=== PATIENT | male | born 1960 | race Caucasian/White ===

== ENCOUNTER 2020-04-14 12:51 | Inpatient (IN) ==
--- OUTSIDE RECORDS SUMMARY | 2020-04-14 12:55 | External Medical Summary | Continuity of Care Document ---
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) Tobacco use (305.1) (Z72.0) Infection of kidney (590.9) (N15.9) Hypertension (401.9) (I10) Diabetic peripheral neuropathy (250.60) (E11.42) Allergies and Adverse Reactions metFORMIN HCl TABS (Allergy) Reaction: D iarrhea Medications Lisinopril 10 MG Oral Tablet; Take 1 tablet daily Vance Sandy Start: 22-Aug-2011 Quantity: 30 Refills: 5 metFORMIN HCl ER 500 MG Oral Tablet Exte nded Release 24 Hour; Take 1 tablet twice daily AYLEEN Sandy Start: 22-Aug-2011 Quantity: 60 Refills: 5 glyBURIDE 5 MG Oral Tablet; TAKE 2 TABLET Twice daily AYLEEN Hawkins Quantity: 120 Refills: 5 Pravastatin Sodium 40 MG Oral Tablet; TAKE 1 TABLET DA LUDIVINA. AYLEEN Sandy Start: 04-Apr-2011 Quantity: 30 Refills: 5 Procedures History of Knee Arthroscopy (Therapeutic) Status: Completed Immunizations Immunizations not documented Family History Mother Family history of Diabetes Mellitus (V18.0) Status: Active Grandmother Family history of Diabetes Mellitus (V18.0) Status: Active Social History - Smoking Status Smokes tobacco daily Plan of Treatment Planned Observations Planned Goals not documented Results No Known Results Results not documented
[2020-04-14] MEDS ORDERED: SODIUM CHLORIDE 0.9% 1000ML 2,000 ML IV ONE (13:49)
[2020-04-14] MEDS ORDERED: ONDANSETRON INJ 2 MG/ML 2 ML VIAL IV STA (13:49)
--- NOTE | 2020-04-14 13:57 | Emergency Department Note ---
Impression & Plan DKA (diabetic ketoacidoses), Elevated troponin, ARIANA (acute kidney injury), Osteomyelitis, Non-ST elevation ME (NSTEMI) ED Provider Note NAME: JOELLE MAYFIELD AGE: 60 SEX: M : 1960 ARRIVES VIA: Ambulance INFORMANT: Patient ED PROVIDER(S): Rodrick Cope DO CHIEF COMPLAINT: Cough elevated blood sugars HPI: Patient is a 60-year-old male who presents to the ER for elevated blood sugars. He notes he is a diabetic with a previous bypass and bilateral below- knee amputations who has had elevated blood sugars all day today. This has been critically high. Patient also admits to a cough that recently started. Recently moved here from [place] has his daughter lives up here. Denies any chest pain or shortness of breath. No nausea, vomiting or diarrhea. No dysuria, urgency or frequency. No other exacerbating or remitting factors. Notes the wound on his right lower extremity is actually improving. ROS: See above HPI for pertinent positives & negatives. A total of 10 systems reviewed and were otherwise negative. PAST MEDICAL HISTORY:See Below PAST SURGICAL HISTORY:See Below FAMILY HISTORY:See Below SOCIAL HISTORY:See Below HOME MEDICATIONS:See Below ALLERGIES:See Below VITALS:See Below PHYSICAL EXAMINATION: GENERAL: Sitting up in bed, alert, well appearing, well nourished, no distress, non-toxic EYE EXAM: normal conjunctiva. OROPHARYNX: no exudate, no erythema, lips, buccal mucosa, and tongue normal and mucous membranes are moist NECK: supple, no nuchal rigidity, no adenopathy, non-tender LUNGS: Clear to auscultation. Normal chest wall mechanics HEART: Tachy, S1 normal and S2 normal ABDOMEN: abdomen soft, non-tender, normo-active bowel sounds, no masses, no rebound or guarding. UPPER EXTREMITIES: upper extremities are grossly normal. LOWER EXTREMITIES: Bilateral BKA's with 4 cm x 2 cm wound on the right anterior aspect of the BKA no surrounding erythema evaluation. NEURO EXAM: Normal sensorium, cranial nerves II-XII grossly intact, normal speech, no gross weakness of arms. MEDICAL DECISION MAKING: Patient is a 60-year-old male who presents the ER for an elevated blood sugar. She has no other complaints at this time. He adamantly denies any chest pain or shortness of breath. He notes the wound on his right lower extremity has been getting better. IV was established blood work was obtained. Labs show no significant leukocytosis. No anemia. Mild thrombocytopenia at 88. VBG with a pH 7.34 and a bicarb of 19. BMP with mild hyponatremia. CO2 and BUN at BMP was 19. Creatinine was 4.8. Patient denies any history of ARIANA. No previous records. Patient was given IV fluids. Ordered Barakat. Glucose was initially 500 and trended down to 3 8:30 units IV and IV fluids. Insulin drip was ordered. Lactate was normal at 1.7. Mag and Phos unremarkable. LFTs were normal. Troponin was elevated at 0.119. Uncertain the true etiology of this. Question if ischemia versus demand. He denies any chest pain or shortness of breath. His EKG does show some mild ST segment elevations in the inferior leads with ST depressions. No old to compare to. Discussed with Dr. Britt who agrees with holding heparin at this time as he is asymptomatic and already has inferior Q waves. Agrees with treatment of DKA. Patient was given additional liter of IV fluids. He was also ordered daptomycin for the x-ray of his right BKA which shows a likely chronic osteo-. Discussed with the hospitalist for further evaluation. Will need to be monitored closely for any additional changes. Triage Nursing notes reviewed. Prior medical records reviewed Vital Signs: reviewed and remarkable for tachy Differential diagnosis: Differential diagnosis includes etiologies such as sepsis, UTI, pneumonia, metabolic, electrolyte abnormalities, cardiac sources, intracerebral event, toxicologic, neurological, as well as others were entertained. ER treatment provided: See below Diagnostics interpreted by me: ECG: Sinus tachycardia rate of 121 Inferior Q waves Mild ST elevations in the inferior leads with ST depressions in the high lateral leads and lateral leads QTC 437 Cardiac Monitoring: An order was placed for continuous cardiac monitoring. The monitor shows a rate of 121 with sinus rhythm. Laboratory studies: As stated above and show below. Imaging studies: X-ray shows questionable osteo- X-ray shows no focal infiltrate of the chest Consultation(s): Discussed with hospitalist for further evaluation Dr. Emily Valadez ED COURSE: Procedures: none Critical Care: I have personally spent 40 minutes of critical care time in the direct management of this patient. This includes bedside care, interpretation of diagnostic studies, and testing, discussion with consultants, patient, and family members, and other required patient management activities. This 40 minutes is in excess of all separately billable procedures. Past Med/Surg History Social History Smoking Status: Current every day smoker Feels Safe at Home: Yes Allergies Allergies Allergy/AdvReac Type Severity Reaction Status Date / Time No Known Allergies Allergy Unverified 04/14/20 15:35 Home Meds Home Medications Medication Instructions Recorded Confirmed Bp Med 1 tab PO UD 04/14/20 04/14/20 Cholesterol Med 1 tab PO DAILY 04/14/20 04/14/20 Diabetic Med 0 mg PO UD 04/14/20 04/14/20 Results & Data (ED) Vital Signs Vital Signs - 24 hr 04/14/20 13:00 04/14/20 13:26 04/14/20 13:30 Temperature 37 C Temperature Source Oral Pulse Rate 120 H 122 H 118 H Pulse Rate from SpO2 Sensor 120 H 118 H Pulse Rhythm Regular Pulse Strength Normal Respiratory Rate 22 20 24 Respiratory Effort / Characteristics Non-Labored Spontaneous Respiratory Depth Normal Respiratory Pattern Regular Blood Pressure 123/69 157/129 H 144/73 H Blood Pressure Mean 75 138 81 Pulse Oximetry 90 98 94 Oxygen Delivery Method Room Air Room Air Room Air Sepsis Recent Fever Within 48 Hours No Sepsis New/Unexplained Change in Mental Status N/A Sepsis Action Taken by Nursing No Action Required 04/14/20 13:59 04/14/20 14:30 04/14/20 15:00 Temperature Temperature Source Pulse Rate 117 H 115 H Pulse Rate from SpO2 Sensor 117 H 115 H Pulse Rhythm Pulse Strength Respiratory Rate 22 24 Respiratory Effort / Characteristics Respiratory Depth Respiratory Pattern Blood Pressure 108/67 129/73 Blood Pressure Mean 78 94 Pulse Oximetry 95 95 94 Oxygen Delivery Method Room Air Sepsis Recent Fever Within 48 Hours Sepsis New/Unexplained Change in Mental Status Sepsis Action Taken by Nursing 04/14/20 15:30 04/14/20 16:00 04/14/20 16:06 Temperature Temperature Source Pulse Rate 114 H 117 H 119 H Pulse Rate from SpO2 Sensor Pulse Rhythm Pulse Strength Respiratory Rate 27 H 31 H 30 H Respiratory Effort / Characteristics Respiratory Depth Respiratory Pattern Blood Pressure 131/75 119/67 Blood Pressure Mean 81 78 Pulse Oximetry Oxygen Delivery Method Sepsis Recent Fever Within 48 Hours Sepsis New/Unexplained Change in Mental Status Sepsis Action Taken by Nursing 04/14/20 16:30 04/14/20 17:00 04/14/20 17:30 Temperature Temperature Source Pulse Rate 115 H 111 H 115 H Pulse Rate from SpO2 Sensor 116 H Pulse Rhythm Pulse Strength Respiratory Rate 27 H 24 24 Respiratory Effort / Characteristics Respiratory Depth Respiratory Pattern Blood Pressure 121/67 119/68 Blood Pressure Mean 82 74 Pulse Oximetry 94 Oxygen Delivery Method Sepsis Recent Fever Within 48 Hours Sepsis New/Unexplained Change in Mental Status Sepsis Action Taken by Nursing Laboratory Data Result diagrams: 04/14/20 14:13 04/14/20 14:13 Lab Results 04/14/20 04/14/20 04/14/20 Range/Units 13:02 14:09 14:09 WBC (4.8-10.8) K/uL RBC (4.7-6.1) M/uL Hgb (14.0-18.0) g/dL POC Hgb (14.0-18.0) g/dl Hct (42-52) % POC Hct (42-52) % MCV (80-100) fL MCH (25-34) pg MCHC (32-36) g/dL RDW Std Deviation (36.4-46.3) fL RDW Coeff of Farooq (11.5-14.5) % Plt Count (130-400) K/uL MPV (7.4-10.4) fL Immature Gran % (Auto) % Neut % (Auto) % Lymph % (Auto) % [place] % (Auto) % Eos % (Auto) % Baso % (Auto) % Neut # (Auto) (1.4-6.5) K/uL Lymph # (Auto) (1.2-3.4) K/uL [place] # (Auto) (0.11-0.59) K/uL Eos # (Auto) (0-0.5) K/uL Baso # (Auto) (0-0.2) K/uL Immature Gran # (Auto) (0.00-0.02) K/uL Platelet Estimate (Normal) ABG pH (7.35-7.45) ABG pCO2 (35-46) mmHg ABG pO2 (80-95) mmHg ABG HCO3 (19-24) mmol/L ABG O2 Saturation (90-95) % ABG Base Excess (-9-1.8) mEq/L Flaco Test (Pos) VBG pH (7.36-7.41) VBG pCO2 (38-50) mmHg VBG pO2 mmHg VBG HCO3 mmol/L VBG O2 Saturation % VBG Base Excess mEq/L Barometric Pressure mm/Hg Oxygen Given POC Sodium (135-144) mmol/L Sodium (136-145) mmol/L POC Potassium (3.3-5.0) mmol/L Potassium (3.5-5.1) mmol/L POC Chloride (101-112) mmol/L Chloride (98-107) mmol/L Carbon Dioxide (21-32) mmol/L POC Total CO2 (24-31) mmol/L Anion Gap (3-11) POC Anion Gap (16-25) mmol/L POC BUN (7-18) mg/dl BUN (7-18) mg/dl Creatinine (0.6-1.4) mg/dl POC Creatinine (0.6-1.3) mg/dl Est Cr Clr Drug Dosing ml/min Est GFR ( Amer) Est GFR (Non-Af Amer) BUN/Creatinine Ratio (10-20) Glucose (70-99) mg/dl POC Glucose 504 H* (70-99) mg/dl POC Glucose (other) (70-99) mg/dl Lactate (0.4-2.0) mmol/L Calcium (8.5-10.1) mg/dl POC Ioniz Calcium Matias (1.12-1.32) mmol/l Total Bilirubin (0.2-1) mg/dl AST (15-37) U/L ALT (12-78) U/L Alkaline Phosphatase (45-117) U/L Troponin I (0-0.045) ng/ml Total Protein (6.4-8.2) gm/dl Albumin (3.4-5.0) gm/dl Globulin (2.5-4.0) gm/dl Albumin/Globulin Ratio (0.9-2) Lipase (73-393) U/L Beta-Hydroxybutyric Acd (0.2-2.81) mg/dl COVID-19 Eval [email or web address] SARS-[facility]-2, RNA, NAAT NEGATIVE (NEGATIVE) 04/14/20 04/14/20 04/14/20 Range/Units 14:13 14:13 14:13 WBC 9.05 (4.8-10.8) K/uL RBC 4.37 L (4.7-6.1) M/uL Hgb 13.1 L (14.0-18.0) g/dL POC Hgb (14.0-18.0) g/dl Hct 38.8 L (42-52) % POC Hct (42-52) % MCV 88.8 (80-100) fL MCH 30.0 (25-34) pg MCHC 33.8 (32-36) g/dL RDW Std Deviation 44.3 (36.4-46.3) fL RDW Coeff of Farooq 13.6 (11.5-14.5) % Plt Count 88 L (130-400) K/uL MPV 13.7 H (7.4-10.4) fL Immature Gran % (Auto) 0.4 % Neut % (Auto) 84.0 % Lymph % (Auto) 7.3 % [place] % (Auto) 8.2 % Eos % (Auto) 0.0 % Baso % (Auto) 0.1 % Neut # (Auto) 7.60 H (1.4-6.5) K/uL Lymph # (Auto) 0.66 L (1.2-3.4) K/uL [place] # (Auto) 0.74 H (0.11-0.59) K/uL Eos # (Auto) 0.00 (0-0.5) K/uL Baso # (Auto) 0.01 (0-0.2) K/uL Immature Gran # (Auto) 0.04 H (0.00-0.02) K/uL Platelet Estimate Decreased L (Normal) ABG pH (7.35-7.45) ABG pCO2 (35-46) mmHg ABG pO2 (80-95) mmHg ABG HCO3 (19-24) mmol/L ABG O2 Saturation (90-95) % ABG Base Excess (-9-1.8) mEq/L Flaco Test (Pos) VBG pH 7.34 L (7.36-7.41) VBG pCO2 36 L (38-50) mmHg VBG pO2 24 mmHg VBG HCO3 19 mmol/L VBG O2 Saturation < 60.0 % VBG Base Excess -6.0 mEq/L Barometric Pressure 733.0 mm/Hg Oxygen Given POC Sodium (135-144) mmol/L Sodium 133 L (136-145) mmol/L POC Potassium (3.3-5.0) mmol/L Potassium 5.0 (3.5-5.1) mmol/L POC Chloride (101-112) mmol/L Chloride 104 (98-107) mmol/L Carbon Dioxide 19 L (21-32) mmol/L POC Total CO2 (24-31) mmol/L Anion Gap 10.0 (3-11) POC Anion Gap (16-25) mmol/L POC BUN (7-18) mg/dl BUN 84 H (7-18) mg/dl Creatinine 4.93 H* (0.6-1.4) mg/dl POC Creatinine (0.6-1.3) mg/dl Est Cr Clr Drug Dosing 18.9 ml/min Est GFR ( Amer) 13.6 Est GFR (Non-Af Amer) 11.8 BUN/Creatinine Ratio 17.0 (10-20) Glucose 461 H* (70-99) mg/dl POC Glucose (70-99) mg/dl POC Glucose (other) (70-99) mg/dl Lactate (0.4-2.0) mmol/L Calcium 8.4 L (8.5-10.1) mg/dl POC Ioniz Calcium Matias (1.12-1.32) mmol/l Total Bilirubin 0.6 (0.2-1) mg/dl AST 59 H (15-37) U/L ALT 38 (12-78) U/L Alkaline Phosphatase 77 (45-117) U/L Troponin I 0.119 H* (0-0.045) ng/ml Total Protein 6.5 (6.4-8.2) gm/dl Albumin 2.5 L (3.4-5.0) gm/dl Globulin 4.0 (2.5-4.0) gm/dl Albumin/Globulin Ratio 0.6 L (0.9-2) Lipase 96 (73-393) U/L Beta-Hydroxybutyric Acd 24.93 H (0.2-2.81) mg/dl COVID-19 Eval Order SARS-CoV-2, RNA, NAAT (NEGATIVE) 04/14/20 04/14/20 04/14/20 Range/Units 14:13 14:13 14:34 WBC (4.8-10.8) K/uL RBC (4.7-6.1) M/uL Hgb (14.0-18.0) g/dL POC Hgb 13.3 L (14.0-18.0) g/dl Hct (42-52) % POC Hct 39 L (42-52) % MCV (80-100) fL MCH (25-34) pg MCHC (32-36) g/dL RDW Std Deviation (36.4-46.3) fL RDW Coeff of Farooq (11.5-14.5) % Plt Count (130-400) K/uL MPV (7.4-10.4) fL Immature Gran % (Auto) % Neut % (Auto) % Lymph % (Auto) % [place] % (Auto) % Eos % (Auto) % Baso % (Auto) % Neut # (Auto) (1.4-6.5) K/uL Lymph # (Auto) (1.2-3.4) K/uL [place] # (Auto) (0.11-0.59) K/uL Eos # (Auto) (0-0.5) K/uL Baso # (Auto) (0-0.2) K/uL Immature Gran # (Auto) (0.00-0.02) K/uL Platelet Estimate (Normal) ABG pH (7.35-7.45) ABG pCO2 (35-46) mmHg ABG pO2 (80-95) mmHg ABG HCO3 (19-24) mmol/L ABG O2 Saturation (90-95) % ABG Base Excess (-9-1.8) mEq/L Flaco Test (Pos) VBG pH (7.36-7.41) VBG pCO2 (38-50) mmHg VBG pO2 mmHg VBG HCO3 mmol/L VBG O2 Saturation % VBG Base Excess mEq/L Barometric Pressure mm/Hg Oxygen Given POC Sodium 132 L (135-144) mmol/L Sodium (136-145) mmol/L POC Potassium 5.0 (3.3-5.0) mmol/L Potassium (3.5-5.1) mmol/L POC Chloride 102 (101-112) mmol/L Chloride (98-107) mmol/L Carbon Dioxide (21-32) mmol/L POC Total CO2 16 L (24-31) mmol/L Anion Gap (3-11) POC Anion Gap 20.0 (16-25) mmol/L POC BUN 86 H (7-18) mg/dl BUN (7-18) mg/dl Creatinine (0.6-1.4) mg/dl POC Creatinine 4.8 H* (0.6-1.3) mg/dl Est Cr Clr Drug Dosing ml/min Est GFR ( Amer) Est GFR (Non-Af Amer) BUN/Creatinine Ratio (10-20) Glucose (70-99) mg/dl POC Glucose (70-99) mg/dl POC Glucose (other) 435 H* (70-99) mg/dl Lactate 1.7 (0.4-2.0) mmol/L Calcium (8.5-10.1) mg/dl POC Ioniz Calcium Matias 1.08 L (1.12-1.32) mmol/l Total Bilirubin (0.2-1) mg/dl AST (15-37) U/L ALT (12-78) U/L Alkaline Phosphatase (45-117) U/L Troponin I (0-0.045) ng/ml Total Protein (6.4-8.2) gm/dl Albumin (3.4-5.0) gm/dl Globulin (2.5-4.0) gm/dl Albumin/Globulin Ratio (0.9-2) Lipase (73-393) U/L Beta-Hydroxybutyric Acd Cancelled (0.2-2.81) mg/dl COVID-19 Eval Order SARS-CoV-2, RNA, NAAT (NEGATIVE) 04/14/20 04/14/20 04/14/20 Range/Units 15:40 16:39 16:40 WBC (4.8-10.8) K/uL RBC (4.7-6.1) M/uL Hgb (14.0-18.0) g/dL POC Hgb (14.0-18.0) g/dl Hct (42-52) % POC Hct (42-52) % MCV (80-100) fL MCH (25-34) pg MCHC (32-36) g/dL RDW Std Deviation (36.4-46.3) fL RDW Coeff of Farooq (11.5-14.5) % Plt Count (130-400) K/uL MPV (7.4-10.4) fL Immature Gran % (Auto) % Neut % (Auto) % Lymph % (Auto) % [place] % (Auto) % Eos % (Auto) % Baso % (Auto) % Neut # (Auto) (1.4-6.5) K/uL Lymph # (Auto) (1.2-3.4) K/uL [place] # (Auto) (0.11-0.59) K/uL Eos # (Auto) (0-0.5) K/uL Baso # (Auto) (0-0.2) K/uL Immature Gran # (Auto) (0.00-0.02) K/uL Platelet Estimate (Normal) ABG pH 7.43 (7.35-7.45) ABG pCO2 28 L (35-46) mmHg ABG pO2 67 L (80-95) mmHg ABG HCO3 18 L (19-24) mmol/L ABG O2 Saturation 93.6 (90-95) % ABG Base Excess -5.4 (-9-1.8) mEq/L Flaco Test Pos (Pos) VBG pH (7.36-7.41) VBG pCO2 (38-50) mmHg VBG pO2 mmHg VBG HCO3 mmol/L VBG O2 Saturation % VBG Base Excess mEq/L Barometric Pressure 739.0 mm/Hg Oxygen Given Room Air POC Sodium (135-144) mmol/L Sodium (136-145) mmol/L POC Potassium (3.3-5.0) mmol/L Potassium (3.5-5.1) mmol/L POC Chloride (101-112) mmol/L Chloride (98-107) mmol/L Carbon Dioxide (21-32) mmol/L POC Total CO2 (24-31) mmol/L Anion Gap (3-11) POC Anion Gap (16-25) mmol/L POC BUN (7-18) mg/dl BUN (7-18) mg/dl Creatinine (0.6-1.4) mg/dl POC Creatinine (0.6-1.3) mg/dl Est Cr Clr Drug Dosing ml/min Est GFR ( Amer) Est GFR (Non-Af Amer) BUN/Creatinine Ratio (10-20) Glucose (70-99) mg/dl POC Glucose 513 H* 336 H* (70-99) mg/dl POC Glucose (other) (70-99) mg/dl Lactate (0.4-2.0) mmol/L Calcium (8.5-10.1) mg/dl POC Ioniz Calcium Matias (1.12-1.32) mmol/l Total Bilirubin (0.2-1) mg/dl AST (15-37) U/L ALT (12-78) U/L Alkaline Phosphatase (45-117) U/L Troponin I (0-0.045) ng/ml Total Protein (6.4-8.2) gm/dl Albumin (3.4-5.0) gm/dl Globulin (2.5-4.0) gm/dl Albumin/Globulin Ratio (0.9-2) Lipase (73-393) U/L Beta-Hydroxybutyric Acd (0.2-2.81) mg/dl COVID-19 Eval Order SARS-CoV-2, RNA, NAAT (NEGATIVE) 04/14/20 Range/Units 17:20 WBC (4.8-10.8) K/uL RBC (4.7-6.1) M/uL Hgb (14.0-18.0) g/dL POC Hgb (14.0-18.0) g/dl Hct (42-52) % POC Hct (42-52) % MCV (80-100) fL MCH (25-34) pg MCHC (32-36) g/dL RDW Std Deviation (36.4-46.3) fL RDW Coeff of Farooq (11.5-14.5) % Plt Count (130-400) K/uL MPV (7.4-10.4) fL Immature Gran % (Auto) % Neut % (Auto) % Lymph % (Auto) % [place] % (Auto) % Eos % (Auto) % Baso % (Auto) % Neut # (Auto) (1.4-6.5) K/uL Lymph # (Auto) (1.2-3.4) K/uL [place] # (Auto) (0.11-0.59) K/uL Eos # (Auto) (0-0.5) K/uL Baso # (Auto) (0-0.2) K/uL Immature Gran # (Auto) (0.00-0.02) K/uL Platelet Estimate (Normal) ABG pH (7.35-7.45) ABG pCO2 (35-46) mmHg ABG pO2 (80-95) mmHg ABG HCO3 (19-24) mmol/L ABG O2 Saturation (90-95) % ABG Base Excess (-9-1.8) mEq/L Flaoc Test (Pos) VBG pH (7.36-7.41) VBG pCO2 (38-50) mmHg VBG pO2 mmHg VBG HCO3 mmol/L VBG O2 Saturation % VBG Base Excess mEq/L Barometric Pressure mm/Hg Oxygen Given POC Sodium (135-144) mmol/L Sodium (136-145) mmol/L POC Potassium (3.3-5.0) mmol/L Potassium (3.5-5.1) mmol/L POC Chloride (101-112) mmol/L Chloride (98-107) mmol/L Carbon Dioxide (21-32) mmol/L POC Total CO2 (24-31) mmol/L Anion Gap (3-11) POC Anion Gap (16-25) mmol/L POC BUN (7-18) mg/dl BUN (7-18) mg/dl Creatinine (0.6-1.4) mg/dl POC Creatinine (0.6-1.3) mg/dl Est Cr Clr Drug Dosing ml/min Est GFR ( Amer) Est GFR (Non-Af Amer) BUN/Creatinine Ratio (10-20) Glucose (70-99) mg/dl POC Glucose 372 H* (70-99) mg/dl POC Glucose (other) (70-99) mg/dl Lactate (0.4-2.0) mmol/L Calcium (8.5-10.1) mg/dl POC Ioniz Calcium Matias (1.12-1.32) mmol/l Total Bilirubin (0.2-1) mg/dl AST (15-37) U/L ALT (12-78) U/L Alkaline Phosphatase (45-117) U/L Troponin I (0-0.045) ng/ml Total Protein (6.4-8.2) gm/dl Albumin (3.4-5.0) gm/dl Globulin (2.5-4.0) gm/dl Albumin/Globulin Ratio (0.9-2) Lipase (73-393) U/L Beta-Hydroxybutyric Acd (0.2-2.81) mg/dl COVID-19 Eval Order SARS-CoV-2, RNA, NAAT (NEGATIVE) Administered Medications Discontinued Medications Aspirin (Aspirin Chew 324 Mg) 324 mg PO NOW STA Stop: 04/14/20 16:05 Last Admin: 04/14/20 17:25 Dose: 324 mg Documented by: [id number] Sodium Chloride (Nss 1000ml) 2,000 mls @ 999 mls/hr IV .Q2H1M ONE Stop: 04/14/20 15:49 Last Infusion: 04/14/20 16:54 Dose: 0 mls/hr Documented by: [id number] Admin: 04/14/20 14:34 Dose: 999 mls/hr Documented by: [id number] Daptomycin 500 mg/ Syringe 10 mls @ 5 mls/min IV NOW ONE; Protocol Stop: 04/14/20 16:40 Last Admin: 04/14/20 17:25 Dose: 5 mls/min Documented by: [id number] Insulin Human Regular (Novolin-R Insulin Per Unit Charge) 8 units IV NOW STA Stop: 04/14/20 14:39 Last Admin: 04/14/20 15:37 Dose: 8 units Documented by: [id number] Cosigned by: [id number] Ondansetron HCl (Ondansetron Inj 2 Mg/Ml 2 Ml Vial) 4 mg IV NOW STA Stop: 04/14/20 13:50 Last Admin: 04/14/20 14:34 Dose: 4 mg Documented by: [id number] Discharge Plan Visit Data Chief Complaint: Hyperglycemia Stated Complaint: Hyperglycemia ED Provider: Rodrick Cope Discharge Problem: DKA (diabetic ketoacidoses), Elevated troponin, ARIANA (acute kidney injury), Osteomyelitis, Non-ST elevation ME (NSTEMI) Forms Stand Alone Forms: [employer] Prescriptions Prescriptions: No Action Bp Med 1 tab PO UD RF: 0 Cholesterol Med 1 tab PO DAILY RF: 0 Diabetic Med 0 mg PO UD RF: 0 Discharge Problem: DKA (diabetic ketoacidoses) Qualifiers: Diabetes mellitus type: other specified (including BABATUNDE) Diabetes mellitus complication detail: without coma Qualified Code(s): E13.10 - Other specified diabetes mellitus with ketoacidosis without coma Osteomyelitis Qualifiers: Osteomyelitis type: unspecified type Laterality: unspecified laterality
--- NOTE | 2020-04-14 14:17 | XRay Report ---
XR chest 1V portable HISTORY: cough COMPARISON: Chest 09/12/2011. FINDINGS: No pneumothorax. No pleural effusions. The heart is normal in size. There are low lung volu mes. Poststernotomy changes. A few bibasilar linear densities favor subsegmental atelectasis or scarr ing. Otherwise, no new focal lung consolidations to suggest pneumonia. Mild diffuse interstitial thic kening, unchanged. This is likely chronic. IMPRESSION: A few bibasilar linear densities favor subsegmental atelectasis or scarring. Otherwise, no new focal lung consolidations to suggest pneumonia. ACT 112: Negative or not required by law. Electronically signed by: Javier Wang M.D. 04/14/2020 2:16 PM
--- NOTE | 2020-04-14 14:20 | XRay Report ---
XR tibia fibula RT 2V HISTORY: 60 years-old Male wound ?oseto chronic wound of the right lower leg with clinical concern f or osteomyelitis COMPARISON: None TECHNIQUE: 2 views of the right tibia and fibula FINDINGS: Postoperative changes of [id number] amputation. Demineralized appearance of the bones. Mild to mo derate patellofemoral with mild medial and lateral compartment osteoarthritis. There is a questioned osteochondral defect with unstable fragment measuring 7 mm involving the lateral aspect of the medial femoral condyle. Arterial calcifications. Soft tissue ulceration at the amputation stump is noted wi th moderate diffuse soft tissue swelling. Cortical and periosteal thickening with mild cortical irreg ularity is noted at the tibial stump. No definite acute osseous erosions identified. Indeterminate ro und lucency involves the anterior cortex of the distal tibia. IMPRESSION: 1. 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 2. Cortical and periosteal thickening with cortical irregularity involves the distal tibia which may reflect sequela of chronic osteomyelitis. No definite osseous erosions to suggest acute osteomyelitis . ACT 112: Negative or not required by law. The above report was generated using voice recognition software. It may contain grammatical, syntax o r spelling errors. Electronically signed by: Javi Bay M.D. 04/14/2020 2:18 PM
[2020-04-14] MEDS ORDERED: NovoLIN-R INSULIN PER UNIT CHARGE IV STA (14:38)
[2020-04-14 14:39] LABS: HCO3 VBG 19 mmol/L; PCO2 VBG 36 mmHg (38-50); PO2 VBG 24 mmHg; pH VBG 7.34 (7.36-7.41)
[2020-04-14 14:40] LABS: Oxygen Saturation VBG < 60.0 %
[2020-04-14 14:47] LABS: iSTAT Creatinine 4.8 mg/dl (0.6-1.3); iSTAT Hemoglobin 13.3 g/dl (14.0-18.0); iSTAT Ionized Calcium 1.08 mmol/l (1.12-1.32)
[2020-04-14 15:09] LABS: Hematocrit (blood only) 38.8 % (42-52); Hemoglobin 13.1 g/dL (14.0-18.0); Mean Corpuscular Hgb Conc 33.8 g/dL (32-36); Mean Corpuscular Volume 88.8 fL (80-100); Mean Platelet Volume 13.7 fL (7.4-10.4); Platelet Count 88 K/uL (130-400); RDW Coefficient of Variation 13.6 % (11.5-14.5); RDW Standard Deviation 44.3 fL (36.4-46.3); Red Blood Count 4.37 M/uL (4.7-6.1); White Blood Count 9.05 K/uL (4.8-10.8)
[2020-04-14 15:10] LABS: Basophils # (auto) 0.01 K/uL (0-0.2); Basophils % (auto) 0.1 %; Immature Granulocytes # (auto) 0.04 K/uL (0.00-0.02); Immature Granulocytes % (auto) 0.4 %; Lymphocytes # (auto) 0.66 K/uL (1.2-3.4); Lymphocytes % (auto) 7.3 %; Monocytes # (auto) 0.74 K/uL (0.11-0.59); Monocytes % (auto) 8.2 %; Platelet Estimate Decreased (Normal)
[2020-04-14 16:00] LABS: Albumin Globulin Ratio 0.6 (0.9-2); Albumin Level 2.5 gm/dl (3.4-5.0); Bilirubin,Total 0.6 mg/dl (0.2-1); Calcium 8.4 mg/dl (8.5-10.1); Creatinine Clr Calc Pharmacy 18.9 ml/min; Est GFR (African American) 13.6; Est GFR (Non-African American) 11.8; Total Protein 6.5 gm/dl (6.4-8.2); Troponin I 0.119 ng/ml (0-0.045)
[2020-04-14] MEDS ORDERED: DEXTROSE 50% 50 ML SYRINGE IV PRN ×2 (16:01→19:31)
[2020-04-14] MEDS ORDERED: GLUCOSE 10 TABS/TUBE PO PRN ×2 (16:01→19:31)
[2020-04-14] MEDS ORDERED: DKA GOAL RANGE 150-250 mg/dl ONE (16:01)
[2020-04-14] MEDS ORDERED: GLUCAGON FOR INJ 1 MG VIAL SQ PRN ×2 (16:01→19:31)
[2020-04-14] MEDS ORDERED: ED DKA INSULIN DRIP ONE (16:01)
[2020-04-14] MEDS ORDERED: CARBOHYDRATES FOR HYPOGLYCEMIA PO PRN ×2 (16:01→19:31)
[2020-04-14] MEDS ORDERED: GLUCOSE 40% GEL 15 GM TUBE PO PRN ×2 (16:01→19:31)
[2020-04-14] MEDS ORDERED: ASPIRIN CHEW 324 MG PO STA (16:04)
[2020-04-14 16:11] LABS: Beta-Hydroxybutyrate 24.93 mg/dl (0.2-2.81)
[2020-04-14] MEDS ORDERED: INSULIN REGULAR 250 UNITS in SODIUM CHLORIDE 0.9% 247.5 ML IV SCH (16:15)
[2020-04-14] MEDS ORDERED: DAPTOmycin 500 MG in SYRINGE 0 ML IV ONE (16:39)
[2020-04-14 16:56] LABS: Base Excess ABG -5.4 mEq/L (-9-1.8); HCO3 ABG 18 mmol/L (19-24); Oxygen Saturation ABG 93.6 % (90-95); PCO2 ABG 28 mmHg (35-46); PO2 ABG 67 mmHg (80-95); pH ABG 7.43 (7.35-7.45)
[2020-04-14 16:57] LABS: Allen Test Pos (Pos)
[2020-04-14] MEDS ORDERED: PHARMACY GLYCEMIC MGMT CONSULT STA (17:02)
--- NOTE | 2020-04-14 17:03 | Electrocardiogram Report ---
Test Reason : Blood Pressure : / mmHG Vent. Rate : 121 BPM Atrial Rate : 121 BPM P-R Int : 178 ms QRS Dur : 098 ms QT Int : 308 ms P-R-T Axes : 053 -13 054 degrees QTc Int : 437 ms Sinus tachycardia Left atrial enlargement Left ventricular hypertrophy Inferior infarct , age undetermined Inferior ST abnormality Abnormal ECG No previous ECGs available Confirmed by Joe Britt ([id number]) on 04/14/2020 5:02:32 PM Referred By: REFERRED SELF Confirmed By:Joe Britt
[2020-04-14] MEDS ORDERED: PIPERACILL/TAZOBAC CONSULT ACTIVE PRN (17:15)
[2020-04-14 17:40] LABS: Magnesium 2.1 mg/dl (1.8-2.4); Phosphorus 2.8 mg/dl (2.5-4.9)
[2020-04-14] MEDS ORDERED: SODIUM CHLORIDE 0.9% 1000ML 1,000 ML IV ONE (17:51)
[2020-04-14 18:03] LABS: Appearance Urine Turbid (Clear); Bacteria Urine Automated Negative (Negative); Bilirubin Urine Negative (Negative); Blood Urine 3+ (Negative); Color Urine Dark Yellow; Epithelial Cell Urine Auto >30 /lpf (0-5); Glucose Urine UA 2+ (Negative); Ketones Urine Trace (Negative); Leukocyte Esterase Urine 3+ (Negative); Nitrite Urine Negative (Negative); Protein Urine 3+ (Negative); Urobilinogen Urine Negative (Negative); WBC Urine Automated >30 /hpf (0-5); pH Urine 5.5 (4.5-7.5)
[2020-04-14 18:19] LABS: Cast Urine Automated 0 /lpf (0-5); RBC Urine Automated 0-4 /hpf (0-4)
--- NOTE | 2020-04-14 18:21 | History & Physical Report ---
Date of Service April 14, 2020 Assessment & Plan (1) Hyperglycemia: Mr. 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 He notes elevated blood sugars today greater than 500 that started today. DKA/HHS clinical picture with appearance of poorly controlled diabetes. -WBC of 9, platelets 88, , Glucose 461, bG values >500, trop 0.119, Beta-OH 24.9, CO2 19, Venous blood gas 7.34, ABG pH 7.43, pCO2 28, pO2 67, ABG HCO3 18. - notes that he takes Lantus 30 units daily with no missed doses or changes in diet or medications to account of increase sugars. - Infection and non-compliance possibly contributing to elevated bsg. Possible source of infection - urinary - cloudy urine in pal bag/soft tissue infection from wound of RLE - Appears to have a compensated mixed gap and non-anion gap metabolic acidosis; Venous blood gas was acidotic and appears to have had the ABG s/p insulin and IVF in ED. - Regular Insulin 8 units given in ED along witih 2L of NSS. - Plan for Pharmacy consult to help with controlling of blood sugars. Will continue with aggressive IVF hydration at 250mL/hr of Normosol. - check labs q4H to monitor progress with treatment and prevent hypokalemia. - UA was not processed for ketones during timing of this note. ARIANA - creatinine 4.93 in ED - Denies hx of dialysis, denies decrease in urine production or not producing urine - Suspect underlying renal chronic disease, but no prior creatinine values available. - A value of 4.93 is concerning and will get Nephrology consult for help with management. - Suspect obvious component of fluid loss through diuresis from elevated sugars leading to volume loss. Osteomyelitis/RLE Wound Patient was unaware of large wound to RLE. Obvious neuropathy in lower extremities. He denies any current treatment of osteomyelitis. - Wound consult appreciated. Wound appears chronic not grossly cellulitic as no significant increase of warmth. Unable to appreciate tenderness as neuropathic. - Cultures of wound - Will continue with Daptomycin since Vancomycin is not safe option with kidney injury. Will add on Zosyn for pseudomonal coverage. - Blood cultures ordered. Xray of RLE showed: 1. Postoperative changes of below the knee amputation with diffuse soft tissue swelling and soft tissue ulceration at the distal amputation stump. 2. Cortical and periosteal thickening with cortical irregularity involves the distal tibia which may reflect sequela of chronic osteomyelitis. No definite osseous erosions to suggest acute osteomyelitis. - Will clinical re-evaluate antibiotics selection as more clinical data is received. Elevated troponin Tachycardic in ED, no signs of acute IL on ECG. 0.119 in ED, will trend Suspect supply demand mismatch ASA 324mg given in ED Cloudy urine appearence of gross infection urine culture empiric antibiotic coverage as above Hx of CABG happened about 2 months ago he reports will get echo as concern over cardiac dysfunction Tobacco user smoking cessation, nicotine patch upon request. Thrombocytopenia Will follow value with considerations that he is on Heparin for DVT ppx. DVT ppx: Heparin Code: DNR/DNI Dispo: PCU tele FENGI: Full Liquids advance as tolerated (2) Normal anion gap metabolic acidosis: (3) ARIANA (acute kidney injury): (4) Osteomyelitis: (5) Elevated troponin: (6) Urine purulent: (7) Hx of CABG: (8) Current smoker: tobacco cessation (9) Thrombocytopenia: History of Present Illness Chief Complaint: Hyperglycemia Primary Care Provider: Vipin La MD History Limited by - Patient is a vague historian. Mr. 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 He notes elevated blood sugars today greater than 500 that started today. He notes he doesn't check his blood sugars on a daily basis and only checked because he generally started not to feel well over the past 2 days. He notes polyuria, polydipsia. He notes he has no hx of dialysis or kidney failure. He denies dysuria or anuric. He denies chest pain, shortness of breath, nausea, vomiting, fever, chills. He notes that he recently relocated to the area from [place] to live with daughter. Unfortunately, he refused contact information. He notes he takes Lantus 30 units qAM and notes he took it this morning. He denies any recent missed doses. He said he had an appt to see provider in area to establish care but has not seen anyone yet. He denies being on oral diabetic medication. He denies any recent illness for cause, denies recent prednisone use, denies changes in diet. He was not aware of a wound to his right lower distal extremity. He also denies being on any current antibiotics or having He notes BKA bilaterally years ago. He notes he had a CABG performed in [place] about 2 months ago. He denies this was an intervention for acute IL. He noted a recent fall upon discussion of abrasions on distal lower extremities but denies any significant injury. In the ED, he had WBC of 9, platelets 88, creatinine 4.93, Glucose 461, bG values >500, trop 0.119, Beta-OH 24.9, CO2 19, Venous blood gas 7.34, ABG pH 7.43, pCO2 28, pO2 67, ABG HCO3 18. Xray of RLE showed: 1. Postoperative changes of below the knee amputation with diffuse soft tissue swelling and soft tissue ulceration at the distal amputation stump. 2. Cortical and periosteal thickening with cortical irregularity involves the distal tibia which may reflect sequela of chronic osteomyelitis. No definite osseous erosions to suggest acute osteomyelitis. In the ED, he was treated with Daptomycin 500mg IV, ASA 324mg PO, Regular Insulin 8 units, zofran 4mg IV, 2L NSS. Allergies Allergy/AdvReac Type Severity Reaction Status Date / Time No Known Allergies Allergy Unverified 04/14/20 15:35 Home Medications Medication Instructions Recorded Confirmed Type Bp Med 1 tab PO UD 04/14/20 04/14/20 History Cholesterol Med 1 tab PO DAILY 04/14/20 04/14/20 History Diabetic Med 0 mg PO UD 04/14/20 04/14/20 History Past Med/Surg History Social History Smoking Status: Current every day smoker Hx Alcohol Use: No Hx Substance Use: No Beliefs That Will Affect Care: None Current Living Situation: Alone Other Information That Helps Us Care for You: No Feels Safe at Home: Yes Safety Concerns: Feels Safe At This Time Review of Systems Review of Systems: All systems reviewed & are unremarkable except as noted in HPI & below Constitutional: + malaise and + increased appetite; no fever and no chills Eyes: no blind spots and no diplopia Ear, Nose, Mouth, Throat: + dry mouth; no nasal obstruction Respiratory: no cough and no dyspnea Cardiovascular: no chest pain and no palpitations Gastrointestinal: no abdominal pain, no nausea, no vomiting and no diarrhea/loose stools Genitourinary: no dysuria and no difficulty urinating Musculoskeletal: no back pain and no neck pain Integumentary: + skin ulcer Neurologic: as per Subjective / HPI Endocrine: + polydipsia and + polyphagia Physical Exam Constitutional: + ill appearing, + obese, cooperative and comfortable; no acute distress Eyes: PERRL, conjunctivae normal, anicteric sclerae ENMT: dry mucous membranes Neck: trachea midline; neck nontender Respiratory: normal respiratory effort, lungs clear to auscultation Cardiovascular: Rate/Rhythm: regular rhythm and + tachycardic Gastrointestinal (Abdomen): Percussion/Palpation: abdomen nontender, no guarding, abdomen not rigid and + abdomen not soft Musculoskeletal: Bilateral BKA with prior amputation of distal digits of right hand. 10cm wound to distal RLE without appreciated increase in warmth with with erythema. Multiple abrasions to LLE that appear more acute. Skin: no rashes, warm and dry Neurologic: moves all extremities and awake Psychiatric: Orientation: alert and oriented x 3 Eye Contact: + fair eye contact Genitourinary: urine pal in place with appearance of cloudy urine Results & Data Results & Data ([facility]) Vital Signs (Past 12 Hours) Vital Signs Temp Pulse Resp BP Pulse Ox 04/14/20 17:30 115 H 24 04/14/20 17:00 111 H 24 119/68 04/14/20 16:30 115 H 27 H 121/67 94 04/14/20 16:06 119 H 30 H 119/67 04/14/20 16:00 117 H 31 H 04/14/20 15:30 114 H 27 H 131/75 04/14/20 15:00 115 H 24 129/73 94 04/14/20 14:30 117 H 22 108/67 95 04/14/20 13:59 95 04/14/20 13:30 118 H 24 144/73 H 94 04/14/20 13:26 37 C 122 H 20 157/129 H 98 04/14/20 13:00 120 H 22 123/69 90 Laboratory Results Laboratory Results - last 24 hr 04/14/20 04/14/20 04/14/20 13:02 14:09 14:09 WBC RBC Hgb POC Hgb Hct POC Hct MCV MCH MCHC RDW Std Deviation RDW Coeff of [place] Plt Count MPV Immature Gran % (Auto) Neut % (Auto) Lymph % (Auto) [place] % (Auto) Eos % (Auto) Baso % (Auto) Neut # (Auto) Lymph # (Auto) [place] # (Auto) Eos # (Auto) Baso # (Auto) Immature Gran # (Auto) Platelet Estimate ABG pH ABG pCO2 ABG pO2 ABG HCO3 ABG O2 Saturation ABG Base Excess Flaco Test VBG pH VBG pCO2 VBG pO2 VBG HCO3 VBG O2 Saturation VBG Base Excess Barometric Pressure Oxygen Given POC Sodium Sodium POC Potassium Potassium POC Chloride Chloride Carbon Dioxide POC Total CO2 Anion Gap POC Anion Gap POC BUN BUN Creatinine POC Creatinine Est Cr Clr Drug Dosing Est GFR ( Amer) Est GFR (Non-Af Amer) BUN/Creatinine Ratio Glucose POC Glucose 504 H* POC Glucose (other) Estimat Average Glucose Hemoglobin A1c Lactate Calcium POC Ioniz Calcium Matias Phosphorus Magnesium Total Bilirubin AST ALT Alkaline Phosphatase Troponin I Total Protein Albumin Globulin Albumin/Globulin Ratio Lipase Beta-Hydroxybutyric Acd Urine Color Urine Appearance Urine pH Ur Specific [place] Urine Protein Urine Glucose (UA) Urine Ketones Urine Blood Urine Nitrite Urine Bilirubin Urine Urobilinogen Ur Leukocyte Esterase Urine WBC (Auto) Urine RBC (Auto) U Hyaline Cast (Auto) U Epithel Cells (Auto) Urine Bacteria (Auto) Urine Yeast Nasal Screen MRSA (PCR) COVID-19 Eval Order Covid19 [facility] SARS-CoV-2, RNA, NAAT NEGATIVE 04/14/20 04/14/20 04/14/20 14:13 14:13 14:13 WBC 9.05 RBC 4.37 L Hgb 13.1 L POC Hgb Hct 38.8 L POC Hct MCV 88.8 MCH 30.0 MCHC 33.8 RDW Std Deviation 44.3 RDW Coeff of [place] 13.6 Plt Count 88 L MPV 13.7 H Immature Gran % (Auto) 0.4 Neut % (Auto) 84.0 Lymph % (Auto) 7.3 [place] % (Auto) 8.2 Eos % (Auto) 0.0 Baso % (Auto) 0.1 Neut # (Auto) 7.60 H Lymph # (Auto) 0.66 L [place] # (Auto) 0.74 H Eos # (Auto) 0.00 Baso # (Auto) 0.01 Immature Gran # (Auto) 0.04 H Platelet Estimate Decreased L ABG pH ABG pCO2 ABG pO2 ABG HCO3 ABG O2 Saturation ABG Base Excess Flaco Test VBG pH 7.34 L VBG pCO2 36 L VBG pO2 24 VBG HCO3 19 VBG O2 Saturation < 60.0 VBG Base Excess -6.0 Barometric Pressure 733.0 Oxygen Given POC Sodium Sodium 133 L POC Potassium Potassium 5.0 POC Chloride Chloride 104 Carbon Dioxide 19 L POC Total CO2 Anion Gap 10.0 POC Anion Gap POC BUN BUN 84 H Creatinine 4.93 H* POC Creatinine Est Cr Clr Drug Dosing 18.9 Est GFR ( Amer) 13.6 Est GFR (Non-Af Amer) 11.8 BUN/Creatinine Ratio 17.0 Glucose 461 H* POC Glucose POC Glucose (other) Estimat Average Glucose Hemoglobin A1c Lactate Calcium 8.4 L POC Ioniz Calcium Matias Phosphorus Magnesium Total Bilirubin 0.6 AST 59 H ALT 38 Alkaline Phosphatase 77 Troponin I 0.119 H* Total Protein 6.5 Albumin 2.5 L Globulin 4.0 Albumin/Globulin Ratio 0.6 L Lipase 96 Beta-Hydroxybutyric Acd 24.93 H Urine Color Urine Appearance Urine pH Ur Specific [place] Urine Protein Urine Glucose (UA) Urine Ketones Urine Blood Urine Nitrite Urine Bilirubin Urine Urobilinogen Ur Leukocyte Esterase Urine WBC (Auto) Urine RBC (Auto) U Hyaline Cast (Auto) U Epithel Cells (Auto) Urine Bacteria (Auto) Urine Yeast Nasal Screen MRSA (PCR) COVID-19 Eval Order SARS-CoV-2, RNA, NAAT 04/14/20 04/14/20 04/14/20 14:13 14:13 14:13 WBC RBC Hgb POC Hgb Hct POC Hct MCV MCH MCHC RDW Std Deviation RDW Coeff of [place] Plt Count MPV Immature Gran % (Auto) Neut % (Auto) Lymph % (Auto) [place] % (Auto) Eos % (Auto) Baso % (Auto) Neut # (Auto) Lymph # (Auto) [place] # (Auto) Eos # (Auto) Baso # (Auto) Immature Gran # (Auto) Platelet Estimate ABG pH ABG pCO2 ABG pO2 ABG HCO3 ABG O2 Saturation ABG Base Excess Flaco Test VBG pH VBG pCO2 VBG pO2 VBG HCO3 VBG O2 Saturation VBG Base Excess Barometric Pressure Oxygen Given POC Sodium Sodium POC Potassium Potassium POC Chloride Chloride Carbon Dioxide POC Total CO2 Anion Gap POC Anion Gap POC BUN BUN Creatinine POC Creatinine Est Cr Clr Drug Dosing Est GFR ( Amer) Est GFR (Non-Af Amer) BUN/Creatinine Ratio Glucose POC Glucose POC Glucose (other) Estimat Average Glucose Pending Hemoglobin A1c Pending Lactate 1.7 Calcium POC Ioniz Calcium Matias Phosphorus 2.8 Magnesium 2.1 Total Bilirubin AST ALT Alkaline Phosphatase Troponin I Total Protein Albumin Globulin Albumin/Globulin Ratio Lipase Beta-Hydroxybutyric Acd Cancelled Urine Color Urine Appearance Urine pH Ur Specific [place] Urine Protein Urine Glucose (UA) Urine Ketones Urine Blood Urine Nitrite Urine Bilirubin Urine Urobilinogen Ur Leukocyte Esterase Urine WBC (Auto) Urine RBC (Auto) U Hyaline Cast (Auto) U Epithel Cells (Auto) Urine Bacteria (Auto) Urine Yeast Nasal Screen MRSA (PCR) COVID-19 Eval Order SARS-CoV-2, RNA, NAAT 04/14/20 04/14/20 04/14/20 14:34 15:40 16:39 WBC RBC Hgb POC Hgb 13.3 L Hct POC Hct 39 L MCV MCH MCHC RDW Std Deviation RDW Coeff of [place] Plt Count MPV Immature Gran % (Auto) Neut % (Auto) Lymph % (Auto) [place] % (Auto) Eos % (Auto) Baso % (Auto) Neut # (Auto) Lymph # (Auto) [place] # (Auto) Eos # (Auto) Baso # (Auto) Immature Gran # (Auto) Platelet Estimate ABG pH 7.43 ABG pCO2 28 L ABG pO2 67 L ABG HCO3 18 L ABG O2 Saturation 93.6 ABG Base Excess -5.4 Flaco Test Pos VBG pH VBG pCO2 VBG pO2 VBG HCO3 VBG O2 Saturation VBG Base Excess Barometric Pressure 739.0 Oxygen Given Room Air POC Sodium 132 L Sodium POC Potassium 5.0 Potassium POC Chloride 102 Chloride Carbon Dioxide POC Total CO2 16 L Anion Gap POC Anion Gap 20.0 POC BUN 86 H BUN Creatinine POC Creatinine 4.8 H* Est Cr Clr Drug Dosing Est GFR ( Amer) Est GFR (Non-Af Amer) BUN/Creatinine Ratio Glucose POC Glucose 513 H* POC Glucose (other) 435 H* Estimat Average Glucose Hemoglobin A1c Lactate Calcium POC Ioniz Calcium Matias 1.08 L Phosphorus Magnesium Total Bilirubin AST ALT Alkaline Phosphatase Troponin I Total Protein Albumin Globulin Albumin/Globulin Ratio Lipase Beta-Hydroxybutyric Acd Urine Color Urine Appearance Urine pH Ur Specific [place] Urine Protein Urine Glucose (UA) Urine Ketones Urine Blood Urine Nitrite Urine Bilirubin Urine Urobilinogen Ur Leukocyte Esterase Urine WBC (Auto) Urine RBC (Auto) U Hyaline Cast (Auto) U Epithel Cells (Auto) Urine Bacteria (Auto) Urine Yeast Nasal Screen MRSA (PCR) COVID-19 Eval Order SARS-CoV-2, RNA, NAAT 04/14/20 04/14/20 04/14/20 16:40 17:20 17:30 WBC RBC Hgb POC Hgb Hct POC Hct MCV MCH MCHC RDW Std Deviation RDW Coeff of [place] Plt Count MPV Immature Gran % (Auto) Neut % (Auto) Lymph % (Auto) [place] % (Auto) Eos % (Auto) Baso % (Auto) Neut # (Auto) Lymph # (Auto) [place] # (Auto) Eos # (Auto) Baso # (Auto) Immature Gran # (Auto) Platelet Estimate ABG pH ABG pCO2 ABG pO2 ABG HCO3 ABG O2 Saturation ABG Base Excess Flaco Test VBG pH VBG pCO2 VBG pO2 VBG HCO3 VBG O2 Saturation VBG Base Excess Barometric Pressure Oxygen Given POC Sodium Sodium POC Potassium Potassium POC Chloride Chloride Carbon Dioxide POC Total CO2 Anion Gap POC Anion Gap POC BUN BUN Creatinine POC Creatinine Est Cr Clr Drug Dosing Est GFR ( Amer) Est GFR (Non-Af Amer) BUN/Creatinine Ratio Glucose POC Glucose 336 H* 372 H* POC Glucose (other) Estimat Average Glucose Hemoglobin A1c Lactate Calcium POC Ioniz Calcium Matias Phosphorus Magnesium Total Bilirubin AST ALT Alkaline Phosphatase Troponin I Total Protein Albumin Globulin Albumin/Globulin Ratio Lipase Beta-Hydroxybutyric Acd Urine Color Dark Yellow Urine Appearance Turbid A Urine pH 5.5 Ur Specific [place] 1.020 Urine Protein 3+ H Urine Glucose (UA) 2+ H Urine Ketones Trace H Urine Blood 3+ H Urine Nitrite Negative Urine Bilirubin Negative Urine Urobilinogen Negative Ur Leukocyte Esterase 3+ H Urine WBC (Auto) >30 H Urine RBC (Auto) 0-4 U Hyaline Cast (Auto) 0 U Epithel Cells (Auto) >30 H Urine Bacteria (Auto) Negative Urine Yeast Budding A Nasal Screen MRSA (PCR) COVID-19 Eval Order SARS-CoV-2, RNA, NAAT 04/14/20 18:00 WBC RBC Hgb POC Hgb Hct POC Hct MCV MCH MCHC RDW Std Deviation RDW Coeff of [place] Plt Count MPV Immature Gran % (Auto) Neut % (Auto) Lymph % (Auto) [place] % (Auto) Eos % (Auto) Baso % (Auto) Neut # (Auto) Lymph # (Auto) [place] # (Auto) Eos # (Auto) Baso # (Auto) Immature Gran # (Auto) Platelet Estimate ABG pH ABG pCO2 ABG pO2 ABG HCO3 ABG O2 Saturation ABG Base Excess Flaco Test VBG pH VBG pCO2 VBG pO2 VBG HCO3 VBG O2 Saturation VBG Base Excess Barometric Pressure Oxygen Given POC Sodium Sodium POC Potassium Potassium POC Chloride Chloride Carbon Dioxide POC Total CO2 Anion Gap POC Anion Gap POC BUN BUN Creatinine POC Creatinine Est Cr Clr Drug Dosing Est GFR ( Amer) Est GFR (Non-Af Amer) BUN/Creatinine Ratio Glucose POC Glucose POC Glucose (other) Estimat Average Glucose Hemoglobin A1c Lactate Calcium POC Ioniz Calcium Matias Phosphorus Magnesium Total Bilirubin AST ALT Alkaline Phosphatase Troponin I Total Protein Albumin Globulin Albumin/Globulin Ratio Lipase Beta-Hydroxybutyric Acd Urine Color Urine Appearance Urine pH Ur Specific [place] Urine Protein Urine Glucose (UA) Urine Ketones Urine Blood Urine Nitrite Urine Bilirubin Urine Urobilinogen Ur Leukocyte Esterase Urine WBC (Auto) Urine RBC (Auto) U Hyaline Cast (Auto) U Epithel Cells (Auto) Urine Bacteria (Auto) Urine Yeast Nasal Screen MRSA (PCR) Pending COVID-19 Eval Order SARS-CoV-2, RNA, NAAT Code Status & VTE Plan VTE Prophylaxis Plan VTE Prophylaxis will be ordered: Yes Supervising Physician Co-Signing Physician Notes Resident Physician Supervision Note: I independently interviewed and examined the patient and verified the mark history and physical, reviewed labs and image studies, discussed the case with the resident Dr. Landeros and agree with the findings and care plan. (1) Osteomyelitis Laterality: unspecified laterality Osteomyelitis type: unspecified type
[2020-04-14] MEDS ORDERED: ONDANSETRON INJ 2 MG/ML 2 ML VIAL IV PRN (19:31)
[2020-04-14] MEDS ORDERED: NITROGLYCERIN SL 0.4 MG/TAB TAB SL PRN (19:31)
[2020-04-14] MEDS ORDERED: PENDING D5 1/2NS+20mEq KCL IVF SCH (19:31)
[2020-04-14] MEDS ORDERED: MELATONIN 3 MG TAB PO PRN (19:31)
[2020-04-14] MEDS ORDERED: PENDING 1/2NSS+20mEq KCL IVF SCH (19:31)
[2020-04-14] MEDS ORDERED: NORMOSOL-R 1,000 ML IV SCH (19:45)
[2020-04-14] MEDS: INSULIN ASPART 100 UNITS/ML 3 ML PEN SC SCH ×2 (19:46→21:03)
[2020-04-14] MEDS ORDERED: PHARMACY GLYCEMIC MGMT CONSULT PRN (19:52)
[2020-04-14] MEDS ORDERED: PIPERACILLIN/TAZOBACTAM 3.375 GM in DEXTROSE 5% 100 ML IV ONE (20:00)
[2020-04-14 21:02] LABS: BUN Creatinine Ratio 16.2 (10-20); Calcium 8.2 mg/dl (8.5-10.1); Est GFR (Non-African American) 10.4; Magnesium 2.1 mg/dl (1.8-2.4); Phosphorus 2.5 mg/dl (2.5-4.9)
[2020-04-14] MEDS: HEPARIN SOD 5,000 UNIT/0.5 ML VIAL SQ SCH (21:04)
[2020-04-14] MEDS: D5W AND 1/2NSS + 20MEQ KCL 20 MEQ/1,000 ML BAG IV SCH (21:30)
[2020-04-14 21:36] LABS: Potassium 3.8 mmol/L (3.5-5.1)
[2020-04-14] MEDS ORDERED: INSULIN GLARGINE SOLOSTAR 100 UNITS/ML 3 ML PEN SC ONE (21:45)
[2020-04-14 23:45] LABS: BUN Creatinine Ratio 16.1 (10-20); Calcium 8.1 mg/dl (8.5-10.1); Creatinine Clr Calc Pharmacy 17.1 ml/min; Est GFR (African American) 12.1; Est GFR (Non-African American) 10.4; Potassium 4.1 mmol/L (3.5-5.1)
[2020-04-15] MEDS ORDERED: INSULIN ASPART 100 UNITS/ML 3 ML PEN SC SCH
[2020-04-15] MEDS ORDERED: INSULIN HUMAN REGULAR PER UNIT 4 UNITS in SYRINGE 3.96 ML IV ONE (03:00)
[2020-04-15] MEDS: D5W AND 1/2NSS + 20MEQ KCL 20 MEQ/1,000 ML BAG IV SCH ×2 (03:14→06:00)
[2020-04-15] MEDS: INSULIN ASPART 100 UNITS/ML 3 ML PEN SC SCH ×6 (03:25→21:23)
[2020-04-15] MEDS: PIPERACILLIN/TAZOBACTAM 3.375 GM in DEXTROSE 5% 100 ML IV SCH ×2 (03:45→16:22)
[2020-04-15 04:24] LABS: INR 1.1 (0.9-1.1); Prothrombin Time 11.9 Seconds (9.0-12.0)
[2020-04-15 04:31] LABS: Potassium 4.2 mmol/L (3.5-5.1)
[2020-04-15 04:43] LABS: BUN Creatinine Ratio 15.5 (10-20); Calcium 7.5 mg/dl (8.5-10.1); Creatinine Clr Calc Pharmacy 16.3 ml/min; Est GFR (African American) 11.5; Est GFR (Non-African American) 9.9; Phosphorus 2.5 mg/dl (2.5-4.9); Troponin I 0.278 ng/ml (0-0.045)
[2020-04-15 05:54] LABS: Estimated Average Glucose 272 mg/dl; Hemoglobin A1C 11.1 % (4.5-5.6)
[2020-04-15] MEDS: HEPARIN SOD 5,000 UNIT/0.5 ML VIAL SQ SCH ×3 (06:01→21:23)
--- NOTE | 2020-04-15 07:19 | Ultrasound Report ---
RENAL ULTRASOUND CLINICAL HISTORY: Acute kidney injury. COMPARISON STUDY: CT of the abdomen and pelvis September 13, 2011. TECHNIQUE: Sonography of the kidneys and the urinary bladder was performed. FINDINGS: The right kidney measures 12.8 x 5.8 x 7 cm and the left measures 12.4 x 7.6 x 4.5 cm. Ther e is moderate renal cortical thinning of both kidneys. There is no hydronephrosis. No urinary calculi are identified. Bladder is suboptimally assessed. The bladder is collapsed containing a Barakat cathet er. IMPRESSION: 1. No hydronephrosis. 2. Moderate bilateral renal cortical thinning. ACT 112: Negative or not required by law. Electronically signed by: Severiano Villanueva M.D. 04/15/2020 7:18 AM
[2020-04-15] MEDS: NORMOSOL-R 1,000 ML IV SCH ×2 (07:52→14:29)
[2020-04-15] MEDS: ASPIRIN 81 MG ECTAB PO SCH (07:53)
[2020-04-15] MEDS: INSULIN GLARGINE SOLOSTAR 100 UNITS/ML 3 ML PEN SC SCH ×2 (08:03→21:22)
[2020-04-15 08:54] LABS: BUN Creatinine Ratio 14.3 (10-20); Calcium 7.9 mg/dl (8.5-10.1); Creatinine Clr Calc Pharmacy 15.4 ml/min; Est GFR (African American) 10.7; Est GFR (Non-African American) 9.3; Potassium 4.4 mmol/L (3.5-5.1)
--- NOTE | 2020-04-15 10:29 | Pharmacy Report ---
Glycemic Control Consultation - Date of Service April 15, 2020 - Scope Scope: Glycemic Pharmacist consulted for glycemic control and to write orders per [facility] inpatient glycemic control protocol. - Objective Weight: 97.3 kg Accuchecks BSG (last 24hrs): 04/14/20 04/14/20 04/14/20 13:02 14:13 14:34 Glucose 461 H* POC Glucose 504 H* POC Glucose (other) 435 H* 04/14/20 04/14/20 04/14/20 15:40 16:40 17:20 Glucose POC Glucose 513 H* 336 H* 372 H* POC Glucose (other) 04/14/20 04/14/20 04/14/20 19:26 20:23 20:35 Glucose 197 H POC Glucose 292 H 244 H POC Glucose (other) 04/14/20 04/14/20 04/15/20 21:25 22:56 02:42 Glucose 181 H POC Glucose 190 H 281 H POC Glucose (other) 04/15/20 04/15/20 04/15/20 03:53 04:14 06:33 Glucose 210 H POC Glucose 233 H 240 H POC Glucose (other) 04/15/20 04/15/20 07:41 07:49 Glucose 211 H POC Glucose 264 H POC Glucose (other) Laboratory Data (last 24hrs): 04/14/20 04/14/20 04/14/20 14:13 14:13 20:23 Potassium 5.0 3.8 D Carbon Dioxide 19 L 20 L Anion Gap 10.0 10.0 Creatinine 4.93 H* 5.46 H* D Est Cr Clr Drug Dosing 18.9 17.0 Beta-Hydroxybutyric Acd 24.93 H Cancelled 04/14/20 04/15/20 04/15/20 22:56 03:53 07:49 Potassium 4.1 4.2 4.4 Carbon Dioxide 21 20 L 20 L Anion Gap 9.0 7.0 8.0 Creatinine 5.45 H* 5.69 H* 6.01 H* D Est Cr Clr Drug Dosing 17.1 16.3 15.4 Beta-Hydroxybutyric Acd HbA1c: Hemoglobin A1c 11.1 % (4.5-5.6) H 04/14/20 14:13 - Recent Pertinent Medications Outpatient Anti-diabetic Regimen: * Lantus 30 units SC qAM * A1c = 11.1% (04/14/2020) Risk Factors for Insulin Resistance: * Infection: * Daptomycin & Zosyn for Osteomyelitis * IVF: * Normosol-R @ 150 cc/hr * Diet: * Clear Liquid - Assessment & Plan Assessment & Plan: ASSESSMENT: * 60 yo M admitted last evening secondary to hyperglycemia. Pharmacy was consulted for inpatient glycemic management. Past medical history is limited but includes insulin-dependent diabetes mellitus, h/o b/l BKA, current everyday smoker, and h/o recent CABG (01/2020). Patient recently moved to the area from [place] to live with is daughter. He admitted to not checking BSGs at home but did because he wasn't feeling well. BSG was > 500 mg/dL which prompted him to come to the ED. * Upon admission, patient was found to have non-anion gap metabolic acidosis: VBG was 7.34, ABG was 7.43/28//18, K was 5.0, SCr was 5.46 w/ eCrCl of 17, AG was 10, serum CO2 was 20, beta-hydroxybutyric acid was 24.93. He was given 2 L NS. BSG upon admission was 504 mg/dL. Patient did report taking his 30 units of Lantus on that morning. He was given an 8 units IV insulin bolus and started on an insulin drip at 10 units/hr as well as D5 1/2NS + 20 KCl at 150 mL/hr. * The insulin drip ran at 10 units/hr from 1826 until 2124 when the patient's BSG was 190 mg/dL. At this time, the insulin drip was placed on hold by the overnight resident and the RN accidently removed the bag and threw it away. The overnight resident then asked the overnight pharmacist to attempt to manage this via basal/bolus insulin. Patient did received 20 units of Lantus last evening and was started on Novolog every 4 hours based on a weight/stress of 2-3. * Patient's AG was 7 this morning and most recent VBG was 7.38. His SCr continues to worsen. His fluids have been changed to Normosol-R at 150 mL/hr but he was still receiving Dextrose fluids without being on the insulin drip. * Fasting BSG was 264 mg/dL today which is uncontrolled. I will start with 30 units of Lantus this AM which matches his home dose and is tighter than wgt/stress of 3. Believe fasting may be artificially elevated secondary to Dextrose fluids running while the drip was off so do not want to be too aggressive. If patient's BSG does not trend downwards at lunchtime, then I will give an additional Lantus dose at that time. * Will tighten correctional/prandial insulin this AM to reflect a wgt/stress of 3 to account for unopposed dextrose running. His goal range was tightened as well. Depending on BSG trends today, this may need adjusted with lunch or dinner. Novolog has been changed to ACHS as patient is on a clear liquid diet. PLAN FOR INPATIENT GLYCEMIC CONTROL: * Basal insulin * Lantus 30 units SQ BID * Bolus insulin * NovoLog per scale ACHS or Q6hrs while NPO * Goal Range: Low 120 mg/dL - High 160 mg/dL * Correction Factor: 15 mg/dL/unit * Nutritional / Prandial insulin per carb ratio of 1 unit per 5 grams CHO consumed * Please note that the plan above was derived based on current level of insulin resistance and hospital stress. These recommendations are appropriate for inpatient admission only. Plan of care upon discharge will need to be reassessed to avoid potential outpatient hypo/hyperglycemia. Thank you.
--- NOTE | 2020-04-15 10:33 | Hospitalist Progress Note ---
Date of Service April 15, 2020 Assessment & Plan (1) Hyperglycemia: Mr. Abdulkadir Romero is a 60 y/o male with past medical hx of CABG (01/2020), Insulin dependent diabetes, PVD, bilateral BKA, current smoker who presents to [facility] for CC of Hyperglycemia. He notes elevated blood sugars today greater than 500 that started on day of admission. Diabetic Ketoacidosis/HHS - DKA/HHS clinical picture with appearance of poorly controlled diabetes. - notes that he takes Levemir 30 units daily with no missed doses or changes in diet or medications to account of increase sugars. - Possible source of infection leading to elevated sugars include UTI or soft tissue infection/osteomyelitis from RLE - Regular Insulin 8 units given in ED along with 2L of NSS. - Patient with mixed ?anion-gap and non-anion gap metabolic acidosis considering the respiratory compensation - Pharmacy consulted for assistance in regards to blood sugar control - BMP monitored q4h - Patient started on aggressive IVF Hydration with 250ml/hr Normosol, transitioned to D5W 1/2NSS +20KCl 150ml/hr to Normosol 150ml/hr. - As sugars are better controlled at this point on subcutaneous Lantus and Novolog SSI and patient eating and drinking, IVF discontinued. - Hold patients home Levemir while inpatient ARIANA with possible underlying ckd - creatinine 4.93 in ED - Denies hx of dialysis, denies decrease in urine production or not producing urine - Suspect underlying renal chronic disease, but no prior creatinine values available. - Suspect obvious component of fluid loss through diuresis from elevated sugars leading to volume loss. - Creatinine higher today. - Nephro consulted - continue aggressive hydration. If UO continues to be low - give dose of diuretic. - Barakat for UO monitoring Osteomyelitis/RLE Wound Patient was unaware of large wound to RLE. Obvious neuropathy in lower extremities. He denies any current treatment of osteomyelitis. - Wound consult appreciated. Wound appears chronic not grossly cellulitic as no significant increase of warmth. Unable to appreciate tenderness as neuropathic. - Cultures of wound - Will continue with Daptomycin since Vancomycin is not safe option with kidney injury. Will add on Zosyn for pseudomonal coverage. - Blood cultures ordered. - XR RLE and LLE concerning for chronic osteomyelitis - Discussed with Ortho Lai Jones in regards to consult vs recommendations, recommended B/L MRI's at this time as patient may be a candidate for usp IV antibiotic therapy vs acute need for debridement. - MRI LE b/l pending Cloudy urine -?UTI as initial source of patients elevated sugars -Urine culture pending -UA dirty with 3+ Blood, 3+ LE, Budding yeast, though with significant epithelial cells -Empiric coverage with Daptomycin and Zosyn as above Hypertension -Continue home Amlodipine 10mg qAM -Continue home Metoprolol Succinate 25mg qAM -Will hold Entresto 49-51mg BID at this time for current ARIANA Elevated troponin -Tachycardic in ED, no signs of acute KS on ECG. -ASA 324mg given in ED -Troponin 0.119 in ED -->0.206 --> 0.278, suspect at zenith and will stop trending as no chest pain -Suspect supply demand mismatch Hx of CABG -CABG occurring in January 2017 -Echo showing EF 45-50% with LVSF borderline reduced and borderline global hypokinesis of the L ventricle -Continue ASA -Continue home Atorvastatin -Continue Metoprolol Succinate Tobacco user -smoking cessation, nicotine patch upon request. Thrombocytopenia -Continue to follow value with considerations that he is on Heparin for DVT ppx. Social Management -Patient recently moved [place] from a SNF ([facility] [phone]) around 04/01/20 -Currently Lives at [facility] -From reports, patient was having significant difficulties living at [facility] as it is more of an independent living situation and patient requires greater care -Patients Daughter Tegan Aretaga ([phone]) is contact in the area -Case management assisting in gathering patients information from prior SNF -Discovered that patient follows with Dr. Ohara as PCP outpatient, discussed with [facility] team and will transfer care over to their service. DVT ppx: Heparin Code: DNR/DNI Dispo: PCU tele FENGI: DM2 Diet, HH (2) Normal anion gap metabolic acidosis: (3) ARIANA (acute kidney injury): (4) Osteomyelitis: (5) Elevated troponin: (6) Urine purulent: (7) Hx of CABG: (8) Current smoker: (9) Thrombocytopenia: Admission and Anticipated Discharge Date Admission Date: April 14, 2020 Supervising Physician Co-Signing Physician Notes Resident Physician Supervision Note: I independently interviewed and examined the patient and verified the mark history and physical, reviewed labs and image studies, discussed the case with the resident Dr. Aviles and agree with the findings and care plan. Transfer patient to [facility] Hospitalist service as PCP with [facility] [place] [place] Subjective Patient evaluated at the bedside this morning. He notes that he is feeling much better today and was quite talkative. States that he is not having any chest pain, chest pressure, shortness of breath, fevers, chills, abdominal pain. Denies any LE pain, but states he does still have some sensation to touch. Review of Systems Constitutional: + weakness; no fever and no chills Eyes: no worsening vision Ear, Nose, Mouth, Throat: no dizziness Respiratory: no cough, no dyspnea and no pain on inspiration Cardiovascular: no chest pain, no dyspnea, no dyspnea on exertion, no palpitations and no edema Gastrointestinal: no abdominal pain, no nausea, no vomiting and no constipation Genitourinary: no dysuria and no difficulty urinating Musculoskeletal: no back pain Integumentary: + non-healing lesions, + sores and + wounds Neurologic: no headache(s) Physical Exam Constitutional: + well hydrated, + obese, + physical limitations, cooperative and comfortable; no acute distress and not ill appearing Eyes: PERRL, conjunctivae normal, anicteric sclerae normal visual milner by confrontation ENMT: external ear and nose normal, oropharynx normal Neck: trachea midline, no thyromegaly Respiratory: normal respiratory effort; no respiratory distress, no labored breathing and no cough Auscultation: lungs clear to auscultation bilaterally and + diminished lung sounds (at bases ) Cardiovascular: Rate/Rhythm: regular rate and regular rhythm Heart Sounds: normal S1 and normal S2 Vessels: no JVD Gastrointestinal (Abdomen): normal bowel sounds, soft, nontender, no hepatosplenomegaly Musculoskeletal: B/L BTK amputations with ulcerations bilaterally RLE stump with roughly 10cm wound and ulceration, mild erythema surrounding LLE multiple abrasions Amputation of distal digits of the R hand Neurologic: PERRL, EOMI, accommodation nl, no face palsy, no dysarthria Psychiatric: A+Ox3, euthymic affect Results & Data Results & Data ([facility]) Vital Signs (Past 12 Hours) Vital Signs Temp Pulse Pulse Resp BP Pulse Ox 04/15/20 08:38 93 H 04/15/20 08:36 36.5 C 99 H 18 110/69 96 04/15/20 03:47 37.1 C 101 H 18 127/70 93 04/14/20 23:59 111 H 04/14/20 23:32 38 C H 112 H 18 116/66 91 Resident Activity Tracking Resident Involvement: Resident Care Provided Care Provided: Adult Hospital Medicine (1) Osteomyelitis Laterality: unspecified laterality Osteomyelitis type: unspecified type
[2020-04-15 11:56] LABS: Calcium 7.6 mg/dl (8.5-10.1); Creatinine Clr Calc Pharmacy 15.6 ml/min; Est GFR (African American) 10.9; Est GFR (Non-African American) 9.4; Potassium 3.8 mmol/L (3.5-5.1)
--- NOTE | 2020-04-15 12:28 | Nephrology Consultation ---
Date of Consultation April 15, 2020 Assessment & Plan (1) ARIANA (acute kidney injury): 60-year-old male with history of poorly controlled diabetes with multiple complication, hypertension, coronary artery disease admitted with DKA and found to have ARIANA with non gap metabolic acidosis. Although no prior record available it is quite possible that patient has underlying advanced CKD in the setting of multiple risk factors. Acute kidney injury could be related to volume depletion in the setting of DKA however unclear how far off the current creatinine from his baseline. --okay to continue on IV fluid for now however as urine output has been low, need to monitor volume status and respiratory status closely. If urine output remains low, may need to discontinue IV fluid. use IV Bumex 4 mg x1 dose if urine output remains low and any sign of volume overload. --it would be helpful to get some old records from [place] if possible --as kidney function persistently worsening and urine output remained low, high risk for progressive worsening of renal function. Had detailed discussion with patient regarding possibility for dialysis. Patient reports that he had a roommate previously at a retirement was a dialysis patient and he may decision not to ever consider dialysis. If urine output remains low, renal function progressively worsened, developed electrolyte abnormality or respiratory distress, patient decided not to consider dialysis. We will continue with conservative management only. Will follow. Thank you for allowing me to participate in your patient's care. It was a pleasure to see Abdulkadir. (2) DKA (diabetic ketoacidoses): (3) Normal anion gap metabolic acidosis: (4) Current smoker: History of Present Illness Reason for Consultation: acute kidney injury and electrolyte abnormality. Attending Physician: Marline Yousif MD History of Present Illness Abdulkadir Romero is a 60-year-old gentlemen with past medical history significant for hypertension, diabetes, coronary artery disease and CKD admitted to the hospital with persistent hyperglycemia and DKA. nephrology consult was requested to manage AK I with electrolyte abnormality. Electronic medical records are reviewed in detail during patient's visit. Abdulkadir presented to the hospital yesterday with persistently elevated blood sugar at home and admitted with DKA. He reports taking his insulin as prescribed however admits some dietary noncompliance. He has been getting IV normal saline since admission. on admission he was found to have ARIANA with creatinine 4.6 which progressively worsened to 5.7 this morning. Has non gap metabolic acidosis. Urinalysis showed 3+ proteinuria and 3.5+ hematuria with no RBCs on H PF. CPK was around 3500. renal ultrasound showed bilateral echogenic kidneys but no hydronephrosis. He reports normal voiding at home however since admission his urine output has been low. He was also found to have elevated troponin. He recently moved to [place] from [place] to be close to his daughter. No prior records available in our system. Patient reports following with a disability benefits specialist for quite some time but does not know much about his kidney function. has diabetes for more than 30 years, seems to be poorly controlled with many different complication including micro and macrovascular disease. 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 Had CABG in January 2020. active smoker, more than 50 year history of smoking 2 packs per day. Could not provide much information about his medication however reports being on diuretics. family history significant for hypertension diabetes but unknown any chronic kidney disease or end-stage renal disease. Appetite has been decent. denies shortness of breath, chest pain, fever or chills. Allergies Allergy/AdvReac Type Severity Reaction Status Date / Time No Known Allergies Allergy Unverified 04/14/20 15:35 Home Medications Medication Instructions Recorded Confirmed Type Bp Med 1 tab PO UD 04/14/20 04/14/20 History Cholesterol Med 1 tab PO DAILY 04/14/20 04/14/20 History Diabetic Med 0 mg PO UD 04/14/20 04/14/20 History Patient History Social History Smoking Status: Current every day smoker Hx Alcohol Use: No Hx Substance Use: No Beliefs That Will Affect Care: None Current Living Situation: Alone Other Information That Helps Us Care for You: No Feels Safe at Home: Yes Safety Concerns: Feels Safe At This Time Review of Systems Review of Systems: All systems reviewed & are unremarkable except as noted in HPI & below Physical Exam Constitutional: WD/WN, vitals as above well developed and well nourished; no acute distress Eyes: PERRL, conjunctivae normal, anicteric sclerae ENMT: external ear and nose normal, oropharynx normal Ears: no hearing impairment Neck: trachea midline Respiratory: normal respiratory effort, lungs clear to auscultation no cough Auscultation: no crackles, no rales and no wheezes Cardiovascular: RRR, no murmur, no edema Gastrointestinal (Abdomen): normal bowel sounds, soft, nontender, no hepatosplenomegaly Percussion/Palpation: abdomen nontender, no guarding and abdomen not rigid Musculoskeletal: Gait: normal gait bilateral BKA, amputation of fingers in right hand Skin: no rashes, warm and dry + scar (healed sternotomy scar) Neurologic: moves all extremities and awake Psychiatric: A+Ox3, euthymic affect Results & Data ([facility]) Vital Signs (Past 12 Hours) Vital Signs Temp Pulse Pulse Resp BP Pulse Ox 04/15/20 10:59 36.9 C 95 H 18 126/70 97 04/15/20 08:38 93 H 04/15/20 08:36 36.5 C 99 H 18 110/69 96 04/15/20 03:47 37.1 C 101 H 18 127/70 93 PG Care Time/CCT Total # of Minutes Spent Total Time Spent with Patient: Total time spent is greater than 50% in coordination of care (as documented) at patient's floor/unit and/or counseling patient: Coding Level of Care Code 03845 Inpt Consult Level 5 Diagnoses ARIANA (acute kidney injury) N17.9 DKA (diabetic ketoacidoses) E13.10 Diabetes mellitus complication detail: without coma Diabetes mellitus type: other specified (including BABATUNDE) Normal anion gap metabolic acidosis E87.2 Current smoker F17.200 (1) DKA (diabetic ketoacidoses) Diabetes mellitus complication detail: without coma Diabetes mellitus type: other specified (including BABATUNDE) Qualified Code(s): E13.10 - Other specified diabetes mellitus with ketoacidosis without coma
--- NOTE | 2020-04-15 14:27 | XCELERA ---
[id number]
--- NOTE | 2020-04-15 15:44 | XRay Report ---
XR knee LT 1 or 2V routine CLINICAL HISTORY: Ulceration, ?osteo COMPARISON: Left femur radiographs June 05, 2014. FINDINGS: Irregular and postoperative findings within the left medial femoral condyle are unchanged s sunitha exam of June 05, 2014. There is no evidence for a left knee joint effusion. Extensive vascular calcification is noted. Note is made of a left below knee amputation. There is periosteal reaction a long the distal remaining portions of the left tibia and fibula. No acute fracture is identified. IMPRESSION: Status post left below knee amputation. No definitive bony destruction however periosteal reaction of the distal remaining portions of the left tibia and fibula is a nonspecific finding whic h can be seen in the setting of osteomyelitis. ACT 112: Negative or not required by law. Electronically signed by: Severiano Villanueva M.D. 04/15/2020 3:43 PM
[2020-04-15 15:46] LABS: BUN Creatinine Ratio 14.7 (10-20); Calcium 7.9 mg/dl (8.5-10.1); Creatinine Clr Calc Pharmacy 15.4 ml/min; Est GFR (African American) 10.7; Est GFR (Non-African American) 9.3
--- NOTE | 2020-04-15 16:58 | XRay Report ---
XR orbits for MRI HISTORY: 60 years-old Male Screening for foreign body for MRI screening study for foreign body COMPARISON: None TECHNIQUE: 3 views of the orbits FINDINGS: No opaque foreign body of the orbits. Partial opacification of the maxillary and ethmoid sinuses. The frontal sinuses mastoid air cells are generally clear. No acute facial bone fracture. The patient ap pears to be edentulous. IMPRESSION: No opaque foreign body of the orbits. ACT 112: Negative or not required by law. The above report was generated using voice recognition software. It may contain grammatical, syntax o r spelling errors. Electronically signed by: Javi Bay M.D. 04/15/2020 4:57 PM
--- NOTE | 2020-04-15 18:26 | Magnetic Resonance Report ---
MRI OF THE RIGHT TIBIA AND FIBULA WITHOUT IV CONTRAST CLINICAL HISTORY: Chronic osteomyelitis. Wound. COMPARISON STUDY: Radiographs of the right tibia and fibula dated 04/14/2020. TECHNIQUE: MRI of the right tibia and fibula is performed utilizing various T1 and T2-weighted sequen efren in the axial, sagittal, and coronal planes. IV contrast was not administered for this examination . The examination is compromised by motion artifact. FINDINGS: There has been amputation of the right lower extremity through the proximal tibial and fibu lar shafts. A cutaneous wound is suggested overlying the resection site. There is marrow edema identi fied within the tibial shaft at the resection site with corresponding drop in signal on the T1-weight ed sequences and overlying cortical destruction. This is highly suggestive of osteomyelitis. There is overlying soft tissue edema and trace subcutaneous fluid. No organized fluid collection is seen to s uggest abscess. No marrow signal abnormality is identified in the fibula. The visualized distal femur appears intact. There is generalized myositis of the visualized calf musculature with surrounding so ft tissue edema. The knee joint is intact as visualized. There is a small joint effusion. The cruciat e ligaments and menisci are intact as imaged. IMPRESSION: 1. There is postoperative change from right lower extremity amputation through the proximal tibial an d fibular shaft. 2. Findings are highly suggestive of osteomyelitis of the tibial shaft at the resection site with althea dence of overlying wound. 3. There is evidence of cellulitis and generalized myositis within the right lower extremity soft tis sues. 4. No organized fluid collection is seen to suggest abscess. Dictated: 04/15/2020 5:51 PM Transcribed: 04/15/2020 6:18 PM Beti [id number] [id number] Electronically signed by: Derick Lanier M.D. 04/15/2020 6:25 PM
--- NOTE | 2020-04-15 20:32 | Magnetic Resonance Report ---
MRI OF THE LEFT TIBIA AND FIBULA WITHOUT IV CONTRAST CLINICAL HISTORY: Chronic osteomyelitis. Diabetic neuropathy. COMPARISON STUDY: Radiographs of the left knee dated 04/15/2020. TECHNIQUE: MRI of the left tibia and fibula is performed utilizing various T1- and T2-weighted sequen efren in the axial, sagittal, and coronal planes. IV contrast was not administered for this examination . FINDINGS: There has been left lower extremity amputation through the proximal shaft of the tibia and fibula. Normal marrow signal intensity is maintained throughout the remaining tibia and fibula. There is no MRI evidence of osteomyelitis. Soft tissue thickening is seen at the resection site. Question an ulceration at this site. No organized fluid collection is seen to indicate abscess. There is mild myositis and atrophy of the regional musculature. There is a small to moderate joint effusion of the left knee. Postoperative change is seen along the medial femoral condyle. The cruciate ligaments appe ar intact. Medial meniscal tear is noted. IMPRESSION: 1. There has been amputation of the left lower extremity through the proximal tibial and fibular shaf ts. 2. There is no MRI evidence of osteomyelitis of the remaining left tibia or fibula. 3. Question ulceration with surrounding soft tissue edema in the soft tissues near the resection site . Correlate clinically for evidence of cellulitis. 4. There is no organized fluid collection to suggest abscess. 5. There is atrophy and myositis of the regional musculature. Dictated: 04/15/2020 7:35 PM Transcribed: 04/15/2020 8:20 PM Tracey [id number] [facility] Electronically signed by: Derick Lanier M.D. 04/15/2020 8:31 PM
[2020-04-16] MEDS ORDERED: INSULIN ASPART 100 UNITS/ML 3 ML PEN SC SCH
[2020-04-16] MEDS: PIPERACILLIN/TAZOBACTAM 3.375 GM in DEXTROSE 5% 100 ML IV SCH ×2 (04:29→17:48)
[2020-04-16] MEDS: HEPARIN SOD 5,000 UNIT/0.5 ML VIAL SQ SCH ×3 (06:28→21:16)
[2020-04-16 08:35] LABS: Albumin Level 1.8 gm/dl (3.4-5.0); BUN Creatinine Ratio 13.7 (10-20); Calcium 7.9 mg/dl (8.5-10.1); Creatinine Clr Calc Pharmacy 13.9 ml/min; Est GFR (African American) 9.3; Est GFR (Non-African American) 8.1; Phosphorus 3.3 mg/dl (2.5-4.9)
[2020-04-16] MEDS: INSULIN ASPART 100 UNITS/ML 3 ML PEN SC SCH ×4 (08:47→21:53)
[2020-04-16] MEDS: ASPIRIN 81 MG ECTAB PO SCH (08:48)
[2020-04-16] MEDS: METOPROLOL SUCC 25MG EXT REL TAB PO SCH (08:48)
[2020-04-16] MEDS: amLODIPine BESYLATE 5 MG TAB PO SCH (08:49)
[2020-04-16] MEDS: FENOFIBRATE NANOCRYSTALLIZED 145 MG TABLET PO SCH (08:49)
[2020-04-16] MEDS: INSULIN GLARGINE SOLOSTAR 100 UNITS/ML 3 ML PEN SC SCH (08:50)
[2020-04-16] MEDS ORDERED: ATORVASTATIN 40 MG TAB PO SCH (09:00)
--- NOTE | 2020-04-16 10:52 | Nephrology Progress Note ---
Date of Service April 16, 2020 Assessment & Plan (1) ARIANA (acute kidney injury): 60-year-old male with history of poorly controlled diabetes with multiple complication, hypertension, coronary artery disease admitted with DKA and found to have ARIANA with non gap metabolic acidosis. Although no prior record available it is quite possible that patient has underlying advanced CKD in the setting of multiple risk factors. Acute kidney injury could be related to volume depletion in the setting of DKA however unclear how far off the current creatinine from his baseline. Continued worsening of renal function, UO improved but still low. Respiratory status acceptable.. --start NaBicarb 650 mg BID --low K diet --Bumex 2 mg IV as needed for Respiratory distress --check PTH --although yesterday pt mentioned that he will not consider DIETICIAN but seems to have changed his mind and not absolutely sure about the decision. Will continue to monitor closely for now. Will follow. (2) DKA (diabetic ketoacidoses): (3) Normal anion gap metabolic acidosis: (4) Current smoker: Admission and Anticipated Discharge Date Admission Date: April 14, 2020 Subjective Vivek was seen and examined this morning. Overall feeling better, appetite has been good. UO slightly improved. BP well controlled. Renal function continues to worsen with metabolic acidosis. Review of Systems Review of Systems: All systems reviewed & are unremarkable except as noted in Subjective Physical Exam Constitutional: WD/WN, vitals as above no acute distress Respiratory: Auscultation: + crackles Cardiovascular: RRR, no murmur, no edema Skin: no rashes, warm and dry + scar (healed sternotomy scar) Neurologic: moves all extremities and awake Psychiatric: A+Ox3, euthymic affect Results & Data ([facility]) Vital Signs (Past 12 Hours) Vital Signs Temp Pulse Pulse Resp BP Pulse Ox 04/16/20 08:00 91 H 04/16/20 07:18 36.7 C 86 19 105/63 93 04/16/20 03:53 36.7 C 85 20 120/73 98 04/15/20 23:34 36.8 C 92 H 18 121/78 96 PG Care Time/CCT Total # of Minutes Spent Total Time Spent with Patient: Total time spent is greater than 50% in coordination of care (as documented) at patient's floor/unit and/or counseling patient: Coding Level of Care Code 31403 Subseq Hosp Care Lvl 3 Diagnoses ARIANA (acute kidney injury) N17.9 DKA (diabetic ketoacidoses) E13.10 Diabetes mellitus complication detail: without coma Diabetes mellitus type: other specified (including BABATUNDE) Normal anion gap metabolic acidosis E87.2 Current smoker F17.200 (1) DKA (diabetic ketoacidoses) Diabetes mellitus complication detail: without coma Diabetes mellitus type: other specified (including BABATUNDE) Qualified Code(s): E13.10 - Other specified diabetes mellitus with ketoacidosis without coma
[2020-04-16] MEDS: SODIUM BICARBONATE 650 MG TAB PO SCH ×2 (12:07→21:15)
--- NOTE | 2020-04-16 13:02 | Hospitalist Progress Note ---
Date of Service April 16, 2020 Assessment & Plan (1) Acute renal failure (ARF): Unknown baseline kidney function which is likely progressed and very poor. Proteinuria present. Nephrology performing workup, treating acidosis with bicarbonate. Discussion around hemodialysis is ongoing with patient reporting he doesn't want this to me today. He states he is resigned to at any time and verbalized an understanding that without dialysis, he can build up toxic metabolites in his body which could be fatal. (2) Osteomyelitis: Empirically covered with Dapto and Zosyn. Consulting ID and Ortho to address RLE wound. Holding statin and fenodibrate. Blood cultures are pending. (3) DKA (diabetic ketoacidoses): Initially presented in DKA with presumed infection as cause of hyperglycemia. Mediation noncompliance is also very probable. Patient has uncontrolled A1C at baseline. RLE osteo. Indwelling pal catheter with yeast in UA but no bacteruria, therefore, no urine culture performed. He remains euglycemic with the help of glycemic pharmacy management and sugars are controlled. Ortho and ID will be consulted for help with RLE infection for further source control. Patient is not septic at this time. (4) Ischemic cardiomyopathy: EF 45%, appears compensated at this time. Not very active as a bilateral amputee without prosthetics and with a RLE wound. (5) Hx of CABG: CAD with h/o CABG, 2017 performed at a hospital in [facility]. Cardiac arrest reported leading to digital ischemia and amputation of distal fingers of right hand. Smoker. No evidence of ACS with elevated trop thought 2/2 demand ischemia on admission in setting of DKA. Cont medical management of CAD with statin and fenofibrate on hold in setting of Daptomycin use. (6) S/P bilateral BKA (below knee amputation): Pt reports having had multiple revision surgeries over the years and is a long standing uncontrolled diabetic smoker. (7) Thrombocytopenia: Improving. Some ecchymosis present on glutes around rectal wound per pictures, but has no other overt bleeding. Cont to monitor. (8) Current smoker: Encouraged to quit. He declines nicotine patch and states he can quit without help if he decides to. (9) DVT prophylaxis: Heparin DNR/DNI Dispo-cont PCU monitoring. Uncertain at this time. He has a wound on his rectum that precludes him sitting in his power chair, and cannot get around without this. Need to also address his kidney function this admission, considering dialysis. Finally we are addressing his RLE wound which is clearly infected and may have been the cause of his DKA in addition to noncompliance. Diabetic nurse educator informs me that he doesn't have insurance to pay for insulin, so she is looking into low budget alternatives for this and supplies. Pt recently moved to the area from [place] and lives alone independently. He has established care with Dr. Ohara of [facility]. Will need close follow-up after discharge from this hospitalization. Pallavi Sparks DO [facility] Hospitalist Admission and Anticipated Discharge Date Admission Date: April 14, 2020 Subjective CC: hyperglycemia 60 yo smoker with uncontrolled DM, extensive atherosclerotic disease, s/p bilateral BKA who presented with hyperglycemia -patient reports he was incorrectly administering insulin to himself for the past 2 weeks resulting in high sugars -recently moved from [place] from [facility] situation into independent living. -ambulates in a power chair and reports a wound on his rectum which is painful, improved since wound care this admission. -states he can't go home until he can get around in this chair -reports to me that he won't consider HD as an option and verbalizes understanding the risk of associated with this -reports his power chair rubs against R stump area-discussed ?osteo in R stump area, some pain and irritation here. Open wound present on exam. -denies CP, SOB, nausea, or other symptoms today except some explosive BMs recently -tolerating PO, afebrile -oxygenating well on room air. Review of Systems Review of Systems: All systems reviewed & are unremarkable except as noted in Subjective Physical Exam Physical Exam: CONSTITUTIONAL: WNWD, vitals as above, generally well- appearing EYES: normal conjunctivae, no scleral icterus ENT: external ear and nose normal, MMM RESPIRATORY: clear to auscultation bilaterally, no crackles, rales or wheezes, normal respiratory effort CARDIOVASCULAR: regular rate and rhythm, S1 and 2 heard without murmurs, gallops or rubs, no JVD, bilateral BKA, R hand s/p distal multidigit amputation. GASTROINTESTINAL: normal bowel sounds, soft, nontender, nondistended MUSCULOSKELETAL: strength 5/5 throughout, head is normocephalic and atraumatic SKIN: warm and dry, open draining wound of serous material on end of R leg. Aquacel in place. Wound on rectum-patient declined exam of this area. NEUROLOGIC:No facial palsy, no dysarthria. N 2-12 grossly intact, normal cognition, normal speech, no tremor. No gross focal deficits. PSYCHIATRIC: alert cooperative and oriented to person, place and time. Results & Data Results [facility]) Vital Signs (Past 12 Hours) Vital Signs Temp Pulse Pulse Resp BP Pulse Ox 04/16/20 10:49 36.7 C 97 H 20 115/72 97 04/16/20 08:00 91 H 04/16/20 07:18 36.7 C 86 19 105/63 93 04/16/20 03:53 36.7 C 85 20 120/73 98 Laboratory Results [facility] 04/15/20 04/16/20 14:54 07:32 Sodium 137 138 Potassium 4.0 4.0 Chloride 109 H 110 H Carbon Dioxide 20 L 19 L BUN 88 H 92 H Creatinine 6.01 H* 6.73 H* D Glucose 110 H 81 Calcium 7.9 L 7.9 L Liver Function 04/16/20 Range/Units 07:32 Albumin 1.8 L (3.4-5.0) gm/dl Medications Administered Current Inpatient Medications Acetaminophen (Acetaminophen 325 Mg Tab) 650 mg PO Q4H PRN PRN Reason: Pain or Fever Stop: 05/14/20 19:30 Amlodipine Besylate (Amlodipine Besylate 5 Mg Tab) 10 mg PO [facility] Stop: 05/16/20 08:59 Last Admin: 04/16/20 08:49 Dose: 10 mg Documented by: Aspirin (Aspirin 81 Mg Ectab) 81 mg PO [facility] Stop: 05/15/20 08:59 Last Admin: 04/16/20 08:48 Dose: 81 mg Documented by: Atorvastatin Calcium (Atorvastatin 40 Mg Tab) [facility] [place] Stop: 05/16/20 08:59 Last Admin: 04/16/20 08:48 Dose: 40 mg Documented by: Dextrose (Dextrose 50% 50 Ml Syringe) 25 - 50 ml IV UD PRN; Protocol PRN Reason: Hypoglycemia Protocol Stop: 05/14/20 19:30 Fenofibrate (Fenofibrate Nanocrystallized 145 Mg Tablet) 145 mg PO [facility] Stop: 05/16/20 08:59 Last Admin: 04/16/20 08:49 Dose: 145 mg Documented by: Glucagon (Glucagon For Inj 1 Mg Vial) 1 mg SQ UD PRN; Protocol PRN Reason: Hypoglycemia Protocol Stop: 05/14/20 19:30 Glucose (Glucose 10 Tabs/Tube) 4 - 8 tabs PO UD PRN; Protocol PRN Reason: Hypoglycemia Protocol Stop: 05/14/20 19:30 Glucose (Glucose 40% Gel 15 Gm Tube) 15 - 30 gm PO UD PRN; Protocol PRN Reason: Hypoglycemia Protocol Stop: 05/14/20 19:30 Heparin Sodium (Porcine) (Heparin Sod 5,000 Unit/0.5 Ml Vial) 7,500 units SQ Q8 [facility] Stop: 05/14/20 21:59 Last Admin: 04/16/20 06:28 Dose: 7,500 units Documented by: Piperacillin Sod/Tazobactam (Sod 3.375 gm/ Dextrose) 115 mls @ 28.75 mls/hr IV Q12H [facility]; Protocol Stop: 05/27/20 03:59 Last Infusion: 04/16/20 08:50 Dose: Infused Documented by: Daptomycin 450 mg/ Syringe 9 mls @ 4.5 mls/min IV Q48H [facility]; Protocol Stop: 05/28/20 16:59 Insulin Aspart (Insulin Aspart 100 Units/Ml 3 Ml Pen) 0 units SC ACHS [facility]; Protocol Stop: 05/15/20 02:29 Last Admin: 04/16/20 12:08 Dose: 5 units Documented by: Insulin Glargine (Insulin Glargine Solostar 100 Units/Ml 3 Ml Pen) 25 units SC DAILY [facility] Stop: 05/16/20 08:59 Last Admin: 04/16/20 08:50 Dose: 25 units Documented by: Melatonin (Melatonin 3 Mg Tab) 3 mg PO HS PRN PRN Reason: Sleep Stop: 05/14/20 19:30 Metoprolol Succinate (Metoprolol Succ 25mg Ext Rel Tab) 25 mg PO QAM [facility] Stop: 05/16/20 08:59 Last Admin: 04/16/20 08:48 Dose: 25 mg Documented by: Miscellaneous (Carbohydrates For Hypoglycemia ) 15 - 30 gm PO UD PRN PRN Reason: Hypoglycemia Protocol Stop: 05/14/20 19:30 Miscellaneous Information (Daptomycin Consult Active) 1 ea N/A UD PRN PRN Reason: Consult Stop: 05/14/20 16:38 Miscellaneous Information (Piperacill/Tazobac Consult Active) 1 ea N/A UD PRN PRN Reason: Consult Stop: 05/14/20 17:14 Miscellaneous Information (Pharmacy Glycemic Mgmt Consult) 1 ea N/A UD PRN PRN Reason: Consult Stop: 05/14/20 19:51 Nitroglycerin (Nitroglycerin Sl 0.4 Mg/Tab Tab) 0.4 mg SL UD PRN PRN Reason: Chest Pain Stop: 05/14/20 19:30 Ondansetron HCl (Ondansetron Inj 2 Mg/Ml 2 Ml Vial) 4 mg IV Q6H PRN PRN Reason: Nausea Stop: 05/14/20 19:30 Sodium Bicarbonate (Sodium Bicarbonate 650 Mg Tab) 650 mg PO BID [facility] Stop: 05/16/20 10:59 Last Admin: 04/16/20 12:07 Dose: 650 mg Documented by: (1) DKA (diabetic ketoacidoses) Diabetes mellitus complication detail: without coma Diabetes mellitus type: other specified (including BABATUNDE) Qualified Code(s): E13.10 - Other specified diabetes mellitus with ketoacidosis without coma (2) Osteomyelitis Laterality: unspecified laterality Osteomyelitis type: unspecified type
--- NOTE | 2020-04-16 13:52 | Pharmacy Report ---
Pharmacy Glycemic Short Note 2 - Date of Service April 16, 2020 - Glycemic Short BSG Results (Last 24 hours): 04/15/20 04/15/20 04/15/20 14:54 16:26 20:37 Glucose 110 H POC Glucose 83 83 04/15/20 04/16/20 04/16/20 23:34 04:04 07:25 Glucose POC Glucose 80 87 93 04/16/20 04/16/20 07:32 11:31 Glucose 81 POC Glucose 111 H OUTPATIENT ANTIDIABETIC REGIMEN: * Lantus 30 units daily - noncompliance at home ASSESSMENT: 04/16: * Patient received total of 68 units of insulin yesterday, of which 30 were basal insulin * Fasting BSG 93 mg/dL, much improved from day prior - will decrease to 25 units of basal this AM (~16% decrease) * Loosened CF/CR yesterday as BSGs dropping rapidly / loosen CR more this AM * Scr trending up, nephrology consulted / unclear if dialysis soon PLAN FOR INPATIENT GLYCEMIC CONTROL: * Hold outpatient oral diabetes medications * Basal insulin * Lantus 25 units daily * Bolus insulin * NovoLog per scale ACHS or Q6hrs while NPO * Goal Range: Low 120 mg/dL - High 160 mg/dL * Correction Factor: 20 mg/dL/unit * Nutritional / Prandial insulin per carb ratio of 1 unit per 7 grams CHO consumed PLAN FOR DISCHARGE: * A1c ~11% on admission, goal <7% * DM educator met with patient and patient had not been taking insulin prior to admission for several months. See DM educator notes for more details. * Would recommend basal insulin on discharge and possibly novolog. DM educator discussed with patient and he is agreeable to once daily novolog with dinner if needed * Unclear plan and if dialysis needed, will continue to follow to determine plan with insulin.
[2020-04-16] MEDS ORDERED: DAPTOmycin 450 MG in SYRINGE 0 ML IV SCH (17:00)
--- NOTE | 2020-04-16 19:35 | Cardiology Consultation ---
Date of Consultation April 16, 2020 Assessment & Plan (1) Ischemic cardiomyopathy: Patient has a well-healed midline sternotomy incision, and states that he had multivessel coronary artery bypass surgery in [place], January,. Minimal, flat troponin elevation noted this hospital stay of 0.119, 0.206, and 0.278 in the setting of significant renal insufficiency. Patient notes no symptoms suggestive angina. His volume status is well compensated at present. His most pressing issues are renal insufficiency, and infection at his previous below the knee amputation sites bilaterally with concern for osteomyelitis. Wound cultures obtained 04/14/2020 include group B beta strep. Blood cultures negative thus far. Continue aspirin and metoprolol. AMARIS inhibitor is contraindicated given his acute renal insufficiency. Repeat EKG tomorrow since his heart rate has improved. For further continuity of care, will need to obtain records the patient verbally consents to this. Continue antibiotics. History of Present Illness Attending Physician: Pallavi Sparks, DO History of Present Illness Abdulkadir Romero is a 80-year-old man seen in cardiology consultation per the request of Dr. Sparks for cardiac management with concerns of possible upcoming surgical intervention for lower extremity osteomyelitis. The patient informs me that he moved to [place] to be closer to [facility] earlier this month. He states his previous care was in [facility]. He has a history of coronary heart disease and underwent coronary artery bypass grafting per his recollection in January, at [facility], in [place], [place], [facility] hospital number per website: [phone]. Patient describes to me that he had a cardiac arrest type event during his CABG with low blood pressure, and he states that is the reason why he has had lower extremity amputation. He is unaware of what his ejection fraction is. Per his recollection he does not have a past history of kidney disease. He states he previously smoked 1 pack of cigarettes per day for years and quit 6 months ago. 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 Initially presented to the emergency room with concerns of hyperglycemia. Concern also developed with regards to infection at the site of his previous left below the knee amputation. MRI of the left lower extremity revealed soft tissue edema, but no osteomyelitis in the remaining left tibia or fibula. MRI of the site of the right lower extremity below the knee amputation was suggestive of osteomyelitis of the tibial shaft. The patient has been found to have renal insufficiency, presumed acute kidney injury, although we do not have any previous baseline on him, with presenting creatinine of 4.93, increased to 6.73 today. Potassium had been mildly elevated at 5 on presentation, but has improved to 4 mmol/L today. He has been followed by nephrology as an inpatient. Allergies Allergy/AdvReac Type Severity Reaction Status Date / Time No Known Allergies Allergy Unverified 04/14/20 15:35 Home Medications Medication Instructions Recorded Confirmed Type Bp Med 1 tab PO UD 04/14/20 04/14/20 History Cholesterol Med 1 tab PO DAILY 04/14/20 04/14/20 History Diabetic Med 0 mg PO UD 04/14/20 04/14/20 History Patient History Social History Smoking Status: Current every day smoker Hx Alcohol Use: No Hx Substance Use: No Beliefs That Will Affect Care: None Current Living Situation: Alone Other Information That Helps Us Care for You: No Feels Safe at Home: Yes Safety Concerns: Feels Safe At This Time Physical Exam Physical Exam: Temp Pulse Resp BP Pulse Ox 36.8 C 88 21 130/72 95 04/16/20 15:28 04/16/20 15:28 04/16/20 15:28 04/16/20 15:28 04/16/20 15:28 Constitutional: WD/WN, vitals as above Respiratory: normal respiratory effort, lungs clear to auscultation Cardiovascular: RRR, no murmur, no edema Musculoskeletal: Patient had just started to eat his evening meal upon my arrival, and therefore his lower extremities could not be examined, these will be reassessed tomorrow Neurologic: Conversant, no focal deficits Results & Data ([facility]) Vital Signs (Past 12 Hours) Vital Signs Temp Pulse Pulse Resp BP Pulse Ox 04/16/20 15:28 36.8 C 88 21 130/72 95 04/16/20 15:15 95 H 04/16/20 10:49 36.7 C 97 H 20 115/72 97 04/16/20 08:00 91 H Laboratory Results Comprehensive Metabolic Panel 04/16/20 Range/Units 07:32 Sodium 138 (136-145) mmol/L Potassium 4.0 (3.5-5.1) mmol/L Chloride 110 H (98-107) mmol/L Carbon Dioxide 19 L (21-32) mmol/L BUN 92 H (7-18) mg/dl Creatinine 6.73 H* D (0.6-1.4) mg/dl Glucose 81 (70-99) mg/dl Calcium 7.9 L (8.5-10.1) mg/dl Albumin 1.8 L (3.4-5.0) gm/dl Intake and Output 04/16/20 04/16/20 04/16/20 06:59 14:59 22:59 Intake Total 229.72 / 2665.00 565 / 565 Output Total 200 / 601 329 / 329 Balance 29.72 / 2064.00 236 / 236 Intake: IV 109.72 / 1825.00 115 / 115 Zosyn 3.375 gm In D5 100 ml @ 109.72 / 230.00 115 / 115 28.75 mls/hr IV Q12H [facility] Rx#: [id number] Oral 120 / 840 450 / 450 Output: Urine Amount (Catheter) 200 / 350 325 / 325 Barakat/Indwelling 200 / 350 325 / 325 # Bowel Movements 4 / 4 Other: Weight 100.7 kg 100.7 kg Patient Weight 04/17/20 06:59 Weight 100.7 kg Diagnostic Findings EKG performed 04/14/2020 at 12:58 PM revealed sinus tachycardia 121 bpm, age- indeterminate inferior infarction pattern noted with Q waves in leads II, III, and aVF. Transthoracic echocardiogram performed earlier this hospital stay revealed borderline diffuse left ventricular hypokinesis, LVEF 45 to 50%. Mild mitral regurgitation, moderate aortic valve sclerosis without stenosis.
[2020-04-17] MEDS: PIPERACILLIN/TAZOBACTAM 3.375 GM in DEXTROSE 5% 100 ML IV SCH ×2 (04:05→17:16)
[2020-04-17] MEDS: HEPARIN SOD 5,000 UNIT/0.5 ML VIAL SQ SCH ×4 (05:20→21:40)
--- NOTE | 2020-04-17 07:38 | Nephrology Progress Note ---
Date of Service April 17, 2020 Assessment & Plan (1) ARIANA (acute kidney injury): 60-year-old male with history of poorly controlled diabetes with multiple complication, hypertension, coronary artery disease admitted with DKA and found to have ARIANA with non gap metabolic acidosis. UA with 3 + P, USG with echogenic kidney. Although no prior record available it is quite possible that patient has underlying advanced CKD in the setting of multiple risk factors. Acute kidney injury with unknown baseline with rapid worsening of renal function, UO improved >1 L last 24 h without needing diuretics. BP well controlled. ? RPGN, has high grade proteinuria abut no RBC in HPF. --will order serology, would not start on empiric high dose steroid with recent DKA, osteomyelitis. --discussed again with pt rapid worsening of renal function and need for ACADEMIC AFFAIRS COORDINATOR. Pt reluctantly agreed to have TDC and HD. Consulted Dr. Harris for TDC and plan for 1st HD tomorrow. --continue NaBicarb 650 mg BID --low K diet --Bumex 2 mg IV as needed for Respiratory distress --ADRIÁN for Hb <10 Will follow. (2) DKA (diabetic ketoacidoses): (3) Normal anion gap metabolic acidosis: (4) Current smoker: Admission and Anticipated Discharge Date Admission Date: April 14, 2020 Subjective Vivek was seen and evaluated this morning. Overall feeling poorly as he could not sleep last night, appetite has been good but po intake poor as he did not like the food. UO slightly improved. BP well controlled. Renal function continues to worsen with metabolic acidosis. Review of Systems Review of Systems: All systems reviewed & are unremarkable except as noted in Subjective Physical Exam Constitutional: WD/WN, vitals as above no acute distress Neurologic: awake; not confused Speech / Cognition: normal speech Psychiatric: A+Ox3, euthymic affect Results & Data ([facility]) Vital Signs (Past 12 Hours) Vital Signs Temp Pulse Resp BP Pulse Ox 04/17/20 03:45 36.8 C 85 16 109/69 94 04/16/20 23:11 37 C 89 18 115/73 94 04/16/20 20:02 37.0 C 96 H 19 106/69 97 PG Care Time/CCT Total # of Minutes Spent Total Time Spent with Patient: Total time spent is greater than 50% in coordination of care (as documented) at patient's floor/unit and/or counseling patient: Coding Level of Care Code 17226 Subseq Hosp Care Lvl 3 Diagnoses ARIANA (acute kidney injury) N17.9 DKA (diabetic ketoacidoses) E13.10 Diabetes mellitus complication detail: without coma Diabetes mellitus type: other specified (including BABATUNDE) Normal anion gap metabolic acidosis E87.2 Current smoker F17.200 (1) DKA (diabetic ketoacidoses) Diabetes mellitus complication detail: without coma Diabetes mellitus type: other specified (including BABATUNDE) Qualified Code(s): E13.10 - Other specified diabetes mellitus with ketoacidosis without coma
[2020-04-17 07:45] LABS: Hematocrit (blood only) 33.7 % (42-52); Hemoglobin 11.6 g/dL (14.0-18.0); Mean Corpuscular Hemoglobin 30.1 pg (25-34); Mean Corpuscular Hgb Conc 34.4 g/dL (32-36); Mean Corpuscular Volume 87.5 fL (80-100); Mean Platelet Volume 12.5 fL (7.4-10.4); Platelet Count 102 K/uL (130-400); RDW Coefficient of Variation 14.2 % (11.5-14.5); RDW Standard Deviation 45.3 fL (36.4-46.3); Red Blood Count 3.85 M/uL (4.7-6.1); White Blood Count 6.05 K/uL (4.8-10.8)
[2020-04-17 07:56] LABS: Albumin Level 1.9 gm/dl (3.4-5.0); BUN Creatinine Ratio 12.2 (10-20); Creatinine Clr Calc Pharmacy 12.7 ml/min; Est GFR (African American) 8.4; Est GFR (Non-African American) 7.2; Phosphorus 3.6 mg/dl (2.5-4.9); Potassium 4.1 mmol/L (3.5-5.1)
[2020-04-17] MEDS: ASPIRIN 81 MG ECTAB PO SCH (08:31)
[2020-04-17] MEDS: METOPROLOL SUCC 25MG EXT REL TAB PO SCH (08:32)
[2020-04-17] MEDS: amLODIPine BESYLATE 5 MG TAB PO SCH (08:32)
[2020-04-17] MEDS: SODIUM BICARBONATE 650 MG TAB PO SCH ×2 (08:32→21:37)
[2020-04-17] MEDS: INSULIN GLARGINE SOLOSTAR 100 UNITS/ML 3 ML PEN SC SCH (08:37)
[2020-04-17] MEDS: INSULIN ASPART 100 UNITS/ML 3 ML PEN SC SCH ×5 (08:40→21:41)
[2020-04-17] MEDS ORDERED: ceFAZolin 2000MG 2,000 MG/15 ML SYR IV SCH (09:59)
--- NOTE | 2020-04-17 10:39 | Electrocardiogram Report ---
Test Reason : Blood Pressure : / mmHG Vent. Rate : 087 BPM Atrial Rate : 087 BPM P-R Int : 170 ms QRS Dur : 098 ms QT Int : 392 ms P-R-T Axes : 061 -11 097 degrees QTc Int : 471 ms Normal sinus rhythm Inferior infarct (cited on or before 14-APR-2020) Abnormal ECG When compared with ECG of 14-APR-2020 12:58, No significant change Confirmed by Joe Britt ([id number]) on 04/17/2020 10:39:17 AM Referred By: REFERRED SELF Confirmed By:Joe Britt
--- NOTE | 2020-04-17 10:55 | Pharmacy Report ---
Pharmacy Glycemic Short Note 2 - Date of Service April 17, 2020 - Glycemic Short BSG Results (Last 24 hours): 04/16/20 04/16/20 04/16/20 11:31 17:53 20:38 Glucose POC Glucose 111 H 152 H 134 H 04/17/20 04/17/20 06:52 07:32 Glucose 134 H POC Glucose 139 H OUTPATIENT ANTIDIABETIC REGIMEN: * Lantus 30 units daily - noncompliance at home ASSESSMENT: 04/17: * Patient received total of 33 units of insulin yesterday, of which 25 were basal insulin * Fasting BSG w/in range at 134 mg/dl - continue same basal insulin * Patient ate breakfast, now changed to NPO status for perm cath placement and hopefully will start receiving dialysis tomorrow * May need to reevaluate insulin needs once dialysis begins 04/16: * Patient received total of 68 units of insulin yesterday, of which 30 were basal insulin * Fasting BSG 93 mg/dL, much improved from day prior - will decrease to 25 units of basal this AM (~16% decrease) * Loosened CF/CR yesterday as BSGs dropping rapidly / loosen CR more this AM * Scr trending up, nephrology consulted / unclear if dialysis soon PLAN FOR INPATIENT GLYCEMIC CONTROL: * Hold outpatient oral diabetes medications * Basal insulin * Lantus 25 units daily * Bolus insulin * NovoLog per scale ACHS or Q6hrs while NPO * Goal Range: Low 120 mg/dL - High 160 mg/dL * Correction Factor: 20 mg/dL/unit * Nutritional / Prandial insulin per carb ratio of 1 unit per 7 grams CHO consumed PLAN FOR DISCHARGE: * A1c ~11% on admission, goal <7% * Would recommend basal insulin on discharge and possibly novolog. DM educator discussed with patient and he is agreeable to basal insulin alone or in combination with once daily novolog with dinner if needed * Patient to start dialysis tomorrow 04/18 - will continue to follow to determine insulin needs at discharge
--- NOTE | 2020-04-17 11:00 | Consultation ---
Date of Consultation April 17, 2020 Assessment & Plan (1) ARIANA (acute kidney injury): Pt scheduled for permcath insertion later today by Dr Harris. Procedure discussed with pt, he is agreeable. Patient was seen, examined, and chart reviewed. Agree with exam and treatment plan of the Vascular PA. I have discussed the risks options and benefits of the procedure with the patient. The patient understands the risks options and benefits and agrees to the procedure. Thank you very much for letting us participate in the care of this patient. History of Present Illness Reason for Consultation: ESRD, need permcath Attending Physician: Pallavi Sparks, History of Present Illness 60 yo m with multiple medical problems, including CAD s/p CABG, [place], ischemic cardiomyopathy, DMII, hx BLE BKA and R finger amputations, hx cardiac arrest and tracheostomy, admitted with hyperglycemia and ARIANA, seen in consultation today at nephrology request for permcath insertion for HD initiation. Pt denies previous hx of definite kidney problems or previous dialysis. Admits fatigue/malaise presently. Was also noted to have R BKA wound with possible infection, but pt denies prior knowledge of this. Denies BRUNO, fever, chest pain, SOB, abd pain, N/V, other complaints. Allergies Allergy/AdvReac Type Severity Reaction Status Date / Time No Known Allergies Allergy Unverified 04/14/20 15:35 Home Medications Medication Instructions Recorded Confirmed Type Bp Med 1 tab PO UD 04/14/20 04/14/20 History Cholesterol Med 1 tab PO DAILY 04/14/20 04/14/20 History Diabetic Med 0 mg PO UD 04/14/20 04/14/20 History Patient History Social History Smoking Status: Current every day smoker Hx Alcohol Use: No Hx Substance Use: No Beliefs That Will Affect Care: None Current Living Situation: Alone Other Information That Helps Us Care for You: No Feels Safe at Home: Yes Safety Concerns: Feels Safe At This Time Assistive Devices: None Review of Systems Review of Systems: All systems reviewed & are unremarkable except as noted in HPI & below Physical Exam Constitutional: WD/WN, vitals as above + obese, cooperative and comfortable; not in distress Eyes: PERRL, conjunctivae normal, anicteric sclerae ENMT: Ears: no hearing impairment Neck: trachea midline (trach scar noted) Respiratory: normal respiratory effort, lungs clear to auscultation Auscultation: + diminished lung sounds Cardiovascular: Rate/Rhythm: regular rate and regular rhythm Vessels: femoral pulses present, brachial pulses present and radial pulses present; + abnormal peripheral pulses Extremities: + edema (mild); no AV fistula Gastrointestinal (Abdomen): normal bowel sounds, soft, nontender, no hepatosplenomegaly Musculoskeletal: Extremities: + amputation noted (BLE BKA, RLE dressing not removed, R finger amputation) Skin: no rashes, warm and dry Neurologic: moves all extremities and awake; no focal motor deficits and not confused Psychiatric: A+Ox3, euthymic affect Results & Data ([facility]) Vital Signs (Past 12 Hours) Vital Signs Temp Pulse Pulse Resp BP Pulse Ox 04/17/20 08:33 86 122/74 96 04/17/20 08:30 36.9 C 85 18 110/61 96 04/17/20 03:45 36.8 C 85 16 109/69 94 04/16/20 23:11 37 C 89 18 115/73 94
[2020-04-17] MEDS ORDERED: LIDOCAINE HCL 1% 20 ML VIAL ONE (11:33)
[2020-04-17] MEDS ORDERED: HEPARIN SOD (PORCINE) 5,000 UNITS/ML VIAL ONE (11:34)
--- NOTE | 2020-04-17 11:35 | Orthopedic Consultation ---
Date of Consultation April 17, 2020 Assessment & Plan (1) Osteomyelitis: Osteomyelitis right distal tibia BKA stump. Dr. Cantu will discuss treatment options with the patient later today. Likely patient will need to undergo revision of his right BKA stump with resection of the distal tibia portion. Patient is in agreement to undergo revision of his amputation. We will have to discuss this with medicine service about medical clearance etc. Plan for possible revision of his right BKA stump this weekend. History of Present Illness Reason for Consultation: Osteomyelitis right distal tibia status post BKA in the past Attending Physician: Pallavi Sparks, History of Present Illness 60 yo m with multiple medical problems, including CAD s/p CABG, [place], ischemic cardiomyopathy, DMII with insulin, PVD, hx BLE BKA and R finger amputations, hx cardiac arrest and tracheostomy, admitted with hyperglycemia DKA and ARIANA. Patient was noted to have an open ulcer wound on his right BKA stump. X-rays were taken and appeared to have a chronic osteomyelitis of the distal tibia portion of the stump. I spoke to the admitting hospitalist team and discussed the case with Dr. Cantu. Plans were for an MRI of the right lower extremity. This, even though without contrast was showing highly suggestive of osteomy elitis. It was felt that the patient would benefit from a possible revision amputation of the right BKA stump. Today the patient is sitting up in bed awake and alert. He has no complaints. And feels well. He is currently getting set up to have a PermCath put in today by Dr. Harris for dialysis. He states that he had the BKA done a long time ago in [place] which had to be redone a second time also in [place]. He states that the right BKA has not done as well as the left. I discussed the findings with him and discussed the fact that it would possibly lead to revision of his amputation. Currently the patient is in agreement to have a revision. Allergies Allergy/AdvReac Type Severity Reaction Status Date / Time No Known Allergies Allergy Unverified 04/14/20 15:35 Home Medications Medication Instructions Recorded Confirmed Type amlodipine 10 mg PO DAILY 04/17/20 04/17/20 History artificial tear([id number]) 1 drp OPB QID PRN 04/17/20 04/17/20 History aspirin 81 mg PO DAILY 04/17/20 04/17/20 History atorvastatin [Lipitor] 40 mg PO DAILY 04/17/20 04/17/20 History fenofibrate nanocrystallized 145 mg PO DAILY 04/17/20 04/17/20 History insulin detemir U-100 30 unit SUBCUT DAILY 04/17/20 04/17/20 History sacubitril-valsartan [Entresto] 1 tab PO BID 04/17/20 04/17/20 History Patient History Medical History (Updated 04/19/20 @ 10:39 by Pallavi Sparks DO) Heme positive stool Social History Smoking Status: Current every day smoker Hx Alcohol Use: No Hx Substance Use: No Beliefs That Will Affect Care: None Current Living Situation: Alone Other Information That Helps Us Care for You: No Feels Safe at Home: Yes Safety Concerns: Feels Safe At This Time Assistive Devices: None Physical Exam Physical Exam: On examination of his right BKA stump, there is an Optifoam dressing noted over the anterior portion of the stump. This is removed revealing an open wound that has Aquacel Ag dressing placed inside of the wound. Some mild purulence is noted around the edges of the wound itself. There is no foul odor. There is not a lot of erythema surrounding the wound. The foam dressing replaced. Results & Data ([facility]) Vital Signs (Past 12 Hours) Vital Signs Temp Pulse Pulse Resp BP Pulse Ox 04/17/20 08:33 86 122/74 96 04/17/20 08:30 36.9 C 85 18 110/61 96 04/17/20 03:45 36.8 C 85 16 109/69 94 Diagnostic Findings atient: JOELLE MAYFIELDAdmit Date: 04/14/20MR#: [id number]: [address] [place] [address]Acct ID:[id number]: [facility]: 1960[facility] Zip: [place], [place] [address]Efa: 60Location: 2SSex: MRoom/Bed: [address] Phy: David Bernabe, MDDiagnosis: HyperglycemiaPri Phy: Vipin La III, MDService Date: 04/15/20Fam Phy:Interpreting Phy: Derick Lanier MDAdmit Phy: Jurgen Landeros DO Ordering Phy: Vivek Aviles DO cc: ~ MRI OF THE RIGHT TIBIA AND FIBULA WITHOUT IV CONTRAST CLINICAL HISTORY: Chronic osteomyelitis. Wound. COMPARISON STUDY: Radiographs of the right tibia and fibula dated 04/14/2020. TECHNIQUE: MRI of the right tibia and fibula is performed utilizing various T1 and T2-weighted sequences in the axial, sagittal, and coronal planes. IV contrast was not administered for this examination. The examination is compromised by motion artifact. FINDINGS: There has been amputation of the right lower extremity through the proximal tibial and fibular shafts. A cutaneous wound is suggested overlying the resection site. There is marrow edema identified within the tibial shaft at the resection site with corresponding drop in signal on the T1-weighted sequences and overlying cortical destruction. This is highly suggestive of osteomyelitis. There is overlying soft tissue edema and trace subcutaneous fluid. No organized fluid collection is seen to suggest abscess. No marrow signal abnormality is identified in the fibula. The visualized distal femur appears intact. There is generalized myositis of the visualized calf musculature with surrounding soft tissue edema. The knee joint is intact as visualized. There is a small joint effusion. The cruciate ligaments and menisci are intact as imaged. IMPRESSION: 1. There is postoperative change from right lower extremity amputation through the proximal tibial and fibular shaft. 2. Findings are highly suggestive of osteomyelitis of the tibial shaft at the resection site with evidence of overlying wound. 3. There is evidence of cellulitis and generalized myositis within the right lower extremity soft tissues. 4. No organized fluid collection is seen to suggest abscess. (1) Osteomyelitis Laterality: unspecified laterality Osteomyelitis type: unspecified type
--- NOTE | 2020-04-17 12:22 | Pre Anesthesia Assessment ---
Date of Service April 17, 2020 Pre Sedation Assessment Vital Signs Temp Pulse Pulse Pulse Resp BP Pulse Ox 04/17/20 11:49 36.9 C 78 18 120/73 95 04/17/20 08:33 86 122/74 96 04/17/20 08:30 36.9 C 85 18 110/61 96 04/17/20 03:45 36.8 C 85 16 109/69 94 04/16/20 23:11 37 C 89 18 115/73 94 04/16/20 20:02 37.0 C 96 H 19 106/69 97 04/16/20 15:28 36.8 C 88 21 130/72 95 04/16/20 15:15 95 H Cardiovascular RRR, no murmur, no edema Respiratory normal respiratory effort, lungs clear to auscultation Pre-Sedation Airway Assessment Smoking Status: Current every day smoker Hx Sleep Apnea: No Short, Thick Neck: No Thyromental Distance: > or= 3.5 Finger Breadths Oral Cavity: + WNL Mallampati Class: II ASA: ASA4 NPO Status Date of Last Intake of Fluids: 04/17/20 Time of Last Intake of Fluids: 08:00 Last Oral Intake of Fluids Comment: milk Date of Last Intake of Solid Food: 04/17/20 Time of Last Intake of Solid Foods: 08:00 Last Intake of Solids Comment: two bites of scrambled eggs- urgent case per md- see md note Procedure Planning Contraindications for Sedation: none (patient did have milk and bite of egg 4 1/2 hrs ago. Patient in need of urgent dialysis) Current Medications Reviewed: Yes Notes The planned sedation has been discussed with the patient. Informed Consent was obtained. I have identified the patient, determined the appropriateness of sedation and have assessed the patient immediately prior to the procedure. All medicine(s) and interventions are by my order.
[2020-04-17] MEDS ORDERED: fentaNYL citrate 100 MCG/2 ML VIAL ONE (12:35)
[2020-04-17] MEDS ORDERED: MIDAZOLAM HCL 1 MG/ML 2ML VIAL ONE (12:36)
[2020-04-17 12:38] LABS: Hepatitis B Surface Ab Quant < 3.10 mIU/mL (>or=10mIU/mL Immune); Hepatitis B Surface Antibody Non-Immune
[2020-04-17 12:49] LABS: Hepatitis B Surface Antigen Neg (Neg)
--- NOTE | 2020-04-17 13:00 | Operative Report ---
Post Operative Report Pre & Post Diagnosis Operation Date: 04/17/20 09:30 Pre-Op Diagnosis: acute kidney injury Post-Op Diagnosis: acute kidney injury I identified the patient and participated in the time-out.: Yes Procedure Operation Date: 04/17/20 09:30 Actual Procedures p Insertion Of Perm Cather, Right Internal Jugular Approach, Ultrasound Localiz ation Of Right Internal Jugular Vein, Fluoroscopy For Positioning, Moderate Concious Sedation 1242 to 1301(Right) - Bobby Harris MD Surgeon Bobby Harris MD Refractory Bricklayer None Estimated Blood Loss 3 Findings Consistent with Post-Op Diagnosis Specimens None Anesthesia Type RN Sedation Complications none Disposition Accompanied Patient To Recovery: No Disposition: Recovery Room Indications This is a 60-year-old male with end-stage renal disease in need of dialysis. PermCath was recommended for access. I have discussed the risks options and benefits of the procedure with the patient. The patient understands the risks options and benefits and agrees to the procedure. Description of Procedure Patient was taken to the angio suite and placed in the supine position. The right side of the neck and chest wall were prepped and draped in a sterile manner. The patient was identified and a timeout performed. Local anesthesia was then administered to the appropriate areas of the neck and chest wall. Ultrasound was then used to locate the right internal jugular vein. The vein compressed easily, had no filing defects, and was patent. The vein was then punctured under direct ultrasound imaging. A guidewire was then passed centrally under fluoroscopic imaging. A stab wound was then made in the anterior chest wall and a 19 cm permcath was passed from the stab wound on the chest wall to the puncture site on the neck. The puncture site was then dilated till the 14Fr peel away sheath was inserted. The permcath was then inserted through the sheath to a central position in the distal superior vena cava. The peel away sheath was then removed. The catheter was then sutured in place using nylon sutures. The puncture was then closed using a 4-0 Vicryl subcuticular suture. Dermabond was used for a dressing on the puncture site. Both ports aspirated and flushed easily and were then packed with heparin. A sterile dressing was applied to the catheter. The patient left the operation room in satisfactory condition and tolerated the procedure well. All needle and sponge counts were correct at the end of the procedure. I attest to the content of the Intraoperative Record and any orders documented therein. Any exceptions are noted below.
--- NOTE | 2020-04-17 13:03 | Post Anesthesia Assessment ---
Date of Service April 17, 2020 Post Sedation Assessment Vital Signs Temp Pulse Pulse Pulse Resp BP Pulse Ox 04/17/20 13:01 78 16 111/74 98 04/17/20 12:56 80 17 116/73 97 04/17/20 12:52 81 17 114/78 98 04/17/20 12:47 81 17 108/74 98 04/17/20 12:42 80 17 127/74 99 04/17/20 12:38 81 17 129/78 99 04/17/20 11:49 36.9 C 78 18 120/73 95 04/17/20 08:33 86 122/74 96 04/17/20 08:30 36.9 C 85 18 110/61 96 04/17/20 03:45 36.8 C 85 16 109/69 94 04/16/20 23:11 37 C 89 18 115/73 94 04/16/20 20:02 37.0 C 96 H 19 106/69 97 04/16/20 15:28 36.8 C 88 21 130/72 95 04/16/20 15:15 95 H Recovery Score Activity: Moves 4 extremities Respiration: Deep Breath/Cough Circulation: +/-20% PreAnes Value Consciousness: Fully Awake Oxygen Saturation: > 92% On Room Air Post Anesthesia Score: 10 Discharge Sedation Level of Care: Fast Track Phase II Post Sedation Plan On clinical assessment, the patient appears to have tolerated the sedation without complications. Patient is recovering as anticipated. Patient will continue to be monitored by nursing and may be discharged when sedation discharge criteria are met per below protocol. Upon Completions of procedure up to 15 minutes continue every 5 minute vital signs and the P.A.R. score; then discharge to a Phase I or Fast Track to Phase II per the following guidelines: * Discharge Patient to appropriate Phase II area if PAR is 8 or greater or return to pre- procedure baseline. The post - procedure orders will be as dir ected. * If PAR score is less than 8 or not return to pre-procedure baseline then patient will follow Phase I monitoring till PAR is reached for Phase II. The Phase I may be done in procedure room or may call to secure a Phase I area. * If naloxone or flumazenil are used for reversal, hold in Phase I for continued monitoring from when last reversal dose was given for a minimum of 60 minutes or longer pending the nurse and/or physician discretion of patient condition before discharge to Phase II. Please call the Sedation Physician to re-evaluate and complete post-note for discharge to Phase II area. Do NOT discharge from procedure sedation or Phase 1 until post- sedation evaluation note is complete by procedure /sedation MD Sedation Discharge Instructions to be given to the patient at discharge to home.
--- NOTE | 2020-04-17 15:37 | Cardiology Progress Note ---
Date of Service April 17, 2020 Assessment & Plan (1) Ischemic cardiomyopathy: (2) ARIANA (acute kidney injury): (3) Osteomyelitis: EKG reveals sinus rhythm at 87 bpm, age-indeterminate inferior infarct with Q waves. Stable chronic coronary heart disease. Mild left ventricular systolic dysfunction noted. Tunneled hemodialysis catheter placed today, is to start hemodialysis this admission. As previously noted, statin, fenofibrate, on hold given treatment with daptomycin. In terms of preoperative assessment prior to amputation revision, the patient denies any unstable cardiac symptoms. No significant arrhythmia has been noted thus far telemetry. He notes no angina, but of course he is not very physically active with his amputation status. He describes past cardiac arrest event at the time of his CABG in 2017, but states that he has had multiple surgical procedures since then and that both of his amputations had taken place since that intraoperative event. Efforts in process to obtain records from surgery where he had his bypass in [place]. I think we need to ensure stability from a kidney function, hemodialysis standpoint, for proceeding with orthopedic operative intervention. Blood pressure may be tenuous post hemodialysis. Admission and Anticipated Discharge Date Admission Date: April 14, 2020 Subjective Patient seen in cardiology follow-up. He denies chest discomfort, shortness of breath, or palpitations. Telemetry reveals stable sinus rhythm. Patient underwent tunneled dialysis catheter earlier today and has tolerated it well. Physical Exam Physical Exam: Temp Pulse Resp BP Pulse Ox 36.8 C 87 20 135/83 95 04/17/20 13:55 04/17/20 13:55 04/17/20 13:55 04/17/20 13:55 04/17/20 13:55 Respiratory: normal respiratory effort, lungs clear to auscultation Cardiovascular: RRR, no murmur, no edema Gastrointestinal (Abdomen): normal bowel sounds, soft, nontender, no hepatosplenomegaly Musculoskeletal: Patient status post bilateral below the knee amputations. Wound right leg is currently dressed. Neurologic: No focal deficits Results & Data ([facility]) Vital Signs (Past 12 Hours) Vital Signs Temp Pulse Pulse Pulse Resp BP Pulse Ox 04/17/20 13:55 36.8 C 87 20 135/83 95 04/17/20 13:15 36.6 C 82 16 111/70 95 04/17/20 13:01 78 16 111/74 98 04/17/20 12:56 80 17 116/73 97 04/17/20 12:52 81 17 114/78 98 04/17/20 12:47 81 17 108/74 98 04/17/20 12:42 80 17 127/74 99 04/17/20 12:38 81 17 129/78 99 04/17/20 11:49 36.9 C 78 18 120/73 95 04/17/20 08:33 86 122/74 96 04/17/20 08:30 36.9 C 85 18 110/61 96 04/17/20 03:45 36.8 C 85 16 109/69 94 Laboratory Results CBC 04/17/20 Range/Units 06:52 WBC 6.05 (4.8-10.8) K/uL RBC 3.85 L (4.7-6.1) M/uL Hgb 11.6 L (14.0-18.0) g/dL Hct 33.7 L (42-52) % Plt Count 102 L (130-400) K/uL Comprehensive Metabolic Panel 04/17/20 Range/Units 06:52 Sodium 139 (136-145) mmol/L Potassium 4.1 (3.5-5.1) mmol/L Chloride 111 H (98-107) mmol/L Carbon Dioxide 18 L (21-32) mmol/L BUN 90 H (7-18) mg/dl Creatinine 7.38 H* D (0.6-1.4) mg/dl Glucose 134 H (70-99) mg/dl Calcium 8.0 L (8.5-10.1) mg/dl Albumin 1.9 L (3.4-5.0) gm/dl Intake and Output 04/17/20 04/17/20 04/17/20 06:59 14:59 22:59 Intake Total 115 / 115 Output Total 400 / 1104 500 / 500 Balance -400 / 276 -385 / -385 Intake: IV 115 / 115 Zosyn 3.375 gm In D5 100 ml @ 115 / 115 28.75 mls/hr IV Q12H [facility] Rx#: [id number] Output: Urine Amount (Catheter) 400 / 1100 500 / 500 Barakat/Indwelling 400 / 1100 500 / 500 Other: Other Intake Source sips Weight 100.1 kg Weight Measurement Method Built in [facility] (1) Osteomyelitis Laterality: unspecified laterality Osteomyelitis type: unspecified type
--- NOTE | 2020-04-17 17:07 | Hospitalist Progress Note ---
Date of Service April 17, 2020 Assessment & Plan (1) Acute renal failure (ARF): Unknown baseline kidney function which is likely progressed and very poor. Proteinuria present. Nephrology performing workup, treating acidosis with bicarbonate. TDC placed today in preparation for HD to start over the weekend. Trenf labs. (2) Osteomyelitis: Empirically covered with Dapto and Zosyn. Consulting ID and Ortho to address RLE wound. Holding statin and fenodibrate. Blood cultures are pending. (3) DKA (diabetic ketoacidoses): Initially presented in DKA with presumed infection as cause of hyperglycemia. Mediation noncompliance is also very probable. Patient has uncontrolled A1C at baseline. RLE osteo. Indwelling pal catheter with yeast in UA but no bacteruria, therefore, no urine culture performed. He remains euglycemic with the help of glycemic pharmacy management and sugars are controlled. Ortho and ID will be consulted for help with RLE infection for further source control. (4) Ischemic cardiomyopathy: EF 45%, appears compensated at this time. Not very active as a bilateral amputee without prosthetics and with a RLE wound. (5) Hx of CABG: CAD with h/o CABG, 2017 performed at a hospital in [facility]. Records received today and placed in chart. Cardiac arrest reported leading to digital ischemia and amputation of distal fingers of right hand. Smoker. No evidence of ACS this admission with elevated trop on admission thought 2/2 demand ischemia on admission in setting of DKA. Cont medical management of CAD with statin and fenofibrate on hold in setting of Daptomycin use. Entresto components also on hold in setting of acute renal failure. (6) Current smoker: Encouraged to quit. He declines nicotine patch and states he can quit without help if he decides to. (7) Thrombocytopenia: Improving. Some ecchymosis present on glutes around rectal wound per pictures, but has no other overt bleeding. Cont to monitor. (8) S/P bilateral BKA (below knee amputation): Pt reports having had multiple revision surgeries over the years and is a long standing uncontrolled diabetic smoker. (9) DVT prophylaxis: Heparin DNR/DNI Dispo-Pt declines further telemetry monitoring and was moved to the floor. Dispo remains uncertain but continued hospitalization recommended. He has a wound on his rectum that precludes him sitting in his power chair, and cannot get around without this vehicle. Need to also address his kidney function this admission, considering dialysis. Finally we are addressing his RLE wound which is clearly infected and may have been the cause of his DKA in addition to noncompliance. Diabetic nurse educator informs me that he doesn't have insurance to pay for insulin, so she is looking into low budget alternatives for this and supplies. Pt recently moved to the area from [place] and lives alone independently. He has established care with Dr. Ohara of [facility]. Will need close follow-up after discharge from this hospitalization. Pallavi Sparks DO [facility] Hospitalist Admission and Anticipated Discharge Date Admission Date: April 14, 2020 Subjective cc: rectal wound, hyperglycemia -pt underwent temporary HD catheter placement today getting set up to start HD over the weekend -he reports some aggravation with getting an injection of insulin for only 2 units. We went over the nurses protocol and his rights as a patient -he verbalized understanding that he can have sugar we just need to cover the carbohydrates consumed at some reasonable point -he is requesting to be on his home dose of Lantus and I changed this and discussed it with the glycemic pharmacist -my team requested records and these were sent from [place] from 2017 hospitalization and reviewed. -pt denies chest pain, SOB, or other pain. He denies fevers, chills, increased wound drainage or pain in rectal wound -he denies trauma to his bottom prior to arrival. -he is tearful about starting HD because of the poor QOL he has seen associated with his friends undergoing it. -he refuses telemetry monitoring and was transferred to the floor Review of Systems Review of Systems: All systems reviewed & are unremarkable except as noted in Subjective Physical Exam Physical Exam: CONSTITUTIONAL: WNWD, vitals as above, generally well- appearing EYES: normal conjunctivae, no scleral icterus ENT: external ear and nose normal, MMM RESPIRATORY: clear to auscultation bilaterally, no crackles, rales or wheezes, normal respiratory effort CARDIOVASCULAR: regular rate and rhythm, S1 and 2 heard without murmurs, gallops or rubs, no JVD, bilateral BKA, R hand s/p distal multidigit amputation. GASTROINTESTINAL: normal bowel sounds, soft, nontender, nondistended MUSCULOSKELETAL: strength 5/5 throughout, head is normocephalic and atraumatic SKIN: warm and dry, open draining wound of serous material on end of R leg. Aquacel in place. Wound on rectum-patient declined exam of this area. NEUROLOGIC:No facial palsy, no dysarthria. N 2-12 grossly intact, normal cognition, normal speech, no tremor. No gross focal deficits. PSYCHIATRIC: alert cooperative and oriented to person, place and time. Results & Data Results & Data ([facility]) Vital Signs (Past 12 Hours) Vital Signs Temp Pulse Pulse Pulse Resp BP Pulse Ox 04/17/20 15:48 36.6 C 84 16 121/68 96 04/17/20 13:55 36.8 C 87 20 135/83 95 04/17/20 13:15 36.6 C 82 16 111/70 95 04/17/20 13:01 78 16 111/74 98 04/17/20 12:56 80 17 116/73 97 04/17/20 12:52 81 17 114/78 98 04/17/20 12:47 81 17 108/74 98 04/17/20 12:42 80 17 127/74 99 04/17/20 12:38 81 17 129/78 99 04/17/20 11:49 36.9 C 78 18 120/73 95 04/17/20 08:33 86 122/74 96 04/17/20 08:30 36.9 C 85 18 110/61 96 Laboratory Results Short CBC 04/17/20 Range/Units 06:52 WBC 6.05 (4.8-10.8) K/uL Hgb 11.6 L (14.0-18.0) g/dL Hct 33.7 L (42-52) % Plt Count 102 L (130-400) K/uL BMP 04/17/20 06:52 Sodium 139 Potassium 4.1 Chloride 111 H Carbon Dioxide 18 L BUN 90 H Creatinine 7.38 H* D Glucose 134 H Calcium 8.0 L Liver Function 04/17/20 Range/Units 06:52 Albumin 1.9 L (3.4-5.0) gm/dl Medications Administered Current Inpatient Medications Acetaminophen (Acetaminophen 325 Mg Tab) 650 mg PO Q4H PRN PRN Reason: Pain or Fever Stop: 05/14/20 19:30 Amlodipine Besylate (Amlodipine Besylate 5 Mg Tab) 10 mg PO QAWW [facility] Stop: 05/16/20 08:59 Last Admin: 11/20/20 08:32 Dose: 10 mg Documented by: Aspirin (Aspirin 81 Mg Ectab) 81 mg PO QAM [facility] Stop: 05/15/20 08:59 Last Admin: 04/17/20 08:31 Dose: 81 mg Documented by: Atorvastatin Calcium (Atorvastatin 40 Mg Tab) 40 mg PO QAM [facility] Stop: 05/16/20 08:59 Last Admin: 04/16/20 08:48 Dose: 40 mg Documented by: Dextrose (Dextrose 50% 50 Ml Syringe) 25 - 50 ml IV UD PRN; Protocol PRN Reason: Hypoglycemia Protocol Stop: 05/14/20 19:30 Fenofibrate (Fenofibrate Nanocrystallized 145 Mg Tablet) 145 mg PO QAM [facility] Stop: 05/16/20 08:59 Last Admin: 04/16/20 08:49 Dose: 145 mg Documented by: Glucagon (Glucagon For Inj 1 Mg Vial) 1 mg SQ UD PRN; Protocol PRN Reason: Hypoglycemia Protocol Stop: 05/14/20 19:30 Glucose (Glucose 10 Tabs/Tube) 4 - 8 tabs PO UD PRN; Protocol PRN Reason: Hypoglycemia Protocol Stop: 05/14/20 19:30 Glucose (Glucose 40% Gel 15 Gm Tube) 15 - 30 gm PO UD PRN; Protocol PRN Reason: Hypoglycemia Protocol Stop: 05/14/20 19:30 Heparin Sodium (Porcine) (Heparin Sod 5,000 Unit/0.5 Ml Vial) 5,000 units SQ Q12 [facility] Stop: 05/17/20 20:59 Piperacillin Sod/Tazobactam (Sod 3.375 gm/ Dextrose) 115 mls @ 28.75 mls/hr IV Q12H [facility]; Protocol Stop: 05/27/20 03:59 Last Infusion: 04/17/20 08:05 Dose: Infused Documented by: Daptomycin 450 mg/ Syringe 9 mls @ 4.5 mls/min IV Q48H [facility]; Protocol Stop: 05/28/20 16:59 Last Admin: 04/16/20 17:48 Dose: 4.5 mls/min Documented by: Cefazolin Sodium (Ancef 2000mg) 2,000 mg in 15 mls @ 3.75 mls/min IV PREOP [facility] Stop: 04/17/20 18:00 Last Admin: 04/17/20 12:20 Dose: 3.75 mls/min Documented by: Insulin Aspart (Insulin Aspart 100 Units/Ml 3 Ml Pen) 0 units SC ACHS [facility]; Protocol Stop: 05/15/20 02:29 Last Admin: 04/17/20 14:00 Dose: Not Given Documented by: Insulin Glargine (Insulin Glargine Solostar 100 Units/Ml 3 Ml Pen) 30 units SC DAILY [facility] Stop: 05/18/20 08:59 Melatonin (Melatonin 3 Mg Tab) 3 mg PO HS PRN PRN Reason: Sleep Stop: 05/14/20 19:30 Metoprolol Succinate (Metoprolol Succ 25mg Ext Rel Tab) 25 mg PO QAM [facility] Stop: 05/16/20 08:59 Last Admin: 04/17/20 08:32 Dose: 25 mg Documented by: Miscellaneous (Carbohydrates For Hypoglycemia ) 15 - 30 gm PO UD PRN PRN Reason: Hypoglycemia Protocol Stop: 05/14/20 19:30 Miscellaneous Information (Daptomycin Consult Active) 1 ea N/A UD PRN PRN Reason: Consult Stop: 05/14/20 16:38 Miscellaneous Information (Piperacill/Tazobac Consult Active) 1 ea N/A UD PRN PRN Reason: Consult Stop: 05/14/20 17:14 Miscellaneous Information (Pharmacy Glycemic Mgmt Consult) 1 ea N/A UD PRN PRN Reason: Consult Stop: 05/14/20 19:51 Nitroglycerin (Nitroglycerin Sl 0.4 Mg/Tab Tab) 0.4 mg SL UD PRN PRN Reason: Chest Pain Stop: 05/14/20 19:30 Ondansetron HCl (Ondansetron Inj 2 Mg/Ml 2 Ml Vial) 4 mg IV Q6H PRN PRN Reason: Nausea Stop: 05/14/20 19:30 Sodium Bicarbonate (Sodium Bicarbonate 650 Mg Tab) 650 mg PO BID [facility] Stop: 05/16/20 10:59 Last Admin: 04/17/20 08:32 Dose: 650 mg Documented by: (1) DKA (diabetic ketoacidoses) Diabetes mellitus complication detail: without coma Diabetes mellitus type: other specified (including BABATUNDE) Qualified Code(s): E13.10 - Other specified diabetes mellitus with ketoacidosis without coma (2) Osteomyelitis Laterality: unspecified laterality Osteomyelitis type: unspecified type
--- NOTE | 2020-04-17 22:33 | Communication Note ---
Date of Service: April 17, 2020 Made aware by RN of loose dark stools with minimal abdominal bloating symptoms. CT abd pelvis initial read : No acute findings. No evidence of small bowel obstruction, bowel wall thickening or ascites. Appendix is nondilated. FOBT positive Hemoglobin stable at 11 AP UGIB Currently hemodynamically stable Trend H&H, transfuse PRBC if hemoglobin less than 8 and or for symptomatic anemia N.p.o. for now. Hold aspirin, heparin subcu for now IV PPI GI consult Re: UGIB Will relay to AM provider.
[2020-04-17] MEDS ORDERED: [UNRECOGNIZED DRUG - OTHER] PRN (22:42)
[2020-04-17] MEDS ORDERED: CASPOFUNGIN 70 MG in SODIUM CHLORIDE 0.9% 250 ML IV ONE (23:00)
[2020-04-18] MEDS ORDERED: INSULIN ASPART 100 UNITS/ML 3 ML PEN SC ONE (01:00)
[2020-04-18] MEDS ORDERED: LOPERAMIDE HCL 2 MG CAP PO STA (01:49)
[2020-04-18 02:24] LABS: Hematocrit (blood only) 34.4 % (42-52); Hemoglobin 11.7 g/dL (14.0-18.0)
[2020-04-18] MEDS: PANTOprazole 40 MG in SYRINGE 0 ML IV SCH ×2 (04:09→20:52)
[2020-04-18] MEDS: PIPERACILLIN/TAZOBACTAM 3.375 GM in DEXTROSE 5% 100 ML IV SCH (04:19)
[2020-04-18] MEDS: INSULIN ASPART 100 UNITS/ML 3 ML PEN SC SCH ×4 (06:00→21:03)
--- NOTE | 2020-04-18 08:15 | Gastrointestinal Consultation ---
Date of Consultation April 18, 2020 Assessment & Plan (1) Acute renal failure (ARF): (2) S/P bilateral BKA (below knee amputation): (3) Ischemic cardiomyopathy: (4) Thrombocytopenia: (5) Hx of CABG: (6) DKA (diabetic ketoacidoses): (7) Hyperglycemia: (8) Osteomyelitis: (9) Heme positive stool: Patient with many serious comorbidities nmost serious of which include renal failure now requiring HD and osteomyelitis of LE BKA site. the dark stool noted and hgb is stable. Conservative mgt of this in this very ill patient is appropriate. No role for EGD at this time. BID PPI IV and monitor H/H and I/O's. Communicated to primary hospitalist. Please call with questions. History of Present Illness Reason for Consultation: dark stool; FOBT+ Requesting Physician: Fara Attending Physician: Pallavi Sparks DO History of Present Illness 60 yo male with multiple comorbidities including CAD s/p CABG, h/o cardiac arrest and trach, DM, CKD, h/o bilateral BKA admitted with hyperglyemia and acute kidney injury as well as osteomyelitis of his right BKA site. On multiple abx. Renal function continues to decline and tunnel HD catheter placed in the OR yesterday. be apparently reported dark stool last evening and tested is for FOB and was positive. C diff was negative on 04/16. no abd pain, nausea or vomiting. No prior h/o GI bleed. Hgb is stable. Allergies Allergy/AdvReac Type Severity Reaction Status Date / Time No Known Allergies Allergy Unverified 04/14/20 15:35 Home Medications Medication Instructions Recorded Confirmed Type amlodipine 10 mg PO DAILY 04/17/20 04/17/20 History artificial tear([id number]) 1 drp OPB QID PRN 04/17/20 04/17/20 History aspirin 81 mg PO DAILY 04/17/20 04/17/20 History atorvastatin [Lipitor] 40 mg PO DAILY 04/17/20 04/17/20 History fenofibrate nanocrystallized 145 mg PO DAILY 04/17/20 04/17/20 History insulin detemir U-100 30 unit SUBCUT DAILY 04/17/20 04/17/20 History sacubitril-valsartan [Entresto] 1 tab PO BID 04/17/20 04/17/20 History Patient History Medical History (Updated 04/18/20 @ 08:13 by Nydia Rice, ) Heme positive stool Social History Smoking Status: Current every day smoker Hx Alcohol Use: No Hx Substance Use: No Beliefs That Will Affect Care: None Current Living Situation: Alone Other Information That Helps Us Care for You: No Feels Safe at Home: Yes Safety Concerns: Feels Safe At This Time Assistive Devices: None Review of Systems Review of Systems: All systems reviewed & are unremarkable except as noted in HPI & below Physical Exam Constitutional: WD/WN, vitals as above Respiratory: normal respiratory effort, lungs clear to auscultation Cardiovascular: RRR, no murmur, no edema Gastrointestinal (Abdomen): normal bowel sounds, soft, nontender, no hepatosplenomegaly Results & Data ([facility]) Vital Signs (Past 12 Hours) Vital Signs Temp Pulse Resp BP BP Pulse Ox 04/18/20 07:58 36.9 C 77 20 147/74 H 94 04/17/20 23:05 37.2 C 82 18 130/68 99 (1) DKA (diabetic ketoacidoses) Diabetes mellitus complication detail: without coma Diabetes mellitus type: other specified (including BABATUNDE) Qualified Code(s): E13.10 - Other specified diabetes mellitus with ketoacidosis without coma (2) Osteomyelitis Laterality: unspecified laterality Osteomyelitis type: unspecified type
--- NOTE | 2020-04-18 08:59 | CT Scan Report ---
CT SCAN OF THE ABDOMEN AND PELVIS WITHOUT CONTRAST CLINICAL HISTORY: Diffuse abdominal pain COMPARISON STUDY: Renal ultrasound dated 04/15/2020, CT scan dated 09/13/2011 TECHNIQUE: CT scan of the abdomen and pelvis was performed from the lung bases to the proximal femurs . Images are reviewed in the axial, sagittal, and coronal planes. IV contrast was not administered fo r this examination. A dose lowering technique was utilized adhering to the principles of ALARA. CT DOSE: 1232.33 mGy.cm FINDINGS: Lower chest: There are basilar atelectatic changes. There are no large pleural effusions Liver: The unenhanced liver is normal in size, contour, and attenuation. There is no intrahepatic larry iary ductal dilatation. Gallbladder: Contracted Spleen: Mildly enlarged measuring 14.6 cm Pancreas: Unremarkable. Adrenal glands: Unremarkable. Kidneys: There is mild bilateral perinephric stranding. No renal, ureteral, or bladder calculi are vi sualized. Bowel: There are no transition zones indicate bowel obstruction. There is no evidence of acute append icitis. There is no evidence of acute diverticulitis. Peritoneum: There is no intraperitoneal free air or abdominal ascites. Vasculature: The abdominal aorta is normal in course and caliber. Adenopathy: There are borderline enlarged para-aortic and iliac chain lymph nodes. Pelvic viscera: There is an indwelling Barakat catheter. There is bladder wall thickening. Skeletal structures: No destructive osseous lesions are seen. There is a nonspecific 2 cm right anter olateral abdominal wall nodule. IMPRESSION: 1. No evidence of bowel obstruction. No evidence of free air 2. Normal appendix. No evidence of acute diverticulitis 3. Bilateral perinephric stranding left greater than right. No renal, ureteral, or bladder calculi id entified. 4. Mild splenomegaly 5. Bladder wall thickening 6. Borderline enlarged retroperitoneal lymph nodes 7. Nonspecific 2 cm right anterolateral abdominal wall nodule. ACT 112: Negative or not required by law. Electronically signed by: Jonas Treadwell M.D. 04/18/2020 8:57 AM
[2020-04-18] MEDS ORDERED: INSULIN GLARGINE SOLOSTAR 100 UNITS/ML 3 ML PEN SC SCH ×2 (09:00)
[2020-04-18 09:02] LABS: Hematocrit (blood only) 35.5 % (42-52); Hemoglobin 11.9 g/dL (14.0-18.0); Mean Corpuscular Hemoglobin 29.5 pg (25-34); Mean Corpuscular Hgb Conc 33.5 g/dL (32-36); Mean Corpuscular Volume 87.9 fL (80-100); Mean Platelet Volume 12.1 fL (7.4-10.4); Platelet Count 143 K/uL (130-400); RDW Standard Deviation 45.5 fL (36.4-46.3); Red Blood Count 4.04 M/uL (4.7-6.1); White Blood Count 5.97 K/uL (4.8-10.8)
[2020-04-18 10:54] LABS: Albumin Level 1.9 gm/dl (3.4-5.0); BUN Creatinine Ratio 11.4 (10-20); Calcium 8.3 mg/dl (8.5-10.1); Creatinine Clr Calc Pharmacy 12.1 ml/min; Est GFR (African American) 7.9; Est GFR (Non-African American) 6.8; Magnesium 2.1 mg/dl (1.8-2.4); Phosphorus 4.2 mg/dl (2.5-4.9); Potassium 4.2 mmol/L (3.5-5.1)
--- NOTE | 2020-04-18 10:56 | Nephrology Progress Note ---
Date of Service April 18, 2020 Assessment & Plan (1) ARIANA (acute kidney injury): * Baseline Cr unknown. Will request H&P, Nephrology notes and all labs over last 24 months from [facility] * Urine microscopy negative for blood. Urinalysis + protein likely related to underlying diabetic nephropathy * Serologic testing has been ordered. Results are pending * Renal US negative for obstruction. Patient is nonoliguric * 1st run HD today. * Monitor PRP, UO * Will need L arm vascular access (2) DKA (diabetic ketoacidoses): * Resolved (3) Osteomyelitis: * On Zosyn + Daptomycin Admission and Anticipated Discharge Date Admission Date: April 14, 2020 Subjective Mr. Romero was seen & examined in his hospital room this morning. He was being prepared for HD. Mr. 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 He has a longstanding h/o tobacco use and PVD. In 2017 he required CABG and had a prolonged hospitalization requiring tracheostomy for mechanical ventilation, amputation of all the distal phalanges of his R hand and bilateral BKA. He reports that his last hospitalization was at [facility] in [place], [place] . Mr. Romero is uncertain what his baseline Cr has been. He denies a h/o hematuria, foamy urine or difficulty voiding. He moved to [place], [place] earlier this month and lives alone. His daughter resides in [place], [place]. Mr. Romero was admitted w/ DKA, osteomyelitis of his R BKA stump and ARIANA requiring initiation of HD. He underwent RIJ THC yesterday and is scheduled for 1st run HD later this morning. Review of Systems Constitutional: no fever Eyes: no problem reported Ear, Nose, Mouth, Throat: no problem reported Respiratory: no dyspnea Cardiovascular: no chest pain, no palpitations and no edema Gastrointestinal: no abdominal pain, no nausea and no diarrhea/loose stools Genitourinary: no dysuria, no urinary hesitancy and no hematuria Musculoskeletal: no back pain Integumentary: no rash Neurologic: no dizziness and no confusion Physical Exam Constitutional: + ill appearing; not in distress Eyes: PERRL, conjunctivae normal, anicteric sclerae ENMT: external ear and nose normal, oropharynx normal Neck: trachea midline, no thyromegaly scar noted from previous tracheostomy Respiratory: normal respiratory effort, lungs clear to auscultation Cardiovascular: Rate/Rhythm: regular rate and regular rhythm Heart Sounds: no murmur Gastrointestinal (Abdomen): normal bowel sounds, soft, nontender, no hepatosplenomegaly Musculoskeletal: Bilateral BKA. R BKA site w/ clean, dry dressing Skin: no rashes, warm and dry Neurologic: awake; not confused Results & Data ([facility]) Vital Signs (Past 12 Hours) Vital Signs Temp Pulse Pulse Pulse Resp BP BP 04/18/20 10:00 93 H 88/59 L 04/18/20 09:40 89 109/60 04/18/20 09:20 81 103/57 L 04/18/20 09:00 36.6 C 78 04/18/20 07:58 36.9 C 77 20 147/74 H 04/17/20 23:05 37.2 C 82 18 BP Pulse Ox 04/18/20 10:00 04/18/20 09:40 04/18/20 09:20 04/18/20 09:00 04/18/20 07:58 94 04/17/20 23:05 130/68 99 Laboratory Tests 04/18/20 08:32 WBC 5.97 Hgb 11.9 L Hct 35.5 L Plt Count 143 Laboratory Tests 04/18/20 08:32 Sodium 141 Potassium 4.2 Chloride 113 H Carbon Dioxide 18 L BUN 89 H Creatinine 7.75 H* D Calcium 8.3 L Phosphorus 4.2 Magnesium 2.1 PG Care Time/CCT Total # of Minutes Spent Total Time Spent with Patient: Total time spent is greater than 50% in coordi nation of care (as documented) at patient's floor/unit and/or counseling patient: Coding Level of Care Code 80043 Subseq Hosp Care Lvl 3 Diagnoses ARIANA (acute kidney injury) N17.9 DKA (diabetic ketoacidoses) E13.10 Diabetes mellitus complication detail: without coma Diabetes mellitus type: other specified (including BABATUNDE) Osteomyelitis M86.9 Laterality: unspecified laterality Osteomyelitis type: unspecified type (1) DKA (diabetic ketoacidoses) Diabetes mellitus complication detail: without coma Diabetes mellitus type: other specified (including BABATUNDE) Qualified Code(s): E13.10 - Other specified diabetes mellitus with ketoacidosis without coma (2) Osteomyelitis Laterality: unspecified laterality Osteomyelitis type: unspecified type
[2020-04-18] MEDS: METOPROLOL SUCC 25MG EXT REL TAB PO SCH (11:54)
[2020-04-18] MEDS: amLODIPine BESYLATE 5 MG TAB PO SCH (11:54)
[2020-04-18 12:01] LABS: Hemoglobin 11.5 g/dL (14.0-18.0)
[2020-04-18] MEDS ORDERED: INSULIN GLARGINE SOLOSTAR 100 UNITS/ML 3 ML PEN SC ONE (12:55)
--- NOTE | 2020-04-18 14:53 | Pharmacy Report ---
Pharmacy Glycemic Sign Off Nt - Date of Service April 18, 2020 - Assessment & Plan ASSESSMENT: * Pharmacy was consulted by Dr Landeros on 04/15/2020 for glycemic control and to write orders per [facility] inpatient glycemic control protocol. * Major changes made by pharmacy to antidiabetic regimen include: * Initiation of Lantus 25 units daily * Initiation of Novolog CF 20 and CR 7 * Patient has been receiving/requiring 37 units of insulin per day for adequate glycemic control * BSGs ranging 139- 186 mg/dl * Patient is interested in utilizing home regimen while inhouse. Per discussion with provider, pharmacy will sign off. * Please see recommendations for outpatient antidiabetic regimen below. PLAN FOR INPATIENT GLYCEMIC CONTROL: No changes needed to current regimen. * Continue basal insulin with Lantus 30 units SQ daily * Continue NovoLog per scale ACHS/Q6hrs while NPO * Goal range = 110- 140 mg/dl * CF = 20 mg/dl/unit * CR = 1 unit for ever 7 g CHO consumed * Pharmacy is signing off of glycemic consult and will no longer be making adjustments to inpatient regimen. Please feel free to re-consult if needed. Thank you. DISCHARGE RECOMMENDATIONS: * A1c 11.1 % on 04/14/20 * Patient newly started on hemodialysis so outpatient regimen will need to be changed based upon BSG trends inhouse.
--- NOTE | 2020-04-18 15:50 | Cardiology Progress Note ---
Date of Service April 18, 2020 Assessment & Plan (1) Ischemic cardiomyopathy: Records received from [facility]. Discharge summary describes hospitalization from 01/29/2017 until 02/27/2017. That time at the age of 56 the patient presented with an acute inferior wall my ocardial infarction. Emergent cardiac catheterization was performed revealing multivessel coronary heart disease and total occlusion of the right coronary artery. Percutaneous coronary intervention of the right coronary artery was unsuccessful. Patient had recurrent symptoms and return to the cardiac catheterization lab later that day and underwent temporary transvenous pacemaker and intra-aortic balloon pump placement and subsequently emergent coronary artery bypass grafting. Patient received CABG x5 with WHITLOCK to LAD, SVG to diagonal, PDA, and a separate sequential graft to the second and third obtuse marginal branches of the circumflex coronary artery. A left atrial appendage clip was placed. Acute renal insufficiency noted, however the discharge summary states that he did not require renal replacement therapy, and creatinine at the time of discharge in February 2017 was 0.94. Due to prolonged respiratory failure he underwent tracheostomy and PEG tube placement. Ischemic changes noted to the digits of the right hand and left foot during that hospital stay. This is consistent with the patient's recollection that he later required surgical intervention for these changes. Patient with heme positive stools earlier today. GI input noted and appreciated. Aspirin is on hold. Atorvastatin and fibrate had been on hold due to administration of daptomycin. Daptomycin has since been stopped, therefore will resume atorvastatin and fenofibrate. New metoprolol. (2) Acute renal failure (ARF): Nephrology input noted and appreciated. Dialysis initiated via R IJ catheter. Eventually will need fistula placement. (3) Heme positive stool: GI input noted, observe. Aspirin on hold. (4) Osteomyelitis: Patient has been found to have yeast in 2 blood cultures. Caspofungin therefore started. Operative intervention lower extremity BKA site be necessary, infectious disease and surgical appreciated. From a preoperative standpoint, records from 2017 include EKG with similar Q waves in the inferior leads at to that noted this stay. I reviewed the echocardiographic images obtained this admission personally. Inferior wall akinesis noted, LVEF 40-45% similar to that noted in 2017. Would ensure tolerance / hemodynamic stability with new dialysis prior to surgery. DVT prophylaxis: SQ heparin 5000 units BID. Admission and Anticipated Discharge Date Admission Date: April 14, 2020 Subjective Patient seen in cardiology follow-up of his history of ischemic cardiomyopathy, CABG. He had his first session of hemodialysis this morning. He tolerated it well overall. The lowest blood pressure I see recorded in [facility] was 88/51 at 10:40 AM. Currently he is resting comfortably, lying supine, watching television. Denies chest discomfort or shortness of breath. He notes generalized fatigue which is understandable. Review of Systems Review of Systems: All systems reviewed & are unremarkable except as noted in HPI & below Physical Exam Physical Exam: Temp Pulse Resp BP Pulse Ox 36.6 C 75 20 111/60 94 04/18/20 11:10 04/18/20 11:10 04/18/20 07:58 04/18/20 11:10 04/18/20 07:58 Bilateral below the knee amputations, right lower leg dressed, dressing not removed. History of finger amputations right upper extremity. Results & Data ([facility]) Vital Signs (Past 12 Hours) Vital Signs Temp Pulse Pulse Pulse Resp BP BP 04/18/20 11:10 36.6 C 75 04/18/20 11:00 101 H 90/59 L 04/18/20 10:40 98 H 88/51 L 04/18/20 10:20 95 H 93/54 L 04/18/20 10:00 93 H 88/59 L 04/18/20 09:40 89 109/60 04/18/20 09:20 81 103/57 L 04/18/20 09:00 36.6 C 78 04/18/20 07:58 36.9 C 77 20 147/74 H BP Pulse Ox 04/18/20 11:10 111/60 04/18/20 11:00 04/18/20 10:40 04/18/20 10:20 04/18/20 10:00 04/18/20 09:40 04/18/20 09:20 04/18/20 09:00 04/18/20 07:58 94 (1) Osteomyelitis Laterality: unspecified laterality Osteomyelitis type: unspecified type
[2020-04-18] MEDS: ceFAZolin 1000MG 1,000 MG/7.5 ML SYR IV SCH (16:02)
[2020-04-18] MEDS ORDERED: Nursing to Pharmacy Communication SCH (16:15)
[2020-04-18] MEDS: SODIUM BICARBONATE 650 MG TAB PO SCH (16:25)
--- NOTE | 2020-04-18 16:40 | Hospitalist Progress Note ---
Date of Service April 18, 2020 Assessment & Plan (1) Acute renal failure (ARF): Unknown baseline kidney function which is likely progressed and very poor. Some records from CABG in 2017 reflect normal baseline. Limited records available as [place], having recently moved to [place]. Proteinuria present. Nephrology performing workup, treating acidosis with bicarbonate. TDC placed 04/17 and first HD session started today and went well. (2) Fungemia: (3) Osteomyelitis: Empirically covered with Dapto and Zosyn. Per ID, will continue with cefazolin TIW after HD until amputation/revisions are complete. Fungemia also now present. Pt on caspofungin. ID physician was updated with the blood culture results. (4) DKA (diabetic ketoacidoses): Initially presented in DKA with presumed infection as cause of hyperglycemia. Mediation noncompliance is also very probable. Patient has uncontrolled A1C at baseline. RLE osteo. Indwelling pal catheter with yeast in UA but no bacteruria, therefore, no urine culture performed. He remains euglycemic with the help of glycemic pharmacy management and sugars are controlled. The patient is noncompliant and refuses insulin many times. (5) Ischemic cardiomyopathy: EF 45%, appears compensated at this time. Not very active as a bilateral amputee without prosthetics and with a RLE wound. (6) Hx of CABG: CAD with h/o CABG, 2017 performed at a hospital in [facility]. Records received and placed in chart. Cardiac arrest reported leading to digital ischemia and amputation of distal fingers of right hand. Current active Smoker. No evidence of ACS this admission with elevated trop on admission thought 2/2 demand ischemia on admission in setting of DKA and low EF. Cont medical management of CAD. Entresto components on hold in setting of acute renal failure. (7) Current smoker: Encouraged to quit. He declines nicotine patch and states he can quit without help if he decides to. (8) Thrombocytopenia: Improving. Some ecchymosis present on glutes around rectal wound per pictures, but has no other overt bleeding. Cont to monitor. (9) S/P bilateral BKA (below knee amputation): Pt reports having had multiple revision surgeries over the years and is a long standing uncontrolled diabetic smoker. (10) DVT prophylaxis: Heparin DNR/DNI Dispo-Doing well, has established care with Dr. Richland. Needs close follow-up with him after discharge. DO Luis [facility]to [facility] Hospitalist Admission and Anticipated Discharge Date Admission Date: April 14, 2020 Subjective cc: DKA, osteomyelitis of RLE s/p bilat amputee -denies pain -underwent 1st HD session without issue -declined glargine this morning but willing to take this now. -denies chest pain, SOB or other issues -asking for solid foods -after scare of blackish stools, had an additional greenish stool this morning. -per GI conservative measures at this time, no GI bleed suspected. Review of Systems Review of Systems: All systems reviewed & are unremarkable except as noted in Subjective Physical Exam Physical Exam: CONSTITUTIONAL: WNWD, vitals as above, generally well- appearing EYES: normal conjunctivae, no scleral icterus ENT: external ear and nose normal, MMM RESPIRATORY: clear to auscultation bilaterally, no crackles, rales or wheezes, normal respiratory effort CARDIOVASCULAR: regular rate and rhythm, S1 and 2 heard without murmurs, gallops or rubs, no JVD, bilateral BKA, R hand s/p distal multidigit amputation. Tunneled HD catheter to right anterior chest wall. GASTROINTESTINAL: normal bowel sounds, soft, nontender, nondistended MUSCULOSKELETAL: strength 5/5 throughout, head is normocephalic and atraumatic SKIN: warm and dry, open draining wound of serous material on end of R leg. Aquacel in place. Wound on rectum. Wounds were not directly visualized on todays exam. NEUROLOGIC: No facial palsy, no dysarthria. N 2-12 grossly intact, normal cognition, normal speech, no tremor. No gross focal deficits. PSYCHIATRIC: alert cooperative and oriented to person, place and time. Results & Data [facility] Vital Signs (Past 12 Hours) Vital Signs Temp Pulse Pulse Pulse Resp BP BP 04/18/20 11:10 36.6 C 75 04/18/20 11:00 101 H 90/59 L 04/18/20 10:40 98 H 88/51 L 04/18/20 10:20 95 H 93/54 L 04/18/20 10:00 93 H 88/59 L 04/18/20 09:40 89 109/60 04/18/20 09:20 81 103/57 L 04/18/20 09:00 36.6 C 78 04/18/20 07:58 36.9 C 77 20 147/74 H BP Pulse Ox 04/18/20 11:10 111/60 04/18/20 11:00 04/18/20 10:40 04/18/20 10:20 04/18/20 10:00 04/18/20 09:40 04/18/20 09:20 04/18/20 09:00 04/18/20 07:58 94 Laboratory Results Short CBC 04/18/20 04/18/20 04/18/20 Range/Units 02:12 08:32 11:44 WBC 5.97 (4.8-10.8) K/uL Hgb 11.7 L 11.9 L 11.5 L (14.0-18.0) g/dL Hct 34.4 L 35.5 L 34.0 L (42-52) % Plt Count 143 (130-400) K/uL BMP 04/18/20 08:32 Sodium 141 Potassium 4.2 Chloride 113 H Carbon Dioxide 18 L BUN 89 H Creatinine 7.75 H* D Glucose 163 H Calcium 8.3 L Cardiac Enzymes 04/18/20 Range/Units 08:32 Total Creatine Kinase 281 (39-308) U/L Liver Function 04/18/20 Range/Units 08:32 Albumin 1.9 L (3.4-5.0) gm/dl Medications Administered Current Inpatient Medications Acetaminophen (Acetaminophen 325 Mg Tab) 650 mg PO Q4H PRN PRN Reason: Pain or Fever Stop: 05/14/20 19:30 Amlodipine Besylate (Amlodipine Besylate 5 Mg Tab) 10 mg PO [facility] Stop: 05/16/20 08:59 Last Admin: 04/18/20 11:54 Dose: 10 mg Documented by: Aspirin (Aspirin 81 Mg Ectab) 81 mg PO [facility] Stop: 05/15/20 08:59 Last Admin: 04/17/20 08:31 Dose: 81 mg Documented by: Atorvastatin Calcium (Atorvastatin 40 Mg Tab) 40 mg PO [facility] Stop: 05/16/20 08:59 Last Admin: 04/16/20 08:48 Dose: 40 mg Documented by: Dextrose (Dextrose 50% 50 Ml Syringe) 25 - 50 ml IV UD PRN; Protocol PRN Reason: Hypoglycemia Protocol Stop: 05/14/20 19:30 Fenofibrate (Fenofibrate Nanocrystallized 145 Mg Tablet) 145 mg PO QAM [facility] Stop: 05/16/20 08:59 Last Admin: 04/16/20 08:49 Dose: 145 mg Documented by: Glucagon (Glucagon For Inj 1 Mg Vial) 1 mg SQ UD PRN; Protocol PRN Reason: Hypoglycemia Protocol Stop: 05/14/20 19:30 Glucose (Glucose 10 Tabs/Tube) 4 - 8 tabs PO UD PRN; Protocol PRN Reason: Hypoglycemia Protocol Stop: 05/14/20 19:30 Glucose (Glucose 40% Gel 15 Gm Tube) 15 - 30 gm PO UD PRN; Protocol PRN Reason: Hypoglycemia Protocol Stop: 05/14/20 19:30 Heparin Sodium (Porcine) (Heparin Sod 5,000 Unit/0.5 Ml Vial) 5,000 units SQ Q12 [facility] Stop: 05/17/20 20:59 Last Admin: 04/17/20 21:40 Dose: Not Given Documented by: Caspofungin 50 mg/ Sodium (Chloride) 260 mls @ 260 mls/hr IV Q24H [facility]; Protocol Stop: 05/18/20 22:59 Pantoprazole Sodium 40 mg/ (Syringe) 10 mls @ 5 mls/min IV BID [facility] Stop: 05/18/20 03:59 Last Admin: 04/18/20 04:09 Dose: 5 mls/min Documented by: Cefazolin Sodium (Ancef 1000mg) 1,000 mg in 7.5 mls @ 2.5 mls/min IV TuThSa@1600 [facility] Stop: 05/30/20 15:59 Last Admin: 04/18/20 16:02 Dose: 2.5 mls/min Documented by: Insulin Aspart (Insulin Aspart 100 Units/Ml 3 Ml Pen) 0 units SC ACHS [facility]; Protocol Stop: 05/18/20 16:29 Insulin Glargine (Insulin Glargine Solostar 100 Units/Ml 3 Ml Pen) 30 units SQ DAILY [facility] Stop: 05/19/20 08:59 Melatonin (Melatonin 3 Mg Tab) 3 mg PO HS PRN PRN Reason: Sleep Stop: 05/14/20 19:30 Metoprolol Succinate (Metoprolol Succ 25mg Ext Rel Tab) 25 mg PO QAM [facility] Stop: 05/16/20 08:59 Last Admin: 04/18/20 11:54 Dose: 25 mg Documented by: Miscellaneous (Carbohydrates For Hypoglycemia ) 15 - 30 gm PO UD PRN PRN Reason: Hypoglycemia Protocol Stop: 05/14/20 19:30 Miscellaneous Information (Caspofungin~Consult Pharmacy) 1 ea N/A UD PRN PRN Reason: Consult Stop: 05/17/20 22:41 Nitroglycerin (Nitroglycerin Sl 0.4 Mg/Tab Tab) 0.4 mg SL UD PRN PRN Reason: Chest Pain Stop: 05/14/20 19:30 Ondansetron HCl (Ondansetron Inj 2 Mg/Ml 2 Ml Vial) 4 mg IV Q6H PRN PRN Reason: Nausea Stop: 05/14/20 19:30 (1) DKA (diabetic ketoacidoses) Diabetes mellitus complication detail: without coma Diabetes mellitus type: other specified (including BABATUNDE) Qualified Code(s): E13.10 - Other specified diabetes mellitus with ketoacidosis without coma (2) Osteomyelitis Laterality: unspecified laterality Osteomyelitis type: unspecified type
[2020-04-18] MEDS ORDERED: INSULIN GLARGINE SOLOSTAR 100 UNITS/ML 3 ML PEN SC STA (22:07)
[2020-04-18] MEDS: CASPOFUNGIN 50 MG in SODIUM CHLORIDE 0.9% 250 ML IV SCH (22:21)
[2020-04-19] MEDS ORDERED: INSULIN ASPART 100 UNITS/ML 3 ML PEN SC ONE (01:00)
[2020-04-19 06:35] LABS: Hematocrit (blood only) 34.8 % (42-52); Hemoglobin 11.8 g/dL (14.0-18.0); Mean Corpuscular Hemoglobin 29.9 pg (25-34); Mean Corpuscular Hgb Conc 33.9 g/dL (32-36); Mean Corpuscular Volume 88.3 fL (80-100); Platelet Count 194 K/uL (130-400); RDW Standard Deviation 45.6 fL (36.4-46.3); Red Blood Count 3.94 M/uL (4.7-6.1); White Blood Count 8.87 K/uL (4.8-10.8)
[2020-04-19 07:29] LABS: BUN Creatinine Ratio 9.9 (10-20); Calcium 7.7 mg/dl (8.5-10.1); Creatinine Clr Calc Pharmacy 13.9 ml/min; Est GFR (African American) 9.5; Est GFR (Non-African American) 8.2; Potassium 3.7 mmol/L (3.5-5.1)
[2020-04-19] MEDS: INSULIN ASPART 100 UNITS/ML 3 ML PEN SC SCH ×4 (08:37→20:43)
[2020-04-19] MEDS: INSULIN GLARGINE SOLOSTAR 100 UNITS/ML 3 ML PEN SQ SCH ×2 (08:38→20:42)
[2020-04-19] MEDS: amLODIPine BESYLATE 5 MG TAB PO SCH (08:39)
[2020-04-19] MEDS: METOPROLOL SUCC 25MG EXT REL TAB PO SCH (08:40)
[2020-04-19] MEDS: ATORVASTATIN 40 MG TAB PO SCH (08:40)
[2020-04-19] MEDS: PANTOprazole 40 MG in SYRINGE 0 ML IV SCH ×2 (08:42→20:45)
[2020-04-19] MEDS ORDERED: INSULIN GLARGINE SOLOSTAR 100 UNITS/ML 3 ML PEN SQ SCH (09:00)
[2020-04-19] MEDS ORDERED: LOPERAMIDE HCL 2 MG CAP PO STA (09:56)
--- NOTE | 2020-04-19 10:12 | Nephrology Progress Note ---
Date of Service April 19, 2020 Assessment & Plan (1) ARIANA (acute kidney injury): * Baseline Cr unknown. H&P, Nephrology notes and all labs over last 24 months from [facility] were requested yesterday * Urine microscopy negative for blood. Urinalysis + protein likely related to underlying diabetic nephropathy * Serologic testing has been ordered. Results are pending * Renal US negative for obstruction. Patient is nonoliguric * Will schedule 2nd HD treatment for Monday morning - orders placed in EMR and message left for dialysis staff * Monitor PRP, UO * Will need L arm vascular access if renal function fails to recover (2) DKA (diabetic ketoacidoses): * Resolved (3) Osteomyelitis: * On Zosyn + Daptomycin * Blood cx 04/14 + for yeast - on Caspofungin. ID is assisting in care. No dose adjustment needed for ESRD/HD Admission and Anticipated Discharge Date Admission Date: April 14, 2020 Subjective Mr. Romero was seen & examined in his hospital room this morning. He is more alert this morning and oriented x3. Mr. Romero had 1st run HD yesterday for 2 hours without complication. 1L UF was obtained. THC ran A-->A. Mr. Romero remains nonoliguric. He c/o discomfort due to sacral skin breakdown Review of Systems Constitutional: no fever Eyes: no problem reported Ear, Nose, Mouth, Throat: no problem reported Respiratory: no dyspnea Cardiovascular: no chest pain, no palpitations and no edema Gastrointestinal: no abdominal pain, no nausea and no diarrhea/loose stools Genitourinary: no dysuria, no urinary hesitancy and no hematuria Musculoskeletal: no back pain Integumentary: no rash Neurologic: no dizziness and no confusion Physical Exam Constitutional: + ill appearing; not in distress Eyes: PERRL, conjunctivae normal, anicteric sclerae ENMT: external ear and nose normal, oropharynx normal Neck: trachea midline, no thyromegaly R IJ THC w/ clean, dry dressing in place Respiratory: normal respiratory effort, lungs clear to auscultation Cardiovascular: Rate/Rhythm: regular rate and regular rhythm Heart Sounds: no murmur Gastrointestinal (Abdomen): normal bowel sounds, soft, nontender, no hepatosplenomegaly Skin: no rashes, warm and dry Neurologic: awake; not confused Results & Data ([facility]) Vital Signs (Past 12 Hours) Vital Signs Temp Pulse Pulse Resp BP BP Pulse Ox 04/19/20 08:10 37.2 C 85 18 113/57 L 97 04/19/20 04:00 36.9 C 87 20 109/54 L 97 04/18/20 23:36 37 C 78 20 120/60 93 Laboratory Tests 04/19/20 04/19/20 06:17 06:17 WBC 8.87 Hgb 11.8 L Hct 34.8 L Plt Count 194 Sodium 140 Potassium 3.7 Chloride 110 H Carbon Dioxide 26 BUN 66 H Creatinine 6.66 H* D Glucose 98 PG Care Time/CCT Total # of Minutes Spent Total Time Spent with Patient: Total time spent is greater than 50% in coordination of care (as documented) at patient's floor/unit and/or counseling patient: Coding Level of Care Code 12075 Subseq Hosp Care Lvl 3 Diagnoses ARIANA (acute kidney injury) N17.9 DKA (diabetic ketoacidoses) E13.10 Diabetes mellitus complication detail: without coma Diabetes mellitus type: other specified (including BABATUNDE) Osteomyelitis M86.9 Laterality: unspecified laterality Osteomyelitis type: unspecified type (1) DKA (diabetic ketoacidoses) Diabetes mellitus complication detail: without coma Diabetes mellitus type: other specified (including BABATUNDE) Qualified Code(s): E13.10 - Other specified diabetes mellitus with ketoacidosis without coma (2) Osteomyelitis Laterality: unspecified laterality Osteomyelitis type: unspecified type
--- NOTE | 2020-04-19 10:35 | Hospitalist Progress Note ---
Date of Service April 19, 2020 Assessment & Plan (1) Acute renal failure: Unknown baseline kidney function which is likely progressed and very poor. Some records from CABG in 2017 reflect normal baseline. Limited records available as [place], having recently moved to [place]. Proteinuria present. Nephrology performing workup, treating acidosis with bicarbonate. TDC placed 04/17 and first HD session started today and went well. (2) Fungemia: Cont caspofungin until revision surgery. Perform weekly monitoring labwork as needed. (3) Osteomyelitis: Cefazolin after HD treatments based on deep wound cultures showing GBS. Per ID, will continue with cefazolin TIW after HD until amputation/revisions are complete. Fungemia also now present with plan above. [facility] ID physician was updated with the blood culture results. (4) DKA (diabetic ketoacidoses): Initially presented in DKA with presumed infection as cause of hyperglycemia in addition to noncompliance. This has resolved. Currently controlled on basal and bolus insulin. (5) Ischemic cardiomyopathy: EF 45%, appears compensated at this time. Not very active as a bilateral amputee without prosthetics and with a RLE wound. (6) Hx of CABG: CAD with h/o CABG, 2017 performed at a hospital in [facility]. Records received and placed in chart. Cardiac arrest reported leading to digital ischemia and amputation of distal fingers of right hand. Current active Smoker. Cont current medication management. (7) Current smoker: Encouraged to quit. He declines nicotine patch and states he can quit without help if he decides to. (8) Thrombocytopenia: resolved to normal. (9) S/P bilateral BKA (below knee amputation): Pt reports having had multiple revision surgeries over the years and is a long standing uncontrolled diabetic smoker. (10) Pressure-induced deep tissue damage of unspecified buttock: local wound care and stay off this area. (11) Demand ischemia: Type II ID due to demand ischemia and DKA No evidence of ACS this admission with elevated trop on admission thought 2/2 demand ischemia on admission in setting of DKA and low EF. Cont medical management of CAD. Entresto held in renal failure. (12) DVT prophylaxis: Heparin DNR/DNI Dispo-Doing well, has established care with Dr. Ohara. Needs close follow-up with him after discharge. Pallavi Sparks DO [facility] Hospitalist Admission and Anticipated Discharge Date Admission Date: April 14, 2020 Subjective cc: acute renal failure, buttock wound, fungemia, osteo of RLE -patient is doing well today -he appears fatigued -denies pain -tolerating PO -wounds are improving -had some diarrhea that he was given imodium with improvement. Review of Systems Review of Systems: All systems reviewed & are unremarkable except as noted in Subjective Physical Exam Physical Exam: CONSTITUTIONAL: WNWD, vitals as above, generally well- appearing EYES: normal conjunctivae, no scleral icterus ENT: external ear and nose normal, MMM RESPIRATORY: clear to auscultation bilaterally, no crackles, rales or wheezes, normal respiratory effort CARDIOVASCULAR: regular rate and rhythm, S1 and 2 heard without murmurs, gallops or rubs, no JVD, bilateral BKA, R hand s/p distal multidigit amputation. Tunneled HD catheter to right anterior chest wall. GASTROINTESTINAL: normal bowel sounds, soft, nontender, nondistended MUSCULOSKELETAL: strength 5/5 throughout, head is normocephalic and atraumatic SKIN: warm and dry, RLE wound-covered. Buttock wound-improving ecchymosis. Bilateral leg amputee NEUROLOGIC: No facial palsy, no dysarthria. CN 2-12 grossly intact, normal cognition, normal speech, no tremor. No gross focal deficits. PSYCHIATRIC: alert cooperative and oriented to person, place and time. Results & Data Results & Data ([facility]) Vital Signs (Past 12 Hours) Vital Signs Temp Pulse Pulse Resp BP BP Pulse Ox 04/19/20 08:10 37.2 C 85 18 113/57 L 97 04/19/20 04:00 36.9 C 87 20 109/54 L 97 04/18/20 23:36 37 C 78 20 120/60 93 Laboratory Results Short CBC 04/19/20 Range/Units 06:17 WBC 8.87 (4.8-10.8) K/uL Hgb 11.8 L (14.0-18.0) g/dL Hct 34.8 L (42-52) % Plt Count 194 (130-400) K/uL BMP 04/19/20 06:17 Sodium 140 Potassium 3.7 Chloride 110 H Carbon Dioxide 26 BUN 66 H Creatinine 6.66 H* D Glucose 98 Calcium 7.7 L Medications Administered Current Inpatient Medications Acetaminophen (Acetaminophen 325 Mg Tab) 650 mg PO Q4H PRN PRN Reason: Pain or Fever Stop: 05/14/20 19:30 Amlodipine Besylate (Amlodipine Besylate 5 Mg Tab) 10 mg PO QAM HAYLEY Stop: 05/16/20 08:59 Last Admin: 04/19/20 08:39 Dose: 10 mg Documented by: Aspirin (Aspirin 81 Mg Ectab) 81 mg PO QAM HAYLEY Stop: 05/15/20 08:59 Last Admin: 04/17/20 08:31 Dose: 81 mg Documented by: Atorvastatin Calcium (Atorvastatin 40 Mg Tab) 40 mg PO DAILY HAYLEY Stop: 05/19/20 08:59 Last Admin: 04/19/20 08:40 Dose: 40 mg Documented by: Dextrose (Dextrose 50% 50 Ml Syringe) 25 - 50 ml IV UD PRN; Protocol PRN Reason: Hypoglycemia Protocol Stop: 05/14/20 19:30 Fenofibrate (Fenofibrate Nanocrystallized 145 Mg Tablet) 145 mg PO QAM [facility] Stop: 05/16/20 08:59 Last Admin: 04/16/20 08:49 Dose: 145 mg Documented by: Glucagon (Glucagon For Inj 1 Mg Vial) 1 mg SQ UD PRN; Protocol PRN Reason: Hypoglycemia Protocol Stop: 05/14/20 19:30 Glucose (Glucose 10 Tabs/Tube) 4 - 8 tabs PO UD PRN; Protocol PRN Reason: Hypoglycemia Protocol Stop: 05/14/20 19:30 Glucose (Glucose 40% Gel 15 Gm Tube) 15 - 30 gm PO UD PRN; Protocol PRN Reason: Hypoglycemia Protocol Stop: 05/14/20 19:30 Heparin Sodium (Porcine) (Heparin Sod 5,000 Unit/0.5 Ml Vial) 5,000 units SQ Q12 HAYLEY Stop: 05/17/20 20:59 Last Admin: 04/17/20 21:40 Dose: Not Given Documented by: Heparin Sodium (Porcine) (Heparin Sod (Porcine) 1000 Unit/Ml 10 Ml Vial) 2,000 units IV TODAY@0700 [facility] Stop: 04/20/20 14:00 Heparin Sodium (Porcine) (Heparin Sod (Porcine) 1000 Unit/Ml 10 Ml Vial) 500 units IV TODAY@0700,0800 [facility] Stop: 04/20/20 14:00 Caspofungin 50 mg/ Sodium (Chloride) 260 mls @ 260 mls/hr IV Q24H [facility]; Protocol Stop: 05/18/20 22:59 Last Infusion: 04/18/20 23:21 Dose: Infused Documented by: Pantoprazole Sodium 40 mg/ (Syringe) 10 mls @ 5 mls/min IV BID [facility] Stop: 05/18/20 03:59 Last Admin: 04/19/20 08:42 Dose: 5 mls/min Documented by: Cefazolin Sodium (Ancef 1000mg) 1,000 mg in 7.5 mls @ 2.5 mls/min IV TuThSa@1600 [facility] Stop: 05/30/20 15:59 Last Admin: 04/18/20 16:02 Dose: 2.5 mls/min Documented by: Sodium Chloride (Nss 1000ml) 1,000 mls @ 0 mls/hr IV .Q0M PRN PRN Reason: For Hemodialysis Use ONLY Stop: 04/20/20 12:59 Insulin Aspart (Insulin Aspart 100 Units/Ml 3 Ml Pen) 0 units SC ACHS [facility]; Protocol Stop: 05/18/20 16:29 Last Admin: 04/19/20 17:12 Dose: 7 units Documented by: Insulin Glargine (Insulin Glargine Solostar 100 Units/Ml 3 Ml Pen) 20 units SQ BID [facility] Stop: 05/19/20 08:59 Last Admin: 04/19/20 08:38 Dose: 20 units Documented by: Melatonin (Melatonin 3 Mg Tab) 3 mg PO HS PRN PRN Reason: Sleep Stop: 05/14/20 19:30 Metoprolol Succinate (Metoprolol Succ 25mg Ext Rel Tab) 25 mg PO QAM [facility] Stop: 05/16/20 08:59 Last Admin: 04/19/20 08:40 Dose: 25 mg Documented by: Miscellaneous (Carbohydrates For Hypoglycemia ) 15 - 30 gm PO UD PRN PRN Reason: Hypoglycemia Protocol Stop: 05/14/20 19:30 Miscellaneous Information (Caspofungin~Consult Pharmacy) 1 ea N/A UD PRN PRN Reason: Consult Stop: 05/17/20 22:41 Nitroglycerin (Nitroglycerin Sl 0.4 Mg/Tab Tab) 0.4 mg SL UD PRN PRN Reason: Chest Pain Stop: 05/14/20 19:30 Ondansetron HCl (Ondansetron Inj 2 Mg/Ml 2 Ml Vial) 4 mg IV Q6H PRN PRN Reason: Nausea Stop: 05/14/20 19:30 (1) DKA (diabetic ketoacidoses) Diabetes mellitus complication detail: without coma Diabetes mellitus type: other specified (including BABATUNDE) Qualified Code(s): E13.10 - Other specified diabetes mellitus with ketoacidosis without coma (2) Osteomyelitis Laterality: unspecified laterality Osteomyelitis type: unspecified type
--- NOTE | 2020-04-19 15:31 | Cardiology Progress Note ---
Date of Service April 19, 2020 Assessment & Plan (1) Ischemic cardiomyopathy: (2) S/P bilateral BKA (below knee amputation): (3) Acute renal failure: (4) Fungemia: (5) Osteomyelitis: Records received from [facility]. Discharge summary describes hospitalization from 01/29/2017 until 02/27/2017. That time at the age of 56 the patient presented with an acute inferior wall myocardial infarction. Emergent cardiac catheterization was performed revealing multivessel coronary heart disease and total occlusion of the right coronary artery. Percutaneous coronary intervention of the right coronary artery was unsuccessful. Patient had recurrent symptoms and return to the cardiac catheterization lab later that day and underwent temporary transvenous pacemaker and intra-aortic balloon pump placement and subsequently emergent coronary artery bypass grafting. Patient received CABG x5 with WHITLOCK to LAD, SVG to diagonal, PDA, and a separate sequential graft to the second and third obtuse marginal branches of the circumflex coronary artery. A left atrial appendage clip was placed. Patient presents with sepsis, osteomyelitis of distal BKA, fungemia. Q waves noted on EKG, consistent with patient's history of RCA territory STEMI in 2017, with similar Q waves noted on transfer records. Ischemic cardiomyopathy, LVEF chronically in the range of 40 to 45%, inferior akinesis, borderline to mild global hypokinesis otherwise. Patient presents with acute kidney injury, tunneled hemodialysis catheter placed, and is received first session of hemodialysis. Case discussed with Dr. Cantu of orthopedic surgery. He noted plans for patient to be reassessed by vascular surgery with regards to approach to BKA sites. Continue medications including caspofungin. Continue aspirin, amlodipine, atorvastatin, fenofibrate, heparin for DVT prophylaxis. Once we ensure hemodynamic stability after initiation of dialysis routine, surgical intervention can be considered. No unstable cardiac symptoms at present. Admission and Anticipated Discharge Date Admission Date: April 14, 2020 Subjective Patient seen in follow-up. Denies cardiac complaint. Had dialysis yesterday, neck session planned for tomorrow. Blood pressure stable. Physical Exam Physical Exam: Temp Pulse Resp BP Pulse Ox 37.2 C 85 18 116/61 97 04/19/20 14:54 04/19/20 14:54 04/19/20 14:54 04/19/20 14:54 04/19/20 14:54 Constitutional: No acute distress, denies subjective fever Respiratory: normal respiratory effort, lungs clear to auscultation Cardiovascular: RRR, no murmur, no edema Musculoskeletal: History of bilateral below the knee amputations, dressing not removed Neurologic: PERRL, EOMI, accommodation nl, no face palsy, no dysarthria Results & Data ([facility]) Vital Signs (Past 12 Hours) Vital Signs Temp Pulse Pulse Resp BP BP Pulse Ox 04/19/20 14:54 37.2 C 85 18 116/61 97 04/19/20 08:10 37.2 C 85 18 113/57 L 97 04/19/20 04:00 36.9 C 87 20 109/54 L 97 (1) Osteomyelitis Laterality: unspecified laterality Osteomyelitis type: unspecified type
[2020-04-20] MEDS: CASPOFUNGIN 50 MG in SODIUM CHLORIDE 0.9% 250 ML IV SCH ×2 (00:20→22:11)
[2020-04-20 06:55] LABS: Hemoglobin 11.2 g/dL (14.0-18.0); Mean Corpuscular Hgb Conc 33.9 g/dL (32-36); Mean Corpuscular Volume 88.5 fL (80-100); Mean Platelet Volume 10.6 fL (7.4-10.4); Platelet Count 216 K/uL (130-400); RDW Standard Deviation 45.6 fL (36.4-46.3); Red Blood Count 3.73 M/uL (4.7-6.1); White Blood Count 9.97 K/uL (4.8-10.8)
[2020-04-20] MEDS ORDERED: HEPARIN SOD (PORCINE) 1000 UNIT/ML 10 ML VIAL IV SCH (07:00)
[2020-04-20] MEDS ORDERED: SODIUM CHLORIDE 0.9% 1000ML 1,000 ML IV PRN (07:00)
[2020-04-20 07:39] LABS: Calcium 7.8 mg/dl (8.5-10.1); Creatinine Clr Calc Pharmacy 13.4 ml/min; Est GFR (Non-African American) 7.7; Magnesium 1.9 mg/dl (1.8-2.4); Potassium 3.9 mmol/L (3.5-5.1)
[2020-04-20] MEDS: INSULIN ASPART 100 UNITS/ML 3 ML PEN SC SCH ×4 (09:20→21:02)
[2020-04-20] MEDS: INSULIN GLARGINE SOLOSTAR 100 UNITS/ML 3 ML PEN SQ SCH ×2 (09:22→22:12)
[2020-04-20] MEDS: METOPROLOL SUCC 25MG EXT REL TAB PO SCH (09:23)
[2020-04-20] MEDS: ATORVASTATIN 40 MG TAB PO SCH (09:25)
[2020-04-20] MEDS: amLODIPine BESYLATE 5 MG TAB PO SCH (09:25)
[2020-04-20] MEDS: PANTOprazole 40 MG in SYRINGE 0 ML IV SCH ×2 (09:25→22:10)
[2020-04-20] MEDS: FENOFIBRATE NANOCRYSTALLIZED 145 MG TABLET PO SCH (09:26)
--- NOTE | 2020-04-20 12:16 | Nephrology Progress Note ---
Date of Service April 20, 2020 Assessment & Plan (1) ARIANA (acute kidney injury): * Baseline Cr unknown. H&P, Nephrology notes and all labs over last 24 months from [facility] were requested * Urine microscopy negative for blood. Urinalysis + protein likely related to underlying diabetic nephropathy * Serologic testing has been ordered. Results are pending * Renal US negative for obstruction. Patient is nonoliguric * 2nd HD treatment scheduled for this afternoon - orders placed in EMR and reviewed with the dialysis nurse this morning * Monitor PRP, UO * Will need L arm vascular access if renal function fails to recover (2) DKA (diabetic ketoacidoses): * Resolved (3) Osteomyelitis: * On Zosyn + Daptomycin * Blood cx 04/14 + for yeast - on Caspofungin. ID is assisting in care. No dose adjustment needed for ESRD/HD Admission and Anticipated Discharge Date Admission Date: April 14, 2020 Subjective No acute events overnight. Abdulkadir feels well this morning. He admits to weakness and is interested in resources such as SNF post discharge. Barakat remains intact. Normal urine output. Unfortunately creatinine continues to rise. Abdulkadir denies any fluid retention or edema. He has not had fevers or chills. He denies pain. Review of Systems Review of Systems: All systems reviewed & are unremarkable except as noted in HPI & below Physical Exam Constitutional: + ill appearing; not in distress Eyes: PERRL, conjunctivae normal, anicteric sclerae ENMT: external ear and nose normal, oropharynx normal Neck: trachea midline, no thyromegaly R IJ THC w/ clean, dry dressing in place Respiratory: normal respiratory effort, lungs clear to auscultation Cardiovascular: Rate/Rhythm: regular rate and regular rhythm Heart Sounds: no murmur Gastrointestinal (Abdomen): normal bowel sounds, soft, nontender, no hepatosplenomegaly Skin: no rashes, warm and dry Neurologic: awake; not confused Results & Data ([place]) Vital Signs (Past 12 Hours) Vital Signs Temp Pulse Resp BP Pulse Ox 04/20/20 07:32 36.9 C 81 17 114/61 93 Laboratory Results Laboratory Results - last 24 hr 04/19/20 04/19/20 04/20/20 16:45 20:13 06:38 WBC RBC Hgb Hct MCV MCH MCHC RDW Std Deviation RDW Coeff of [place] Plt Count MPV Sodium 139 Potassium 3.9 Chloride 110 H Carbon Dioxide 22 Anion Gap 7.0 BUN 63 H Creatinine 6.97 H* D Est Cr Clr Drug Dosing 13.4 Est GFR ( Amer) 9.0 Est GFR (Non-Af Amer) 7.7 BUN/Creatinine Ratio 9.0 L Glucose 71 POC Glucose 213 H 211 H Calcium 7.8 L Magnesium 1.9 04/20/20 04/20/20 06:38 08:19 WBC 9.97 RBC 3.73 L Hgb 11.2 L Hct 33.0 L MCV 88.5 MCH 30.0 MCHC 33.9 RDW Std Deviation 45.6 RDW Coeff of [place] 14.0 Plt Count 216 MPV 10.6 H Sodium Potassium Chloride Carbon Dioxide Anion Gap BUN Creatinine Est Cr Clr Drug Dosing Est GFR ( Amer) Est GFR (Non-Af Amer) BUN/Creatinine Ratio Glucose POC Glucose 78 Calcium Magnesium PG Care Time/CCT Total # of Minutes Spent Total Time Spent with Patient: Total time spent is greater than 50% in coordination of care (as documented) at patient's floor/unit and/or counseling patient: Coding Level of Care Code 37473 Subseq Hosp Care Lvl 3 Diagnoses ARIANA (acute kidney injury) N17.9 DKA (diabetic ketoacidoses) E13.10 Diabetes mellitus complication detail: without coma Diabetes mellitus type: other specified (including BABATUNDE) Osteomyelitis M86.9 Laterality: unspecified laterality Osteomyelitis type: unspecified type (1) DKA (diabetic ketoacidoses) Diabetes mellitus complication detail: without coma Diabetes mellitus type: other specified (including BABATUNDE) Qualified Code(s): E13.10 - Other specified diabetes mellitus with ketoacidosis without coma (2) Osteomyelitis Laterality: unspecified laterality Osteomyelitis type: unspecified type
--- NOTE | 2020-04-20 13:28 | Cardiology Progress Note ---
Date of Service April 20, 2020 Assessment & Plan (1) Ischemic cardiomyopathy: (2) S/P bilateral BKA (below knee amputation): (3) Acute renal failure: (4) Fungemia: (5) Elevated troponin: (6) Preop cardiovascular exam: Echocardiogram demonstrates mild left ventricular systolic dysfunction without significant valvular pathology. He appears compensated from a heart failure perspective. Mildly elevated troponin on admission secondary to acute renal failure and mild volume overload. He is considered moderate perioperative cardiovascular risk for right lower extremity [id number] amputation. No further cardiac testing or intervention would lower his risk at this time. Restart low-dose aspirin. Continue antibiotics and caspofungin as per internal medicine. Admission and Anticipated Discharge Date Admission Date: April 14, 2020 Subjective Patient seen and examined the bedside. Denies chest pain or shortness of breath. No palpitations, lightheadedness, dizziness or near syncope. Discomfort related to right lower extremity stump infection controlled. No fevers overnight. Offers no concerns/complaints. Review of Systems Review of Systems: All systems reviewed & are unremarkable except as noted in HPI & below Physical Exam Constitutional: well nourished and + ill appearing; no acute distress Respiratory: normal respiratory effort; no respiratory distress and no labored breathing Auscultation: lungs clear to auscultation bilaterally; no crackles, no rales, no rhonchi and no wheezes Cardiovascular: Rate/Rhythm: regular rate and regular rhythm Heart Sounds: normal S1 and normal S2; no murmur Vessels: no JVD Extremities: no edema Gastrointestinal (Abdomen): Inspection/Auscultation: abdomen normal to inspection and normal bowel sounds; abdomen not distended Percussion/Palpation: abdomen soft; abdomen nontender, no guarding and abdomen not rigid Musculoskeletal: Bilateral below the knee amputations, open wound involving the right lower extremity stump, positive ulceration with erythema. Neurologic: moves all extremities; no focal motor deficits Psychiatric: A+Ox3, euthymic affect Results & Data ([facility]) Vital Signs (Past 12 Hours) Vital Signs Temp Pulse Resp BP Pulse Ox 04/20/20 07:32 36.9 C 81 17 114/61 93
--- NOTE | 2020-04-20 17:57 | Hospitalist Progress Note ---
Date of Service April 20, 2020 Assessment & Plan (1) Acute renal failure: Unknown baseline kidney function which is likely progressed and very poor. Some records from CABG in 2017 reflect normal baseline. Limited records available as [place], having recently moved to [place]. Proteinuria present. Nephrology performing workup, treating acidosis with bicarbonate. TDC placed 04/17 and first HD session started today and went well. (2) Fungemia: Cont caspofungin until revision surgery. Perform weekly monitoring labwork as needed. (3) Osteomyelitis: Cefazolin after HD treatments based on deep wound cultures showing GBS. Per ID, will continue with cefazolin TIW after HD until amputation/revisions are complete. Fungemia also now present with plan above. [facility] ID physician was updated with the blood culture results. (4) DKA (diabetic ketoacidoses): Initially presented in DKA with presumed infection as cause of hyperglycemia in addition to noncompliance. This has resolved. Currently controlled on basal and bolus insulin. (5) Ischemic cardiomyopathy: EF 45%, appears compensated at this time. Not very active as a bilateral amputee without prosthetics and with a RLE wound. (6) Hx of CABG: CAD with h/o CABG, 2017 performed at a hospital in [facility]. Records received and placed in chart. Cardiac arrest reported leading to digital ischemia and amputation of distal fingers of right hand. Current active Smoker. Cont current medication management. (7) Current smoker: Encouraged to quit. He declines nicotine patch and states he can quit without help if he decides to. (8) Thrombocytopenia: resolved to normal. (9) S/P bilateral BKA (below knee amputation): Pt reports having had multiple revision surgeries over the years and is a long standing uncontrolled diabetic smoker. (10) Pressure-induced deep tissue damage of unspecified buttock: local wound care and stay off this area. (11) Demand ischemia: Type II DC due to demand ischemia and DKA No evidence of ACS this admission with elevated trop on admission thought 2/2 demand ischemia on admission in setting of DKA and low EF. Cont medical management of CAD. Entresto held in renal failure. (12) DVT prophylaxis: Heparin DNR/DNI Dispo-Doing well, has established care with Dr. Ohara. Needs close follow-up with him after discharge. Pallavi Sparks DO [facility] Hospitalist Admission and Anticipated Discharge Date Admission Date: April 14, 2020 Subjective cc: acute renal failure, buttock wound, fungemia, osteo of RLE -patient continues on HD, reporting he will be going again today -buttock wound is healing and improved -he is eating -he denies pain Review of Systems Review of Systems: All systems reviewed & are unremarkable except as noted in Subjective Physical Exam Physical Exam: CONSTITUTIONAL: WNWD, vitals as above, generally well- appearing EYES: normal conjunctivae, no scleral icterus ENT: external ear and nose normal, MMM RESPIRATORY: clear to auscultation bilaterally, no crackles, rales or wheezes, normal respiratory effort CARDIOVASCULAR: regular rate and rhythm, S1 and 2 heard without murmurs, gallops or rubs, no JVD, bilateral BKA, R hand s/p distal multidigit amputation. Tunneled HD catheter to right anterior chest wall. GASTROINTESTINAL: normal bowel sounds, soft, nontender, nondistended MUSCULOSKELETAL: strength 5/5 throughout, head is normocephalic and atraumatic SKIN: warm and dry, open draining wound of serous material on end of R leg. Aquacel in place. Buttock wound is present and healing with improved ecchymosis. Bilateral amputee (BTK). NEUROLOGIC: No facial palsy, no dysarthria. CN 2-12 grossly intact, normal cognition, normal speech, no tremor. No gross focal deficits. PSYCHIATRIC: alert cooperative and oriented to person, place and time. Results & Data Results & Data ([facility]) Vital Signs (Past 12 Hours) Vital Signs Temp Pulse Resp BP Pulse Ox 04/20/20 15:07 36.8 C 78 17 118/60 97 04/20/20 07:32 36.9 C 81 17 114/61 93 Laboratory Results Short CBC 04/20/20 Range/Units 06:38 WBC 9.97 (4.8-10.8) K/uL Hgb 11.2 L (14.0-18.0) g/dL Hct 33.0 L (42-52) % Plt Count 216 (130-400) K/uL BMP 04/20/20 06:38 Sodium 139 Potassium 3.9 Chloride 110 H Carbon Dioxide 22 BUN 63 H Creatinine 6.97 H* D Glucose 71 Calcium 7.8 L Medications Administered Current Inpatient Medications Acetaminophen (Acetaminophen 325 Mg Tab) 650 mg PO Q4H PRN PRN Reason: Pain or Fever Stop: 05/14/20 19:30 Amlodipine Besylate (Amlodipine Besylate 5 Mg Tab) 10 mg PO QAM [facility] Stop: 05/16/20 08:59 Last Admin: 04/20/20 09:25 Dose: 10 mg Documented by: Aspirin (Aspirin 81 Mg Ectab) 81 mg PO QAM [facility] Stop: 05/15/20 08:59 Last Admin: 04/17/20 08:31 Dose: 81 mg Documented by: Atorvastatin Calcium (Atorvastatin 40 Mg Tab) 40 mg PO DAILY [facility] Stop: 05/19/20 08:59 Last Admin: 04/20/20 09:25 Dose: 40 mg Documented by: Dextrose (Dextrose 50% 50 Ml Syringe) 25 - 50 ml IV UD PRN; Protocol PRN Reason: Hypoglycemia Protocol Stop: 05/14/20 19:30 Fenofibrate (Fenofibrate Nanocrystallized 145 Mg Tablet) 145 mg PO QAM [facility] Stop: 05/16/20 08:59 Last Admin: 04/20/20 09:26 Dose: 145 mg Documented by: Glucagon (Glucagon For Inj 1 Mg Vial) 1 mg SQ UD PRN; Protocol PRN Reason: Hypoglycemia Protocol Stop: 05/14/20 19:30 Glucose (Glucose 10 Tabs/Tube) 4 - 8 tabs PO UD PRN; Protocol PRN Reason: Hypoglycemia Protocol Stop: 05/14/20 19:30 Glucose (Glucose 40% Gel 15 Gm Tube) 15 - 30 gm PO UD PRN; Protocol PRN Reason: Hypoglycemia Protocol Stop: 05/14/20 19:30 Heparin Sodium (Porcine) (Heparin Sod 5,000 Unit/0.5 Ml Vial) 5,000 units SQ Q12 [facility] Stop: 05/17/20 20:59 Last Admin: 04/17/20 21:40 Dose: Not Given Documented by: Caspofungin 50 mg/ Sodium (Chloride) 260 mls @ 260 mls/hr IV Q24H [facility]; Protocol Stop: 05/18/20 22:59 Last Infusion: 04/20/20 01:25 Dose: Infused Documented by: Pantoprazole Sodium 40 mg/ (Syringe) 10 mls @ 5 mls/min IV BID [facility] Stop: 05/18/20 03:59 Last Admin: 04/20/20 09:25 Dose: 5 mls/min Documented by: Cefazolin Sodium (Ancef 1000mg) 1,000 mg in 7.5 mls @ 2.5 mls/min IV TuThSa@1600 [facility] Stop: 05/30/20 15:59 Last Admin: 04/18/20 16:02 Dose: 2.5 mls/min Documented by: Insulin Aspart (Insulin Aspart 100 Units/Ml 3 Ml Pen) 0 units SC ACHS [facility]; Protocol Stop: 05/18/20 16:29 Last Admin: 04/20/20 17:55 Dose: Not Given Documented by: Insulin Glargine (Insulin Glargine Solostar 100 Units/Ml 3 Ml Pen) 20 units SQ BID [facility] Stop: 05/19/20 08:59 Last Admin: 04/20/20 09:22 Dose: 20 units Documented by: Melatonin (Melatonin 3 Mg Tab) 3 mg PO HS PRN PRN Reason: Sleep Stop: 05/14/20 19:30 Metoprolol Succinate (Metoprolol Succ 25mg Ext Rel Tab) 25 mg PO QAM [facility] Stop: 05/16/20 08:59 Last Admin: 04/20/20 09:23 Dose: 25 mg Documented by: Miscellaneous (Carbohydrates For Hypoglycemia ) 15 - 30 gm PO UD PRN PRN Reason: Hypoglycemia Protocol Stop: 05/14/20 19:30 Miscellaneous Information (Caspofungin~Consult Pharmacy) 1 ea N/A UD PRN PRN Reason: Consult Stop: 05/17/20 22:41 Nitroglycerin (Nitroglycerin Sl 0.4 Mg/Tab Tab) 0.4 mg SL UD PRN PRN Reason: Chest Pain Stop: 05/14/20 19:30 Ondansetron HCl (Ondansetron Inj 2 Mg/Ml 2 Ml Vial) 4 mg IV Q6H PRN PRN Reason: Nausea Stop: 05/14/20 19:30 (1) Osteomyelitis Laterality: unspecified laterality Osteomyelitis type: unspecified type (2) DKA (diabetic ketoacidoses) Diabetes mellitus complication detail: without coma Diabetes mellitus type: other specified (including BABATUNDE) Qualified Code(s): E13.10 - Other specified diabetes mellitus with ketoacidosis without coma
[2020-04-20 22:47] LABS: ANCA Screen Negative (Negative); Anti Nuclear Antibody Screen NEGATIVE (NEGATIVE); Anti-Glom Basement Antibody <1.0 AI (<1.0); Complement C3 93 mg/dL (82-185); Free Kappa 115.6 mg/L (3.3-19.4); Free Kappa/Lambda Ratio 1.69 (0.26-1.65); Free Lambda 68.6 mg/L (5.7-26.3); Myeloperoxidase Ab <1.0 AI (<1.0); Proteinase-3 AB <1.0 AI (<1.0)
[2020-04-21] MEDS: HEPARIN SOD (PORCINE) 1000 UNIT/ML 10 ML VIAL IV SCH ×2 (08:05→08:06)
[2020-04-21] MEDS: ATORVASTATIN 40 MG TAB PO SCH (08:22)
[2020-04-21] MEDS: amLODIPine BESYLATE 5 MG TAB PO SCH (08:22)
[2020-04-21] MEDS: PANTOprazole 40 MG in SYRINGE 0 ML IV SCH ×2 (08:22→20:44)
[2020-04-21] MEDS: METOPROLOL SUCC 25MG EXT REL TAB PO SCH (08:22)
[2020-04-21] MEDS: FENOFIBRATE NANOCRYSTALLIZED 145 MG TABLET PO SCH (08:22)
[2020-04-21] MEDS: INSULIN GLARGINE SOLOSTAR 100 UNITS/ML 3 ML PEN SQ SCH ×2 (08:23→20:43)
[2020-04-21] MEDS: INSULIN ASPART 100 UNITS/ML 3 ML PEN SC SCH ×5 (08:23→20:19)
[2020-04-21 09:07] LABS: Est GFR (African American) 14.3; Est GFR (Non-African American) 12.4; Potassium 4.3 mmol/L (3.5-5.1)
[2020-04-21 09:08] LABS: BUN Creatinine Ratio 6.9 (10-20); Calcium 8.6 mg/dl (8.5-10.1); Creatinine Clr Calc Pharmacy 19.7 ml/min
--- NOTE | 2020-04-21 12:15 | Nephrology Progress Note ---
Date of Service April 21, 2020 Assessment & Plan (1) ARIANA (acute kidney injury): * Non-oliguric * Urine microscopy negative for blood. Urinalysis + protein likely related to underlying diabetic nephropathy * Serologic testing has been negative * Renal US negative for obstruction. Patient is nonoliguric * 2nd HD treatment completed yesterday * Monitor PRP, UO * Will evaluate tomorrow AM for next HD treatment as needed (2) DKA (diabetic ketoacidoses): * Resolved (3) Osteomyelitis: * On Zosyn + Daptomycin * Blood cx 04/14 + for yeast - on Caspofungin. ID is assisting in care. No dose adjustment needed for ESRD/HD Admission and Anticipated Discharge Date Admission Date: April 14, 2020 Subjective No acute events overnight. Abdulkadir feels well this AM. HD completed yesterday without complications. Adequate clearance. UF 1 L. Good UOP. Barakat intact. Abdulkadir's only concern this AM was his restricted diet. Review of Systems Constitutional: no weight loss, no weight gain and no problem reported Eyes: no problem reported Ear, Nose, Mouth, Throat: no problem reported Respiratory: no problem reported Cardiovascular: no problem reported Gastrointestinal: no problem reported Musculoskeletal: no problem reported Integumentary: no problem reported Neurologic: no problem reported Psychiatric: no problem reported Endocrine: no problem reported Hematologic / Lymphatic: no problem reported Physical Exam Constitutional: well developed; no acute distress Eyes: no scleral abnormality and no corneal abnormality ENMT: Mouth: no oral mucosal abnormality and oral mucous membranes not dry Neck: normal visual inspection and trachea midline Respiratory: normal respiratory effort Auscultation: lungs clear to auscultation bilaterally Cardiovascular: Rate/Rhythm: regular rate Heart Sounds: normal S1 and normal S2 Extremities: no edema Musculoskeletal: Extremities: no cyanosis and no clubbing Skin: normal turgor; no lesions Neurologic: Motor/Sensory: no tremor and no asterixis Psychiatric: Orientation: alert and oriented x 3 Results & Data ([facility]) Vital Signs (Past 12 Hours) Vital Signs Temp Pulse Resp BP Pulse Ox 04/21/20 07:34 36.8 C 82 18 111/73 98 Laboratory Results Laboratory Results - last 24 hr 04/17/20 04/18/20 04/20/20 10:24 08:32 17:16 Sodium Potassium Chloride Carbon Dioxide Anion Gap BUN Creatinine Est Cr Clr Drug Dosing Est GFR ( Amer) Est GFR (Non-Af Amer) BUN/Creatinine Ratio Glucose POC Glucose 118 H Calcium Total Protein (PEP) 5.1 L Albumin (PEP) 2.4 L Mtjfj-9-Cmzwwnsyq 0.5 H Qacns-6-Ucfdgchll 0.7 Plbz-3-Ydxbxbll 0.3 L Avjy-0-Yvufbtbs 0.3 Gamma Globulins 0.9 Monoclonal Peak 3 DNR Ser Monoclonl Protein DNR Ser Monoclonal Prot 2 DNR PEP Interpretation SEE NOTE JENA Screen NEGATIVE Anti-Proteinase 3 <1.0 Anti-Myeloperoxidase <1.0 ANCA Negative Glomerular Base Memb Ab <1.0 Complement C3 93 Complement C4 33 Free [place] LC, Quant 115.6 H Free Lambda LC, Quant 68.6 H Free [place]/Lambda Ratio 1.69 H 04/20/20 04/21/20 04/21/20 21:47 07:52 08:02 Sodium 141 Potassium 4.3 Chloride 109 H Carbon Dioxide 29 Anion Gap 3.0 BUN 32 H Creatinine 4.73 H* D Est Cr Clr Drug Dosing 19.7 Est GFR ( Amer) 14.3 Est GFR (Non-Af Amer) 12.4 BUN/Creatinine Ratio 6.9 L Glucose 103 H POC Glucose 114 H 129 H Calcium 8.6 Total Protein (PEP) Albumin (PEP) Pnism-3-Rvhfcgjan Dlzzx-4-Cpkchwwgr Xzcw-4-Dckiocbs Boky-7-Woyvcljx Gamma Globulins Monoclonal Peak 3 Ser Monoclonl Protein Ser Monoclonal Prot 2 PEP Interpretation JENA Screen Anti-Proteinase 3 Anti-Myeloperoxidase ANCA Glomerular Base Memb Ab Complement C3 Complement C4 Free [place] LC, Quant Free Lambda LC, Quant Free [place]/Lambda Ratio 04/21/20 04/21/20 12:07 12:09 Sodium Potassium Chloride Carbon Dioxide Anion Gap BUN Creatinine Est Cr Clr Drug Dosing Est GFR ( Amer) Est GFR (Non-Af Amer) BUN/Creatinine Ratio Glucose POC Glucose 328 H* 232 H Calcium Total Protein (PEP) Albumin (PEP) Qlcuf-2-Oavnxltqe Fqhfx-0-Bzilgzyjx Tapi-1-Akivjuqn Akrk-6-Wgpuysfp Gamma Globulins Monoclonal Peak 3 Ser Monoclonl Protein Ser Monoclonal Prot 2 PEP Interpretation JENA Screen Anti-Proteinase 3 Anti-Myeloperoxidase ANCA Glomerular Base Memb Ab Complement C3 Complement C4 Free [place] LC, Quant Free Lambda LC, Quant Free [place]/Lambda Ratio PG Care Time/CCT Total # of Minutes Spent Total Time Spent with Patient: Total time spent is greater than 50% in coordination of care (as documented) at patient's floor/unit and/or counseling patient: Coding Level of Care Code 01691 Subseq Hosp Care Lvl 3 Diagnoses ARIANA (acute kidney injury) N17.9 DKA (diabetic ketoacidoses) E13.10 Diabetes mellitus complication detail: without coma Diabetes mellitus type: other specified (including BABATUNDE) Osteomyelitis M86.9 Laterality: unspecified laterality Osteomyelitis type: unspecified type (1) DKA (diabetic ketoacidoses) Diabetes mellitus complication detail: without coma Diabetes mellitus type: other specified (including BABATUNDE) Qualified Code(s): E13.10 - Other specified diabetes mellitus with ketoacidosis without coma (2) Osteomyelitis Laterality: unspecified laterality Osteomyelitis type: unspecified type
[2020-04-21 12:16] LABS: Albumin 2.4 g/dL (3.8-4.8); Alpha 1 Globulin 0.5 g/dL (0.2-0.3); Alpha 2 Globulin 0.7 g/dL (0.5-0.9); Beta-1-Globulin 0.3 g/dL (0.4-0.6); Beta-2-Globulin 0.3 g/dL (0.2-0.5); Gamma Globulin 0.9 g/dL (0.8-1.7); Monoclonal Protein Band 1 DNR g/dL (NONE DETECTED); Monoclonal Protein Band 2 DNR g/dL (NONE DETECTED); Monoclonal Protein Band 3 DNR g/dL (NONE DETECTED); Total Protein 5.1 g/dL (6.1-8.1)
--- NOTE | 2020-04-21 14:27 | Cardiology Progress Note ---
Date of Service April 21, 2020 Assessment & Plan (1) Ischemic cardiomyopathy: (2) S/P bilateral BKA (below knee amputation): (3) Acute renal failure: (4) Fungemia: (5) Elevated troponin: (6) Preop cardiovascular exam: Echocardiogram demonstrates mild left ventricular systolic dysfunction without significant valvular pathology. He appears compensated from a heart failure perspective. Mildly elevated troponin on admission secondary to acute renal failure and mild volume overload. Entresto discontinued on admission due to acute renal insufficiency. Plan transition to long-acting nitrates and hydralazine if blood pressure tolerates. Continue to monitor blood pressure overnight and add low-dose isosorbide monohydrate in a.m. pending review. Patient's perioperative cardiovascular risk is considered moderate. No further cardiac testing or intervention would lower his risk at this time. Restart low-dose aspirin. Repeat blood cultures negative from 04/18/2020 continue antibiotics and caspofungin as per internal medicine. Admission and Anticipated Discharge Date Admission Date: April 14, 2020 Subjective Patient seen and examined at the bedside. Resting comfortably. Pain controlled. Denies chest discomfort or heaviness. No orthopnea, PND, focal weakness, or visual changes. Entresto discontinued on admission due to acute renal failure. Blood pressure controlled with intermittent borderline hypotension. Review of Systems Review of Systems: All systems reviewed & are unremarkable except as noted in HPI & below Physical Exam Constitutional: well nourished and + ill appearing; no acute distress Respiratory: normal respiratory effort; no respiratory distress and no labored breathing Auscultation: lungs clear to auscultation bilaterally; no crackles, no rales, no rhonchi and no wheezes Cardiovascular: Rate/Rhythm: regular rate and regular rhythm Heart Sounds: normal S1 and normal S2; no murmur Vessels: no JVD Extremities: no edema Gastrointestinal (Abdomen): Inspection/Auscultation: abdomen normal to inspection and normal bowel sounds; abdomen not distended Perc ussion/Palpation: abdomen soft; abdomen nontender, no guarding and abdomen not rigid Neurologic: moves all extremities; no focal motor deficits Psychiatric: A+Ox3, euthymic affect Results & Data ([facility]) Vital Signs (Past 12 Hours) Vital Signs Temp Pulse Resp BP Pulse Ox 04/21/20 07:34 36.8 C 82 18 111/73 98
[2020-04-21] MEDS: ceFAZolin 1000MG 1,000 MG/7.5 ML SYR IV SCH (18:09)
--- NOTE | 2020-04-21 19:12 | Hospitalist Progress Note ---
Date of Service April 21, 2020 Assessment & Plan (1) Acute renal failure: Unknown baseline kidney function which is likely progressed and very poor. Some records from CABG in 2017 reflect normal baseline. Limited records available as [place] state, having recently moved to [place]. Proteinuria present. Nephrology performing workup, treating acidosis with bicarbonate. TDC placed 04/17 started HD. Doing well, cont per Nephro. Daily labs. (2) Fungemia: Yeast on wound culture in revised RLE limb. Cont caspofungin until revision surgery. Perform weekly monitoring labwork as needed. (3) Osteomyelitis: Cefazolin after HD treatments based on deep wound cultures showing GBS. Per ID, will continue with cefazolin TIW after HD until amputation/revisions are complete. Fungemia also now present with plan above. [facility] updated with the blood culture results. Regarding RLE wound and surgical debridement, orthopedics ([facility]) was consulted last week and surgery was not an option until his kidney function was more stabilized, which has now happened. However, now, Dr. Cantu is out of town and there is no one else who can perform this level of surgery until he returns in a few days. Discussed this with [facility] PA Lai Vargas who is in discussion about the next available opportunity to perform surgery on him, and the most appropriate timing of this. Of note, I did reach out to Vascular and spoke with Dr. Harris who states that his first available opportunity to do something. (4) DKA (diabetic ketoacidoses): Initially presented in DKA with presumed infection as cause of hyperglycemia in addition to noncompliance. This has resolved. Currently controlled on basal and bolus insulin. (5) Ischemic cardiomyopathy: EF 45%, appears compensated at this time. Not very active as a bilateral amputee without prosthetics and with a RLE wound. Cont current medical m anagement. (6) Hx of CABG: CAD with h/o CABG, 2017 performed at a hospital in [facility]. Records received and placed in chart. Cardiac arrest reported leading to digital ischemia and amputation of distal fingers of right hand. Current active Smoker. Cont current medication management. (7) Current smoker: Encouraged to quit. He declines nicotine patch and states he can quit without help if he decides to. (8) Thrombocytopenia: resolved to normal. (9) S/P bilateral BKA (below knee amputation): Pt reports having had multiple revision surgeries over the years and is a long standing uncontrolled diabetic smoker. (10) Pressure-induced deep tissue damage of unspecified buttock: local wound care and stay off this area. (11) Demand ischemia: Type II OH due to demand ischemia and DKA No evidence of ACS this admission with elevated trop on admission thought 2/2 demand ischemia on admission in setting of DKA and low EF. Cont medical ma nagement of CAD. Ashlisto held in renal failure. (12) DVT prophylaxis: Heparin DNR/DNI Dispo-Doing well, has established care with Dr. Ohara. Needs close follow-up with him after discharge. Pallavi Sparsk DO [place] Hospitalist Admission and Anticipated Discharge Date Admission Date: April 14, 2020 Subjective cc: acute renal failure, DKA, RLE osteo, fungemia -patient is feeling well -doing well on the current medications -denies pain or increased wound drainage -tolerating PO Review of Systems Review of Systems: All systems reviewed & are unremarkable except as noted in Subjective Physical Exam Physical Exam: CONSTITUTIONAL: WNWD, vitals as above, generally well- appearing EYES: normal conjunctivae, no scleral icterus ENT: external ear and nose normal, MMM RESPIRATORY: clear to auscultation bilaterally, no crackles, rales or wheezes, normal respiratory effort CARDIOVASCULAR: regular rate and rhythm, S1 and 2 heard without murmurs, gallops or rubs, no JVD, bilateral BKA, R hand s/p distal multidigit amputation. Tunneled HD catheter to right anterior chest wall. GASTROINTESTINAL: normal bowel sounds, soft, nontender, nondistended MUSCULOSKELETAL: strength 5/5 throughout, head is normocephalic and atraumatic SKIN: warm and dry, RLE wound-covered. Buttock wound-improving ecchymosis. Did not examine completely as patient was in a sitting position. Bilateral leg amputee NEUROLOGIC: No facial palsy, no dysarthria. CN 2-12 grossly intact, normal cognition, normal speech, no tremor. No gross focal deficits. PSYCHIATRIC: alert cooperative and oriented to person, place and time. Results & Data Results & Data ([facility]) Vital Signs (Past 12 Hours) Vital Signs Temp Pulse Pulse Resp BP Pulse Ox 04/21/20 15:18 36.8 C 75 17 114/55 L 92 04/21/20 07:34 36.8 C 82 18 111/73 98 Laboratory Results BMP 04/21/20 08:02 Sodium 141 Potassium 4.3 Chloride 109 H Carbon Dioxide 29 BUN 32 H Creatinine 4.73 H* D Glucose 103 H Calcium 8.6 Medications Administered Current Inpatient Medications Acetaminophen (Acetaminophen 325 Mg Tab) 650 mg PO Q4H PRN PRN Reason: Pain or Fever Stop: 05/14/20 19:30 Amlodipine Besylate (Amlodipine Besylate 5 Mg Tab) 10 mg PO QAM REPLACED BY [facility] Stop: 05/16/20 08:59 Last Admin: 04/21/20 08:22 Dose: 10 mg Documented by: Aspirin (Aspirin 81 Mg Ectab) 81 mg PO QAM REPLACED BY [facility] Stop: 05/15/20 08:59 Last Admin: 04/17/20 08:31 Dose: 81 mg Documented by: Atorvastatin Calcium (Atorvastatin 40 Mg Tab) 40 mg PO DAILY HAYLEY Stop: 05/19/20 08:59 Last Admin: 04/21/20 08:22 Dose: 40 mg Documented by: Dextrose (Dextrose 50% 50 Ml Syringe) 25 - 50 ml IV UD PRN; Protocol PRN Reason: Hypoglycemia Protocol Stop: 05/14/20 19:30 Fenofibrate (Fenofibrate Nanocrystallized 145 Mg Tablet) 145 mg PO QAM REPLACED BY [facility] Stop: 05/16/20 08:59 Last Admin: 04/21/20 08:22 Dose: 145 mg Documented by: Glucagon (Glucagon For Inj 1 Mg Vial) 1 mg SQ UD PRN; Protocol PRN Reason: Hypoglycemia Protocol Stop: 05/14/20 19:30 Glucose (Glucose 10 Tabs/Tube) 4 - 8 tabs PO UD PRN; Protocol PRN Reason: Hypoglycemia Protocol Stop: 05/14/20 19:30 Glucose (Glucose 40% Gel 15 Gm Tube) 15 - 30 gm PO UD PRN; Protocol PRN Reason: Hypoglycemia Protocol Stop: 05/14/20 19:30 Heparin Sodium (Porcine) (Heparin Sod 5,000 Unit/0.5 Ml Vial) 5,000 units SQ Q12 REPLACED BY [facility] Stop: 05/17/20 20:59 Last Admin: 04/17/20 21:40 Dose: Not Given Documented by: Caspofungin 50 mg/ Sodium (Chloride) 260 mls @ 260 mls/hr IV Q24H HAYLEY; Protocol Stop: 05/18/20 22:59 Last Infusion: 04/20/20 23:15 Dose: Infused Documented by: Pantoprazole Sodium 40 mg/ (Syringe) 10 mls @ 5 mls/min IV BID REPLACED BY [facility] Stop: 05/18/20 03:59 Last Admin: 04/21/20 08:22 Dose: 5 mls/min Documented by: Cefazolin Sodium (Ancef 1000mg) 1,000 mg in 7.5 mls @ 2.5 mls/min IV MoWeFr@1600 REPLACED BY [facility] Stop: 06/03/20 15:59 Insulin Aspart (Insulin Aspart 100 Units/Ml 3 Ml Pen) 0 units SC ACHS REPLACED BY [facility] Stop: 05/18/20 16:29 Last Admin: 04/21/20 18:10 Dose: Not Given Documented by: Insulin Glargine (Insulin Glargine Solostar 100 Units/Ml 3 Ml Pen) 20 units SQ BID REPLACED BY [facility] Stop: 05/19/20 08:59 Last Admin: 04/21/20 08:23 Dose: 20 units Documented by: Melatonin (Melatonin 3 Mg Tab) 3 mg PO HS PRN PRN Reason: Sleep Stop: 05/14/20 19:30 Last Admin: 04/20/20 22:53 Dose: 3 mg Documented by: Metoprolol Succinate (Metoprolol Succ 25mg Ext Rel Tab) 25 mg PO QAM REPLACED BY [facility] Stop: 05/16/20 08:59 Last Admin: 04/21/20 08:22 Dose: 25 mg Documented by: Miscellaneous (Carbohydrates For Hypoglycemia ) 15 - 30 gm PO UD PRN PRN Reason: Hypoglycemia Protocol Stop: 05/14/20 19:30 Miscellaneous Information (Caspofungin~Consult Pharmacy) 1 ea N/A UD PRN PRN Reason: Consult Stop: 05/17/20 22:41 Nitroglycerin (Nitroglycerin Sl 0.4 Mg/Tab Tab) 0.4 mg SL UD PRN PRN Reason: Chest Pain Stop: 05/14/20 19:30 Ondansetron HCl (Ondansetron Inj 2 Mg/Ml 2 Ml Vial) 4 mg IV Q6H PRN PRN Reason: Nausea Stop: 05/14/20 19:30 (1) DKA (diabetic ketoacidoses) Diabetes mellitus complication detail: without coma Diabetes mellitus type: other specified (including BABATUNDE) Qualified Code(s): E13.10 - Other specified diabetes mellitus with ketoacidosis without coma (2) Osteomyelitis Laterality: unspecified laterality Osteomyelitis type: unspecified type
[2020-04-21] MEDS ORDERED: POLYETHYLENE (MIRALAX) 17 GM PACK PO STA (20:05)
[2020-04-21] MEDS: DOCUSATE SODIUM/SENNA 50/8.6MG TAB PO SCH (20:42)
[2020-04-21] MEDS: CASPOFUNGIN 50 MG in SODIUM CHLORIDE 0.9% 250 ML IV SCH (22:33)
[2020-04-22] MEDS: ATORVASTATIN 40 MG TAB PO SCH (08:43)
[2020-04-22] MEDS: METOPROLOL SUCC 25MG EXT REL TAB PO SCH (08:43)
[2020-04-22] MEDS: amLODIPine BESYLATE 5 MG TAB PO SCH (08:43)
[2020-04-22] MEDS: ASPIRIN 81 MG ECTAB PO SCH (08:44)
[2020-04-22] MEDS: FENOFIBRATE NANOCRYSTALLIZED 145 MG TABLET PO SCH (08:44)
[2020-04-22] MEDS: INSULIN GLARGINE SOLOSTAR 100 UNITS/ML 3 ML PEN SQ SCH ×2 (08:44→20:43)
[2020-04-22] MEDS: INSULIN ASPART 100 UNITS/ML 3 ML PEN SC SCH ×4 (08:44→20:44)
[2020-04-22] MEDS: PANTOprazole 40 MG in SYRINGE 0 ML IV SCH ×2 (08:44→20:44)
[2020-04-22] MEDS: DOCUSATE SODIUM/SENNA 50/8.6MG TAB PO SCH (09:28)
[2020-04-22 09:35] LABS: Hematocrit (blood only) 33.1 % (42-52); Hemoglobin 11.2 g/dL (14.0-18.0); Mean Corpuscular Hemoglobin 30.4 pg (25-34); Mean Corpuscular Hgb Conc 33.8 g/dL (32-36); Mean Corpuscular Volume 89.9 fL (80-100); Mean Platelet Volume 10.2 fL (7.4-10.4); Platelet Count 272 K/uL (130-400); RDW Coefficient of Variation 13.8 % (11.5-14.5); RDW Standard Deviation 45.7 fL (36.4-46.3); Red Blood Count 3.68 M/uL (4.7-6.1); White Blood Count 8.16 K/uL (4.8-10.8)
[2020-04-22 10:19] LABS: Est GFR (African American) 12.7; Potassium 4.2 mmol/L (3.5-5.1)
[2020-04-22 10:20] LABS: Albumin Level 2.1 gm/dl (3.4-5.0); BUN Creatinine Ratio 7.1 (10-20); Calcium 8.5 mg/dl (8.5-10.1); Creatinine Clr Calc Pharmacy 17.8 ml/min
--- NOTE | 2020-04-22 11:09 | Cardiology Progress Note ---
Date of Service April 22, 2020 Assessment & Plan (1) Ischemic cardiomyopathy: (2) S/P bilateral BKA (below knee amputation): (3) Acute renal failure: (4) Fungemia: (5) Elevated troponin: (6) Preop cardiovascular exam: Entresto discontinued on admission due to acute renal insufficiency. Transition to long-acting nitrates and hydralazine if blood pressure tolerates. Add isosorbide monohydrate 30 mg daily today. Patient's perioperative cardiovascular risk is considered moderate. No further cardiac testing or intervention would lower his risk at this time. Continue other cardiovascular medications including aspirin, atorvastatin, metoprolol, and fenofibrate. Repeat blood cultures negative from 04/18/2020 continue antibiotics and caspofungin as per internal medicine. Admission and Anticipated Discharge Date Admission Date: April 14, 2020 Subjective Patient seen and examined at the bedside. Resting comfortably. Offers no complaints. Denies chest pain or shortness of breath. No palpitations, lightheadedness, or dizziness. No fever or chills overnight. Review of Systems Review of Systems: All systems reviewed & are unremarkable except as noted in HPI & below Physical Exam Constitutional: well nourished and + ill appearing; no acute distress Respiratory: normal respiratory effort; no respiratory distress and no labored breathing Auscultation: lungs clear to auscultation bilaterally; no crackles, no rales, no rhonchi and no wheezes Cardiovascular: Rate/Rhythm: regular rate and regular rhythm Heart Sounds: normal S1 and normal S2; no murmur Vessels: no JVD Extremities: no edema Gastrointestinal (Abdomen): Inspection/Auscultation: abdomen normal to inspection and normal bowel sounds; abdomen not distended Percussion/Palpation: abdomen soft; abdomen nontender, no guarding and abdomen not rigid Neurologic: moves all extremities; no focal motor deficits Psychiatric: A+Ox3, euthymic affect Results & Data ([facility]) Vital Signs (Past 12 Hours) Vital Signs Temp Pulse Pulse Resp BP Pulse Ox 04/22/20 07:00 36.8 C 81 16 131/66 96 04/21/20 23:40 36.8 C 83 18 127/62 92
--- NOTE | 2020-04-22 12:03 | Nephrology Progress Note ---
Date of Service April 22, 2020 Assessment & Plan (1) ARIANA (acute kidney injury): * Non-oliguric * Urine microscopy negative for blood. Urinalysis + protein likely related to underlying diabetic nephropathy * Serologic testing has been negative * Renal US negative for obstruction * 2nd HD treatment completed 04/20/2020 * Unfortunately, creatinine continues to rise off HD * Will perform HD today for additional clearance with minimal UF * Orders for dialysis entered into EMR and discussed with HD nurse and patient * Monitor PRP, UO (2) DKA (diabetic ketoacidoses): * Resolved (3) Osteomyelitis: * On Ancef and Caspofungin per ID recs. * Medications appropriately dosed for kidney function. * Plan for surgery tentative at this time. Admission and Anticipated Discharge Date Admission Date: April 14, 2020 Subjective No acute events overnight. Abdulkadir feels well. Good urine output. He is reticent to remove Barakat due to ambulatory issues. Breathing comfortably. No fevers or chills. Appetite is good. Denies pain. Review of Systems Review of Systems: All systems reviewed & are unremarkable except as noted in HPI & below Physical Exam Constitutional: well developed; no acute distress Eyes: no scleral abnormality and no corneal abnormality ENMT: Mouth: no oral mucosal abnormality and oral mucous membranes not dry Neck: normal visual inspection and trachea midline Respiratory: normal respiratory effort Auscultation: lungs clear to auscultation bilaterally Cardiovascular: Rate/Rhythm: regular rate Heart Sounds: normal S1 and normal S2 Extremities: no edema Musculoskeletal: Extremities: no cyanosis and no clubbing Skin: normal turgor; no lesions Neurologic: Motor/Sensory: no tremor and no asterixis Psychiatric: Orientation: alert and oriented x 3 Results & Data ([facility]) Vital Signs (Past 12 Hours) Vital Signs Temp Pulse Resp BP Pulse Ox 04/22/20 07:00 36.8 C 81 16 131/66 96 Laboratory Results Laboratory Results - last 24 hr 04/18/20 04/21/20 04/21/20 08:32 12:07 12:09 WBC RBC Hgb Hct MCV MCH MCHC RDW Std Deviation RDW Coeff of [place] Plt Count MPV Sodium Potassium Chloride Carbon Dioxide Anion Gap BUN Creatinine Est Cr Clr Drug Dosing Est GFR ( Amer) Est GFR (Non-Af Amer) BUN/Creatinine Ratio Glucose POC Glucose 328 H* 232 H Calcium Phosphorus Total Protein (PEP) 5.1 L Albumin Albumin (PEP) 2.4 L Khrfj-3-Nirgrmxvd 0.5 H Tnbto-6-Pcfonqwbl 0.7 Efoa-2-Cedicklx 0.3 L Etpu-6-Vyxovinu 0.3 Gamma Globulins 0.9 Monoclonal Peak 3 DNR Ser Monoclonl Protein DNR Ser Monoclonal Prot 2 DNR PEP Interpretation SEE NOTE 04/21/20 04/22/20 04/22/20 17:11 08:08 08:51 WBC 8.16 RBC 3.68 L Hgb 11.2 L Hct 33.1 L MCV 89.9 MCH 30.4 MCHC 33.8 RDW Std Deviation 45.7 RDW Coeff of Far[place]q 13.8 Plt Count 272 MPV 10.2 Sodium Potassium Chloride Carbon Dioxide Anion Gap BUN Creatinine Est Cr Clr Drug Dosing Est GFR ( Amer) Est GFR (Non-Af Amer) BUN/Creatinine Ratio Glucose POC Glucose 205 H 157 H Calcium Phosphorus Total Protein (PEP) Albumin Albumin (PEP) Ixirf-9-Qrckzzjup Issmf-2-Smofgkhen Jzml-8-Kcpqufwe Ifbm-7-Aqccayma Gamma Globulins Monoclonal Peak 3 Ser Monoclonl Protein Ser Monoclonal Prot 2 PEP Interpretation 04/22/20 08:51 WBC RBC Hgb Hct MCV MCH MCHC RDW Std Deviation RDW Coeff of [place] Plt Count MPV Sodium 142 Potassium 4.2 Chloride 108 H Carbon Dioxide 27 Anion Gap 6.0 BUN 37 H Creatinine 5.22 H* D Est Cr Clr Drug Dosing 17.8 Est GFR ( Amer) 12.7 Est GFR (Non-Af Amer) 11.0 BUN/Creatinine Ratio 7.1 L Glucose 155 H POC Glucose Calcium 8.5 Phosphorus 4.0 Total Protein (PEP) Albumin 2.1 L Albumin (PEP) Hzkkv-5-Mtvzkxmxp Shbnr-6-Lrjeajcld Xqvl-5-Krpkhemf Udcv-4-Npdhfwfk Gamma Globulins Monoclonal Peak 3 Ser Monoclonl Protein Ser Monoclonal Prot 2 PEP Interpretation PG Care Time/CCT Total # of Minutes Spent Total Time Spent with Patient: Total time spent is greater than 50% in coordination of care (as documented) at patient's floor/unit and/or counseling patient: Coding Level of Care Code 64027 Subseq Hosp Care Lvl 3 Diagnoses ARIANA (acute kidney injury) N17.9 DKA (diabetic ketoacidoses) E13.10 Diabetes mellitus complication detail: without coma Diabetes mellitus type: other specified (including BABATUNDE) Osteomyelitis M86.9 Laterality: unspecified laterality Osteomyelitis type: unspecified type (1) DKA (diabetic ketoacidoses) Diabetes mellitus complication detail: without coma Diabetes mellitus type: other specified (including BABATUNDE) Qualified Code(s): E13.10 - Other specified diabetes mellitus with ketoacidosis without coma (2) Osteomyelitis Laterality: unspecified laterality Osteomyelitis type: unspecified type
--- NOTE | 2020-04-22 18:04 | Hospitalist Progress Note ---
Date of Service April 22, 2020 Assessment & Plan (1) Acute renal failure: Unknown baseline kidney function which is likely progressed and very poor. Some records from CABG in 2017 reflect normal baseline. Limited records available as [place] is from out of state, having recently moved to [place]. Proteinuria present. Nephrology performing workup, treating acidosis with bicarbonate. Appreciate nephrology input and recommendation Has been getting hemodialysis (2) Fungemia: Yeast on wound culture in revised RLE limb. Cont caspofungin until revision surgery. Perform weekly monitoring labwork as needed. (3) Osteomyelitis: Right lower leg wound Cefazolin after HD treatments based on deep wound cultures showing GBS. Per ID, will continue with cefazolin TIW after HD until amputation/revisions are complete. Fungemia also now present with plan above. [facility] [place] physician was updated with the blood culture results. We will continue current antibiotic Awaiting surgical debridement Note from the prior hospitalist: Regarding RLE wound and surgical debridement, orthopedics ([facility]) was consulted last week and surgery was not an option until his kidney function was more stabilized, which has now happened. However, now, Dr. Cantu is out of town and there is no one else who can perform this level of surgery until he returns in a few days. Discussed this with [facility] PA Lai Vargas who is in discussion about the next available opportunity to perform surgery on him, and the most appropriate timing of this. Of note, I did reach out to Vascular and spoke with Dr. Harris who states that his first available opportunity to do something. (4) DKA (diabetic ketoacidoses): Initially presented in DKA with presumed infection as cause of hyperglycemia in addition to noncompliance. This has resolved. Currently controlled on basal and bolus insulin. (5) Ischemic cardiomyopathy: EF 45%, appears compensated at this time. Not very active as a bilateral amputee without prosthetics and with a RLE wound. Cont current medical management. Appreciate cardiology input and recommendation (6) Hx of CABG: CAD with h/o CABG, 2017 performed at a hospital in [facility]. Records received and placed in chart. Cardiac arrest reported leading to digital ischemia and amputation of distal fingers of right hand. Current active Smoker. Cont current medication management. (7) Current smoker: Encouraged to quit. He declines nicotine patch and states he can quit without help if he decides to. (8) Thrombocytopenia: resolved to normal. (9) S/P bilateral BKA (below knee amputation): Pt reports having had multiple revision surgeries over the years and is a long standing uncontrolled diabetic smoker. (10) Pressure-induced deep tissue damage of unspecified buttock: local wound care and stay off this area. (11) Demand ischemia: Type II [place] due to demand ischemia and DKA No evidence of ACS this admission with elevated trop on admission thought 2/2 demand ischemia on admission in setting of DKA and low EF. Cont medical management of CAD. Entresto held in renal failure. (12) DVT prophylaxis: Heparin DNR/DNI Dispo-Doing well, has established care with Dr. Ohara. Needs close follow-up with him after discharge. Admission and Anticipated Discharge Date Admission Date: April 14, 2020 Subjective 04/22/2020 The patient was seen and examined in medical floor He has been feeling a lot better and denies any symptoms No fever and/or chills and his pain is controlled Review of Systems Review of Systems: All systems reviewed and are unremarkable except as noted below Physical Exam Physical Exam: Sitting at the edge of the bed without any acute distress Constitutional: well developed, well nourished and + obese Eyes: PERRL, conjunctivae normal, anicteric sclerae ENMT: external ear and nose normal, oropharynx normal Neck: trachea midline, no thyromegaly Respiratory: no respiratory distress Auscultation: lungs clear to auscultation bilaterally Cardiovascular: Rate/Rhythm: regular rate and regular rhythm Heart Sounds: no murmur Extremities: no edema Gastrointestinal (Abdomen): Inspection/Auscultation: normal bowel sounds; abdomen not distended Percussion/Palpation: abdomen soft; abdomen nontender Musculoskeletal: Has bilateral BKA Skin: Wound in the buttock is healing nicely Neurologic: Alert, awake and oriented x3 Results & Data Results & Data ([facility]) Vital Signs (Past 12 Hours) Vital Signs Temp Pulse Pulse Pulse Resp BP BP 04/22/20 17:55 36.9 C 77 17 135/65 04/22/20 17:25 37.2 C 75 75 125/56 L 125/56 L 04/22/20 17:20 80 116/57 L 04/22/20 17:00 77 125/57 L 04/22/20 16:40 78 129/60 04/22/20 16:20 76 101/53 L 04/22/20 16:00 82 113/61 04/22/20 15:40 77 113/61 04/22/20 15:20 77 112/54 L 04/22/20 15:00 74 105/61 04/22/20 14:40 78 117/56 L 04/22/20 14:24 37.0 C 77 77 117/54 L 04/22/20 07:00 36.8 C 81 16 131/66 Pulse Ox 04/22/20 17:55 94 04/22/20 17:25 04/22/20 17:20 04/22/20 17:00 04/22/20 16:40 04/22/20 16:20 04/22/20 16:00 04/22/20 15:40 04/22/20 15:20 04/22/20 15:00 04/22/20 14:40 04/22/20 14:24 04/22/20 07:00 96 Laboratory Results Short CBC 04/22/20 Range/Units 08:51 WBC 8.16 (4.8-10.8) K/uL Hgb 11.2 L (14.0-18.0) g/dL Hct 33.1 L (42-52) % Plt Count 272 (130-400) K/uL BMP 04/22/20 08:51 Sodium 142 Potassium 4.2 Chloride 108 H Carbon Dioxide 27 BUN 37 H Creatinine 5.22 H* D Glucose 155 H Calcium 8.5 Liver Function 04/22/20 Range/Units 08:51 Albumin 2.1 L (3.4-5.0) gm/dl Medications Administered Current Inpatient Medications Acetaminophen (Acetaminophen 325 Mg Tab) 650 mg PO Q4H PRN PRN Reason: Pain or Fever Stop: 05/14/20 19:30 Amlodipine Besylate (Amlodipine Besylate 5 Mg Tab) [facility] Stop: 05/16/20 08:59 Last Admin: 04/22/20 08:43 Dose: 10 mg Documented by: Aspirin (Aspirin 81 Mg Ectab) 81 mg PO QAM [facility] Stop: 05/15/20 08:59 Last Admin: 04/22/20 08:44 Dose: 81 mg Documented by: Atorvastatin Calcium (Atorvastatin 40 Mg Tab) 40 mg PO DAILY [facility] Stop: 05/19/20 08:59 Last Admin: 04/22/20 08:43 Dose: 40 mg Documented by: Dextrose (Dextrose 50% 50 Ml Syringe) 25 - 50 ml IV UD PRN; Protocol PRN Reason: Hypoglycemia Protocol Stop: 05/14/20 19:30 Fenofibrate (Fenofibrate Nanocrystallized 145 Mg Tablet) 145 mg PO QAM [facility] Stop: 05/16/20 08:59 Last Admin: 04/22/20 08:44 Dose: 145 mg Documented by: Glucagon (Glucagon For Inj 1 Mg Vial) 1 mg SQ UD PRN; Protocol PRN Reason: Hypoglycemia Protocol Stop: 05/14/20 19:30 Glucose (Glucose 10 Tabs/Tube) 4 - 8 tabs PO UD PRN; Protocol PRN Reason: Hypoglycemia Protocol Stop: 05/14/20 19:30 Glucose (Glucose 40% Gel 15 Gm Tube) 15 - 30 gm PO UD PRN; Protocol PRN Reason: Hypoglycemia Protocol Stop: 05/14/20 19:30 Heparin Sodium (Porcine) (Heparin Sod 5,000 Unit/0.5 Ml Vial) 5,000 units SQ Q12 [facility] Stop: 05/17/20 20:59 Last Admin: 04/17/20 21:40 Dose: Not Given Documented by: Caspofungin 50 mg/ Sodium (Chloride) 260 mls @ 260 mls/hr IV Q24H [facility]; Protocol Stop: 05/18/20 22:59 Last Infusion: 04/21/20 23:55 Dose: Infused Documented by: Pantoprazole Sodium 40 mg/ (Syringe) 10 mls @ 5 mls/min IV BID [facility] Stop: 05/18/20 03:59 Last Admin: 04/22/20 08:44 Dose: 5 mls/min Documented by: Cefazolin Sodium (Ancef 1000mg) 1,000 mg in 7.5 mls @ 2.5 mls/min IV [id number]@1600 [facility] Stop: 06/03/20 15:59 Insulin Aspart (Insulin Aspart 100 Units/Ml 3 Ml Pen) 0 units SC ACHS [facility] Stop: 05/18/20 16:29 Last Admin: 04/22/20 13:29 Dose: Not Given Documented by: Insulin Glargine (Insulin Glargine Solostar 100 Units/Ml 3 Ml Pen) 20 units SQ BID [facility] Stop: 05/19/20 08:59 Last Admin: 04/22/20 08:44 Dose: 20 units Documented by: Isosorbide Mononitrate (Isosorbide [place] Extended Rel 30 Mg Tabcr) 30 mg PO [facility] Stop: 05/22/20 11:14 Melatonin (Melatonin 3 Mg Tab) 3 mg PO HS PRN PRN Reason: Sleep Stop: 05/14/20 19:30 Last Admin: 04/20/20 22:53 Dose: 3 mg Documented by: Metoprolol Succinate (Metoprolol Succ 25mg Ext Rel Tab) 25 mg PO [facility] Stop: 05/16/20 08:59 Last Admin: 04/22/20 08:43 Dose: 25 mg Documented by: Miscellaneous (Carbohydrates For Hypoglycemia ) 15 - 30 gm PO UD PRN PRN Reason: Hypoglycemia Protocol Stop: 05/14/20 19:30 Miscellaneous Information (Caspofungin~Consult Pharmacy) 1 ea N/A UD PRN PRN Reason: Consult Stop: 05/17/20 22:41 Nitroglycerin (Nitroglycerin Sl 0.4 Mg/Tab Tab) 0.4 mg SL UD PRN PRN Reason: Chest Pain Stop: 05/14/20 19:30 Ondansetron HCl (Ondansetron Inj 2 Mg/Ml 2 Ml Vial) 4 mg IV Q6H PRN PRN Reason: Nausea Stop: 05/14/20 19:30 Senna/Docusate Sodium (Docusate Sodium/Senna 50/8.6mg Tab) 1 tab PO [facility] Stop: 05/21/20 20:04 Last Admin: 04/22/20 09:28 Dose: 1 tab Documented by: (1) Osteomyelitis Laterality: unspecified laterality Osteomyelitis type: unspecified type (2) DKA (diabetic ketoacidoses) Diabetes mellitus complication detail: without coma Diabetes mellitus type: other specified (including BABATUNDE) Qualified Code(s): E13.10 - Other specified diabetes mellitus with ketoacidosis without coma
[2020-04-22] MEDS: ceFAZolin 1000MG 1,000 MG/7.5 ML SYR IV SCH (18:28)
[2020-04-22] MEDS: ISOSORBIDE MONO EXTENDED REL 30 MG TABCR PO SCH (19:18)
[2020-04-22] MEDS: CASPOFUNGIN 50 MG in SODIUM CHLORIDE 0.9% 250 ML IV SCH (22:10)
[2020-04-23] MEDS: INSULIN ASPART 100 UNITS/ML 3 ML PEN SC SCH ×4 (08:48→20:51)
[2020-04-23] MEDS: INSULIN GLARGINE SOLOSTAR 100 UNITS/ML 3 ML PEN SQ SCH ×2 (08:49→20:50)
[2020-04-23] MEDS: ISOSORBIDE MONO EXTENDED REL 30 MG TABCR PO SCH (08:51)
[2020-04-23] MEDS: ASPIRIN 81 MG ECTAB PO SCH (08:51)
[2020-04-23] MEDS: DOCUSATE SODIUM/SENNA 50/8.6MG TAB PO SCH (08:51)
[2020-04-23] MEDS: amLODIPine BESYLATE 5 MG TAB PO SCH (08:52)
[2020-04-23] MEDS: ATORVASTATIN 40 MG TAB PO SCH (08:52)
[2020-04-23] MEDS: METOPROLOL SUCC 25MG EXT REL TAB PO SCH (08:52)
[2020-04-23] MEDS: FENOFIBRATE NANOCRYSTALLIZED 145 MG TABLET PO SCH (08:52)
[2020-04-23] MEDS: PANTOprazole 40 MG in SYRINGE 0 ML IV SCH ×2 (08:53→20:55)
[2020-04-23 10:08] LABS: Hematocrit (blood only) 32.7 % (42-52); Hemoglobin 10.8 g/dL (14.0-18.0); Mean Corpuscular Hemoglobin 29.5 pg (25-34); Mean Corpuscular Volume 89.3 fL (80-100); Mean Platelet Volume 9.8 fL (7.4-10.4); Platelet Count 242 K/uL (130-400); RDW Coefficient of Variation 13.9 % (11.5-14.5); RDW Standard Deviation 45.6 fL (36.4-46.3); Red Blood Count 3.66 M/uL (4.7-6.1); White Blood Count 7.91 K/uL (4.8-10.8)
[2020-04-23 10:33] LABS: Albumin Level 2.1 gm/dl (3.4-5.0); Calcium 7.9 mg/dl (8.5-10.1); Creatinine Clr Calc Pharmacy 25.4 ml/min; Est GFR (African American) 19.5; Est GFR (Non-African American) 16.8; Phosphorus 3.7 mg/dl (2.5-4.9); Potassium 4.1 mmol/L (3.5-5.1)
--- NOTE | 2020-04-23 11:56 | Nephrology Progress Note ---
Date of Service April 23, 2020 Assessment & Plan (1) ARIANA (acute kidney injury): * Non-oliguric * Started HD 04/18 * Tolerated treatment yesterday for clearance * Will evaluate tomorrow AM for next HD while monitoring for renal recovery * No need for dialysis today: electrolytes acceptable, volume status euvolemic * Monitor PRP, UO (2) Osteomyelitis: * On Ancef and Caspofungin per ID recs. * Medications appropriately dosed for kidney function. * Plan for surgery tentative at this time. Admission and Anticipated Discharge Date Admission Date: April 14, 2020 Subjective No acute events overnight. Overall feels well. Tolerated HD yesterday without complications. No fevers or chills. Reports some tenderness on his sacrum but otherwise no pain. Review of Systems Review of Systems: All systems reviewed & are unremarkable except as noted in HPI & below Physical Exam Constitutional: well developed; no acute distress Eyes: no scleral abnormality and no corneal abnormality ENMT: Mouth: no oral mucosal abnormality and oral mucous membranes not dry Neck: normal visual inspection and trachea midline Respiratory: normal respiratory effort Auscultation: lungs clear to auscultation bilaterally Cardiovascular: Rate/Rhythm: regular rate Heart Sounds: normal S1 and normal S2 Extremities: no edema Musculoskeletal: Extremities: no cyanosis and no clubbing Skin: normal turgor; no lesions Neurologic: Motor/Sensory: no tremor and no asterixis Psychiatric: Orientation: alert and oriented x 3 [facility] Vital Signs (Past 12 Hours) Vital Signs Temp Pulse Resp BP Pulse Ox 04/23/20 07:08 36.8 C 79 16 145/64 H 96 Laboratory Results Laboratory Results - last 24 hr 04/22/20 04/22/20 04/22/20 12:10 17:48 20:40 WBC RBC Hgb Hct MCV MCH MCHC RDW Std Deviation RDW Coeff of [place] Plt Count MPV Sodium Potassium Chloride Carbon Dioxide Anion Gap BUN Creatinine Est Cr Clr Drug Dosing Est GFR ( Amer) Est GFR (Non-Af Amer) BUN/Creatinine Ratio Glucose POC Glucose 245 H 190 H 227 H Calcium Phosphorus Albumin 04/23/20 04/23/20 04/23/20 07:56 09:39 09:39 WBC 7.91 RBC 3.66 L Hgb 10.8 L Hct 32.7 L MCV 89.3 MCH 29.5 MCHC 33.0 RDW Std Deviation 45.6 RDW Coeff of [place] 13.9 Plt Count 242 MPV 9.8 Sodium 139 Potassium 4.1 Chloride 108 H Carbon Dioxide 28 Anion Gap 3.0 BUN 22 H Creatinine 3.66 H D Est Cr Clr Drug Dosing 25.4 Est GFR ( Amer) 19.5 Est GFR (Non-Af Amer) 16.8 BUN/Creatinine Ratio 6.0 L Glucose 162 H POC Glucose 132 H Calcium 7.9 L Phosphorus 3.7 Albumin 2.1 L PG Care Time/CCT Total # of Minutes Spent Total Time Spent with Patient: Total time spent is greater than 50% in coordination of care (as documented) at patient's floor/unit and/or counseling patient: Coding Level of Care Code 13383 Subseq Hosp Care Lvl 3 Diagnoses ARIANA (acute kidney injury) N17.9 Osteomyelitis M86.9 Laterality: unspecified laterality Osteomyelitis type: unspecified type (1) Osteomyelitis Laterality: unspecified laterality Osteomyelitis type: unspecified type
--- NOTE | 2020-04-23 14:16 | Hospitalist Progress Note ---
Date of Service April 23, 2020 Assessment & Plan (1) Acute renal failure: Unknown baseline kidney function which is likely progressed and very poor. Some records from CABG in 2017 reflect normal baseline. Limited records available as [place] is from [place], having recently moved to [place]. Proteinuria present. Nephrology performing workup, treating acidosis with bicarbonate. Appreciate nephrology input and recommendation Has been getting hemodialysis and tolerating well (2) Fungemia: Yeast on wound culture in revised RLE limb. Cont caspofungin until revision surgery. Perform weekly monitoring labwork as needed. (3) Osteomyelitis: Right lower leg wound-and the below knee amputation stump Cefazolin after HD treatments based on deep wound cultures showing GBS. Per ID, will continue with cefazolin TIW after HD until amputation/revisions are complete. Fungemia also now present with plan above. [facility] [place] physician was updated with the blood culture results. We will continue current antibiotic Awaiting surgical debridement Note from the prior hospitalist: Regarding RLE wound and surgical debridement, orthopedics ([facility]) was consulted last week and surgery was not an option until his kidney function was more stabilized, which has now happened. However, now, Dr. Cantu is out of town and there is no one else who can perform this level of surgery until he returns in a few days. Discussed this with [facility] PA Lai Vargas who is in discussion about the next available opportunity to perform surgery on him, and the most appropriate timing of this. Of note, I did reach out to [facility]ascular and spoke with Dr. Harris who states that his first available opportunity to do something. (4) DKA (diabetic ketoacidoses): Initially presented in DKA with presumed infection as cause of hyperglycemia in addition to noncompliance. This has resolved. Currently controlled on basal and bolus insulin. (5) Ischemic cardiomyopathy: EF 45%, appears compensated at this time. Not very active as a bilateral amputee without prosthetics and with a RLE wound. Cont current medical management. Appreciate cardiology input and recommendation (6) Hx of CABG: CAD with h/o CABG, 2017 performed at a hospital in [facility]. Records received and placed in chart. Cardiac arrest reported leading to digital ischemia and amputation of distal fingers of right hand. Current active Smoker. Cont current medication management. (7) Current smoker: Encouraged to quit. He declines nicotine patch and states he can quit without help if he decides to. (8) Thrombocytopenia: resolved to normal. (9) S/P bilateral BKA (below knee amputation): Pt reports having had multiple revision surgeries over the years and is a long standing uncontrolled diabetic smoker. (10) Pressure-induced deep tissue damage of unspecified buttock: local wound care and stay off this area. (11) Demand ischemia: Type II [place] due to demand ischemia and DKA No evidence of ACS this admission with elevated trop on admission thought 2/2 demand ischemia on admission in setting of DKA and low EF. Cont medical management of CAD. Entresto held in renal failure. (12) DVT prophylaxis: Heparin DNR/DNI Dispo-Doing well, has established care with Dr. Ohara. Needs close follow-up with him after discharge. Admission and Anticipated Discharge Date Admission Date: April 14, 2020 Subjective 04/22/2020 The patient was seen and examined in medical floor He has been feeling a lot better and denies any symptoms No fever and/or chills and his pain is controlled 04/23/2020 The patient was seen and examined in medical floor He does not have any complaints Denies any pain in the leg, nausea vomiting, any fever and/or chills Review of Systems Review of Systems: All systems reviewed and are unremarkable except as noted below Physical Exam Physical Exam: Lying in bed without any apparent distress Constitutional: well developed, well nourished and + obese Eyes: PERRL, conjunctivae normal, anicteric sclerae ENMT: external ear and nose normal, oropharynx normal Neck: trachea midline, no thyromegaly Respiratory: no respiratory distress Auscultation: lungs clear to auscultation bilaterally Cardiovascular: Rate/Rhythm: regular rate and regular rhythm Heart Sounds: no murmur Extremities: no edema (On below-knee amputation stump) Gastrointestinal (Abdomen): Inspection/Auscultation: normal bowel sounds; abdomen not distended Percussion/Palpation: abdomen soft; abdomen nontender Musculoskeletal: No acute arthritis in any joint. Has bilateral below knee amputation Neurologic: Alert, awake and oriented x3 Results & Data Results & Data ([facility]) Vital Signs (Past 12 Hours) Vital Signs Temp Pulse Resp BP Pulse Ox 04/23/20 07:08 36.8 C 79 16 145/64 H 96 Laboratory Results Short CBC 04/23/20 Range/Units 09:39 WBC 7.91 (4.8-10.8) K/uL Hgb 10.8 L (14.0-18.0) g/dL Hct 32.7 L (42-52) % Plt Count 242 (130-400) K/uL BMP 04/23/20 09:39 Sodium 139 Potassium 4.1 Chloride 108 H Carbon Dioxide 28 BUN 22 H Creatinine 3.66 H D Glucose 162 H Calcium 7.9 L Liver Function 04/23/20 Range/Units 09:39 Albumin 2.1 L (3.4-5.0) gm/dl Medications Administered Current Inpatient Medications Acetaminophen (Acetaminophen 325 Mg Tab) 650 mg PO Q4H PRN PRN Reason: Pain or Fever Stop: 05/14/20 19:30 Amlodipine Besylate (Amlodipine Besylate 5 Mg Tab) 10 mg PO QAM [facility] Stop: 05/16/20 08:59 Last Admin: 04/23/20 08:52 Dose: 10 mg Documented by: Aspirin (Aspirin 81 Mg Ectab) 81 mg PO QAM [facility] Stop: 05/15/20 08:59 Last Admin: 04/23/20 08:51 Dose: 81 mg Documented by: Atorvastatin Calcium (Atorvastatin 40 Mg Tab) 40 mg PO DAILY [facility] Stop: 05/19/20 08:59 Last Admin: 04/23/20 08:52 Dose: 40 mg Documented by: Dextrose (Dextrose 50% 50 Ml Syringe) 25 - 50 ml IV UD PRN; Protocol PRN Reason: Hypoglycemia Protocol Stop: 05/14/20 19:30 Fenofibrate (Fenofibrate Nanocrystallized 145 Mg Tablet) 145 mg PO QAM [facility] Stop: 05/16/20 08:59 Last Admin: 04/23/20 08:52 Dose: 145 mg Documented by: Glucagon (Glucagon For Inj 1 Mg Vial) 1 mg SQ UD PRN; Protocol PRN Reason: Hypoglycemia Protocol Stop: 05/14/20 19:30 Glucose (Glucose 10 Tabs/Tube) 4 - 8 tabs PO UD PRN; Protocol PRN Reason: Hypoglycemia Protocol Stop: 05/14/20 19:30 Glucose (Glucose 40% Gel 15 Gm Tube) 15 - 30 gm PO UD PRN; Protocol PRN Reason: Hypoglycemia Protocol Stop: 05/14/20 19:30 Heparin Sodium (Porcine) (Heparin Sod 5,000 Unit/0.5 Ml Vial) 5,000 units SQ Q12 [facility] Stop: 05/17/20 20:59 Last Admin: 04/17/20 21:40 Dose: Not Given Documented by: Caspofungin 50 mg/ Sodium (Chloride) 260 mls @ 260 mls/hr IV Q24H [facility]; Protocol Stop: 05/18/20 22:59 Last Infusion: 04/22/20 23:28 Dose: Infused Documented by: Pantoprazole Sodium 40 mg/ (Syringe) 10 mls @ 5 mls/min IV BID [facility] Stop: 05/18/20 03:59 Last Admin: 04/23/20 08:53 Dose: 5 mls/min Documented by: Cefazolin Sodium (Ancef 1000mg) 1,000 mg in 7.5 mls @ 2.5 mls/min IV [id number]@1600 [facility] Stop: 06/03/20 15:59 Last Admin: 04/22/20 18:28 Dose: 2.5 mls/min Documented by: Insulin Aspart (Insulin Aspart 100 Units/Ml 3 Ml Pen) 0 units SC ACHS [facility] Stop: 05/18/20 16:29 Last Admin: 04/23/20 12:44 Dose: Not Given Documented by: Insulin Glargine (Insulin Glargine Solostar 100 Units/Ml 3 Ml Pen) 20 units SQ BID [facility] Stop: 05/19/20 08:59 Last Admin: 04/23/20 08:49 Dose: 20 units Documented by: Isosorbide Mononitrate (Isosorbide [place] Extended Rel 30 Mg Tabcr) 30 mg PO QAM [facility] Stop: 05/22/20 11:14 Last Admin: 04/23/20 08:51 Dose: 30 mg Documented by: Melatonin (Melatonin 3 Mg Tab) 3 mg PO HS PRN PRN Reason: Sleep Stop: 05/14/20 19:30 Last Admin: 04/20/20 22:53 Dose: 3 mg Documented by: Metoprolol Succinate (Metoprolol Succ 25mg Ext Rel Tab) 25 mg PO QAM [facility] Stop: 05/16/20 08:59 Last Admin: 04/23/20 08:52 Dose: 25 mg Documented by: Miscellaneous (Carbohydrates For Hypoglycemia ) 15 - 30 gm PO UD PRN PRN Reason: Hypoglycemia Protocol Stop: 05/14/20 19:30 Miscellaneous Information (Caspofungin~Consult Pharmacy) 1 ea N/A UD PRN PRN Reason: Consult Stop: 05/17/20 22:41 Nitroglycerin (Nitroglycerin Sl 0.4 Mg/Tab Tab) 0.4 mg SL UD PRN PRN Reason: Chest Pain Stop: 05/14/20 19:30 Ondansetron HCl (Ondansetron Inj 2 Mg/Ml 2 Ml Vial) 4 mg IV Q6H PRN PRN Reason: Nausea Stop: 05/14/20 19:30 Senna/Docusate Sodium (Docusate Sodium/Senna 50/8.6mg Tab) 1 tab PO QAM [facility] Stop: 05/21/20 20:04 Last Admin: 04/23/20 08:51 Dose: 1 tab Documented by: (1) Osteomyelitis Laterality: unspecified laterality Osteomyelitis type: unspecified type (2) DKA (diabetic ketoacidoses) Diabetes mellitus complication detail: without coma Diabetes mellitus type: other specified (including BABATUNDE) Qualified Code(s): E13.10 - Other specified diabetes mellitus with ketoacidosis without coma
[2020-04-23] MEDS: CASPOFUNGIN 50 MG in SODIUM CHLORIDE 0.9% 250 ML IV SCH (23:00)
[2020-04-24] MEDS: INSULIN ASPART 100 UNITS/ML 3 ML PEN SC SCH ×4 (08:35→20:55)
[2020-04-24] MEDS: INSULIN GLARGINE SOLOSTAR 100 UNITS/ML 3 ML PEN SQ SCH ×2 (08:36→20:55)
[2020-04-24] MEDS: ASPIRIN 81 MG ECTAB PO SCH (08:37)
[2020-04-24] MEDS: ISOSORBIDE MONO EXTENDED REL 30 MG TABCR PO SCH (08:41)
[2020-04-24] MEDS: DOCUSATE SODIUM/SENNA 50/8.6MG TAB PO SCH (08:41)
[2020-04-24] MEDS: amLODIPine BESYLATE 5 MG TAB PO SCH (08:42)
[2020-04-24] MEDS: FENOFIBRATE NANOCRYSTALLIZED 145 MG TABLET PO SCH (08:42)
[2020-04-24] MEDS: METOPROLOL SUCC 25MG EXT REL TAB PO SCH (08:42)
[2020-04-24] MEDS: ATORVASTATIN 40 MG TAB PO SCH (08:42)
[2020-04-24] MEDS: PANTOprazole 40 MG in SYRINGE 0 ML IV SCH ×2 (08:46→22:23)
[2020-04-24 09:54] LABS: Albumin Level 2.2 gm/dl (3.4-5.0); BUN Creatinine Ratio 6.6 (10-20); Creatinine Clr Calc Pharmacy 22.5 ml/min; Est GFR (African American) 16.9; Est GFR (Non-African American) 14.6; Potassium 4.1 mmol/L (3.5-5.1)
[2020-04-24 09:56] LABS: Phosphorus 4.1 mg/dl (2.5-4.9)
--- NOTE | 2020-04-24 11:30 | Nephrology Progress Note ---
Date of Service April 24, 2020 Assessment & Plan (1) ARIANA (acute kidney injury): * Non-oliguric * Started HD 04/18 * Creatinine continues to rise between HD treatments * Orders for HD today reviewed with dialysis nurse * Abudlkadir is tolerating treatment well: 3 hours @ 300 Qb, UF goal 0.5 L * Monitor PRP, UO * Remains off AMARIS/ARB due to ARIANA, continue to defer for now (2) Osteomyelitis: * On Ancef and Caspofungin per ID recs * Medications appropriately dosed for kidney function * Ortho recs pending for possible OR (3) Ischemic cardiomyopathy: * Tolerating isosorbide monohydrate, BP remains acceptable * Continue to defer AMARIS/ARB due to ARIANA * Volume status acceptable Admission and Anticipated Discharge Date Admission Date: April 14, 2020 Subjective No acute events overnight. No complaints this AM. Abdulkadir was seen and evaluated prior to as well as during hemodialysis. He is breathing comfortably. Denies pain. No fevers or chills. Review of Systems Review of Systems: All systems reviewed & are unremarkable except as noted in HPI & below Physical Exam Constitutional: well developed; no acute distress Eyes: no scleral abnormality and no corneal abnormality ENMT: Mouth: no oral mucosal abnormality and oral mucous membranes not dry Neck: normal visual inspection and trachea midline Respiratory: normal respiratory effort Auscultation: lungs clear to auscultation bilaterally Cardiovascular: Rate/Rhythm: regular rate Heart Sounds: normal S1 and normal S2 Extremities: no edema Musculoskeletal: Extremities: no cyanosis and no clubbing Skin: normal turgor; no lesions Neurologic: Motor/Sensory: no tremor and no asterixis Psychiatric: Orientation: alert and oriented x 3 Results & Data ([facility]) Vital Signs (Past 12 Hours) Vital Signs Temp Pulse Pulse Resp BP BP Pulse Ox 04/24/20 11:00 85 136/67 04/24/20 10:40 84 134/65 04/24/20 10:20 84 129/61 04/24/20 10:00 86 110/57 L 04/24/20 09:40 85 112/50 L 04/24/20 09:20 79 103/51 L 04/24/20 08:58 36.8 C 80 04/24/20 07:13 36.8 C 80 18 145/72 H 96 Laboratory Results Laboratory Results - last 24 hr 04/23/20 04/23/20 04/23/20 12:15 17:21 20:36 Sodium Potassium Chloride Carbon Dioxide Anion Gap BUN Creatinine Est Cr Clr Drug Dosing Est GFR ( Amer) Est GFR (Non-Af Amer) BUN/Creatinine Ratio Glucose POC Glucose 161 H 206 H 271 H Calcium Phosphorus Albumin 04/24/20 04/24/20 08:03 09:23 Sodium 140 Potassium 4.1 Chloride 109 H Carbon Dioxide 26 Anion Gap 5.0 BUN 27 H Creatinine 4.13 H D Est Cr Clr Drug Dosing 22.5 Est GFR ( Amer) 16.9 Est GFR (Non-Af Amer) 14.6 BUN/Creatinine Ratio 6.6 L Glucose 115 H POC Glucose 81 Calcium 8.0 L Phosphorus 4.1 Albumin 2.2 L PG Care Time/CCT Total # of Minutes Spent Total Time Spent with Patient: Total time spent is greater than 50% in coordination of care (as documented) at patient's floor/unit and/or counseling patient: Coding Level of Care Code 86664 Subseq Hosp Care Lvl 3 Diagnoses ARIANA (acute kidney injury) N17.9 Osteomyelitis M86.9 Laterality: unspecified laterality Osteomyelitis type: unspecified type Ischemic cardiomyopathy I25.5 (1) Osteomyelitis Laterality: unspecified laterality Osteomyelitis type: unspecified type
[2020-04-24] MEDS: ceFAZolin 1000MG 1,000 MG/7.5 ML SYR IV SCH (15:32)
--- NOTE | 2020-04-24 16:09 | Hospitalist Progress Note ---
Date of Service April 24, 2020 Assessment & Plan (1) Acute renal failure: Unknown baseline kidney function which is likely progressed and very poor. Some records from CABG in 2017 reflect normal baseline. Limited records available as [place], having recently moved to [place]. Proteinuria present. Nephrology performing workup, treating acidosis with bicarbonate. Appreciate nephrology input and recommendation Has been getting hemodialysis and tolerating well No acute issue (2) Fungemia: Yeast on wound culture in revised RLE limb. Cont caspofungin until revision surgery. Perform weekly monitoring labwork as needed. (3) Osteomyelitis: Right lower leg wound-and the below knee amputation stump Cefazolin after HD treatments based on deep wound cultures showing GBS. Per ID, will continue with cefazolin TIW after HD until amputation/revisions are complete. Fungemia also now present with plan above. [facility] ID physician was updated with the blood culture results. We will continue current antibiotic Awaiting surgical debridement Note from the prior hospitalist: Regarding RLE wound and surgical debridement, orthopedics ([facility]) was consulted last week and surgery was not an option until his kidney function was more stabilized, which has now happened. However, now, Dr. Cantu is out of town and there is no one else who can perform this level of surgery until he returns in a few days. Discussed this with [facility] PA Lai Vargas who is in discussion about the next available opportunity to perform surgery on him, and the most appropriate timing of this. Of note, I did reach out to [facility] and spoke with Dr. Harris who states that his first available opportunity to do something. (4) DKA (diabetic ketoacidoses): Initially presented in DKA with presumed infection as cause of hyperglycemia in addition to noncompliance. This has resolved. Currently controlled on basal and bolus insulin. (5) Ischemic cardiomyopathy: EF 45%, appears compensated at this time. Not very active as a bilateral amputee without prosthetics and with a RLE wound. Cont current medical management. Appreciate cardiology input and recommendation Denies any cardiac symptoms (6) Hx of CABG: CAD with h/o CABG, 2017 performed at a hospital in [facility]. Records received and placed in chart. Cardiac arrest reported leading to digital ischemia and amputation of distal fingers of right hand. Current active Smoker. Cont current medication management. (7) Current smoker: Encouraged to quit. He declines nicotine patch and states he can quit without help if he decides to. (8) Thrombocytopenia: resolved to normal. (9) S/P bilateral BKA (below knee amputation): Pt reports having had multiple revision surgeries over the years and is a long standing uncontrolled diabetic smoker. Right BKA stump has osteomyelitis (10) Pressure-induced deep tissue damage of unspecified buttock: local wound care and stay off this area. (11) Demand ischemia: Type II ID due to demand ischemia and DKA No evidence of ACS this admission with elevated trop on admission thought 2/2 demand ischemia on admission in setting of DKA and low EF. Cont medical management of CAD. Entresto held in renal failure. (12) DVT prophylaxis: Heparin DNR/DNI Dispo-Doing well, has established care with Dr. Ohara. Needs close follow-up with him after discharge. Admission and Anticipated Discharge Date Admission Date: April 14, 2020 Subjective 04/22/2020 The patient was seen and examined in medical floor He has been feeling a lot better and denies any symptoms No fever and/or chills and his pain is controlled 04/23/2020 The patient was seen and examined in medical floor He does not have any complaints Denies any pain in the leg, nausea vomiting, any fever and/or chills 04/24/2020 The patient was seen and examined in medical floor He remains stable and has been getting dialysis Denies any pain, fever and/or chills Review of Systems Review of Systems: All systems reviewed and are unremarkable except as noted below Physical Exam Physical Exam: Lying in bed without any apparent distress Constitutional: well developed, well nourished and + obese Eyes: PERRL, conjunctivae normal, anicteric sclerae ENMT: external ear and nose normal, oropharynx normal Neck: trachea midline, no thyromegaly Respiratory: no respiratory distress Auscultation: lungs clear to auscultation bilaterally Cardiovascular: Rate/Rhythm: regular rate and regular rhythm Heart Sounds: no murmur Extremities: no edema (On below-knee amputation stump) Gastrointestinal (Abdomen): Inspection/Auscultation: normal bowel sounds; abdomen not distended Percussion/Palpation: abdomen soft; abdomen nontender Musculoskeletal: Pain and tenderness involving the right BKA stump Neurologic: Alert, awake and oriented x3 Psychiatric: A+Ox3, euthymic affect Lymphatic: no cervical or axillary lymphadenopathy Results & Data Results & Data ([facility]) Vital Signs (Past 12 Hours) Vital Signs Temp Pulse Pulse Pulse Resp BP BP 04/24/20 15:28 37.1 C 84 17 155/66 H 04/24/20 12:12 37.0 C 80 16 134/61 04/24/20 12:07 36.8 C 79 151/70 H 04/24/20 12:00 84 131/65 04/24/20 11:40 81 132/68 04/24/20 11:20 83 128/62 04/24/20 11:00 85 136/67 04/24/20 10:40 84 134/65 04/24/20 10:20 84 129/61 04/24/20 10:00 86 110/57 L 04/24/20 09:40 85 112/50 L 04/24/20 09:20 79 103/51 L 04/24/20 08:58 36.8 C 80 04/24/20 07:13 36.8 C 80 18 145/72 H Pulse Ox 04/24/20 15:28 97 04/24/20 12:12 94 04/24/20 12:07 04/24/20 12:00 04/24/20 11:40 04/24/20 11:20 04/24/20 11:00 04/24/20 10:40 04/24/20 10:20 04/24/20 10:00 04/24/20 09:40 04/24/20 09:20 04/24/20 08:58 04/24/20 07:13 96 Laboratory Results BMP 04/24/20 09:23 Sodium 140 Potassium 4.1 Chloride 109 H Carbon Dioxide 26 BUN 27 H Creatinine 4.13 H D Glucose 115 H Calcium 8.0 L Liver Function 04/24/20 Range/Units 09:23 Albumin 2.2 L (3.4-5.0) gm/dl Medications Administered Current Inpatient Medications Acetaminophen (Acetaminophen 325 Mg Tab) 650 mg PO Q4H PRN PRN Reason: Pain or Fever Stop: 05/14/20 19:30 Amlodipine Besylate (Amlodipine Besylate 5 Mg Tab) 10 mg PO [facility] Stop: 05/16/20 08:59 Last Admin: 04/24/20 08:42 Dose: Not Given Documented by: Aspirin (Aspirin 81 Mg Ectab) 81 mg PO [facility] Stop: 05/15/20 08:59 Last Admin: 04/24/20 08:37 Dose: 81 mg Documented by: Atorvastatin Calcium (Atorvastatin 40 Mg Tab) 40 mg PO DAILY [facility] Stop: 05/19/20 08:59 Last Admin: 04/24/20 08:42 Dose: 40 mg Documented by: Dextrose (Dextrose 50% 50 Ml Syringe) 25 - 50 ml IV UD PRN; Protocol PRN Reason: Hypoglycemia Protocol Stop: 05/14/20 19:30 Fenofibrate (Fenofibrate Nanocrystallized 145 Mg Tablet) 145 mg PO QAM [facility] Stop: 05/16/20 08:59 Last Admin: 04/24/20 08:42 Dose: 145 mg Documented by: Glucagon (Glucagon For Inj 1 Mg Vial) 1 mg SQ UD PRN; Protocol PRN Reason: Hypoglycemia Protocol Stop: 05/14/20 19:30 Glucose (Glucose 10 Tabs/Tube) 4 - 8 tabs PO UD PRN; Protocol PRN Reason: Hypoglycemia Protocol Stop: 05/14/20 19:30 Glucose (Glucose 40% Gel 15 Gm Tube) 15 - 30 gm PO UD PRN; Protocol PRN Reason: Hypoglycemia Protocol Stop: 05/14/20 19:30 Heparin Sodium (Porcine) (Heparin Sod 5,000 Unit/0.5 Ml Vial) 5,000 units SQ Q12 [facility] Stop: 05/17/20 20:59 Last Admin: 04/17/20 21:40 Dose: Not Given Documented by: Caspofungin 50 mg/ Sodium (Chloride) 260 mls @ 260 mls/hr IV Q24H [facility]; Protocol Stop: 05/18/20 22:59 Last Infusion: 04/24/20 00:00 Dose: Infused Documented by: Pantoprazole Sodium 40 mg/ (Syringe) 10 mls @ 5 mls/min IV BID [facility] Stop: 05/18/20 03:59 Last Admin: 04/24/20 08:46 Dose: 5 mls/min Documented by: Cefazolin Sodium (Ancef 1000mg) 1,000 mg in 7.5 mls @ 2.5 mls/min IV [id number]@1600 [facility] Stop: 06/03/20 15:59 Last Admin: 04/24/20 15:32 Dose: 2.5 mls/min Documented by: Insulin Aspart (Insulin Aspart 100 Units/Ml 3 Ml Pen) 0 units SC ACHS [facility] Stop: 05/18/20 16:29 Last Admin: 04/24/20 14:22 Dose: Not Given Documented by: Insulin Glargine (Insulin Glargine Solostar 100 Units/Ml 3 Ml Pen) 20 units SQ BID [facility] Stop: 05/19/20 08:59 Last Admin: 04/24/20 08:36 Dose: 20 units Documented by: Isosorbide Mononitrate (Isosorbide [place] Extended Rel 30 Mg Tabcr) [facility] Stop: 05/22/20 11:14 Last Admin: 04/24/20 08:41 Dose: Not Given Documented by: Melatonin (Melatonin 3 Mg Tab) 3 mg PO HS PRN PRN Reason: Sleep Stop: 05/14/20 19:30 Last Admin: 04/20/20 22:53 Dose: 3 mg Documented by: Metoprolol Succinate (Metoprolol Succ 25mg Ext Rel Tab) 25 mg PO [facility] Stop: 05/16/20 08:59 Last Admin: 04/24/20 08:42 Dose: Not Given Documented by: Miscellaneous (Carbohydrates For Hypoglycemia ) 15 - 30 gm PO UD PRN PRN Reason: Hypoglycemia Protocol Stop: 05/14/20 19:30 Miscellaneous Information (Caspofungin~Consult Pharmacy) 1 ea N/A UD PRN PRN Reason: Consult Stop: 05/17/20 22:41 Nitroglycerin (Nitroglycerin Sl 0.4 Mg/Tab Tab) 0.4 mg SL UD PRN PRN Reason: Chest Pain Stop: 05/14/20 19:30 Ondansetron HCl (Ondansetron Inj 2 Mg/Ml 2 Ml Vial) 4 mg IV Q6H PRN PRN Reason: Nausea Stop: 05/14/20 19:30 Senna/Docusate Sodium (Docusate Sodium/Senna 50/8.6mg Tab) 1 tab PO [facility] Stop: 05/21/20 20:04 Last Admin: 04/24/20 08:41 Dose: 1 tab Documented by: (1) Osteomyelitis Laterality: unspecified laterality Osteomyelitis type: unspecified type (2) DKA (diabetic ketoacidoses) Diabetes mellitus complication detail: without coma Diabetes mellitus type: other specified (including BABATUNDE) Qualified Code(s): E13.10 - Other specified diabetes mellitus with ketoacidosis without coma
[2020-04-24] MEDS: CASPOFUNGIN 50 MG in SODIUM CHLORIDE 0.9% 250 ML IV SCH (22:23)
[2020-04-25 08:02] LABS: Albumin Level 2.5 gm/dl (3.4-5.0); BUN Creatinine Ratio 6.4 (10-20); Calcium 8.8 mg/dl (8.5-10.1); Creatinine Clr Calc Pharmacy 27.9 ml/min; Est GFR (African American) 21.8; Est GFR (Non-African American) 18.8; Potassium 4.2 mmol/L (3.5-5.1)
[2020-04-25 08:03] LABS: Phosphorus 3.6 mg/dl (2.5-4.9)
[2020-04-25] MEDS: PANTOprazole 40 MG in SYRINGE 0 ML IV SCH ×2 (08:50→20:56)
[2020-04-25] MEDS: DOCUSATE SODIUM/SENNA 50/8.6MG TAB PO SCH (08:51)
[2020-04-25] MEDS: ASPIRIN 81 MG ECTAB PO SCH (08:51)
[2020-04-25] MEDS: ISOSORBIDE MONO EXTENDED REL 30 MG TABCR PO SCH (08:51)
[2020-04-25] MEDS: amLODIPine BESYLATE 5 MG TAB PO SCH (08:51)
[2020-04-25] MEDS: FENOFIBRATE NANOCRYSTALLIZED 145 MG TABLET PO SCH (08:51)
[2020-04-25] MEDS: ATORVASTATIN 40 MG TAB PO SCH (08:51)
[2020-04-25] MEDS: METOPROLOL SUCC 25MG EXT REL TAB PO SCH (08:51)
[2020-04-25] MEDS: INSULIN GLARGINE SOLOSTAR 100 UNITS/ML 3 ML PEN SQ SCH ×2 (08:52→20:52)
[2020-04-25] MEDS: INSULIN ASPART 100 UNITS/ML 3 ML PEN SC SCH ×4 (08:52→20:56)
--- NOTE | 2020-04-25 11:21 | Nephrology Progress Note ---
Date of Service April 25, 2020 Assessment & Plan (1) ARIANA (acute kidney injury): * Non-oliguric * Started HD 04/18 * Tolerated HD yesterday without complications, Qb appropriate via TDC * Clearance acceptable * Electrolytes controlled * Volume status euvolemic * No role for HD today * Monitor PRP, UO * Remains off AMARIS/ARB due to ARIANA * May remove Barakat (2) Osteomyelitis: * On Ancef and Caspofungin per ID recs * Medications appropriately dosed for kidney function * Ortho recs pending for possible OR (3) Ischemic cardiomyopathy: * Tolerating isosorbide monohydrate, BP remains acceptable * Continue to defer AMARIS/ARB due to ARIANA * Volume status acceptable Admission and Anticipated Discharge Date Admission Date: April 14, 2020 Subjective No acute events overnight. Abdulkadir feels well this morning. Sitting up in bed with less difficulty. Denies pain. No fevers or chills. Tolerated HD yesterday without complications. Agreeable to Barakat removal and voiding trial. Review of Systems Review of Systems: All systems reviewed & are unremarkable except as noted in HPI & below Physical Exam Constitutional: well developed; no acute distress Eyes: no scleral abnormality and no corneal abnormality ENMT: Mouth: no oral mucosal abnormality and oral mucous membranes not dry Neck: normal visual inspection and trachea midline Respiratory: normal respiratory effort Auscultation: lungs clear to auscultation bilaterally Cardiovascular: Rate/Rhythm: regular rate Heart Sounds: normal S1 and normal S2 Extremities: no edema Musculoskeletal: Extremities: no cyanosis and no clubbing Skin: normal turgor; no lesions Neurologic: Motor/Sensory: no tremor and no asterixis Psychiatric: Orientation: alert and oriented x 3 Results & Data ([facility]) Laboratory Results Laboratory Results - last 24 hr 04/24/20 04/24/20 04/24/20 12:15 17:10 20:45 Sodium Potassium Chloride Carbon Dioxide Anion Gap BUN Creatinine Est Cr Clr Drug Dosing Est GFR ( Amer) Est GFR (Non-Af Amer) BUN/Creatinine Ratio Glucose POC Glucose 117 H 219 H 336 H* Calcium Phosphorus Albumin 04/24/20 04/24/20 04/25/20 20:47 20:53 07:23 Sodium 141 Potassium 4.2 Chloride 108 H Carbon Dioxide 29 Anion Gap 5.0 BUN 21 H Creatinine 3.34 H D Est Cr Clr Drug Dosing 27.9 Est GFR ( Amer) 21.8 Est GFR (Non-Af Amer) 18.8 BUN/Creatinine Ratio 6.4 L Glucose 106 H POC Glucose 258 H 248 H Calcium 8.8 Phosphorus 3.6 Albumin 2.5 L 04/25/20 08:11 Sodium Potassium Chloride Carbon Dioxide Anion Gap BUN Creatinine Est Cr Clr Drug Dosing Est GFR ( Amer) Est GFR (Non-Af Amer) BUN/Creatinine Ratio Glucose POC Glucose 121 H Calcium Phosphorus Albumin PG Care Time/CCT Total # of Minutes Spent Total Time Spent with Patient: Total time spent is greater than 50% in c oordination of care (as documented) at patient's floor/unit and/or counseling patient: Coding Level of Care Code 96163 Subseq Hosp Care Lvl 3 Diagnoses ARIANA (acute kidney injury) N17.9 Osteomyelitis M86.9 Laterality: unspecified laterality Osteomyelitis type: unspecified type Ischemic cardiomyopathy I25.5 (1) Osteomyelitis Laterality: unspecified laterality Osteomyelitis type: unspecified type
--- NOTE | 2020-04-25 16:19 | Orthopedic Progress Note ---
Date of Service April 25, 2020 Assessment & Plan (1) Osteomyelitis: Right BKA stump osteomyelitis Cultures with Group B strep and Yeast, not danielle. On Ancef and Caspofungin. Plan for I&D/ Revision BKA stump tomorrow AM per Dr. Cantu, will make NPO after MN. Dr. Barclay verbally okay to proceed from medical standpoint. Admission and Anticipated Discharge Date Admission Date: April 14, 2020 Subjective Patient sitting up in bed, appears comfortable. Denies SOB, CP, N/V, dizziness. Pain controlled well. Advised that Dr. Cantu planning to do revision Right BKA stump tomorrow secondary to osteomyelitis. Physical Exam Physical Exam: Right BKA stump distally with bandage in place. Bandage removed, some stagnant purulent yellow/ white drainage, not actively draining. + mild erythema. Bandage replaced. Patient A&Ox3. Results & Data ([facility]) Vital Signs (Past 12 Hours) Vital Signs Temp Pulse Resp BP Pulse Ox 04/25/20 15:45 36.7 C 80 18 123/71 98 (1) Osteomyelitis Laterality: unspecified laterality Osteomyelitis type: unspecified type
--- NOTE | 2020-04-25 18:01 | Hospitalist Progress Note ---
Date of Service April 25, 2020 Assessment & Plan (1) Acute renal failure: Unknown baseline kidney function which is likely progressed and very poor. Some records from CABG in 2017 reflect normal baseline. Limited records available as patient is from out of state, having recently moved to [place]. Proteinuria present. Nephrology performing workup, treating acidosis with bicarbonate. Appreciate nephrology input and recommendation Has been getting hemodialysis and tolerating well No acute issue-continue hemodialysis (2) Fungemia: Yeast on wound culture in revised RLE limb. Cont caspofungin until revision surgery. Perform weekly monitoring labwork as needed. (3) Osteomyelitis: Right lower leg wound-and the below knee amputation stump Cefazolin after HD treatments based on deep wound cultures showing GBS. Per ID, will continue with cefazolin TIW after HD until amputation/revisions are complete. Fungemia also now present with plan above. [facility] [place] was updated with the blood culture results. We will continue current antibiotic Awaiting surgical debridement-plan for right below-knee amputation stump revision tomorrow-04/26/2020 Note from the prior hospitalist: Regarding RLE wound and surgical debridement, orthopedics ([facility]) was consulted last week and surgery was not an option until his kidney function was more stabilized, which has now happened. However, now, Dr. Cantu is out of town and there is no one else who can perform this level of surgery until he returns in a few days. Discussed this with [facility] PA Lai aVrgas who is in discussion about the next available opportunity to perform surgery on him, and the most appropriate timing of this. Of note, I did reach out to Vascular and spoke with Dr. Harris who states that his first available opportunity to do something. (4) DKA (diabetic ketoacidoses): Initially presented in DKA with presumed infection as cause of hyperglycemia in addition to noncompliance. This has resolved. Currently controlled on basal and bolus insulin. Has been refusing NovoLog injection (5) Ischemic cardiomyopathy: EF 45%, appears compensated at this time. Not very active as a bilateral amputee without prosthetics and with a RLE wound. Cont current medical management. Appreciate cardiology input and recommendation Denies any cardiac symptoms (6) Hx of CABG: CAD with h/o CABG, 2017 performed at a hospital in [facility]. Records received and placed in chart. Cardiac arrest reported leading to digital ischemia and amputation of distal fingers of right hand. Current active Smoker. Cont current medication management. (7) Current smoker: Encouraged to quit. He declines nicotine patch and states he can quit without help if he decides to. (8) Thrombocytopenia: resolved to normal. (9) S/P bilateral BKA (below knee amputation): Pt reports having had multiple revision surgeries over the years and is a long standing uncontrolled diabetic smoker. Right BKA stump has osteomyelitis (10) Pressure-induced deep tissue damage of unspecified buttock: local wound care and stay off this area. (11) Demand ischemia: Type II AL due to demand ischemia and DKA No evidence of ACS this admission with elevated trop on admission thought 2/2 demand ischemia on admission in setting of DKA and low EF. Cont medical management of CAD. Entresto held in renal failure. (12) DVT prophylaxis: Heparin DNR/DNI Dispo-Doing well, has established care with Dr. Ohara. Needs close follow-up with him after discharge. Admission and Anticipated Discharge Date Admission Date: April 14, 2020 Subjective 04/22/2020 The patient was seen and examined in medical floor He has been feeling a lot better and denies any symptoms No fever and/or chills and his pain is controlled 04/23/2020 The patient was seen and examined in medical floor He does not have any complaints Denies any pain in the leg, nausea vomiting, any fever and/or chills 04/24/2020 The patient was seen and examined in medical floor He remains stable and has been getting dialysis Denies any pain, fever and/or chills 04/25/2020 The patient was seen and examined in medical floor He remains stable has been waiting for right leg stump surgery Will have surgery tomorrow Review of Systems Review of Systems: All systems reviewed and are unremarkable except as noted below Musculoskeletal: Denies any pain or redness involving the right below-knee stump Physical Exam Physical Exam: Lying in bed without any apparent distress Constitutional: well developed, well nourished and + obese Eyes: PERRL, conjunctivae normal, anicteric sclerae ENMT: external ear and nose normal, oropharynx normal Neck: trachea midline, no thyromegaly Respiratory: no respiratory distress Auscultation: lungs clear to auscultation bilaterally Cardiovascular: Rate/Rhythm: regular rate and regular rhythm Heart Sounds: no murmur Extremities: no edema (On below-knee amputation stump) Gastrointestinal (Abdomen): Inspection/Auscultation: normal bowel sounds; abdomen not distended Percussion/Palpation: abdomen soft; abdomen nontender Musculoskeletal: No acute arthritis in any joint Psychiatric: A+Ox3, euthymic affect Lymphatic: no cervical or axillary lymphadenopathy Results & Data Results & Data ([facility]) Vital Signs (Past 12 Hours) Vital Signs Temp Pulse Resp BP Pulse Ox 04/25/20 15:45 36.7 C 80 18 123/71 98 Laboratory Results [facility] 04/25/20 07:23 Sodium 141 Potassium 4.2 Chloride 108 H Carbon Dioxide 29 BUN 21 H Creatinine 3.34 H D Glucose 106 H Calcium 8.8 Liver Function 04/25/20 Range/Units 07:23 Albumin 2.5 L (3.4-5.0) gm/dl Medications Administered Current Inpatient Medications Acetaminophen (Acetaminophen 325 Mg Tab) 650 mg PO Q4H PRN PRN Reason: Pain or Fever Stop: 05/14/20 19:30 Amlodipine Besylate (Amlodipine Besylate 5 Mg Tab) 10 mg PO QAM [facility] Stop: 05/16/20 08:59 Last Admin: 04/25/20 08:51 Dose: 10 mg Documented by: Aspirin (Aspirin 81 Mg Ectab) 81 mg PO QAM [facility] Stop: 05/15/20 08:59 Last Admin: 04/25/20 08:51 Dose: 81 mg Documented by: Atorvastatin Calcium (Atorvastatin 40 Mg Tab) 40 mg PO DAILY [facility] Stop: 05/19/20 08:59 Last Admin: 04/25/20 08:51 Dose: 40 mg Documented by: Dextrose (Dextrose 50% 50 Ml Syringe) 25 - 50 ml IV UD PRN; Protocol PRN Reason: Hypoglycemia Protocol Stop: 05/14/20 19:30 Fenofibrate (Fenofibrate Nanocrystallized 145 Mg Tablet) 145 mg PO QAM [facility] Stop: 05/16/20 08:59 Last Admin: 04/25/20 08:51 Dose: 145 mg Documented by: Glucagon (Glucagon For Inj 1 Mg Vial) 1 mg SQ UD PRN; Protocol PRN Reason: Hypoglycemia Protocol Stop: 05/14/20 19:30 Glucose (Glucose 10 Tabs/Tube) 4 - 8 tabs PO UD PRN; Protocol PRN Reason: Hypoglycemia Protocol Stop: 05/14/20 19:30 Glucose (Glucose 40% Gel 15 Gm Tube) 15 - 30 gm PO UD PRN; Protocol PRN Reason: Hypoglycemia Protocol Stop: 05/14/20 19:30 Heparin Sodium (Porcine) (Heparin Sod 5,000 Unit/0.5 Ml Vial) 5,000 units SQ Q12 [facility] Stop: 05/17/20 20:59 Last Admin: 04/17/20 21:40 Dose: Not Given Documented by: Caspofungin 50 mg/ Sodium (Chloride) 260 mls @ 260 mls/hr IV Q24H [facility]; Protocol Stop: 05/18/20 22:59 Last Infusion: 04/24/20 23:45 Dose: Infused Documented by: Pantoprazole Sodium 40 mg/ (Syringe) 10 mls @ 5 mls/min IV BID [facility] Stop: 05/18/20 03:59 Last Admin: 04/25/20 08:50 Dose: 5 mls/min Documented by: Cefazolin Sodium (Ancef 1000mg) 1,000 mg in 7.5 mls @ 2.5 mls/min IV [id number]@1600 [facility] Stop: 06/03/20 15:59 Last Admin: 04/24/20 15:32 Dose: 2.5 mls/min Documented by: Insulin Aspart (Insulin Aspart 100 Units/Ml 3 Ml Pen) 0 units SC ACHS [facility] Stop: 05/18/20 16:29 Last Admin: 04/25/20 13:49 Dose: Not Given Documented by: Insulin Glargine (Insulin Glargine Solostar 100 Units/Ml 3 Ml Pen) 20 units SQ BID [facility] Stop: 05/19/20 08:59 Last Admin: 04/25/20 08:52 Dose: 20 units Documented by: Isosorbide Mononitrate (Isosorbide Taliaferro Extended Rel 30 Mg Tabcr) 30 mg PO QAM [facility] Stop: 05/22/20 11:14 Last Admin: 04/25/20 08:51 Dose: 30 mg Documented by: Melatonin (Melatonin 3 Mg Tab) 3 mg PO HS PRN PRN Reason: Sleep Stop: 05/14/20 19:30 Last Admin: 04/20/20 22:53 Dose: 3 mg Documented by: Metoprolol Succinate (Metoprolol Succ 25mg Ext Rel Tab) 25 mg PO QAM [facility] Stop: 05/16/20 08:59 Last Admin: 04/25/20 08:51 Dose: 25 mg Documented by: Miscellaneous (Carbohydrates For Hypoglycemia ) 15 - 30 gm PO UD PRN PRN Reason: Hypoglycemia Protocol Stop: 05/14/20 19:30 Miscellaneous Information (Caspofungin~Consult Pharmacy) 1 ea N/A UD PRN PRN Reason: Consult Stop: 05/17/20 22:41 Nitroglycerin (Nitroglycerin Sl 0.4 Mg/Tab Tab) 0.4 mg SL UD PRN PRN Reason: Chest Pain Stop: 05/14/20 19:30 Ondansetron HCl (Ondansetron Inj 2 Mg/Ml 2 Ml Vial) 4 mg IV Q6H PRN PRN Reason: Nausea Stop: 05/14/20 19:30 Senna/Docusate Sodium (Docusate Sodium/Senna 50/8.6mg Tab) 1 tab PO QAM [facility] Stop: 05/21/20 20:04 Last Admin: 04/25/20 08:51 Dose: 1 tab Documented by: (1) Osteomyelitis Laterality: unspecified laterality Osteomyelitis type: unspecified type (2) DKA (diabetic ketoacidoses) Diabetes mellitus complication detail: without coma Diabetes mellitus type: other specified (including BABATUNDE) Qualified Code(s): E13.10 - Other specified diabetes mellitus with ketoacidosis without coma
[2020-04-25] MEDS: CASPOFUNGIN 50 MG in SODIUM CHLORIDE 0.9% 250 ML IV SCH (23:24)
[2020-04-26] MEDS ORDERED: Nursing to Pharmacy Communication SCH ×2 (02:00→11:15)
[2020-04-26] MEDS ORDERED: INSULIN ASPART 100 UNITS/ML 3 ML PEN SC SCH (06:00)
[2020-04-26 06:45] LABS: Hematocrit (blood only) 32.6 % (42-52); Hemoglobin 10.8 g/dL (14.0-18.0); Mean Corpuscular Hemoglobin 30.3 pg (25-34); Mean Corpuscular Hgb Conc 33.1 g/dL (32-36); Mean Corpuscular Volume 91.6 fL (80-100); Mean Platelet Volume 9.7 fL (7.4-10.4); Platelet Count 221 K/uL (130-400); RDW Coefficient of Variation 14.1 % (11.5-14.5); RDW Standard Deviation 47.4 fL (36.4-46.3); Red Blood Count 3.56 M/uL (4.7-6.1); White Blood Count 8.34 K/uL (4.8-10.8)
[2020-04-26] MEDS ORDERED: BUPIVACAINE 0.5 % 5 MG/1 ML MPF 30ML VIAL ONE (07:04)
[2020-04-26] MEDS ORDERED: PROPOFOL IV EMULSION 10 MG/ML 20 ML VIAL IV ONE (07:08)
[2020-04-26] MEDS ORDERED: ONDANSETRON INJ 2 MG/ML 2 ML VIAL ONE (07:08)
[2020-04-26] MEDS ORDERED: LIDOCAINE HCL 2% 2 ML VIAL/AMP(20MG/ML) INFIL ONE (07:08)
[2020-04-26] MEDS ORDERED: fentaNYL citrate 100 MCG/2 ML VIAL ONE ×2 (07:08→09:08)
[2020-04-26 07:16] LABS: Albumin Level 2.3 gm/dl (3.4-5.0); BUN Creatinine Ratio 8.2 (10-20); Calcium 8.3 mg/dl (8.5-10.1); Creatinine Clr Calc Pharmacy 28.1 ml/min; Est GFR (African American) 22.1; Phosphorus 3.7 mg/dl (2.5-4.9); Potassium 3.8 mmol/L (3.5-5.1)
--- NOTE | 2020-04-26 07:31 | Anesthesiology Consultation ---
Date of Service April 26, 2020 Assessment & Plan (1) Encounter for pre-operative examination: Chart Review Chart Review: Acceptable Risk for Surgery and Patient NOT seen in Pre Admission Testing Consults Requested none History Surgery Operation Date: 04/17/20 09:30 Proposed Procedures p Perm Catheter Placement - Bobby Harris MD Operation Date: 04/26/20 07:30 Proposed Procedures p Right Bilateral Knee Amputation Stump Revision(Right) - Vladimir Cantu DO Height/Weight Height: 5 ft 11 in Weight: 99.2 kg Allergies Allergy/AdvReac Type Severity Reaction Status Date / Time No Known Allergies Allergy Unverified 04/14/20 15:35 Medications Home Medications Medication Instructions Recorded Confirmed Last Taken amlodipine 10 mg PO DAILY 04/17/20 04/17/20 Unknown artificial tear(aexak-lth-[id number]) 1 drp OPB QID PRN 04/17/20 04/17/20 Unknown aspirin 81 mg PO DAILY 04/17/20 04/17/20 Unknown atorvastatin [Lipitor] 40 mg PO DAILY 04/17/20 04/17/20 Unknown fenofibrate nanocrystallized 145 mg PO DAILY 04/17/20 04/17/20 Unknown insulin detemir U-100 30 unit SUBCUT DAILY 04/17/20 04/17/20 Unknown sacubitril-valsartan [Entresto] 1 tab PO BID 04/17/20 04/17/20 Unknown Active Medications Generic Name Dose Route Start Last Admin Trade Name Freq PRN Reason Stop Dose Admin Amlodipine Besylate 10 mg 04/16/20 09:00 04/25/20 08:51 Amlodipine Besylate 5 Mg Tab PO 05/16/20 08:59 10 mg QAM [facility] Administration Aspirin 81 mg 04/15/20 09:00 04/25/20 08:51 Aspirin 81 Mg Ectab PO 05/15/20 08:59 81 mg QAM [facility] Administration Atorvastatin Calcium 40 mg 04/19/20 09:00 04/25/20 08:51 Atorvastatin 40 Mg Tab PO 05/19/20 08:59 40 mg DAILY [facility] Administration Fenofibrate 145 mg 04/16/20 09:00 04/25/20 08:51 Fenofibrate Nanocrystallized 145 Mg Tablet PO 05/16/20 08:59 145 mg QAM [facility] Administration Heparin Sodium (Porcine) 5,000 units 04/17/20 21:00 04/17/20 21:40 Heparin Sod 5,000 Unit/0.5 Ml Vial SQ 05/17/20 20:59 Not Given Q12 [facility] Caspofungin 50 mg/ Sodium 260 mls @ 260 mls/hr 04/18/20 23:00 04/26/20 00:30 Chloride IV 05/18/20 22:59 Infused Q24H [facility] Infusion Protocol Pantoprazole Sodium 40 mg/ 10 mls @ 5 mls/min 04/18/20 04:00 04/25/20 20:56 Syringe IV 05/18/20 03:59 5 mls/min BID [facility] Administration Cefazolin Sodium 1,000 mg in 7.5 mls @ 2.5 mls/min 04/22/20 16:00 04/24/20 15:32 Ancef 1000mg IV 06/03/20 15:59 2.5 mls/min [id number]@1600 [facility] Administration Insulin Aspart 0 units 04/26/20 06:00 04/26/20 06:10 Insulin Aspart 100 Units/Ml 3 Ml Pen SC 05/26/20 05:59 Not Given Q6 [facility] Insulin Glargine 20 units 04/19/20 09:00 04/25/20 20:52 Insulin Glargine Solostar 100 Units/Ml 3 Ml Pen SQ 05/19/20 08:59 20 units BID [facility] Administration Isosorbide Mononitrate 30 mg 04/22/20 11:15 04/25/20 08:51 Isosorbide Cooper Extended Rel 30 Mg Tabcr PO 05/22/20 11:14 30 mg QAM [facility] Administration Melatonin 3 mg 04/14/20 19:31 04/20/20 22:53 Melatonin 3 Mg Tab PO 05/14/20 19:30 3 mg HS PRN Administration Sleep Metoprolol Succinate 25 mg 04/16/20 09:00 04/25/20 08:51 Metoprolol Succ 25mg Ext Rel Tab PO 05/16/20 08:59 25 mg QAM [facility] Administration Senna/Docusate Sodium 1 tab 04/21/20 20:05 04/25/20 08:51 Docusate Sodium/Senna 50/8.6mg Tab PO 05/21/20 20:04 1 tab QAM [facility] Administration NPO Date Last Intake of Fluids: 04/25/20 Time Last Intake of Fluids: 19:00 Date Last Intake of Solids: 04/25/20 Time Last Intake of Solids: 12:00 Last Intake of Solids Comment: per patient Past Medical History Medical History Heme positive stool Exercise / Class Metabolic Activity IV < 2 Limit ADL/Bedbound Past Surgical History Surgical History Above knee amputation of left lower extremity Below knee amputation History of hand surgery History of open heart surgery Past Anesthesia History No Hx of Anesthesia Complications History of PONV No Hx of PONV Social History Smoking Status: Current every day smoker Hx Alcohol Use: No Hx Substance Use: No substance use type: does not use Physical Exam Vital Signs Last Vital Signs Temp 37.1 C 04/26/20 07:31 Pulse 73 04/26/20 07:05 Resp 16 04/26/20 07:05 BP 155/72 H 04/26/20 07:05 Pulse Ox 95 04/26/20 07:05 Testing Laboratory Results 04/26/20 06:17 04/26/20 06:17 PT 11.9 Seconds (9.0-12.0) 04/15/20 03:53 INR 1.1 (0.9-1.1) 04/15/20 03:53 Hemoglobin A1c 11.1 % (4.5-5.6) H 04/14/20 14:13 Urine Color Dark Yellow 04/14/20 17:30 Urine Appearance Turbid (Clear) A 04/14/20 17:30 Urine pH 5.5 (4.5-7.5) 04/14/20 17:30 Ur Specific Pearson 1.020 (1.000-1.030) 04/14/20 17:30 Urine Protein 3+ (Negative) H 04/14/20 17:30 Urine Glucose (UA) 2+ (Negative) H 04/14/20 17:30 Urine Ketones Trace (Negative) H 04/14/20 17:30 Urine Nitrite Negative (Negative) 04/14/20 17:30 Ur Leukocyte Esterase 3+ (Negative) H 04/14/20 17:30 Urine WBC (Auto) >30 /hpf (0-5) H 04/14/20 17:30 Urine RBC (Auto) 0-4 /hpf (0-4) 04/14/20 17:30 U Hyaline Cast (Auto) 0 /lpf (0-5) 04/14/20 17:30 U Epithel Cells (Auto) >30 /lpf (0-5) H 04/14/20 17:30 Urine Bacteria (Auto) Negative (Negative) 04/14/20 17:30 Blood Type A Positive 04/18/20 02:12 Antibody Screen NEGATIVE 04/18/20 02:12 04/18/20 08:32 Aerobic Blood Culture - Final Blood No growth in Aerobic bottle after 5 days. Anaerobic Blood Culture - Final No growth in Anaerobic bottle after 5 days. 04/18/20 08:44 Aerobic Blood Culture - Final Blood No growth in Aerobic bottle after 5 days. Anaerobic Blood Culture - Final No growth in Anaerobic bottle after 5 days. 04/14/20 20:23 Aerobic Blood Culture - Final Blood Luma glabrata Anaerobic Blood Culture - Final Luma glabrata 04/14/20 20:23 Aerobic Blood Culture - Final Blood Luma glabrata Anaerobic Blood Culture - Final Luma glabrata 04/16/20 12:30 Escherichia coli Shiga Toxins Test - Final Stool Stool Culture - Final No Salmonella isolated, No Shigella isolated, No Campylobacter jejuni isolated. 04/14/20 19:31 Gram Stain - Final Leg,Right Deep Wound Culture - Final Group B Beta Strep Yeast not Luma albicans/dub 04/14/20 17:30 Urine Culture - Final Urine,Straight Cath Yeast not Luma albicans/dub 04/26/20 04/26/20 04/26/20 05:56 05:52 05:50 POC Glucose 72 89 66 L* 04/25/20 20:54 POC Glucose 230 H
--- NOTE | 2020-04-26 07:42 | History & Physical Bridge Note ---
Date of Service April 26, 2020 History & Physical Bridge Note I have examined the patient, reviewed the History & Physical and in the interval since the performance of the History & Physical I have noted the following changes of clinical significance:Will require right below knee amputation revision.
[2020-04-26] MEDS ORDERED: ceFAZolin 2000MG 2,000 MG/15 ML SYR IV ONE (08:29)
[2020-04-26] MEDS ORDERED: BACITRACIN INJ 50,000 UNIT VIAL ONE (08:40)
[2020-04-26] MEDS ORDERED: BACITRACIN INJ 50,000 UNIT VIAL IR ONE (09:05)
[2020-04-26] MEDS ORDERED: ePHEDrine sulfate 50 MG/ML SYR ONE (09:08)
[2020-04-26] MEDS ORDERED: ATROPINE SULFATE 0.1 MG/ML 10ML SYR IV PRN (09:45)
[2020-04-26] MEDS ORDERED: HYDROmorphone INJ 2 MG/ML SYR/VIAL IV PRN (09:45)
[2020-04-26] MEDS ORDERED: fentaNYL citrate 100 MCG/2 ML VIAL IV PRN (09:45)
[2020-04-26] MEDS ORDERED: ONDANSETRON INJ 2 MG/ML 2 ML VIAL IV PRN (09:45)
[2020-04-26] MEDS ORDERED: ePHEDrine sulfate 50 MG/ML AMP IV PRN (09:45)
--- NOTE | 2020-04-26 09:49 | Post Operative Brief Note ---
Immediate Post Op Note v1 Date of Surgery April 26, 2020 Pre & Post Diagnosis Operation Date: 04/17/20 09:30 Pre-Op Diagnosis: acute kidney injury Post-Op Diagnosis: acute kidney injury Operation Date: 04/26/20 07:30 Pre-Op Diagnosis: Osteomyelitis right distal tibia and BKA stump, abscess deep right lower extremity, renal failure, diabetes mellitus, chronic tobacco abuse Post-Op Diagnosis: Osteomyelitis right distal tibia and BKA stump, abscess deep right lower extremity, renal failure, diabetes mellitus, chronic tobacco abuse I identified the patient and participated in the time-out.: Yes Procedure Operation Date: 04/17/20 09:30 Actual Procedures p Insertion Of Perm Cather, Right Internal Jugular Approach, Ultrasound Localization Of Right Internal Jugular Vein, Fluoroscopy For Positioning, Moderate Concious Sedation 1242 to 1301(Right) - Bobby Harris MD Operation Date: 04/26/20 07:30 Actual Procedures p Right complete revision below Knee Amputation; Incision and Drainage Deep Abscess Right lower leg (Right) - Vladimir Cantu DO Surgeon Vladimir Cantu DO Kitchenhand Anthony Marie PA-C Estimated Blood Loss 10 Findings Consistent with Post-Op Diagnosis Specimens Aerobic,anaerobic, Gram stain deep abscess RIGHT deep; bone and tissue Drains Hemovac Drain (10Fr X2) Anesthesia Type General Regional Complications none Disposition Accompanied Patient To Recovery: No Disposition: Recovery Room
--- NOTE | 2020-04-26 10:53 | Operative Report (OR) ---
DATE OF OPERATION: 04/26/2020 PREOPERATIVE DIAGNOSES: 1. Right distal tibial osteomyelitis. 2. Deep abscess, right lower extremity. POSTOPERATIVE DIAGNOSES: 1. Right distal tibial osteomyelitis. 2. Deep abscess, right lower extremity. PROCEDURE: 1. Right complete revision below-knee amputation. 2. Incision and drainage deep abscess, right lower extremity. SURGEON: Vladimir Cantu DO. GLASS LAMINATING OPERATOR: Anthony Marie PA-C. who was present for patient positioning, sterile prep and drape, management of retractors and instruments. He was present through the critical portions of the case including wound closure, application of sterile dressing and transport of the patient to recovery. ANESTHESIA: General, regional. SPECIMENS: 1. Aerobic, anaerobic, Gram stain from the deep abscess. 2. Bone and tissue from complete revision right below-knee amputation. DRAINS: Hemovac x2. COMPLICATIONS: None. BLOOD LOSS: 10 mL PERTINENT HISTORY: This is a 60-year-old gentleman with a complicated medical history including acute renal failure, diabetes mellitus and open heart surgery and a tobacco abuse for many years. The patient had a below-knee amputation performed by another provider in [place]. He subsequently underwent a revision on the right lower extremity after extended wound care. After that, the patient then had another ulceration which occurred on the right lower extremity. He has also been caring for that for an extended period of time. He moved to [facility] and presented to the medical service. He has diagnosed with deep abscess, right lower extremity with osteomyelitis and fungemia. He has failed multiple medical managements and is scheduled today for incision and drainage of deep abscess and then complete revision below-knee amputation as indicated. All potential risks, benefits, complications, alternatives, rehab potential for incomplete relief of symptoms, need for further surgery, DVT, PE, , persistent pain, swelling, scarring, weakness, neurovascular injury, wound complications, need for further surgery or revision were discussed with the patient. The patient decided to proceed with procedure as indicated. DESCRIPTION OF PROCEDURE: The patient was taken to the operative suite, placed supine on the operating room table. After review of consent and identification of proper operative site, the patient was anesthetized, a tourniquet was placed high on the right thigh over cast padding. Right lower extremity was then sterilely prepped and draped in usual fashion, elevated and partially exsanguinated from the knee proximally with an Esmarch bandage, tourniquet inflated to 350 mmHg. Next, after surgical timeout was performed, 10 blade scalpel was then used to excise the sinus tract. Abscess was encountered deep within the right lower extremity. Aerobic, anaerobic, Gram stain specimen was sampled and then a full-thickness skin flap was then incised transversely approximately 2 cm proximal to the line of previous resection in the skin and then a long posterior flap was then created with the more distal cut with a 10 blade scalpel full thickness through the skin. Next, careful dissection was performed through the dermis, fascia and then atrophic muscular tissue anteriorly and then extending along the mid lateral line and then distally. A wedge resection was then performed deep to the bone, abscess pocket was encountered and then at this point, this was sharply debrided with a 15 blade scalpel. The abscess pocket was sharply excised and a pulsatile lavage was then used to irrigate the region until all gross material was suctioned free. Next, the second 10 blade scalpel was then used to incise down to the level of the periosteum, which was then elevated from the abnormally shaped distal tibia stump. The distal tibia was skeletonized as well as the distal fibula. [place] retractors were placed carefully deep as well as John retractors to protect the skin and soft tissue. Next, a sagittal saw was then used to resect approximately 2 cm of distal tibia and then approximately 2 cm of distal fibula. Bony fragments were removed and passed off and then the distal tibia was then carefully contoured and shaved and smoothed with the sagittal saw, rongeur and rasp. This was also performed of the distal fibula. In all slightly over 2 cm of distal tibia was resected in accordance with the foot was suspected upon MRI in terms of the level of resection and invasion of osteomyelitis. Next, soft tissue flap and fascia was then revised to accommodate a low tension closure. Next, the pulsatile lavage, 6 liters of bacitracin was then used to thoroughly cleanse the tissue and bone until clear. Next, new top sheet and top gloves were changed and the distal fascia was then closed anteriorly with buried interrupted [id number] #1 Vicryl sutures. Next, the dermis was closed using buried interrupted 2-0 Vicryl, closed over two 10-[place] Hemovac suction drains buried in the deep tissue extending medially and laterally. Next, the skin was closed using interrupted 3-0 nylon sutures. Next, a local field block was then performed with 0.5% Marcaine plain 30 mL and then a sterile compressive dressing consisting of Xeroform gauze, sterile 4 x 4s, ABD pads, cast padding, and Jhonatan wraps x2 was applied. The tourniquet was released. The patient was awakened and taken to recovery in stable condition. I attest to the content of the Intraoperative Record and any orders documented therein. Any exception s are noted below.
[2020-04-26] MEDS: METOPROLOL SUCC 25MG EXT REL TAB PO SCH (10:54)
[2020-04-26] MEDS: amLODIPine BESYLATE 5 MG TAB PO SCH (10:54)
[2020-04-26] MEDS: ASPIRIN 81 MG ECTAB PO SCH (10:54)
[2020-04-26] MEDS: ISOSORBIDE MONO EXTENDED REL 30 MG TABCR PO SCH (10:54)
[2020-04-26] MEDS ORDERED: HYDROmorphone INJ 0.5 MG/0.5 ML SYR IV PRN (11:06)
[2020-04-26] MEDS: PANTOprazole 40 MG in SYRINGE 0 ML IV SCH ×2 (11:07→21:00)
[2020-04-26] MEDS: FENOFIBRATE NANOCRYSTALLIZED 145 MG TABLET PO SCH (11:07)
[2020-04-26] MEDS: INSULIN GLARGINE SOLOSTAR 100 UNITS/ML 3 ML PEN SQ SCH ×2 (11:07→20:55)
[2020-04-26] MEDS: DOCUSATE SODIUM/SENNA 50/8.6MG TAB PO SCH (11:07)
[2020-04-26] MEDS: ATORVASTATIN 40 MG TAB PO SCH (11:07)
--- NOTE | 2020-04-26 11:11 | Nephrology Progress Note ---
Date of Service April 26, 2020 Assessment & Plan (1) ARIANA (acute kidney injury): * Non-oliguric * Started HD 04/18 * Last dialysis treatment completed 04/24/2020 * Volume status euvolemic * No role for HD today * Monitor PRP, UO * Remains off AMARIS/ARB due to ARIANA * Creatinine appears to be stabilizing (2) Osteomyelitis: * On Ancef and Caspofungin per ID recs dosed for MWF IHD * Medications appropriately dosed for kidney function * Post op today (3) Ischemic cardiomyopathy: * BP remains acceptable * Continue to defer AMARIS/ARB due to ARIANA * Volume status acceptable Admission and Anticipated Discharge Date Admission Date: April 14, 2020 Subjective No acute events overnight. Returned from the OR this morning. Tolerated procedure well. Denies significant pain. No fevers or chills. Breathing comfortably. Voiding without difficult. Review of Systems Review of Systems: All systems reviewed & are unremarkable except as noted in HPI & below Physical Exam Constitutional: well developed; no acute distress Eyes: no scleral abnormality and no corneal abnormality ENMT: Mouth: no oral mucosal abnormality and oral mucous membranes not dry Neck: normal visual inspection and trachea midline Respiratory: normal respiratory effort Auscultation: lungs clear to auscultation bilaterally Cardiovascular: Rate/Rhythm: regular rate Heart Sounds: normal S1 and normal S2 Extremities: no edema Musculoskeletal: Extremities: no cyanosis and no clubbing Skin: normal turgor; no lesions Neurologic: Motor/Sensory: no tremor and no asterixis Psychiatric: Orientation: alert and oriented x 3 Results & Data ([facility]) Vital Signs (Past 12 Hours) Vital Signs Temp Pulse Pulse Pulse Resp BP Pulse Ox 04/26/20 10:45 36.3 C L 78 18 150/69 H 93 04/26/20 10:35 36.4 C L 77 14 143/68 H 94 04/26/20 10:25 76 12 143/65 H 95 04/26/20 10:15 82 14 142/74 H 95 04/26/20 10:05 87 14 149/82 H 94 04/26/20 09:55 79 12 162/88 H 100 04/26/20 09:47 36 C L 75 12 154/84 H 100 04/26/20 07:05 36.6 C 73 16 155/72 H 95 04/25/20 23:52 36.6 C 70 14 142/66 H 96 Laboratory Results Laboratory Results - last 24 hr 04/25/20 04/25/20 04/25/20 12:10 12:12 12:14 WBC RBC Hgb Hct MCV MCH MCHC RDW Std Deviation RDW Coeff of Farooq Plt Count MPV Sodium Potassium Chloride Carbon Dioxide Anion Gap BUN Creatinine Est Cr Clr Drug Dosing Est GFR ( Amer) Est GFR (Non-Af Amer) BUN/Creatinine Ratio Glucose POC Glucose 384 H* 240 H 155 H Calcium Phosphorus Albumin COVID-19 Eval Order SARS-CoV-2, RNA, NAAT 04/25/20 04/25/20 04/25/20 16:20 16:20 17:17 WBC RBC Hgb Hct MCV MCH MCHC RDW Std Deviation RDW Coeff of [place] Plt Count MPV Sodium Potassium Chloride Carbon Dioxide Anion Gap BUN Creatinine Est Cr Clr Drug Dosing Est GFR ( Amer) Est GFR (Non-Af Amer) BUN/Creatinine Ratio Glucose POC Glucose 282 H Calcium Phosphorus Albumin COVID-19 Eval [facility] SARS-CoV-2, RNA, NAAT NEGATIVE 04/25/20 04/25/20 04/26/20 17:19 20:54 05:50 WBC RBC Hgb Hct MCV MCH MCHC RDW Std Deviation RDW Coeff of [place] Plt Count MPV Sodium Potassium Chloride Carbon Dioxide Anion Gap BUN Creatinine Est Cr Clr Drug Dosing Est GFR ( Amer) Est GFR (Non-Af Amer) BUN/Creatinine Ratio Glucose POC Glucose 208 H 230 H 66 L* Calcium Phosphorus Albumin COVID-19 Eval Order SARS-CoV-2, RNA, NAAT 04/26/20 04/26/20 04/26/20 05:52 05:56 06:17 WBC RBC Hgb Hct MCV MCH MCHC RDW Std Deviation RDW Coeff of [place] Plt Count MPV Sodium 141 Potassium 3.8 Chloride 109 H Carbon Dioxide 27 Anion Gap 5.0 BUN 27 H Creatinine 3.31 H Est Cr Clr Drug Dosing 28.1 Est GFR ( Amer) 22.1 Est GFR (Non-Af Amer) 19.0 BUN/Creatinine Ratio 8.2 L Glucose 67 L POC Glucose 89 72 Calcium 8.3 L Phosphorus 3.7 Albumin 2.3 L COVID-19 Eval Order SARS-CoV-2, RNA, NAAT 04/26/20 04/26/20 04/26/20 06:17 08:19 09:51 WBC 8.34 RBC 3.56 L Hgb 10.8 L Hct 32.6 L MCV 91.6 MCH 30.3 MCHC 33.1 RDW Std Deviation 47.4 H RDW Coeff of Farooq 14.1 Plt Count 221 MPV 9.7 Sodium Potassium Chloride Carbon Dioxide Anion Gap BUN Creatinine Est Cr Clr Drug Dosing Est GFR ( Amer) Est GFR (Non-Af Amer) BUN/Creatinine Ratio Glucose POC Glucose 99 98 Calcium Phosphorus Albumin COVID-19 Eval Order SARS-CoV-2, RNA, NAAT PG Care Time/CCT Total # of Minutes Spent Total Time Spent with Patient: Total time spent is greater than 50% in coordination of care (as documented) at patient's floor/unit and/or counseling patient: Coding Level of Care Code 80986 Subseq Hosp Care Lvl 3 Diagnoses ARIANA (acute kidney injury) N17.9 Osteomyelitis M86.9 Laterality: unspecified laterality Osteomyelitis type: unspecified type Ischemic cardiomyopathy I25.5 (1) Osteomyelitis Laterality: unspecified laterality Osteomyelitis type: unspecified type
[2020-04-26] MEDS ORDERED: ARTIFICIAL TEARS OP PRN (11:19)
--- NOTE | 2020-04-26 11:58 | Hospitalist Progress Note ---
Date of Service April 26, 2020 Assessment & Plan (1) Acute renal failure: Unknown baseline kidney function which is likely progressed and very poor. Some records from CABG in 2017 reflect normal baseline. Limited records available as [place] is from out of state, having recently moved to [place]. Proteinuria present. Nephrology performing workup, treating acidosis with bicarbonate. Appreciate nephrology input and recommendation Continue management as per digital forensics investigator with hemodialysis (2) Fungemia: Yeast on wound culture in revised RLE limb. Cont caspofungin until revision surgery. Perform weekly monitoring labwork as needed. (3) Osteomyelitis: Distal right tibial osteomyelitis Status post right complete revision below-knee amputation on 04/26/2020 Management as per Ortho Continue current intravenous antibiotic and antifungal Right lower leg wound-and the below knee amputation stump Cefazolin after HD treatments based on deep wound cultures showing GBS. Per ID, will continue with cefazolin TIW after HD until amputation/revisions are complete. Fungemia also now present with plan above. [facility] [place] ID physician was updated with the blood culture results. We will continue current antibiotic Awaiting surgical debridement-plan for right below-knee amputation stump revision tomorrow-04/26/2020 Note from the prior hospitalist: Regarding RLE wound and surgical debridement, orthopedics ([facility]) was consulted last week and surgery was not an option until his kidney function was more stabilized, which has now happened. However, now, Dr. Cantu is out of town and there is no one else who can perform this level of surgery until he returns in a few days. Discussed this with [facility] PA Lai Vargas who is in discussion about the next available opportunity to perform surgery on him, and the most appropriate timing of this. Of note, I did reach out to Vascular and spoke with Dr. Harris who states that his first available opportunity to do something. (4) DKA (diabetic ketoacidoses): Initially presented in DKA with presumed infection as cause of hyperglycemia in addition to noncompliance. This has resolved. Currently controlled on basal and bolus insulin. Has been refusing NovoLog injection Lantus doses have been increased as he has been refusing NovoLog injection (5) Ischemic cardiomyopathy: EF 45%, appears compensated at this time. Not very active as a bilateral amputee without prosthetics and with a RLE wound. Cont current medical management. Appreciate cardiology input and recommendation Denies any cardiac symptoms (6) Hx of CABG: CAD with h/o CABG, 2017 performed at a hospital in [facility]. Records received and placed in chart. Cardiac arrest reported leading to digital ischemia and amputation of distal fingers of right hand. Current active Smoker. Cont current medication management. (7) Current smoker: Encouraged to quit. He declines nicotine patch and states he can quit without help if he decides to. (8) Thrombocytopenia: resolved to normal. (9) S/P bilateral BKA (below knee amputation): Pt reports having had multiple revision surgeries over the years and is a long standing uncontrolled diabetic smoker. Right BKA stump has osteomyelitis (10) Pressure-induced deep tissue damage of unspecified buttock: local wound care and stay off this area. (11) Demand ischemia: Type II WI due to demand ischemia and DKA No evidence of ACS this admission with elevated trop on admission thought 2/2 demand ischemia on admission in setting of DKA and low EF. Cont medical management of CAD. Entresto held in renal failure. (12) DVT prophylaxis: Heparin DNR/DNI Dispo-Doing well, has established care with Dr. Ohara. Needs close follow-up with him after discharge. We will get PT and OT evaluation and discharge planning. Admission and Anticipated Discharge Date Admission Date: April 14, 2020 Subjective 04/22/2020 The patient was seen and examined in medical floor He has been feeling a lot better and denies any symptoms No fever and/or chills and his pain is controlled 04/23/2020 The patient was seen and examined in medical floor He does not have any complaints Denies any pain in the leg, nausea vomiting, any fever and/or chills 04/24/2020 The patient was seen and examined in medical floor He remains stable and has been getting dialysis Denies any pain, fever and/or chills 04/25/2020 The patient was seen and examined in medical floor He remains stable has been waiting for right leg stump surgery Will have surgery tomorrow 04/26/2020 The patient was seen and examined in medical floor He is a status post right complete revision below-knee amputation He has some pain but denies any other significant symptoms Review of Systems Review of Systems: All systems reviewed and are unremarkable except as noted below Musculoskeletal: Denies any pain or redness involving the right below-knee stump Physical Exam Physical Exam: Lying in bed without any apparent distress Constitutional: well developed, well nourished and + obese Eyes: PERRL, conjunctivae normal, anicteric sclerae ENMT: external ear and nose normal, oropharynx normal Neck: trachea midline, no thyromegaly Respiratory: no respiratory distress Auscultation: lungs clear to auscultation bilaterally Cardiovascular: Rate/Rhythm: regular rate and regular rhythm Heart Sounds: no murmur Extremities: no edema (On below-knee amputation stump) Gastrointestinal (Abdomen): Inspection/Auscultation: normal bowel sounds; abdomen not distended Percussion/Palpation: abdomen soft; abdomen nontender Musculoskeletal: Bilateral below knee amputee with right complete revision below-knee amputation today that is 04/26/2020 Psychiatric: A+Ox3, euthymic affect Lymphatic: no cervical or axillary lymphadenopathy Results & Data Results & Data ([facility]) Vital Signs (Past 12 Hours) Vital Signs Temp Pulse Pulse Pulse Resp BP Pulse Ox 04/26/20 10:45 36.3 C L 78 18 150/69 H 93 04/26/20 10:35 36.4 C L 77 14 143/68 H 94 04/26/20 10:25 76 12 143/65 H 95 04/26/20 10:15 82 14 142/74 H 95 04/26/20 10:05 87 14 149/82 H 94 04/26/20 09:55 79 12 162/88 H 100 04/26/20 09:47 36 C L 75 12 154/84 H 100 04/26/20 07:05 36.6 C 73 16 155/72 H 95 Laboratory Results Short CBC 04/26/20 Range/Units 06:17 WBC 8.34 (4.8-10.8) K/uL Hgb 10.8 L (14.0-18.0) g/dL Hct 32.6 L (42-52) % Plt Count 221 (130-400) K/uL BMP 04/26/20 06:17 Sodium 141 Potassium 3.8 Chloride 109 H Carbon Dioxide 27 BUN 27 H Creatinine 3.31 H Glucose 67 L Calcium 8.3 L Liver Function 04/26/20 Range/Units 06:17 Albumin 2.3 L (3.4-5.0) gm/dl Medications Administered Current Inpatient Medications Acetaminophen (Acetaminophen 325 Mg Tab) 650 mg PO Q4H PRN PRN Reason: Pain or Fever Stop: 05/14/20 19:30 Amlodipine Besylate (Amlodipine Besylate 5 Mg Tab) 10 mg PO QAM [facility] Stop: 05/16/20 08:59 Last Admin: 04/26/20 10:54 Dose: 10 mg Documented by: Artificial Tears (Artificial Tears) 1 drops OP QID PRN PRN Reason: Dry Eyes Stop: 05/26/20 11:18 Aspirin (Aspirin 81 Mg Ectab) 81 mg PO QAM [facility] Stop: 05/15/20 08:59 Last Admin: 04/26/20 10:54 Dose: 81 mg Documented by: Atorvastatin Calcium (Atorvastatin 40 Mg Tab) 40 mg PO DAILY [facility] Stop: 05/19/20 08:59 Last Admin: 04/26/20 11:07 Dose: 40 mg Documented by: Dextrose (Dextrose 50% 50 Ml Syringe) 25 - 50 ml IV UD PRN; Protocol PRN Reason: Hypoglycemia Protocol Stop: 05/14/20 19:30 Fenofibrate (Fenofibrate Nanocrystallized 145 Mg Tablet) 145 mg PO QAM [facility] Stop: 05/16/20 08:59 Last Admin: 04/26/20 11:07 Dose: 145 mg Documented by: Glucagon (Glucagon For Inj 1 Mg Vial) 1 mg SQ UD PRN; Protocol PRN Reason: Hypoglycemia Protocol Stop: 05/14/20 19:30 Glucose (Glucose 10 Tabs/Tube) 4 - 8 tabs PO UD PRN; Protocol PRN Reason: Hypoglycemia Protocol Stop: 05/14/20 19:30 Glucose (Glucose 40% Gel 15 Gm Tube) 15 - 30 gm PO UD PRN; Protocol PRN Reason: Hypoglycemia Protocol Stop: 05/14/20 19:30 Heparin Sodium (Porcine) (Heparin Sod 5,000 Unit/0.5 Ml Vial) 5,000 units SQ Q12 [facility] Stop: 05/17/20 20:59 Last Admin: 04/17/20 21:40 Dose: Not Given Documented by: Hydromorphone HCl (Hydromorphone Inj 0.5 Mg/0.5 Ml Syr) 0.5 mg IV Q4H PRN PRN Reason: Pain Stop: 05/10/20 11:05 Caspofungin 50 mg/ Sodium (Chloride) 260 mls @ 260 mls/hr IV Q24H [facility]; Protocol Stop: 05/18/20 22:59 Last Infusion: 04/26/20 00:30 Dose: Infused Documented by: Pantoprazole Sodium 40 mg/ (Syringe) 10 mls @ 5 mls/min IV BID [facility] Stop: 05/18/20 03:59 Last Admin: 04/26/20 11:07 Dose: 5 mls/min Documented by: Cefazolin Sodium (Ancef 1000mg) 1,000 mg in 7.5 mls @ 2.5 mls/min IV [id number]@[id number] [facility] Stop: 06/03/20 15:59 Last Admin: 04/24/20 15:32 Dose: 2.5 mls/min Documented by: Insulin Aspart (Insulin Aspart 100 Units/Ml 3 Ml Pen) 0 units SC ACHS [facility] Stop: 05/26/20 11:29 Insulin Glargine (Insulin Glargine Solostar 100 Units/Ml 3 Ml Pen) 20 units SQ BID [facility] Stop: 05/19/20 08:59 Last Admin: 04/26/20 11:07 Dose: 20 units Documented by: Isosorbide Mononitrate (Isosorbide [place] Extended Rel 30 Mg Tabcr) [facility] Stop: 05/22/20 11:14 Last Admin: 04/26/20 10:54 Dose: 30 mg Documented by: Melatonin (Melatonin 3 Mg Tab) 3 mg PO HS PRN PRN Reason: Sleep Stop: 05/14/20 19:30 Last Admin: 04/20/20 22:53 Dose: 3 mg Documented by: Metoprolol Succinate (Metoprolol Succ 25mg Ext Rel Tab) 25 mg PO QAM [facility] Stop: 05/16/20 08:59 Last Admin: 04/26/20 10:54 Dose: 25 mg Documented by: Miscellaneous (Carbohydrates For Hypoglycemia ) 15 - 30 gm PO UD PRN PRN Reason: Hypoglycemia Protocol Stop: 05/14/20 19:30 Miscellaneous Information (Caspofungin~Consult Pharmacy) 1 ea N/A UD PRN PRN Reason: Consult Stop: 05/17/20 22:41 Nitroglycerin (Nitroglycerin Sl 0.4 Mg/Tab Tab) 0.4 mg SL UD PRN PRN Reason: Chest Pain Stop: 05/14/20 19:30 Ondansetron HCl (Ondansetron Inj 2 Mg/Ml 2 Ml Vial) 4 mg IV Q6H PRN PRN Reason: Nausea Stop: 05/14/20 19:30 Oxycodone HCl (Oxycodone Hcl Ir 5 Mg Tab (Immediate Release)) 5 mg PO Q4H PRN PRN Reason: Pain Stop: 05/10/20 11:05 Sacubitril/Valsartan (Sacubitril-Valsartan 49/51 Mg Tab) 1 tab PO BID [facility] Stop: 05/26/20 20:59 Senna/Docusate Sodium (Docusate Sodium/Senna 50/8.6mg Tab) 1 tab PO QAM [facility] Stop: 05/21/20 20:04 Last Admin: 04/26/20 11:07 Dose: 1 tab Documented by: (1) Osteomyelitis Laterality: unspecified laterality Osteomyelitis type: unspecified type (2) DKA (diabetic ketoacidoses) Diabetes mellitus complication detail: without coma Diabetes mellitus type: other specified (including BABATUNDE) Qualified Code(s): E13.10 - Other specified diabetes mellitus with ketoacidosis without coma
[2020-04-26] MEDS: INSULIN ASPART 100 UNITS/ML 3 ML PEN SC SCH ×3 (13:08→20:56)
[2020-04-26] MEDS: ACETAMINOPHEN 325 MG TAB PO PRN (13:18)
--- NOTE | 2020-04-26 14:05 | Anesthesiology Progress Note ---
Date of Service April 26, 2020 Anesthesia Post Procedure Vital Signs Vital Signs: Temp Pulse Pulse Pulse Resp BP Pulse Ox 04/26/20 10:45 36.3 C L 78 18 150/69 H 93 04/26/20 10:35 36.4 C L 77 14 143/68 H 94 04/26/20 10:25 76 12 143/65 H 95 04/26/20 10:15 82 14 142/74 H 95 04/26/20 10:05 87 14 149/82 H 94 04/26/20 09:55 79 12 162/88 H 100 04/26/20 09:47 36 C L 75 12 154/84 H 100 04/26/20 07:05 36.6 C 73 16 155/72 H 95 04/25/20 23:52 36.6 C 70 14 142/66 H 96 04/25/20 15:45 36.7 C 80 18 123/71 98 Pain Intensity Buttock: Pain Intensity: 0 Transfer of Care Handoff Completed per policy Notes Mental Status: alert / awake / arousable and participated in evaluation Patient Amnestic to Procedure: Yes Nausea / Vomiting: adequately controlled Pain: adequately controlled Airway Patency, RR, SpO2: stable & adequate BP & HR: stable & adequate Hydration State: stable & adequate Anesthetic Complications: no major complications apparent and Pt Satisfied with anesthetic care
[2020-04-26] MEDS: HEPARIN SOD 5,000 UNIT/0.5 ML VIAL SQ SCH (20:56)
[2020-04-26] MEDS: SACUBITRIL-VALSARTAN 49/51 MG TAB PO SCH (20:59)
[2020-04-26] MEDS: oxyCODONE HCL IR 5 MG TAB (IMMEDIATE RELEASE) PO PRN (21:00)
[2020-04-26] MEDS: CASPOFUNGIN 50 MG in SODIUM CHLORIDE 0.9% 250 ML IV SCH (22:35)
[2020-04-27 06:42] LABS: Basophils # (auto) 0.01 K/uL (0-0.2); Basophils % (auto) 0.1 %; Eosinophils # (auto) 0.13 K/uL (0-0.5); Eosinophils % (auto) 1.8 %; Hematocrit (blood only) 29.8 % (42-52); Hemoglobin 9.6 g/dL (14.0-18.0); Immature Granulocytes # (auto) 0.02 K/uL (0.00-0.02); Immature Granulocytes % (auto) 0.3 %; Lymphocytes # (auto) 1.13 K/uL (1.2-3.4); Lymphocytes % (auto) 15.4 %; Mean Corpuscular Hemoglobin 29.9 pg (25-34); Mean Corpuscular Hgb Conc 32.2 g/dL (32-36); Mean Corpuscular Volume 92.8 fL (80-100); Mean Platelet Volume 9.8 fL (7.4-10.4); Monocytes # (auto) 0.92 K/uL (0.11-0.59); Monocytes % (auto) 12.5 %; Neutrophils # (auto) 5.15 K/uL (1.4-6.5); Neutrophils % (auto) 69.9 %; Platelet Count 186 K/uL (130-400); RDW Coefficient of Variation 14.2 % (11.5-14.5); RDW Standard Deviation 48.1 fL (36.4-46.3); Red Blood Count 3.21 M/uL (4.7-6.1); White Blood Count 7.36 K/uL (4.8-10.8)
[2020-04-27 07:16] LABS: Albumin Level 2.2 gm/dl (3.4-5.0); BUN Creatinine Ratio 8.3 (10-20); Calcium 8.2 mg/dl (8.5-10.1); Creatinine Clr Calc Pharmacy 23.5 ml/min; Est GFR (African American) 17.7; Est GFR (Non-African American) 15.3
[2020-04-27 07:28] LABS: Phosphorus 4.4 mg/dl (2.5-4.9)
[2020-04-27] MEDS ORDERED: FENOFIBRATE NANOCRYSTALLIZED 145 MG TABLET PO SCH (09:00)
[2020-04-27] MEDS ORDERED: amLODIPine BESYLATE 5 MG TAB PO SCH (09:00)
[2020-04-27] MEDS ORDERED: HEPARIN SOD (PORCINE) 1000 UNIT/ML 10 ML VIAL IV ONE (09:19)
[2020-04-27] MEDS ORDERED: SODIUM CHLORIDE 0.9% 1000ML 1,000 ML IV PRN (09:19)
--- NOTE | 2020-04-27 09:20 | Orthopedic Progress Note ---
Date of Service April 27, 2020 Assessment & Plan (1) Osteomyelitis of right tibia: POD 1 s/p Right Revision BKA due to Osteomyelitis Cx showing Staph species - Currently on Ancef. Sens to follow. Continue current dressing/HV. Plan for dressing change tomorrow. Continue HV Continue current pain management. Admission and Anticipated Discharge Date Admission Date: April 14, 2020 Subjective POD 1 Pt sleeping. Easily awoken. States he's having pain off and on but is tolerating with pain medication. No other complaints at this time. Physical Exam Physical Exam: Dressings are C/D/I. HV 25ml from the latest shift. Results & Data ([facility]) Vital Signs (Past 12 Hours) Vital Signs Temp Pulse Pulse Resp BP Pulse Ox 04/27/20 07:09 36.8 C 79 16 121/61 92 04/27/20 02:27 36.4 C L 81 16 123/57 L 93 04/26/20 22:56 36.8 C 78 16 123/62 92 Laboratory Results Laboratory Results WBC 7.36 K/uL (4.8-10.8) 04/27/20 06:18 RBC 3.21 M/uL (4.7-6.1) L 04/27/20 06:18 Hgb 9.6 g/dL (14.0-18.0) L 04/27/20 06:18 POC Hgb 13.3 g/dl (14.0-18.0) L 04/14/20 14:34 Hct 29.8 % (42-52) L 04/27/20 06:18 POC Hct 39 % (42-52) L 04/14/20 14:34 MCV 92.8 fL (80-100) 04/27/20 06:18 MCH 29.9 pg (25-34) 04/27/20 06:18 MCHC 32.2 g/dL (32-36) 04/27/20 06:18 RDW Std Deviation 48.1 fL (36.4-46.3) H 04/27/20 06:18 RDW Coeff of Farooq 14.2 % (11.5-14.5) 04/27/20 06:18 Plt Count 186 K/uL (130-400) 04/27/20 06:18 MPV 9.8 fL (7.4-10.4) 04/27/20 06:18 Immature Gran % (Auto) 0.3 % 04/27/20 06:18 Neut % (Auto) 69.9 % 04/27/20 06:18 Lymph % (Auto) 15.4 % 04/27/20 06:18 [place] % (Auto) 12.5 % 04/27/20 06:18 Eos % (Auto) 1.8 % 04/27/20 06:18 Baso % (Auto) 0.1 % 04/27/20 06:18 Neut # (Auto) 5.15 K/uL (1.4-6.5) 04/27/20 06:18 Lymph # (Auto) 1.13 K/uL (1.2-3.4) L 04/27/20 06:18 [place] # (Auto) 0.92 K/uL (0.11-0.59) H 04/27/20 06:18 Eos # (Auto) 0.13 K/uL (0-0.5) 04/27/20 06:18 Baso # (Auto) 0.01 K/uL (0-0.2) 04/27/20 06:18 Immature Gran # (Auto) 0.02 K/uL (0.00-0.02) 04/27/20 06:18 Platelet Estimate Decreased (Normal) L 04/14/20 14:13 PT 11.9 Seconds (9.0-12.0) 04/15/20 03:53 INR 1.1 (0.9-1.1) 04/15/20 03:53 ABG pH 7.43 (7.35-7.45) 04/14/20 16:39 ABG pCO2 28 mmHg (35-46) L 04/14/20 16:39 ABG pO2 67 mmHg (80-95) L 04/14/20 16:39 ABG HCO3 18 mmol/L (19-24) L 04/14/20 16:39 ABG O2 Saturation 93.6 % (90-95) 04/14/20 16:39 ABG Base Excess -5.4 mEq/L (-9-1.8) 04/14/20 16:39 Flaco Test Pos (Pos) 04/14/20 16:39 VBG pH 7.38 (7.36-7.41) 04/15/20 03:53 VBG pCO2 36 mmHg (38-50) L 04/14/20 14:13 VBG pO2 24 mmHg 04/14/20 14:13 VBG HCO3 19 mmol/L 04/14/20 14:13 VBG O2 Saturation < 60.0 % 04/14/20 14:13 VBG Base Excess -6.0 mEq/L 04/14/20 14:13 Barometric Pressure 739.0 mm/Hg 04/14/20 16:39 Oxygen Given Room Air 04/14/20 16:39 POC Sodium 132 mmol/L (135-144) L 04/14/20 14:34 Sodium 141 mmol/L (136-145) 04/27/20 06:18 POC Potassium 5.0 mmol/L (3.3-5.0) 04/14/20 14:34 Potassium 4.0 mmol/L (3.5-5.1) 04/27/20 06:18 POC Chloride 102 mmol/L (101-112) 04/14/20 14:34 Chloride 108 mmol/L (98-107) H 04/27/20 06:18 Carbon Dioxide 27 mmol/L (21-32) 04/27/20 06:18 POC Total CO2 16 mmol/L (24-31) L 04/14/20 14:34 Anion Gap 6.0 (3-11) 04/27/20 06:18 POC Anion Gap 20.0 mmol/L (16-25) 04/14/20 14:34 POC BUN 86 mg/dl (7-18) H 04/14/20 14:34 BUN 33 mg/dl (7-18) H 04/27/20 06:18 Creatinine 3.97 mg/dl (0.6-1.4) H D 04/27/20 06:18 POC Creatinine 4.8 mg/dl (0.6-1.3) H* 04/14/20 14:34 Est Cr Clr Drug Dosing 23.5 ml/min 04/27/20 06:18 Est GFR ( Amer) 17.7 04/27/20 06:18 Est GFR (Non-Af Amer) 15.3 04/27/20 06:18 BUN/Creatinine Ratio 8.3 (10-20) L 04/27/20 06:18 Glucose 91 mg/dl (70-99) 04/27/20 06:18 POC Glucose 120 mg/dl (70-99) H 04/27/20 08:10 POC Glucose (other) 435 mg/dl (70-99) H* 04/14/20 14:34 Estimat Average Glucose 272 mg/dl 04/14/20 14:13 Hemoglobin A1c 11.1 % (4.5-5.6) H 04/14/20 14:13 Lactate 1.7 mmol/L (0.4-2.0) 04/14/20 14:13 Calcium 8.2 mg/dl (8.5-10.1) L 04/27/20 06:18 POC Ioniz Calcium Matias 1.08 mmol/l (1.12-1.32) L 04/14/20 14:34 Phosphorus 4.4 mg/dl (2.5-4.9) 04/27/20 06:18 Magnesium 1.9 mg/dl (1.8-2.4) 04/20/20 06:38 Total Bilirubin 0.6 mg/dl (0.2-1) 04/14/20 14:13 AST 59 U/L (15-37) H 04/14/20 14:13 ALT 38 U/L (12-78) 04/14/20 14:13 Alkaline Phosphatase 77 U/L (45-117) 04/14/20 14:13 Total Creatine Kinase 281 U/L (39-308) 04/18/20 08:32 Troponin I 0.278 ng/ml (0-0.045) H* 04/15/20 03:53 Total Protein 6.5 gm/dl (6.4-8.2) 04/14/20 14:13 Total Protein (PEP) 5.1 g/dL (6.1-8.1) L 04/18/20 08:32 Albumin 2.2 gm/dl (3.4-5.0) L 04/27/20 06:18 Albumin (PEP) 2.4 g/dL (3.8-4.8) L 04/18/20 08:32 Globulin 4.0 gm/dl (2.5-4.0) 04/14/20 14:13 Albumin/Globulin Ratio 0.6 (0.9-2) L 04/14/20 14:13 Xisuo-3-Gghreaini 0.5 g/dL (0.2-0.3) H 04/18/20 08:32 Pziub-9-Eltpcadta 0.7 g/dL (0.5-0.9) 04/18/20 08:32 Elcr-4-Zxgutzby 0.3 g/dL (0.4-0.6) L 04/18/20 08:32 Apvy-1-Urcbmrvm 0.3 g/dL (0.2-0.5) 04/18/20 08:32 Gamma Globulins 0.9 g/dL (0.8-1.7) 04/18/20 08:32 Monoclonal Peak 3 DNR g/dL (NONE DETECTED) 04/18/20 08:32 Ser Monoclonl Protein DNR g/dL (NONE DETECTED) 04/18/20 08:32 Ser Monoclonal Prot 2 DNR g/dL (NONE DETECTED) 04/18/20 08:32 PEP Interpretation SEE NOTE 04/18/20 08:32 Lipase 96 U/L (73-393) 04/14/20 14:13 Beta-Hydroxybutyric Acd 24.93 mg/dl (0.2-2.81) H 04/14/20 14:13 Beta-Hydroxybutyric Acd Cancelled 04/14/20 14:13 PTH Intact 170.5 pg/ml (18.4-80.1) H 04/17/20 06:52 Urine Color Dark Yellow 04/14/20 17: Urine Appearance Turbid (Clear) A 04/14/20 17:30 Urine pH 5.5 (4.5-7.5) 04/14/20 17: Ur Specific [place] 1.020 (1.000-1.030) 04/14/20 17:30 Urine Protein 3+ (Negative) H 04/14/20 17:30 Urine Glucose (UA) 2+ (Negative) H 04/14/20 17:30 Urine Ketones Trace (Negative) H 04/14/20 17:30 Urine Blood 3+ (Negative) H 04/14/20 17:30 Urine Nitrite Negative (Negative) 04/14/20 17:30 Urine Bilirubin Negative (Negative) 04/14/20 17: Urine Urobilinogen Negative (Negative) 04/14/20 17: Ur Leukocyte Esterase 3+ (Negative) H 04/14/20 17:30 Urine WBC (Auto) >30 /hpf (0-5) H 04/14/20 17:30 Urine RBC (Auto) 0-4 /hpf (0-4) 04/14/20 17:30 U Hyaline Cast (Auto) 0 /lpf (0-5) 04/14/20 17:30 U Epithel Cells (Auto) >30 /lpf (0-5) H 04/14/20 17:30 Urine Bacteria (Auto) Negative (Negative) 04/14/20 17:30 Urine Yeast Budding (None Prsent) A 04/14/20 17:30 Nasal Screen MRSA (PCR) Positive (Negative) A 04/14/20 18:00 Stl C. diff Tox B Gene Negative Cdiff Gene (Neg) 04/16/20 12:30 JENA Screen NEGATIVE (NEGATIVE) 04/17/20 10:24 Anti-Proteinase 3 <1.0 AI (<1.0) 04/17/20 10:24 Anti-Myeloperoxidase <1.0 AI (<1.0) 04/17/20 10:24 ANCA Negative (Negative) 04/17/20 10:24 Glomerular Base Memb Ab <1.0 AI (<1.0) 04/17/20 10:24 Complement C3 93 mg/dL (82-185) 04/17/20 10:24 Complement C4 33 mg/dL (15-53) 04/17/20 10:24 Free [place] LC, Quant 115.6 mg/L (3.3-19.4) H 04/17/20 10:24 Free [place] LC, Quant 68.6 mg/L (5.7-26.3) H 04/17/20 10:24 Free [place]/Lambda Ratio 1.69 (0.26-1.65) H 04/17/20 10:24 [facility]-19 [facility] 04/25/20 16:20 Hep Bs Antigen Neg (Neg) 04/17/20 10:24 Hep Bs Antibody Non-Immune 04/17/20 10:24 Hep Bs Antibody, Quant < 3.10 mIU/mL (>or=10mIU/mL Immune) L 04/17/20 10:24 Hepatitis C Ab Screen Neg (Neg) 04/14/20 14:23 SARS-CoV-2, RNA, NAAT NEGATIVE (NEGATIVE) 04/25/20 16:20 Blood Type A Positive 04/18/20 02:12 Antibody Screen NEGATIVE 04/18/20 02:12
[2020-04-27] MEDS: HEPARIN SOD 5,000 UNIT/0.5 ML VIAL SQ SCH ×2 (09:21→20:24)
[2020-04-27] MEDS: SACUBITRIL-VALSARTAN 49/51 MG TAB PO SCH ×2 (09:22→20:23)
[2020-04-27] MEDS: INSULIN ASPART 100 UNITS/ML 3 ML PEN SC SCH ×4 (09:24→21:45)
[2020-04-27] MEDS: INSULIN HUMAN NPH SC SCH (09:24)
[2020-04-27] MEDS: METOPROLOL SUCC 25MG EXT REL TAB PO SCH (09:30)
[2020-04-27] MEDS: amLODIPine BESYLATE 5 MG TAB PO SCH (09:30)
[2020-04-27] MEDS: ATORVASTATIN 40 MG TAB PO SCH (09:30)
[2020-04-27] MEDS ORDERED: HEPARIN SOD (PORCINE) 1000 UNIT/ML 10 ML VIAL IV SCH (09:30)
[2020-04-27] MEDS: FENOFIBRATE NANOCRYSTALLIZED 145 MG TABLET PO SCH (09:30)
[2020-04-27] MEDS: DOCUSATE SODIUM/SENNA 50/8.6MG TAB PO SCH (09:30)
[2020-04-27] MEDS: ASPIRIN 81 MG ECTAB PO SCH (09:30)
[2020-04-27] MEDS: PANTOprazole 40 MG in SYRINGE 0 ML IV SCH ×2 (09:31→20:24)
[2020-04-27] MEDS: ISOSORBIDE MONO EXTENDED REL 30 MG TABCR PO SCH (09:31)
--- NOTE | 2020-04-27 10:26 | Nephrology Progress Note ---
Date of Service April 27, 2020 Assessment & Plan (1) ARIANA (acute kidney injury): * Non-oliguric * Started HD 04/18 * Last dialysis treatment completed 04/24/2020 * Volume status euvolemic * Cr continues to rise in between HD treatments * Will provide 3 hour HD treatment today and attempt 1L UF. Orders placed in EMR and HD RN notified * Remains off AMARIS/ARB due to ARIANA * Recommend consultation w/ mental health social worker to set up outpatient HD * Awaiting outpatient medical records from [facility] (2) Osteomyelitis: * On Ancef and Caspofungin per ID recs dosed for MWF IHD * Medications appropriately dosed for kidney function (3) Ischemic cardiomyopathy: * BP remains acceptable * Continue to defer AMARIS/ARB due to ARIANA * Volume status acceptable Admission and Anticipated Discharge Date Admission Date: April 14, 2020 Subjective Mr. Romero was seen & examined in his hospital room this morning. He reports that he is voiding without difficulty. He denies fever, dyspnea or angina Review of Systems Constitutional: no fever Eyes: no problem reported Ear, Nose, Mouth, Throat: no problem reported Respiratory: no cough and no dyspnea Cardiovascular: no chest pain and no edema Gastrointestinal: no abdominal pain, no nausea, no vomiting and no diarrhea/loose stools Genitourinary: no dysuria, no urinary hesitancy and no hematuria Musculoskeletal: no back pain Integumentary: no rash Neurologic: no confusion Physical Exam Constitutional: + ill appearing; not in distress Eyes: PERRL, conjunctivae normal, anicteric sclerae ENMT: external ear and nose normal, oropharynx normal Neck: trachea midline, no thyromegaly Respiratory: normal respiratory effort, lungs clear to auscultation Cardiovascular: Rate/Rhythm: regular rate and regular rhythm Heart Sounds: no murmur Gastrointestinal (Abdomen): normal bowel sounds, soft, nontender, no hepatosplenomegaly Skin: no rashes, warm and dry Neurologic: awake; not confused Results & Data ([facility]) Vital Signs (Past 12 Hours) Vital Signs Temp Pulse Pulse Resp BP Pulse Ox 04/27/20 07:09 36.8 C 79 16 121/61 92 04/27/20 02:27 36.4 C L 81 16 123/57 L 93 04/26/20 22:56 36.8 C 78 16 123/62 92 Laboratory Tests 04/27/20 04/27/20 06:18 06:18 WBC 7.36 Hgb 9.6 L Hct 29.8 L Plt Count 186 Sodium 141 Potassium 4.0 Chloride 108 H Carbon Dioxide 27 BUN 33 H Creatinine 3.97 H D Glucose 91 Calcium 8.2 L PG Care Time/CCT Total # of Minutes Spent Total Time Spent with Patient: Total time spent is greater than 50% in coordination of care (as documented) at patient's floor/unit and/or counseling patient: Coding Level of Care Code 85406 Subseq Hosp Care Lvl 3 Diagnoses ARIANA (acute kidney injury) N17.9 Osteomyelitis M86.9 Laterality: unspecified laterality Osteomyelitis type: unspecified type Ischemic cardiomyopathy I25.5 (1) Osteomyelitis Laterality: unspecified laterality Osteomyelitis type: unspecified type
[2020-04-27] MEDS: oxyCODONE HCL IR 5 MG TAB (IMMEDIATE RELEASE) PO PRN (11:25)
[2020-04-27] MEDS: ACETAMINOPHEN 325 MG TAB PO PRN (16:13)
[2020-04-27] MEDS: ceFAZolin 1000MG 1,000 MG/7.5 ML SYR IV SCH (16:14)
--- NOTE | 2020-04-27 17:16 | Hospitalist Progress Note ---
Date of Service April 27, 2020 Assessment & Plan (1) Acute renal failure: Unknown baseline kidney function which is likely progressed and very poor. Some records from CABG in 2017 reflect normal baseline. Limited records available as [place], having recently moved to [place]. Proteinuria present. Nephrology performing workup, treating acidosis with bicarbonate. Appreciate nephrology input and recommendation Continue management as per broadcast traffic coordinator with hemodialysis Will need hemodialysis as an outpatient (2) Fungemia: Yeast on wound culture in revised RLE limb. Cont caspofungin until revision surgery. Perform weekly monitoring labwork as needed. (3) Osteomyelitis: Distal right tibial osteomyelitis Status post right complete revision below-knee amputation on 04/26/2020 Management as per Ortho Continue current intravenous antibiotic and antifungal Right lower leg wound-and the below knee amputation stump Cefazolin after HD treatments based on deep wound cultures showing GBS. Per ID, will continue with cefazolin TIW after HD until amputation/revisions are complete. Fungemia also now present with plan above. [facility] [place] was updated with the blood culture results. We will continue current antibiotic Awaiting surgical debridement-plan for right below-knee amputation stump revision tomorrow-04/26/2020 Status post revision of surgery Complains minimal pain but otherwise is stable Will await repeat ID evaluation and recommendation Note from the prior hospitalist: Regarding RLE wound and surgical debridement, orthopedics (ePpe) was consulted last week and surgery was not an option until his kidney function was more stabilized, which has now happened. However, now, Dr. Cantu is out of town and there is no one else who can perform this level of surgery until he returns in a few days. Discussed this with [facility] PA Lai Vargas who is in discussion about the next available opportunity to perform surgery on him, and the most appropriate timing of this. Of note, I did reach out to Vascular and spoke with Dr. Harris who states that his first available opportunity to do something. (4) DKA (diabetic ketoacidoses): Initially presented in DKA with presumed infection as cause of hyperglycemia in addition to noncompliance. This has resolved. Currently controlled on basal and bolus insulin. Has been refusing NovoLog injection Lantus doses have been increased as he has been refusing NovoLog injection (5) Ischemic cardiomyopathy: EF 45%, appears compensated at this time. Not very active as a bilateral amputee without prosthetics and with a RLE wound. Cont current medical management. Appreciate cardiology input and recommendation Denies any cardiac symptoms (6) Hx of CABG: CAD with h/o CABG, 2017 performed at a hospital in [facility]. Records received and placed in chart. Cardiac arrest reported leading to digital ischemia and amputation of distal fingers of right hand. Current active Smoker. Cont current medication management. (7) Current smoker: Encouraged to quit. He declines nicotine patch and states he can quit without help if he decides to. (8) Thrombocytopenia: resolved to normal. (9) S/P bilateral BKA (below knee amputation): Pt reports having had multiple revision surgeries over the years and is a long standing uncontrolled diabetic smoker. Right BKA stump has osteomyelitis (10) Pressure-induced deep tissue damage of unspecified buttock: local wound care and stay off this area. Has stressed 3-4 bilateral buttock decubiti Please see the picture for details Continue with wound care (11) Demand ischemia: Type II TX due to demand ischemia and DKA No evidence of ACS this admission with elevated trop on admission thought 2/2 demand ischemia on admission in setting of DKA and low EF. Cont medical management of CAD. Entresto held in renal failure. (12) DVT prophylaxis: Heparin DNR/DNI Dispo-Doing well, has established care with Dr. Ohara. Needs close follow-up with him after discharge. We will get PT and OT evaluation and discharge planning. Admission and Anticipated Discharge Date Admission Date: April 14, 2020 Subjective 04/22/2020 The patient was seen and examined in medical floor He has been feeling a lot better and denies any symptoms No fever and/or chills and his pain is controlled 04/23/2020 The patient was seen and examined in medical floor He does not have any complaints Denies any pain in the leg, nausea vomiting, any fever and/or chills 04/24/2020 The patient was seen and examined in medical floor He remains stable and has been getting dialysis Denies any pain, fever and/or chills 04/25/2020 The patient was seen and examined in medical floor He remains stable has been waiting for right leg stump surgery Will have surgery tomorrow 04/26/2020 The patient was seen and examined in medical floor He is a status post right complete revision below-knee amputation He has some pain but denies any other significant symptoms 04/27/2020 The patient was seen and examined in medical floor He has had dialysis today and had a rough time over the Complaining of some pain at the right leg wound Denies any other symptoms Review of Systems Review of Systems: All systems reviewed and are unremarkable except as noted below Musculoskeletal: pain or redness involving the right below-knee stump Physical Exam Physical Exam: Lying in bed without any apparent distress Constitutional: well developed, well nourished and + obese Eyes: PERRL, conjunctivae normal, anicteric sclerae ENMT: external ear and nose normal, oropharynx normal Neck: trachea midline, no thyromegaly Respiratory: no respiratory distress Auscultation: lungs clear to auscultation bilaterally Cardiovascular: Rate/Rhythm: regular rate and regular rhythm Heart Sounds: no murmur Extremities: no edema (On below-knee amputation stump) Gastrointestinal (Abdomen): Inspection/Auscultation: normal bowel sounds; abdomen not distended Percussion/Palpation: abdomen soft; abdomen nontender Skin: Has status 3-4 sacral decubiti ulcer. Please see the picture for detail Psychiatric: A+Ox3, euthymic affect Lymphatic: no cervical or axillary lymphadenopathy Results & Data Results & Data ([facility]) Vital Signs (Past 12 Hours) Vital Signs Temp Pulse Pulse Pulse Resp BP BP 04/27/20 16:16 36.8 C 91 H 18 103/65 04/27/20 13:25 36.8 C 82 127/65 04/27/20 12:40 80 90/48 L 04/27/20 12:20 80 93/46 L 04/27/20 12:00 74 95/54 L 04/27/20 11:40 81 98/50 L 04/27/20 11:20 79 111/52 L 04/27/20 11:00 80 107/51 L 04/27/20 10:40 76 92/47 L 04/27/20 10:20 76 109/56 L 04/27/20 10:11 75 116/57 L 04/27/20 10:01 37.2 C 78 04/27/20 07:09 36.8 C 79 16 121/61 Pulse Ox 04/27/20 16:16 91 04/27/20 13:25 04/27/20 12:40 04/27/20 12:20 04/27/20 12:00 04/27/20 11:40 04/27/20 11:20 04/27/20 11:00 04/27/20 10:40 04/27/20 10:20 04/27/20 10:11 04/27/20 10:01 04/27/20 07:09 92 Laboratory Results Short CBC 04/27/20 Range/Units 06:18 WBC 7.36 (4.8-10.8) K/uL Hgb 9.6 L (14.0-18.0) g/dL Hct 29.8 L (42-52) % Plt Count 186 (130-400) K/uL BMP 04/27/20 06:18 Sodium 141 Potassium 4.0 Chloride 108 H Carbon Dioxide 27 BUN 33 H Creatinine 3.97 H D Glucose 91 Calcium 8.2 L Liver Function 04/27/20 Range/Units 06:18 Albumin 2.2 L (3.4-5.0) gm/dl Medications Administered Current Inpatient Medications Acetaminophen (Acetaminophen 325 Mg Tab) 650 mg PO Q4H PRN PRN Reason: Pain or Fever Stop: 05/14/20 19:30 Last Admin: 04/27/20 16:13 Dose: 650 mg Documented by: Amlodipine Besylate (Amlodipine Besylate 5 Mg Tab) [facility] [place] Stop: 05/16/20 08:59 Last Admin: 04/27/20 09:30 Dose: 10 mg Documented by: Artificial Tears (Artificial Tears) 1 drops OP QID PRN PRN Reason: Dry Eyes Stop: 05/26/20 11:18 Aspirin (Aspirin 81 Mg Ectab) 81 mg PO [facility] [place] Stop: 05/15/20 08:59 Last Admin: 04/27/20 09:30 Dose: 81 mg Documented by: Atorvastatin Calcium (Atorvastatin 40 Mg Tab) 40 mg PO DAILY [facility] Stop: 05/19/20 08:59 Last Admin: 04/27/20 09:30 Dose: 40 mg Documented by: Dextrose (Dextrose 50% 50 Ml Syringe) 25 - 50 ml IV UD PRN; Protocol PRN Reason: Hypoglycemia Protocol Stop: 05/14/20 19:30 Fenofibrate (Fenofibrate Nanocrystallized 145 Mg Tablet) 145 mg PO QAM [facility] Stop: 05/16/20 08:59 Last Admin: 04/27/20 09:30 Dose: 145 mg Documented by: Glucagon (Glucagon For Inj 1 Mg Vial) 1 mg SQ UD PRN; Protocol PRN Reason: Hypoglycemia Protocol Stop: 05/14/20 19:30 Glucose (Glucose 10 Tabs/Tube) 4 - 8 tabs PO UD PRN; Protocol PRN Reason: Hypoglycemia Protocol Stop: 05/14/20 19:30 Glucose (Glucose 40% Gel 15 Gm Tube) 15 - 30 gm PO UD PRN; Protocol PRN Reason: Hypoglycemia Protocol Stop: 05/14/20 19:30 Heparin Sodium (Porcine) (Heparin Sod 5,000 Unit/0.5 Ml Vial) 5,000 units SQ Q12 [facility] Stop: 05/17/20 20:59 Last Admin: 04/27/20 09:21 Dose: Not Given Documented by: Hydromorphone HCl (Hydromorphone Inj 0.5 Mg/0.5 Ml Syr) 0.5 mg IV Q4H PRN PRN Reason: Pain Stop: 05/10/20 11:05 Last Admin: 04/27/20 00:28 Dose: 0.5 mg Documented by: Caspofungin 50 mg/ Sodium (Chloride) 260 mls @ 260 mls/hr IV Q24H [facility]; Protocol Stop: 05/18/20 22:59 Last Infusion: 04/26/20 23:50 Dose: Infused Documented by: Pantoprazole Sodium 40 mg/ (Syringe) 10 mls @ 5 mls/min IV BID [facility] Stop: 05/18/20 03:59 Last Admin: 04/27/20 09:31 Dose: 5 mls/min Documented by: Cefazolin Sodium (Ancef 1000mg) 1,000 mg in 7.5 mls @ 2.5 mls/min IV MoWeFr@1600 [facility] Stop: 06/03/20 15:59 Last Admin: 04/27/20 16:14 Dose: 2.5 mls/min Documented by: Insulin Aspart (Insulin Aspart 100 Units/Ml 3 Ml Pen) 0 units SC ACHS [facility] Stop: 05/26/20 11:29 Last Admin: 04/27/20 14:54 Dose: Not Given Documented by: Insulin Glargine (Insulin Glargine Solostar 100 Units/Ml 3 Ml Pen) 10 units SQ QPM [facility] Stop: 05/26/20 20:59 Last Admin: 04/26/20 20:55 Dose: 10 units Documented by: Insulin Human NPH (Insulin Human Nph) 0 units SC QDB [facility]; Protocol Stop: 05/27/20 07:29 Last Admin: 04/27/20 09:24 Dose: 25 units Documented by: Isosorbide Mononitrate (Isosorbide Cloud Extended Rel 30 Mg Tabcr) 30 mg PO [facility] [place] Stop: 05/22/20 11:14 Last Admin: 04/27/20 09:31 Dose: 30 mg Documented by: Melatonin (Melatonin 3 Mg Tab) 3 mg PO HS PRN PRN Reason: Sleep Stop: 05/14/20 19:30 Last Admin: 04/20/20 22:53 Dose: 3 mg Documented by: Metoprolol Succinate (Metoprolol Succ 25mg Ext Rel Tab) 25 mg PO [facility] Stop: 05/16/20 08:59 Last Admin: 04/27/20 09:30 Dose: 25 mg Documented by: Miscellaneous (Carbohydrates For Hypoglycemia ) 15 - 30 gm PO UD PRN PRN Reason: Hypoglycemia Protocol Stop: 05/14/20 19:30 Miscellaneous Information (Caspofungin~Consult Pharmacy) 1 ea N/A UD PRN PRN Reason: Consult Stop: 05/17/20 22:41 Nitroglycerin (Nitroglycerin Sl 0.4 Mg/Tab Tab) 0.4 mg SL UD PRN PRN Reason: Chest Pain Stop: 05/14/20 19:30 Ondansetron HCl (Ondansetron Inj 2 Mg/Ml 2 Ml Vial) 4 mg IV Q6H PRN PRN Reason: Nausea Stop: 05/14/20 19:30 Oxycodone HCl (Oxycodone Hcl Ir 5 Mg Tab (Immediate Release)) 5 mg PO Q4H PRN PRN Reason: Pain Stop: 05/10/20 11:05 Last Admin: 04/27/20 11:25 Dose: 5 mg Documented by: Sacubitril/Valsartan (Sacubitril-Valsartan 49/51 Mg Tab) 1 tab PO BID [facility] Stop: 05/26/20 20:59 Last Admin: 04/27/20 09:22 Dose: 1 tab Documented by: Senna/Docusate Sodium (Docusate Sodium/Senna 50/8.6mg Tab) 1 tab PO [facility] [place] Stop: 05/21/20 20:04 Last Admin: 04/27/20 09:30 Dose: 1 tab Documented by: (1) Osteomyelitis Laterality: unspecified laterality Osteomyelitis type: unspecified type (2) DKA (diabetic ketoacidoses) Diabetes mellitus complication detail: without coma Diabetes mellitus type: other specified (including BABATUNDE) Qualified Code(s): E13.10 - Other specified diabetes mellitus with ketoacidosis without coma
[2020-04-27] MEDS: INSULIN GLARGINE SOLOSTAR 100 UNITS/ML 3 ML PEN SQ SCH (21:45)
[2020-04-27] MEDS: CASPOFUNGIN 50 MG in SODIUM CHLORIDE 0.9% 250 ML IV SCH (22:23)
[2020-04-28 08:14] LABS: Albumin Level 2.2 gm/dl (3.4-5.0); BUN Creatinine Ratio 8.1 (10-20); Calcium 8.6 mg/dl (8.5-10.1); Creatinine Clr Calc Pharmacy 25.7 ml/min; Est GFR (African American) 19.7
[2020-04-28 08:21] LABS: Phosphorus 3.4 mg/dl (2.5-4.9)
[2020-04-28] MEDS: ASPIRIN 81 MG ECTAB PO SCH (09:49)
[2020-04-28] MEDS: ISOSORBIDE MONO EXTENDED REL 30 MG TABCR PO SCH (09:49)
[2020-04-28] MEDS: amLODIPine BESYLATE 5 MG TAB PO SCH (09:49)
[2020-04-28] MEDS: METOPROLOL SUCC 25MG EXT REL TAB PO SCH ×2 (09:49→10:00)
[2020-04-28] MEDS: HEPARIN SOD 5,000 UNIT/0.5 ML VIAL SQ SCH ×2 (09:50→21:20)
[2020-04-28] MEDS: INSULIN ASPART 100 UNITS/ML 3 ML PEN SC SCH ×4 (09:51→21:26)
[2020-04-28] MEDS: INSULIN HUMAN NPH SC SCH (09:51)
[2020-04-28] MEDS: SACUBITRIL-VALSARTAN 49/51 MG TAB PO SCH ×2 (10:00→21:20)
[2020-04-28] MEDS: PANTOprazole 40 MG in SYRINGE 0 ML IV SCH ×2 (10:00→21:20)
[2020-04-28] MEDS: ATORVASTATIN 40 MG TAB PO SCH (10:01)
[2020-04-28] MEDS: DOCUSATE SODIUM/SENNA 50/8.6MG TAB PO SCH (10:01)
[2020-04-28] MEDS: FENOFIBRATE NANOCRYSTALLIZED 145 MG TABLET PO SCH (10:04)
--- NOTE | 2020-04-28 10:44 | Nephrology Progress Note ---
Date of Service April 28, 2020 Assessment & Plan (1) ARIANA (acute kidney injury): * Non-oliguric * Started HD 04/18 * Last dialysis treatment completed 04/27/20 * Remains off AMARIS/ARB due to ARIANA * Unclear whether patient will recover sufficient renal function to come off HD. He may be ESRD * Will recheck PRP in am * Will ask case management to arrange outpatient HD at [facility] * Awaiting outpatient medical records from [facility] - will request again (2) Anemia: * Will provide ADRIÁN w/ HD * Will check iron stores w/ next lab draw (3) Osteomyelitis: * R BKA revision 04/26/20. Hemovac remains in place * On Ancef and Caspofungin per ID recs (4) Sacral decubitus ulcer: * Deep L decubitus ulcer L buttock and skin breakdown R buttock (5) Ischemic cardiomyopathy: * h/o AMI s/p CABG x5 2017. Hospital course complicated by B BKA and amputation of all digits R hand * 04/15/20 Echo: LVEF 45 - 50% w/ mild LVH * BP remains acceptable * Continue to defer AMARIS/ARB due to ARIANA (6) Debilitated patient: * Patient reports that he is considering [facility] following discharge from [facility] Admission and Anticipated Discharge Date Admission Date: April 14, 2020 Subjective Mr. Romero was seen & examined in his hospital room this morning. He was dialyzed yesterday for 3 hours w/ 800 cc UF. There were no complications. Mr. Romero remains nonoliguric and had 845 cc UO overnight. He voices no new medical concerns. Review of Systems Constitutional: + weakness; no fever Eyes: no problem reported Ear, Nose, Mouth, Throat: no problem reported Respiratory: no dyspnea Cardiovascular: no chest pain Gastrointestinal: no abdominal pain, no nausea and no diarrhea/loose stools Genitourinary: no urinary hesitancy and no hematuria Neurologic: no dizziness Physical Exam Constitutional: + ill appearing; not in distress Eyes: PERRL, conjunctivae normal, anicteric sclerae ENMT: external ear and nose normal, oropharynx normal Neck: trachea midline, no thyromegaly Respiratory: normal respiratory effort, lungs clear to auscultation Cardiovascular: Rate/Rhythm: regular rate and regular rhythm Heart Sounds: no murmur Gastrointestinal (Abdomen): normal bowel sounds, soft, nontender, no hepatosplenomegaly Skin: decubitus ulcer L buttock, skin breakdown R buttock Neurologic: awake; not confused Results & Data ([facility]) Vital Signs (Past 12 Hours) Vital Signs Temp Pulse Pulse Resp BP Pulse Ox 04/28/20 07:57 36.7 C 86 18 136/72 98 04/27/20 23:43 36.8 C 75 16 110/56 L 93 Laboratory Tests 04/28/20 07:30 Sodium 140 Potassium 4.0 Chloride 107 Carbon Dioxide 27 BUN 29 H Creatinine 3.63 H D Glucose 116 H Calcium 8.6 Phosphorus 3.4 D Albumin 2.2 L PG Care Time/CCT Total # of Minutes Spent Total Time Spent with Patient: Total time spent is greater than 50% in coordination of care (as documented) at patient's floor/unit and/or counseling patient: Coding Level of Care Code 34890 Subseq Hosp Care Lvl 3 Diagnoses ARIANA (acute kidney injury) N17.9 Anemia D64.9 Osteomyelitis M86.9 Laterality: unspecified laterality Osteomyelitis type: unspecified type Sacral decubitus ulcer L89.159 Ischemic cardiomyopathy I25.5 Debilitated patient R53.81 (1) Osteomyelitis Laterality: unspecified laterality Osteomyelitis type: unspecified type
--- NOTE | 2020-04-28 13:15 | Orthopedic Progress Note ---
Date of Service April 28, 2020 Assessment & Plan (1) Osteomyelitis of right tibia: POD 2 s/p Right Revision BKA due to Osteomyelitis Cx showing MRSA and yeast-we will discuss with medicine service about changing antibiotics Continue current pain management. No further surgery needed at this time. Continue daily dressing changes. Follow-up with Dr. Cantu in 10 to 14 days. Orthopedics will sign off at this time. Please call with any questions. Admission and Anticipated Discharge Date Admission Date: April 14, 2020 Subjective Postop day 2 patient is sitting up at the bedside eating his lunch. No complaints today. Pain is controlled. Denies shortness of breath, chest pain, lightheadedness. Physical Exam Physical Exam: Dressings removed. Hemovac taken out. Incision is clean, dry, and intact. No erythema. Minimal swelling. Minimal drainage noted on the original dressing. Wound redressed. Results & Data ([facility]) Vital Signs (Past 12 Hours) Vital Signs Temp Pulse Resp BP Pulse Ox 04/28/20 07:57 36.7 C 86 18 136/72 98 Diagnostic Findings Name: JOELLE MAYFIELD Acct: [id number] [place]: [place] 1960 [facility] [place] 04/14/20 Age: 60 Sex: M Dis Date: Loc: Medical/Surgical/Ortho [address] [place] [address]/Bed: [facility] Spec: [id number] Collected: 04/26/20 Received: 04/26/[address]: Vladimir CantuDJosh Copy To: Jurgen Landeros DO Source: Leg,Right OV Order: Ordered: Aer/Rach Cult/Sm Comments: Comment Culture 1. Right deep stump wound Procedure Result Verified Site Gram Stain Final 04/27/20 Gram Stain Result Many WBCs Seen Few Gram Positive Cocci Aero/Rach Cult Preliminary 04/28/20-1231 Organism 1 Staph aureus MRSA Quantity Moderate Sens Sensitivities to Follow +MixWound Plus Moderate Counts of Probable Skin Carole Organism 2 Yeast- ident to follow Quantity Few Sens No Sensitivities to Follow MRSA RX M.I.C. --- --------- Clindamycin R >4 Daptomycin S 1 Erythromycin R >4 Oxacillin R >2 Rifampin S <=1 Tetracycline S <=4 Trimeth/Sulfa S <=0.5/9.5 Vancomycin S 2 S = SENSITIVE I = INTERMEDIATE R = RESISTANT
[2020-04-28] MEDS: DAPTOmycin 400 MG in SYRINGE 0 ML IV SCH (13:48)
[2020-04-28] MEDS: oxyCODONE HCL IR 5 MG TAB (IMMEDIATE RELEASE) PO PRN (13:53)
--- NOTE | 2020-04-28 18:01 | Hospitalist Progress Note ---
Date of Service April 28, 2020 Assessment & Plan (1) Acute renal failure: Unknown baseline kidney function which is likely progressed and very poor. Some records from CABG in 2017 reflect normal baseline. Limited records available as [place] of [place], having recently moved to [place]. Proteinuria present. Nephrology performing workup, treating acidosis with bicarbonate. Appreciate nephrology input and recommendation Continue management as per flare maker with hemodialysis Will need hemodialysis as an outpatient (2) Fungemia: Yeast on wound culture in revised RLE limb. Cont caspofungin until revision surgery. Perform weekly monitoring labwork as needed. Discussed with ID at [facility] Continue caspofungin intravenously for 2 more weeks (3) Osteomyelitis: Distal right tibial osteomyelitis Status post right complete revision below-knee amputation on 04/26/2020 Management as per Ortho Continue current intravenous antibiotic and antifungal Discussed with ID at [facility] and recommended intravenous Daptomycin for 6-week Right lower leg wound-and the below knee amputation stump Cefazolin after HD treatments based on deep wound cultures showing GBS. Per ID, will continue with cefazolin TIW after HD until amputation/revisions are complete. Fungemia also now present with plan above. [facility] updated with the blood culture results. We will continue current antibiotic Awaiting surgical debridement-plan for right below-knee amputation stump revision tomorrow-04/26/2020 Status post revision of surgery Complains minimal pain but otherwise is stable Will await repeat ID evaluation and recommendation-continue intravenous daptomycin for 6 weeks and caspofungin for 2 more weeks (4) DKA (diabetic ketoacidoses): Initially presented in DKA with presumed infection as cause of hyperglycemia in addition to noncompliance. This has resolved. Currently controlled on basal and bolus insulin. Has been refusing NovoLog injection Lantus doses have been increased as he has been refusing NovoLog injection (5) Ischemic cardiomyopathy: EF 45%, appears compensated at this time. Not very active as a bilateral amputee without prosthetics and with a RLE wound. Cont current medical management. Appreciate cardiology input and recommendation Denies any cardiac symptoms (6) Hx of CABG: CAD with h/o CABG, 2017 performed at a hospital in [facility]. Records received and placed in chart. Cardiac arrest reported leading to digital ischemia and amputation of distal fingers of right hand. Current active Smoker. Cont current medication management. (7) Current smoker: Encouraged to quit. He declines nicotine patch and states he can quit without help if he decides to. (8) Thrombocytopenia: resolved to normal. (9) S/P bilateral BKA (below knee amputation): Pt reports having had multiple revision surgeries over the years and is a long standing uncontrolled diabetic smoker. Right BKA stump has osteomyelitis (10) Pressure-induced deep tissue damage of unspecified buttock: local wound care and stay off this area. Has stage 3-4 bilateral buttock decubiti Please see the picture for details Continue with wound care (11) Demand ischemia: Type II AR due to demand ischemia and DKA No evidence of ACS this admission with elevated trop on admission thought 2/2 demand ischemia on admission in setting of DKA and low EF. Cont medical management of CAD. Entresto held in renal failure. (12) DVT prophylaxis: Heparin DNR/DNI Dispo-Doing well, has established care with Dr. Ohara. Needs close follow-up with him after discharge. We will get PT and OT evaluation and discharge planning. Admission and Anticipated Discharge Date Admission Date: April 14, 2020 Subjective 04/22/2020 The patient was seen and examined in medical floor He has been feeling a lot better and denies any symptoms No fever and/or chills and his pain is controlled 04/23/2020 The patient was seen and examined in medical floor He does not have any complaints Denies any pain in the leg, nausea vomiting, any fever and/or chills 04/24/2020 The patient was seen and examined in medical floor He remains stable and has been getting dialysis Denies any pain, fever and/or chills 04/25/2020 The patient was seen and examined in medical floor He remains stable has been waiting for right leg stump surgery Will have surgery tomorrow 04/26/2020 The patient was seen and examined in medical floor He is a status post right complete revision below-knee amputation He has some pain but denies any other significant symptoms 04/27/2020 The patient was seen and examined in medical floor He has had dialysis today and had a rough time over the Complaining of some pain at the right leg wound Denies any other symptoms 04/28/2020 The patient was seen and examined in medical floor He remains stable and denies any significant symptoms He does not want to be questioned so much Review of Systems Review of Systems: All systems reviewed and are unremarkable except as noted below Musculoskeletal: pain or redness involving the right below-knee stump Physical Exam Physical Exam: Lying in bed without any apparent distress Constitutional: well developed, well nourished and + obese Eyes: PERRL, conjunctivae normal, anicteric sclerae ENMT: external ear and nose normal, oropharynx normal Neck: trachea midline, no thyromegaly Respiratory: no respiratory distress Auscultation: lungs clear to auscultation bilaterally Cardiovascular: Rate/Rhythm: regular rate and regular rhythm Heart Sounds: no murmur Extremities: no edema (On below-knee amputation stump) Gastrointestinal (Abdomen): Inspection/Auscultation: normal bowel sounds; abdomen not distended Percussion/Palpation: abdomen soft; abdomen nontender Musculoskeletal: Pain in the right BKA stump is improving Neurologic: Alert, awake and oriented x3. Psychiatric: A+Ox3, euthymic affect Lymphatic: no cervical or axillary lymphadenopathy Results & Data Results & Data ([facility]) Vital Signs (Past 12 Hours) Vital Signs Temp Pulse Pulse Resp BP Pulse Ox 04/28/20 16:05 36.8 C 85 17 135/72 97 04/28/20 07:57 36.7 C 86 18 136/72 98 Laboratory Results BMP 04/28/20 07:30 Sodium 140 Potassium 4.0 Chloride 107 Carbon Dioxide 27 BUN 29 H Creatinine 3.63 H D Glucose 116 H Calcium 8.6 Liver Function 04/28/20 Range/Units 07:30 Albumin 2.2 L (3.4-5.0) gm/dl Medications Administered Current Inpatient Medications Acetaminophen (Acetaminophen 325 Mg Tab) 650 mg PO Q4H PRN PRN Reason: Pain or Fever Stop: 05/14/20 19:30 Last Admin: 04/27/20 16:13 Dose: 650 mg Documented by: Amlodipine Besylate (Amlodipine Besylate 5 Mg Tab) [facility] [place] Stop: 05/16/20 08:59 Last Admin: 04/28/20 09:49 Dose: 10 mg Documented by: Artificial Tears (Artificial Tears) 1 drops OP QID PRN PRN Reason: Dry Eyes Stop: 05/26/20 11:18 Aspirin (Aspirin 81 Mg Ectab) 81 [facility] [place] Stop: 05/15/20 08:59 Last Admin: 04/28/20 09:49 Dose: 81 mg Documented by: Atorvastatin Calcium (Atorvastatin 40 Mg Tab) 40 mg PO DAILY [facility] Stop: 05/19/20 08:59 Last Admin: 04/28/20 10:01 Dose: 40 mg Documented by: Dextrose (Dextrose 50% 50 Ml Syringe) 25 - 50 ml IV UD PRN; Protocol PRN Reason: Hypoglycemia Protocol Stop: 05/14/20 19:30 Fenofibrate (Fenofibrate Nanocrystallized 145 Mg Tablet) 145 mg PO QAM [facility] Stop: 05/16/20 08:59 Last Admin: 04/28/20 10:04 Dose: 145 mg Documented by: Glucagon (Glucagon For Inj 1 Mg Vial) 1 mg SQ UD PRN; Protocol PRN Reason: Hypoglycemia Protocol Stop: 05/14/20 19:30 Glucose (Glucose 10 Tabs/Tube) 4 - 8 tabs PO UD PRN; Protocol PRN Reason: Hypoglycemia Protocol Stop: 05/14/20 19:30 Glucose (Glucose 40% Gel 15 Gm Tube) 15 - 30 gm PO UD PRN; Protocol PRN Reason: Hypoglycemia Protocol Stop: 05/14/20 19:30 Heparin Sodium (Porcine) (Heparin Sod 5,000 Unit/0.5 Ml Vial) 5,000 units SQ Q12 [facility] Stop: 05/17/20 20:59 Last Admin: 04/28/20 09:50 Dose: Not Given Documented by: Hydromorphone HCl (Hydromorphone Inj 0.5 Mg/0.5 Ml Syr) 0.5 mg IV Q4H PRN PRN Reason: Pain Stop: 05/10/20 11:05 Last Admin: 04/27/20 00:28 Dose: 0.5 mg Documented by: Caspofungin 50 mg/ Sodium (Chloride) 260 mls @ 260 mls/hr IV Q24H [facility]; Protocol Stop: 05/01/20 23:59 Last Infusion: 04/28/20 00:11 Dose: Infused Documented by: Pantoprazole Sodium 40 mg/ (Syringe) 10 mls @ 5 mls/min IV BID [facility] Stop: 05/18/20 03:59 Last Admin: 04/28/20 10:00 Dose: 5 mls/min Documented by: Daptomycin 400 mg/ Syringe 8 mls @ 4 mls/min IV Q48H [facility]; Protocol Stop: 06/09/20 12:59 Last Admin: 04/28/20 13:48 Dose: 4 mls/min Documented by: Insulin Aspart (Insulin Aspart 100 Units/Ml 3 Ml Pen) 0 units SC ACHS [facility] Stop: 05/26/20 11:29 Last Admin: 04/28/20 13:59 Dose: Not Given Documented by: Insulin Glargine (Insulin Glargine Solostar 100 Units/Ml 3 Ml Pen) 10 units SQ QPM [facility] Stop: 05/26/20 20:59 Last Admin: 04/27/20 21:45 Dose: 10 units Documented by: Insulin Human NPH (Insulin Human Nph) 0 units SC QDB [facility]; Protocol Stop: 05/27/20 07:29 Last Admin: 04/28/20 09:51 Dose: 25 units Documented by: Isosorbide Mononitrate (Isosorbide [place] Extended Rel 30 Mg Tabcr) 30 mg PO [facility] Stop: 05/22/20 11:14 Last Admin: 04/28/20 09:49 Dose: 30 mg Documented by: Melatonin (Melatonin 3 Mg Tab) 3 mg PO HS PRN PRN Reason: Sleep Stop: 05/14/20 19:30 Last Admin: 04/20/20 22:53 Dose: 3 mg Documented by: Metoprolol Succinate (Metoprolol Succ 25mg Ext Rel Tab) 25 mg PO [facility] Stop: 05/16/20 08:59 Last Admin: 04/28/20 10:00 Dose: 25 mg Documented by: Miscellaneous (Carbohydrates For Hypoglycemia ) 15 - 30 gm PO UD PRN PRN Reason: Hypoglycemia Protocol Stop: 05/14/20 19:30 Miscellaneous Information (Caspofungin~Consult Pharmacy) 1 ea N/A UD PRN PRN Reason: Consult Stop: 05/17/20 22:41 Miscellaneous Information (Daptomycin Consult Active) 1 ea N/A UD PRN PRN Reason: Consult Stop: 05/28/20 12:45 Nitroglycerin (Nitroglycerin Sl 0.4 Mg/Tab Tab) 0.4 mg SL UD PRN PRN Reason: Chest Pain Stop: 05/14/20 19:30 Ondansetron HCl (Ondansetron Inj 2 Mg/Ml 2 Ml Vial) 4 mg IV Q6H PRN PRN Reason: Nausea Stop: 05/14/20 19:30 Oxycodone HCl (Oxycodone Hcl Ir 5 Mg Tab (Immediate Release)) 5 mg PO Q4H PRN PRN Reason: Pain Stop: 05/10/20 11:05 Last Admin: 04/28/20 13:53 Dose: 5 mg Documented by: Sacubitril/Valsartan (Sacubitril-Valsartan 49/51 Mg Tab) 1 tab PO BID [facility] Stop: 05/26/20 20:59 Last Admin: 04/28/20 10:00 Dose: 1 tab Documented by: Senna/Docusate Sodium (Docusate Sodium/Senna 50/8.6mg Tab) 1 tab PO QAM [facility] Stop: 05/21/20 20:04 Last Admin: 04/28/20 10:01 Dose: 1 tab Documented by: (1) Osteomyelitis Laterality: unspecified laterality Osteomyelitis type: unspecified type (2) DKA (diabetic ketoacidoses) Diabetes mellitus complication detail: without coma Diabetes mellitus type: other specified (including BABATUNDE) Qualified Code(s): E13.10 - Other specified diabetes mellitus with ketoacidosis without coma
[2020-04-28] MEDS: INSULIN GLARGINE SOLOSTAR 100 UNITS/ML 3 ML PEN SQ SCH (21:27)
[2020-04-28] MEDS: CASPOFUNGIN 50 MG in SODIUM CHLORIDE 0.9% 250 ML IV SCH (22:32)
[2020-04-29 07:22] LABS: Hematocrit (blood only) 31.8 % (42-52); Hemoglobin 10.3 g/dL (14.0-18.0); Mean Corpuscular Hgb Conc 32.4 g/dL (32-36); Mean Corpuscular Volume 92.7 fL (80-100); Platelet Count 181 K/uL (130-400); RDW Standard Deviation 47.3 fL (36.4-46.3); Red Blood Count 3.43 M/uL (4.7-6.1); White Blood Count 5.94 K/uL (4.8-10.8)
[2020-04-29 07:57] LABS: Albumin Level 2.3 gm/dl (3.4-5.0); BUN Creatinine Ratio 9.8 (10-20); Calcium 8.6 mg/dl (8.5-10.1); Creatinine Clr Calc Pharmacy 24.2 ml/min; Est GFR (African American) 20.4; Est GFR (Non-African American) 17.6
[2020-04-29 08:01] LABS: Ferritin 239.7 ng/ml (8-388); Phosphorus 3.7 mg/dl (2.5-4.9)
[2020-04-29] MEDS: amLODIPine BESYLATE 5 MG TAB PO SCH (09:33)
[2020-04-29] MEDS: DOCUSATE SODIUM/SENNA 50/8.6MG TAB PO SCH (09:33)
[2020-04-29] MEDS: ISOSORBIDE MONO EXTENDED REL 30 MG TABCR PO SCH (09:33)
[2020-04-29] MEDS: SACUBITRIL-VALSARTAN 49/51 MG TAB PO SCH ×2 (09:33→22:05)
[2020-04-29] MEDS: ASPIRIN 81 MG ECTAB PO SCH (09:33)
[2020-04-29] MEDS: HEPARIN SOD 5,000 UNIT/0.5 ML VIAL SQ SCH ×2 (09:34→22:11)
[2020-04-29] MEDS: METOPROLOL SUCC 25MG EXT REL TAB PO SCH (09:34)
--- NOTE | 2020-04-29 09:35 | Hospitalist Progress Note ---
Date of Service April 29, 2020 Assessment & Plan (1) Post-operative state: s/p Right Below Knee Amputation Stump Revision and Incision and Drainage Deep Abscess Right Below Knee Amputation Stump on 04/26. Recovering well post operatively. (2) Acute renal failure: Nephrology is currently holding HD and considering the possibility he may not need manager long term care HD. Cont to monitor with repeat labs in am. Dr. Bartholomew following. (3) Fungemia: Yeast on wound culture in revised RLE limb. Discussed with ID at [facility] Continue caspofungin intravenously for 2 more weeks since the date of surgery (already has had 11 days) (4) Osteomyelitis: Distal right tibial osteomyelitis Status post right complete revision below-knee amputation on 04/26/2020 Ortho has signed off and will see patient in post op followup as outpatient. Most recent deep wound culture reveals MRSA and abx were changed from cefazolin to Daptomycin, with today being Day 2. Patient requires this for 6 weeks. (5) Ischemic cardiomyopathy: EF 45%, appears compensated at this time. Not very active as a bilateral amputee without prosthetics and with a RLE wound. Cont current medical management. Appreciate cardiology input and recommendation. (6) Hx of CABG: CAD with h/o CABG, 2017 performed at a hospital in [facility]. Records received and placed in chart. Cardiac arrest reported leading to digital ischemia and amputation of distal fingers of right hand. Current active Smoker. Cont current medication management. (7) Current smoker: Encouraged to quit. Declined nicotine patch. (8) Thrombocytopenia: resolved to normal. (9) S/P bilateral BKA (below knee amputation): Pt reports having had multiple revision surgeries over the years and is a long standing uncontrolled diabetic smoker. (10) Pressure-induced deep tissue damage of unspecified buttock: local wound care and stay off this area. Has stage 3-4 bilateral buttock decubiti Please see the picture for details Continue with wound care (11) Demand ischemia: Type II NV due to demand ischemia and DKA. No evidence of ACS this admission with elevated trop on admission thought 2/2 demand ischemia on admission in setting of DKA and low EF. Cont medical management of CAD. (12) DMII (diabetes mellitus, type 2): Initially presented in DKA with presumed infection as cause of hyperglycemia in addition to noncompliance. This has resolved. Currently controlled on basal and bolus insulin (13) DVT prophylaxis: Heparin DNR/DNI Dispo-Doing well, has established care with Dr. Ohara. Needs close follow-up with him after discharge. Discussed line placement with Nephro who would prefer a peripheral guided US line or PICC in the RUE only. Pallavi Sparks DO [facility] Hospitalist Admission and Anticipated Discharge Date Admission Date: April 14, 2020 Subjective cc: 60 yo s/p Right Below Knee Amputation Stump Revision and Incision and Drainage Deep Abscess Right Below Knee Amputation Stump on 04/26 -doing well post-op -wound with AMARIS wrap-spoke with ortho PA who states wound looks good -denies pain, CP, SOB, nausea or other issues -tolerating PO -very limited yes/no answers this morning -difficult to get patient to elaborate on any questions or how he feels. Review of Systems Review of Systems: All systems reviewed & are unremarkable except as noted in Subjective Physical Exam Physical Exam: CONSTITUTIONAL: WNWD, vitals as above, generally well- appearing EYES: normal conjunctivae, no scleral icterus ENT: external ear and nose normal, MMM RESPIRATORY: clear to auscultation bilaterally, no crackles, rales or wheezes, normal respiratory effort CARDIOVASCULAR: regular rate and rhythm, S1 and 2 heard without murmurs, gallops or rubs, no JVD, bilateral BKA, R residual limb wrapped in AMARIS, R hand s/p distal multidigit amputation. Tunneled HD catheter to right anterior chest wall-site looks good, no surrounding redness or drainage present. GASTROINTESTINAL: soft, nontender, nondistended, protuberant. MUSCULOSKELETAL: strength 5/5 throughout, head is normocephalic and atraumatic SKIN: warm and dry, RLE wound-covered. Buttock wounds (Stage II with eschar on left lateral wound, Stage II intergluteal fold wound that is open)-no surrounding ecchymosis, which has resolved since admission. Aquacel and Optifoam are in place. Bilateral lower extremity amputee with RLE wound from recent revision surgery not visualized. NEUROLOGIC: No facial palsy, no dysarthria. CN 2-12 grossly intact, normal cog nition, normal speech, no tremor. No gross focal deficits. PSYCHIATRIC: alert cooperative and oriented to person, place and time. Results & Data Results & Data ([facility]) Vital Signs (Past 12 Hours) Vital Signs Temp Pulse Pulse Resp BP Pulse Ox 04/29/20 07:52 36.7 C 78 16 133/67 96 04/28/20 23:00 36.8 C 78 16 110/58 L 94 Laboratory Results Short CBC 04/29/20 Range/Units 06:57 WBC 5.94 (4.8-10.8) K/uL Hgb 10.3 L (14.0-18.0) g/dL Hct 31.8 L (42-52) % Plt Count 181 (130-400) K/uL BMP 04/29/20 06:57 Sodium 140 Potassium 4.0 Chloride 109 H Carbon Dioxide 26 BUN 35 H Creatinine 3.53 H Glucose 73 Calcium 8.6 Cardiac Enzymes 04/29/20 Range/Units 06:57 Total Creatine Kinase 71 (39-308) U/L Liver Function 04/29/20 Range/Units 06:57 Albumin 2.3 L (3.4-5.0) gm/dl Medications Administered Current Inpatient Medications Acetaminophen (Acetaminophen 325 Mg Tab) 650 mg PO Q4H PRN PRN Reason: Pain or Fever Stop: 05/14/20 19:30 Last Admin: 04/27/20 16:13 Dose: 650 mg Documented by: Amlodipine Besylate (Amlodipine Besylate 5 Mg Tab) 10 mg PO [facility] Stop: 05/16/20 08:59 Last Admin: 04/29/20 09:33 Dose: 10 mg Documented by: Artificial Tears (Artificial Tears) 1 drops OP QID PRN PRN Reason: Dry Eyes Stop: 05/26/20 11:18 Aspirin (Aspirin 81 Mg Ectab) [facility] [place] Stop: 05/15/20 08:59 Last Admin: 04/29/20 09:33 Dose: 81 mg Documented by: Atorvastatin Calcium (Atorvastatin 40 Mg Tab) 40 mg PO DAILY [facility] Stop: 05/19/20 08:59 Last Admin: 04/28/20 10:01 Dose: 40 mg Documented by: Dextrose (Dextrose 50% 50 Ml Syringe) 25 - 50 ml IV UD PRN; Protocol PRN Reason: Hypoglycemia Protocol Stop: 05/14/20 19:30 Fenofibrate (Fenofibrate Nanocrystallized 145 Mg Tablet) [facility] [place] Stop: 05/16/20 08:59 Last Admin: 04/28/20 10:04 Dose: 145 mg Documented by: Glucagon (Glucagon For Inj 1 Mg Vial) 1 mg SQ UD PRN; Protocol PRN Reason: Hypoglycemia Protocol Stop: 05/14/20 19:30 Glucose (Glucose 10 Tabs/Tube) 4 - 8 tabs PO UD PRN; Protocol PRN Reason: Hypoglycemia Protocol Stop: 05/14/20 19:30 Glucose (Glucose 40% Gel 15 Gm Tube) 15 - 30 gm PO UD PRN; Protocol PRN Reason: Hypoglycemia Protocol Stop: 05/14/20 19:30 Heparin Sodium (Porcine) (Heparin Sod 5,000 Unit/0.5 Ml Vial) 5,000 units SQ Q12 [facility] Stop: 05/17/20 20:59 Last Admin: 04/29/20 09:34 Dose: Not Given Documented by: Hydromorphone HCl (Hydromorphone Inj 0.5 Mg/0.5 Ml Syr) 0.5 mg IV Q4H PRN PRN Reason: Pain Stop: 05/10/20 11:05 Last Admin: 04/27/20 00:28 Dose: 0.5 mg Documented by: Caspofungin 50 mg/ Sodium (Chloride) 260 mls @ 260 mls/hr IV Q24H [facility]; Protocol Stop: 05/01/20 23:59 Last Infusion: 04/28/20 23:32 Dose: Infused Documented by: Pantoprazole Sodium 40 mg/ (Syringe) 10 mls @ 5 mls/min IV BID [facility] Stop: 05/18/20 03:59 Last Admin: 04/28/20 21:20 Dose: 5 mls/min Documented by: Daptomycin 400 mg/ Syringe 8 mls @ 4 mls/min IV Q48H [facility]; Protocol Stop: 06/09/20 12:59 Last Admin: 04/28/20 13:48 Dose: 4 mls/min Documented by: Insulin Aspart (Insulin Aspart 100 Units/Ml 3 Ml Pen) 0 units SC ACHS [facility] Stop: 05/26/20 11:29 Last Admin: 04/28/20 21:26 Dose: Not Given Documented by: Insulin Glargine (Insulin Glargine Solostar 100 Units/Ml 3 Ml Pen) 10 units SQ QPM [facility] Stop: 05/26/20 20:59 Last Admin: 04/28/20 21:27 Dose: 10 units Documented by: Insulin Human NPH (Insulin Human Nph) 0 units SC QDB [facility]; Protocol Stop: 05/27/20 07:29 Last Admin: 04/28/20 09:51 Dose: 25 units Documented by: Isosorbide Mononitrate (Isosorbide [place] Extended Rel 30 Mg Tabcr) 30 mg PO QAM [facility] Stop: 05/22/20 11:14 Last Admin: 04/29/20 09:33 Dose: 30 mg Documented by: Melatonin (Melatonin 3 Mg Tab) 3 mg PO HS PRN PRN Reason: Sleep Stop: 05/14/20 19:30 Last Admin: 04/20/20 22:53 Dose: 3 mg Documented by: Metoprolol Succinate (Metoprolol Succ 25mg Ext Rel Tab) [facility] [place] Stop: 05/16/20 08:59 Last Admin: 04/29/20 09:34 Dose: 25 mg Documented by: Miscellaneous (Carbohydrates For Hypoglycemia ) 15 - 30 gm PO UD PRN PRN Reason: Hypoglycemia Protocol Stop: 05/14/20 19:30 Miscellaneous Information (Caspofungin~Consult Pharmacy) 1 ea N/A UD PRN PRN Reason: Consult Stop: 05/17/20 22:41 Miscellaneous Information (Daptomycin Consult Active) 1 ea N/A UD PRN PRN Reason: Consult Stop: 05/28/20 12:45 Nitroglycerin (Nitroglycerin Sl 0.4 Mg/Tab Tab) 0.4 mg SL UD PRN PRN Reason: Chest Pain Stop: 05/14/20 19:30 Ondansetron HCl (Ondansetron Inj 2 Mg/Ml 2 Ml Vial) 4 mg IV Q6H PRN PRN Reason: Nausea Stop: 05/14/20 19:30 Oxycodone HCl (Oxycodone Hcl Ir 5 Mg Tab (Immediate Release)) 5 mg PO Q4H PRN PRN Reason: Pain Stop: 05/10/20 11:05 Last Admin: 04/28/20 13:53 Dose: 5 mg Documented by: Sacubitril/Valsartan (Sacubitril-Valsartan 49/51 Mg Tab) 1 tab PO BID [facility] Stop: 05/26/20 20:59 Last Admin: 04/29/20 09:33 Dose: 1 tab Documented by: Senna/Docusate Sodium (Docusate Sodium/Senna 50/8.6mg Tab) 1 tab PO QAM [facility] Stop: 05/21/20 20:04 Last Admin: 04/29/20 09:33 Dose: 1 tab Documented by: (1) Osteomyelitis Laterality: unspecified laterality Osteomyelitis type: unspecified type
[2020-04-29] MEDS: INSULIN ASPART 100 UNITS/ML 3 ML PEN SC SCH ×4 (09:36→22:11)
[2020-04-29] MEDS: INSULIN HUMAN NPH SC SCH (09:38)
[2020-04-29] MEDS: PANTOprazole 40 MG in SYRINGE 0 ML IV SCH ×2 (09:45→22:06)
--- NOTE | 2020-04-29 10:30 | Dialysis Progress Note ---
Date of Service April 29, 2020 Assessment & Plan (1) ARIANA (acute kidney injury): * Started HD 04/18. Last dialysis treatment completed 04/27/20 * Remains off AMARIS/ARB due to ARIANA * Now nonoliguric. Creatinine is stable. Electrolytes are acceptable. No acute indication for HD today. Will reassess in am * Case management will arrange outpatient HD at [facility] * Awaiting outpatient medical records from [facility] (2) Anemia: * ADRIÁN will be provided w/ HD * 04/29/20 iron sat 29% w/ ferritin 239. No acute indication for IV iron therapy (3) Osteomyelitis: * R BKA revision 04/26/20 * On Ancef and Caspofungin per ID recs (4) Sacral decubitus ulcer: * Deep L decubitus ulcer L buttock and skin breakdown R buttock (5) Ischemic cardiomyopathy: * h/o AMI s/p CABG x5 2017. Hospital course complicated by B BKA and amputation of all digits R hand * 04/15/20 Echo: LVEF 45 - 50% w/ mild LVH * BP remains acceptable * Continue to defer AMARIS/ARB due to ARIANA (6) Debilitated patient: * Patient reports that he is considering [facility] following discharge from [facility] Admission and Anticipated Discharge Date Admission Date: April 14, 2020 Subjective Mr. Romero was seen & examined in his hospital room this morning. He was last dialyzed 04/27/20. He reports brisk UO and voices no new medical concerns Review of Systems Constitutional: + weakness; no fever Eyes: no problem reported Ear, Nose, Mouth, Throat: no problem reported Respiratory: no dyspnea Cardiovascular: no chest pain and no edema Gastrointestinal: no abdominal pain, no nausea and no diarrhea/loose stools Genitourinary: no dysuria, no urinary hesitancy and no hematuria Neurologic: no dizziness Physical Exam Constitutional: + ill appearing; not in distress Eyes: PERRL, conjunctivae normal, anicteric sclerae ENMT: external ear and nose normal, oropharynx normal Neck: trachea midline, no thyromegaly Respiratory: normal respiratory effort, lungs clear to auscultation Cardiovascular: Rate/Rhythm: regular rate and regular rhythm Heart Sounds: no murmur Gastrointestinal (Abdomen): normal bowel sounds, soft, nontender, no hepatosplenomegaly Skin: no rashes, warm and dry Neurologic: awake; not confused Results & Data ([facility]) Vital Signs (Past 12 Hours) Vital Signs Temp Pulse Pulse Resp BP Pulse Ox 04/29/20 07:52 36.7 C 78 16 133/67 96 04/28/20 23:00 36.8 C 78 16 110/58 L 94 Laboratory Tests 04/29/20 04/29/20 04/29/20 06:57 06:57 08:12 WBC 5.94 Hgb 10.3 L Hct 31.8 L Plt Count 181 Sodium 140 Potassium 4.0 Chloride 109 H Carbon Dioxide 26 BUN 35 H Creatinine 3.53 H POC Glucose 127 H Transferrin % Sat 29 Ferritin 239.7 Albumin 2.3 L Coding Level of Care Code 99867 Subseq Hosp Care Lvl 3 Diagnoses ARIANA (acute kidney injury) N17.9 Anemia D64.9 Osteomyelitis M86.9 Laterality: unspecified laterality Osteomyelitis type: unspecified type Sacral decubitus ulcer L89.159 Ischemic cardiomyopathy I25.5 Debilitated patient R53.81 (1) Osteomyelitis Laterality: unspecified laterality Osteomyelitis type: unspecified type
[2020-04-29] MEDS: INSULIN GLARGINE SOLOSTAR 100 UNITS/ML 3 ML PEN SQ SCH (22:11)
[2020-04-29] MEDS: CASPOFUNGIN 50 MG in SODIUM CHLORIDE 0.9% 250 ML IV SCH (22:31)
[2020-04-30 07:00] LABS: BUN Creatinine Ratio 10.9 (10-20); Calcium 8.7 mg/dl (8.5-10.1); Est GFR (African American) 20.2; Est GFR (Non-African American) 17.4; Potassium 3.8 mmol/L (3.5-5.1)
[2020-04-30] MEDS: INSULIN ASPART 100 UNITS/ML 3 ML PEN SC SCH ×4 (08:57→21:03)
[2020-04-30] MEDS: HEPARIN SOD 5,000 UNIT/0.5 ML VIAL SQ SCH ×3 (08:58→21:02)
[2020-04-30] MEDS: ISOSORBIDE MONO EXTENDED REL 30 MG TABCR PO SCH (08:58)
[2020-04-30] MEDS: SACUBITRIL-VALSARTAN 49/51 MG TAB PO SCH ×2 (08:58→20:59)
[2020-04-30] MEDS: amLODIPine BESYLATE 5 MG TAB PO SCH (08:58)
[2020-04-30] MEDS: ASPIRIN 81 MG ECTAB PO SCH (08:58)
[2020-04-30] MEDS: METOPROLOL SUCC 25MG EXT REL TAB PO SCH (08:58)
[2020-04-30] MEDS: PANTOprazole 40 MG in SYRINGE 0 ML IV SCH ×2 (08:59→21:00)
[2020-04-30] MEDS: DOCUSATE SODIUM/SENNA 50/8.6MG TAB PO SCH (08:59)
[2020-04-30] MEDS: INSULIN HUMAN NPH SC SCH (09:01)
--- NOTE | 2020-04-30 10:09 | Nephrology Progress Note ---
Date of Service April 30, 2020 Assessment & Plan (1) ARIANA (acute kidney injury): * Required HD 04/18/20 - 04/27/20 * Now nonoliguric, creatinine is stable and electrolytes are acceptable. No acute indication for HD today * Will recheck PRP in am. If kidney function remains stable, will ask vascular surgery to remove IJ THC * Awaiting outpatient medical records from [facility] (2) Anemia: * ADRIÁN has been provided w/ dialysis treatments. Hgb is now trending up * 04/29/20 iron sat 29% w/ ferritin 239. No acute indication for IV iron therapy (3) Osteomyelitis: * R BKA revision 04/26/20 * On Daptomycin and Caspofungin per ID recs (4) Sacral decubitus ulcer: * Deep L decubitus ulcer L buttock and skin breakdown R buttock (5) Ischemic cardiomyopathy: * h/o AMI s/p CABG x5 2017. Hospital course complicated by B BKA and amputation of all digits R hand * 04/15/20 Echo: LVEF 45 - 50% w/ mild LVH * BP remains acceptable * Continue to defer AMARIS/ARB due to ARIANA (6) Debilitated patient: * Patient reports that he is considering SNF in [place], [place] to be closer to his daughter Admission and Anticipated Discharge Date Admission Date: April 14, 2020 Subjective Mr. Romero was seen & examined in his hospital room this morning. He was last dialyzed 04/27/20. He reports brisk UO and voices no new medical concerns Review of Systems Constitutional: no fever Eyes: no problem reported Ear, Nose, Mouth, Throat: no problem reported Respiratory: no dyspnea Cardiovascular: no chest pain and no edema Gastrointestinal: no abdominal pain, no nausea and no diarrhea/loose stools Genitourinary: no dysuria, no urinary hesitancy and no hematuria Neurologic: no dizziness Physical Exam Constitutional: not in distress Eyes: PERRL, conjunctivae normal, anicteric sclerae ENMT: external ear and nose normal, oropharynx normal Neck: trachea midline, no thyromegaly R IJ THC w/ clean dry dressing in place Respiratory: normal respiratory effort, lungs clear to auscultation Cardiovascular: Rate/Rhythm: regular rate and regular rhythm Heart Sounds: no murmur Gastrointestinal (Abdomen): normal bowel sounds, soft, nontender, no hepatosplenomegaly Musculoskeletal: B BKA. R BKA site w/ dry dressing in place Skin: + sacral decubitus ulcer Neurologic: awake; not confused Results & Data ([facility]) Vital Signs (Past 12 Hours) Vital Signs Temp Pulse Resp BP Pulse Ox 04/30/20 07:11 36.8 C 75 18 158/77 H 97 04/29/20 23:14 37.0 C 82 14 167/81 H 93 Laboratory Tests 04/30/20 06:11 Sodium 139 Potassium 3.8 Chloride 108 H Carbon Dioxide 27 BUN 39 H Creatinine 3.56 H Glucose 105 H Calcium 8.7 (1) Osteomyelitis Laterality: unspecified laterality Osteomyelitis type: unspecified type
[2020-04-30] MEDS: DAPTOmycin 400 MG in SYRINGE 0 ML IV SCH (13:21)
--- NOTE | 2020-04-30 20:32 | Hospitalist Progress Note ---
Date of Service April 30, 2020 Assessment & Plan (1) Post-operative state: s/p Right Below Knee Amputation Stump Revision and Incision and Drainage Deep Abscess Right Below Knee Amputation Stump on 04/26. Recovering well post operatively. (2) Acute renal failure: Nephrology continue to hold hemodialysis. Creatinine is stable this morning and nephrology has discussed with Dr. Harris the possibility of removing hemodialysis catheter tomorrow prior to discharge. Case management was updated with these changes. (3) Fungemia: Yeast on wound culture in revised RLE limb and in admission blood cultur es. Per ID, Continue caspofungin intravenously for 2 more weeks since the date of surgery -today is Day . (4) Osteomyelitis: Distal right tibial osteomyelitis Status post right complete revision below-knee amputation on 04/26/2020 Ortho has signed off and will see patient in post op followup as outpatient. Most recent deep wound culture reveals MRSA and abx were changed from cefazolin to Daptomycin, with today being Day 3. Patient requires this for 6 weeks. (5) Ischemic cardiomyopathy: EF 45%, appears compensated at this time. Not very active as a bilateral amputee without prosthetics and with a RLE wound. Cont current medical management. Follow-up with cardiology as outpatient. (6) Hx of CABG: CAD with h/o CABG, 2017 performed at a hospital in [facility]. Prior records received this admission and placed in chart. Cardiac arrest reported leading to digital ischemia and amputation of distal fingers of right hand. Current active Smoker-discussed above. Cont current medication management. (7) Current smoker: We discussed this in detail today and he understands that active smoking confers a higher risk of cardiovascular event. He feels he can control his habit at will without any nicotine supplementation or other assistance. Continue to encourage him to stay quit. (8) S/P bilateral BKA (below knee amputation): Pt reports having had multiple revision surgeries over the years and is a long standing uncontrolled diabetic smoker. Has had a most recent revision surgery in the right residual limb on 04/26 as above for infection. (9) Pressure-induced deep tissue damage of unspecified buttock: local wound care and stay off this area. Has stage 3-4 bilateral buttock decubiti Please see the picture for details Continue with wound care (10) Demand ischemia: Type II PR due to demand ischemia and DKA. No evidence of ACS this admission with elevated trop on admission thought 2/2 demand ischemia on admission in setting of DKA and low EF. Cont medical management of CAD. (11) DMII (diabetes mellitus, type 2): Initially presented in DKA with presumed infection as cause of hyperglycemia in addition to noncompliance. This has resolved. Currently controlled on basal and bolus insulin (12) DVT prophylaxis: Heparin DNR/DNI Dispo-Doing well, has established care with Dr. Ohara. Needs close follow-up with him after discharge. N.p.o. after midnight in preparation for hemodialysis catheter removal in the morning by Dr. Harris. [facility] Admission and Anticipated Discharge Date Admission Date: April 14, 2020 Subjective 60 yo s/p Right Below Knee Amputation Stump Revision and Incision and Drainage Deep Abscess Right Below Knee Amputation Stump on 04/26 The patient is in a great mood today. Per my discussion with Dr. Puente from nephrology, it is likely he will have his hemodialysis catheter removed tomorrow by Dr. Harris and will not continue hemodialysis long-term. Case management was updated in their search for temporary placement He denies pain Wound continues to be wrapped with Jhonatan wrap, and patient denies any issues Tolerating p.o. and asking for an increased amount of portion on his tray We did discuss quitting smoking completely, and he is contemplating this, however, mention he might smoke 1 to 2 cigarettes daily We discussed the importance of quitting altogether and that active smoking confers a higher risk of cardiovascular events. He verbalized understanding. Review of Systems Review of Systems: All systems reviewed & are unremarkable except as noted in Subjective Physical Exam Physical Exam: CONSTITUTIONAL: WNWD, vitals as above, generally well- appearing EYES: normal conjunctivae, no scleral icterus ENT: external ear and nose normal, MMM RESPIRATORY: clear to auscultation bilaterally, no crackles, rales or wheezes, normal respiratory effort CARDIOVASCULAR: regular rate and rhythm, S1 and 2 heard without murmurs, gallops or rubs, no JVD, bilateral BKA, R residual limb wrapped in JHONATAN, R hand s/p distal multidigit amputation. Tunneled HD catheter to right anterior chest wall-site looks good, no surrounding redness or drainage present. GASTROINTESTINAL: soft, nontender, nondistended, protuberant. MUSCULOSKELETAL: strength 5/5 throughout, head is normocephalic and atraumatic SKIN: warm and dry, RLE wound-covered. Buttock wounds (Stage III/IV with eschar on left lateral wound, Stage III intergluteal fold wound that is open)-no surrounding ecchymosis, which has resolved since admission. Aquacel and Optifoam are in place. Bilateral lower extremity amputee with RLE wound from recent revision surgery not visualized. NEUROLOGIC: No facial palsy, no dysarthria. CN 2-12 grossly intact, normal cognition, normal speech, no tremor. No gross focal deficits. PSYCHIATRIC: alert cooperative and oriented to person, place and time. Results & Data Results & Data ([facility]) Vital Signs (Past 12 Hours) Vital Signs Temp Pulse Resp BP Pulse Ox 04/30/20 15:15 36.9 C 78 18 127/68 96 Laboratory Results [facility] 04/30/20 06:11 Sodium 139 Potassium 3.8 Chloride 108 H Carbon Dioxide 27 BUN 39 H Creatinine 3.56 H Glucose 105 H Calcium 8.7 Medications Administered Current Inpatient Medications Acetaminophen (Acetaminophen 325 Mg Tab) 650 mg PO Q4H PRN PRN Reason: Pain or Fever Stop: 05/14/20 19:30 Last Admin: 04/27/20 16:13 Dose: 650 mg Documented by: Amlodipine Besylate (Amlodipine Besylate 5 Mg Tab) 10 mg PO QAM [facility] Stop: 05/16/20 08:59 Last Admin: 04/30/20 08:58 Dose: 10 mg Documented by: Artificial Tears (Artificial Tears) 1 drops OP QID PRN PRN Reason: Dry Eyes Stop: 05/26/20 11:18 Aspirin (Aspirin 81 Mg Ectab) 81 mg PO QAM [facility] Stop: 05/15/20 08:59 Last Admin: 04/30/20 08:58 Dose: 81 mg Documented by: Atorvastatin Calcium (Atorvastatin 40 Mg Tab) 40 mg PO DAILY [facility] Stop: 05/19/20 08:59 Last Admin: 04/28/20 10:01 Dose: 40 mg Documented by: Dextrose (Dextrose 50% 50 Ml Syringe) 25 - 50 ml IV UD PRN; Protocol PRN Reason: Hypoglycemia Protocol Stop: 05/14/20 19:30 Fenofibrate (Fenofibrate Nanocrystallized 145 Mg Tablet) 145 mg PO QAM [facility] Stop: 05/16/20 08:59 Last Admin: 04/28/20 10:04 Dose: 145 mg Documented by: Glucagon (Glucagon For Inj 1 Mg Vial) 1 mg SQ UD PRN; Protocol PRN Reason: Hypoglycemia Protocol Stop: 05/14/20 19:30 Glucose (Glucose 10 Tabs/Tube) 4 - 8 tabs PO UD PRN; Protocol PRN Reason: Hypoglycemia Protocol Stop: 05/14/20 19:30 Glucose (Glucose 40% Gel 15 Gm Tube) 15 - 30 gm PO UD PRN; Protocol PRN Reason: Hypoglycemia Protocol Stop: 05/14/20 19:30 Heparin Sodium (Porcine) (Heparin Sod 5,000 Unit/0.5 Ml Vial) 5,000 units SQ Q12 [facility] Stop: 05/17/20 20:59 Last Admin: 04/30/20 08:58 Dose: Not Given Documented by: Hydromorphone HCl (Hydromorphone Inj 0.5 Mg/0.5 Ml Syr) 0.5 mg IV Q4H PRN PRN Reason: Pain Stop: 05/10/20 11:05 Last Admin: 04/27/20 00:28 Dose: 0.5 mg Documented by: Caspofungin 50 mg/ Sodium (Chloride) 260 mls @ 260 mls/hr IV Q24H [facility]; Protocol Stop: 05/01/20 23:59 Last Infusion: 04/30/20 00:17 Dose: Infused Documented by: Pantoprazole Sodium 40 mg/ (Syringe) 10 mls @ 5 mls/min IV BID [facility] Stop: 05/18/20 03:59 Last Admin: 04/30/20 08:59 Dose: 5 mls/min Documented by: Daptomycin 400 mg/ Syringe 8 mls @ 4 mls/min IV Q48H [facility]; Protocol Stop: 06/09/20 12:59 Last Admin: 04/30/20 13:21 Dose: 4 mls/min Documented by: Insulin Aspart (Insulin Aspart 100 Units/Ml 3 Ml Pen) 0 units SC ACHS [facility] Stop: 05/26/20 11:29 Last Admin: 04/30/20 18:45 Dose: Not Given Documented by: Insulin Glargine (Insulin Glargine Solostar 100 Units/Ml 3 Ml Pen) 10 units SQ QPM [facility] Stop: 05/26/20 20:59 Last Admin: 04/29/20 22:11 Dose: 10 units Documented by: Insulin Human NPH (Insulin Human Nph) 0 units SC QDB [facility]; Protocol Stop: 05/27/20 07:29 Last Admin: 04/30/20 09:01 Dose: 20 units Documented by: Isosorbide Mononitrate (Isosorbide [place] Extended Rel 30 Mg Tabcr) 30 [facility] Stop: 05/22/20 11:14 Last Admin: 04/30/20 08:58 Dose: 30 mg Documented by: Melatonin (Melatonin 3 Mg Tab) 3 mg PO HS PRN PRN Reason: Sleep Stop: 05/14/20 19:30 Last Admin: 04/20/20 22:53 Dose: 3 mg Documented by: Metoprolol Succinate (Metoprolol Succ 25mg Ext Rel Tab) 25 mg [facility] Stop: 05/16/20 08:59 Last Admin: 04/30/20 08:58 Dose: 25 mg Documented by: Miscellaneous (Carbohydrates For Hypoglycemia ) 15 - 30 gm PO UD PRN PRN Reason: Hypoglycemia Protocol Stop: 05/14/20 19:30 Miscellaneous Information (Caspofungin~Consult Pharmacy) 1 ea N/A UD PRN PRN Reason: Consult Stop: 05/17/20 22:41 Miscellaneous Information (Daptomycin Consult Active) 1 ea N/A UD PRN PRN Reason: Consult Stop: 05/28/20 12:45 Nitroglycerin (Nitroglycerin Sl 0.4 Mg/Tab Tab) 0.4 mg SL UD PRN PRN Reason: Chest Pain Stop: 05/14/20 19:30 Ondansetron HCl (Ondansetron Inj 2 Mg/Ml 2 Ml Vial) 4 mg IV Q6H PRN PRN Reason: Nausea Stop: 05/14/20 19:30 Oxycodone HCl (Oxycodone Hcl Ir 5 Mg Tab (Immediate Release)) 5 mg PO Q4H PRN PRN Reason: Pain Stop: 05/10/20 11:05 Last Admin: 04/28/20 13:53 Dose: 5 mg Documented by: Sacubitril/Valsartan (Sacubitril-Valsartan 49/51 Mg Tab) 1 tab PO BID [facility] Stop: 05/26/20 20:59 Last Admin: 04/30/20 08:58 Dose: 1 tab Documented by: Senna/Docusate Sodium (Docusate Sodium/Senna 50/8.6mg Tab) 1 tab [facility] Stop: 05/21/20 20:04 Last Admin: 04/30/20 08:59 Dose: 1 tab Documented by: (1) Osteomyelitis Laterality: unspecified laterality Osteomyelitis type: unspecified type
[2020-04-30] MEDS: CASPOFUNGIN 50 MG in SODIUM CHLORIDE 0.9% 250 ML IV SCH (20:59)
[2020-04-30] MEDS: INSULIN GLARGINE SOLOSTAR 100 UNITS/ML 3 ML PEN SQ SCH (21:03)
[2020-05-01] MEDS ORDERED: Nursing to Pharmacy Communication SCH ×2 (01:45→10:30)
[2020-05-01] MEDS ORDERED: INSULIN ASPART 100 UNITS/ML 3 ML PEN SC SCH (06:00)
[2020-05-01 06:14] LABS: INR 1.1 (0.9-1.1); Prothrombin Time 11.4 Seconds (9.0-12.0)
[2020-05-01 06:25] LABS: BUN Creatinine Ratio 12.2 (10-20); Calcium 8.1 mg/dl (8.5-10.1); Creatinine Clr Calc Pharmacy 24.1 ml/min; Est GFR (African American) 20.3; Est GFR (Non-African American) 17.5; Potassium 3.8 mmol/L (3.5-5.1)
--- NOTE | 2020-05-01 07:56 | History & Physical Bridge Note ---
Date of Service May 01, 2020 History & Physical Bridge Note Patient for permcath removal today. I have discussed the risks options and benefits of the procedure with the patient. The patient understands the risks options and benefits and agrees to the procedure. I have examined the patient, reviewed the History & Physical and in the interval since the performance of the History & Physical I have noted the following changes of clinical significance: no changes noted
--- NOTE | 2020-05-01 07:57 | Pre Anesthesia Assessment ---
Date of Service May 01, 2020 Pre Sedation Assessment Vital Signs Temp Pulse Pulse Resp BP Pulse Ox 05/01/20 07:36 37 C 77 18 176/83 H 97 04/30/20 15:15 36.9 C 78 18 127/68 96 Cardiovascular RRR, no murmur, no edema Respiratory normal respiratory effort, lungs clear to auscultation Pre-Sedation Airway Assessment Smoking Status: Current every day smoker Hx Sleep Apnea: No Short, Thick Neck: No Thyromental Distance: > or= 3.5 Finger Breadths Oral Cavity: + WNL Mallampati Class: II ASA: ASA3 NPO Status Date of Last Intake of Fluids: 04/30/20 Time of Last Intake of Fluids: 23:00 Last Oral Intake of Fluids Comment: milk Date of Last Intake of Solid Food: 04/30/20 Time of Last Intake of Solid Foods: 20:00 Last Intake of Solids Comment: two bites of scrambled eggs- urgent case per md- see md note Procedure Planning Contraindications for Sedation: none Current Medications Reviewed: Yes Notes The planned sedation has been discussed with the patient. Informed Consent was obtained. I have identified the patient, determined the appropriateness of sedation and have assessed the patient immediately prior to the procedure. All medicine(s) and interventions are by my order.
[2020-05-01] MEDS ORDERED: LIDOCAINE HCL 1% 20 ML VIAL ONE (08:14)
--- NOTE | 2020-05-01 08:33 | Operative Report ---
Post Operative Report Pre & Post Diagnosis Operation Date: 04/17/20 09:30 Pre-Op Diagnosis: acute kidney injury Post-Op Diagnosis: acute kidney injury Operation Date: 04/26/20 07:30 Pre-Op Diagnosis: Osteomyelitis right distal tibia BKA stump Post-Op Diagnosis: Osteomyelitis right distal tibia BKA stump Operation Date: 05/01/20 08:00 Pre-Op Diagnosis: Functioning Kidneys Post-Op Diagnosis: Functioning Kidneys I identified the patient and participated in the time-out.: Yes Procedure Operation Date: 04/17/20 09:30 Actual Procedures p Insertion Of Perm Cather, Right Internal Jugular Approach, Ultrasound Localization Of Right Internal Jugular Vein, Fluoroscopy For Positioning, Moderate Concious Sedation 1242 to 1301(Right) - Bobby Harris MD Operation Date: 04/26/20 07:30 Actual Procedures p Right Below Knee Amputation Stump Revision and (Right) - Vladimir Cantu DO s Incision and Drainage Deep Abscess Right Below Knee Amputation Stump(Right) - Vladimir Cantu DO Operation Date: 05/01/20 08:00 Actual Procedures p Perm Catheter Removal(Right) - Bobby Harris MD Surgeon Bobby Harris MD Nursery Laborer none Estimated Blood Loss 0 Findings Consistent with Post-Op Diagnosis Specimens none Anesthesia Type Local Complications none Disposition Accompanied Patient To Recovery: No Disposition: Recovery Room Indications Patient has a permcath in place which is no longer needed. Removal was recommended. I have discussed the risks options and benefits of the procedure with the patient. The patient understands the risks options and benefits and agrees to the procedure. Description of Procedure The patient was taken to the angio suite and placed in the supine position. The patient was identified and a timeout performed. The right side of the neck, chest wall and catheter were prepped and draped in a sterile manner. Local anesthesia was then accomplished. Using sharp and blunt dissection, the cuff of the permcath was freed up from the surrounding fibrous tissue. The permcath and cuff were completely removed. Pressure was then applied and adequate hemostasis was obtained. A sterile dressing was then applied. The patient left the operation room in satisfactory condition and tolerated the procedure well. All needle and sponge counts were correct at the end of the procedure. I attest to the content of the Intraoperative Record and any orders documented therein. Any exceptions are noted below.
[2020-05-01] MEDS: HEPARIN SOD 5,000 UNIT/0.5 ML VIAL SQ SCH ×2 (09:35→20:55)
[2020-05-01] MEDS: INSULIN HUMAN NPH SC SCH (09:48)
[2020-05-01] MEDS: amLODIPine BESYLATE 5 MG TAB PO SCH (09:49)
[2020-05-01] MEDS: ISOSORBIDE MONO EXTENDED REL 30 MG TABCR PO SCH (09:49)
[2020-05-01] MEDS: ASPIRIN 81 MG ECTAB PO SCH (09:49)
[2020-05-01] MEDS: SACUBITRIL-VALSARTAN 49/51 MG TAB PO SCH ×2 (09:50→20:55)
[2020-05-01] MEDS: PANTOprazole 40 MG in SYRINGE 0 ML IV SCH ×2 (09:50→21:56)
[2020-05-01] MEDS: DOCUSATE SODIUM/SENNA 50/8.6MG TAB PO SCH (09:50)
[2020-05-01] MEDS: METOPROLOL SUCC 25MG EXT REL TAB PO SCH (09:50)
--- NOTE | 2020-05-01 11:04 | Nephrology Progress Note ---
Date of Service May 01, 2020 Assessment & Plan (1) ARIANA (acute kidney injury): * Required HD 04/18/20 - 04/27/20 * R IJ THC removed 05/01/20 * Serum Cr has stabilized at 3.5. Patient remains nonoliguric. Electrolyte balance is acceptable * Recheck PRP in am * Awaiting outpatient medical records from [facility] (2) Anemia: * ADRIÁN has been provided w/ dialysis treatments. Hgb is now trending up * 04/29/20 iron sat 29% w/ ferritin 239. No acute indication for IV iron therapy (3) Osteomyelitis: * R BKA revision 04/26/20 * On Daptomycin and Caspofungin per ID recs (4) Sacral decubitus ulcer: * Deep L decubitus ulcer L buttock and skin breakdown R buttock (5) Ischemic cardiomyopathy: * h/o AMI s/p CABG x5 2017. Hospital course complicated by B BKA and amputation of all digits R hand * 04/15/20 Echo: LVEF 45 - 50% w/ mild LVH * BP remains acceptable * Continue to defer AMARIS/ARB due to advanced CKD (6) Debilitated patient: * Patient reports that he is considering SNF in [place], [place] to be closer to his daughter * If patient relocates to [place] (1 hr away), recommend that he establish care with a [facility] in [place] and pursue outpatient creation of AVF within the next 2 - 3 weeks Admission and Anticipated Discharge Date Admission Date: April 14, 2020 Subjective Mr. Romero was seen & examined following removal of his R IJ THC this morning. He is breathing comfortably flat in bed. He denies fever, angina or dyspnea. He reports brisk UO. Review of Systems Constitutional: no fever Eyes: no problem reported Ear, Nose, Mouth, Throat: no problem reported Respiratory: no dyspnea Cardiovascular: no chest pain and no edema Gastrointestinal: no abdominal pain, no nausea and no diarrhea/loose stools Genitourinary: no dysuria, no urinary hesitancy and no hematuria Neurologic: no dizziness Physical Exam Constitutional: not in distress Eyes: PERRL, conjunctivae normal, anicteric sclerae ENMT: external ear and nose normal, oropharynx normal Neck: R IJ THC removed. Site w/ clean, dry dressing Respiratory: normal respiratory effort, lungs clear to auscultation Cardiovascular: Rate/Rhythm: regular rate and regular rhythm Gastrointestinal (Abdomen): Percussion/Palpation: abdomen soft; abdomen nontender Skin: no rashes, warm and dry Results & Data ([facility]) Vital Signs (Past 12 Hours) Vital Signs Temp Pulse Pulse Pulse Resp BP BP 05/01/20 09:10 36.9 C 78 18 154/75 H 05/01/20 08:40 36.9 C 78 16 148/68 H 05/01/20 08:22 72 16 159/77 H 05/01/20 08:17 71 16 166/74 H 05/01/20 07:36 37 C 77 18 176/83 H Pulse Ox 05/01/20 09:10 98 05/01/20 08:40 96 05/01/20 08:22 97 05/01/20 08:17 97 05/01/20 07:36 97 Laboratory Tests 05/01/20 05:36 Sodium 141 Potassium 3.8 Chloride 109 H Carbon Dioxide 27 BUN 43 H Creatinine 3.55 H Est GFR (Non-Af Amer) 17.5 Glucose 111 H PG Care Time/CCT Total # of Minutes Spent Total Time Spent with Patient: Total time spent is greater than 50% in coordination of care (as documented) at patient's floor/unit and/or counseling patient: Coding Level of Care Code 70065 Subseq Hosp Care Lvl 3 Diagnoses ARIANA (acute kidney injury) N17.9 Anemia D64.9 Osteomyelitis M86.9 Laterality: unspecified laterality Osteomyelitis type: unspecified type Sacral decubitus ulcer L89.159 Ischemic cardiomyopathy I25.5 Debilitated patient R53.81 (1) Osteomyelitis Laterality: unspecified laterality Osteomyelitis type: unspecified type
[2020-05-01] MEDS: INSULIN ASPART 100 UNITS/ML 3 ML PEN SC SCH ×3 (13:22→21:56)
--- NOTE | 2020-05-01 20:37 | Hospitalist Progress Note ---
Date of Service May 01, 2020 Assessment & Plan (1) Post-operative state: s/p Right Below Knee Amputation Stump Revision and Incision and Drainage Deep Abscess Right Below Knee Amputation Stump on 04/26. Recovering well post operatively. Follow-up with orthopedics postoperatively as outpatient. (2) Acute renal failure: Tunneled dialysis catheter was removed today by vascular surgery. Patient tolerated the procedure well. Will repeat BMP in a couple of days. No further indication for hemodialysis at this time. (3) Fungemia: Yeast on wound culture in revised RLE limb and in admission blood c ultures. Per ID, Continue caspofungin intravenously for 2 more weeks since the date of surgery -today is Day . (4) Osteomyelitis: Distal right tibial osteomyelitis Status post right complete revision below-knee amputation on 04/26/2020 Ortho has signed off and will see patient in post op followup as outpatient. Most recent deep wound culture reveals MRSA and abx were changed from cefazolin to Daptomycin, with today being Day 4. Patient requires this for 6 weeks. (5) Ischemic cardiomyopathy: EF 45%, appears compensated at this time. Not very active as a bilateral amputee without prosthetics and with a RLE wound. Cont current medical management. Follow-up with cardiology as outpatient. (6) Hx of CABG: CAD with h/o CABG, 2017 performed at a hospital in [facility]. Prior records received this admission and placed in chart. Cardiac arrest reported leading to digital ischemia and amputation of distal fingers of right hand. Current active Smoker-discussed above. Cont current medication management. (7) Current smoker: He understands that active smoking confers a higher risk of cardiovascular event. He feels he can control his habit at will without any nicotine supplementation or other assistance. Continue to encourage him to stay quit. (8) S/P bilateral BKA (below knee amputation): Pt reports having had multiple revision surgeries over the years and is a long standing uncontrolled diabetic smoker. Has had a most recent revision surgery in the right residual limb on 04/26 as above for infection. (9) Pressure-induced deep tissue damage of unspecified buttock: local wound care and stay off this area. Has stage 3-4 bilateral buttock decubiti Please see the picture for details Continue with wound care (10) Demand ischemia: Type II HI due to demand ischemia and DKA. No evidence of ACS this admission with elevated trop on admission thought 2/2 demand ischemia on admi ssion in setting of DKA and low EF. Cont medical management of CAD. (11) DMII (diabetes mellitus, type 2): Initially presented in DKA with presumed infection as cause of hyperglycemia in addition to noncompliance. This has resolved. Currently controlled on basal and bolus insulin (12) DVT prophylaxis: Heparin DNR/DNI Dispo-Doing well, has established care with Dr. Ohara. Needs close follow-up with him after discharge. [facility] Admission and Anticipated Discharge Date Admission Date: April 14, 2020 Subjective 60-year-old diabetic man status post right residual limb revision secondary to osteomyelitis and fungal infection. -Orthopedic wound is wrapped in Jhonatan wrap and not giving the patient any problems today. -Tolerating p.o. -Denies any pain -Patient had his hemodialysis catheter removed today without issue and is doing well. Review of Systems Review of Systems: All systems reviewed & are unremarkable except as noted in Subjective Physical Exam Physical Exam: CONSTITUTIONAL: WNWD, vitals as above, generally well- appearing EYES: normal conjunctivae, no scleral icterus ENT: external ear and nose normal, MMM RESPIRATORY: clear to auscultation bilaterally, no crackles, rales or wheezes, normal respiratory effort CARDIOVASCULAR: regular rate and rhythm, S1 and 2 heard without murmurs, gallops or rubs, no JVD, bilateral BKA, R residual limb wrapped in JHONATAN, R hand s/p distal multidigit amputation. Postop site looks good after removal of tunneled catheter from anterior chest wall, no surrounding redness or drainage present. GASTROINTESTINAL: soft, nontender, nondistended, protuberant. MUSCULOSKELETAL: strength 5/5 throughout, head is normocephalic and atraumatic SKIN: warm and dry, RLE wound-covered. Buttock wounds (Stage III/IV with eschar on left lateral wound, Stage III intergluteal fold wound that is open)-no surrounding ecchymosis, which has resolved since admission. Aquacel and Optifoam are in place. Bilateral lower extremity amputee with RLE wound from recent revision surgery not visualized. NEUROLOGIC: No facial palsy, no dysarthria. CN 2-12 grossly intact, normal cognition, normal speech, no tremor. No gross focal deficits. PSYCHIATRIC: alert cooperative and oriented to person, place and time. Results & Data Results & Data ([facility]) Vital Signs (Past 12 Hours) Vital Signs Temp Pulse Pulse Resp BP Pulse Ox 05/01/20 15:36 36.9 C 76 16 143/70 H 97 05/01/20 09:10 36.9 C 78 18 154/75 H 98 05/01/20 08:40 36.9 C 78 16 148/68 H 96 Laboratory Results BMP 05/01/20 05:36 Sodium 141 Potassium 3.8 Chloride 109 H Carbon Dioxide 27 BUN 43 H Creatinine 3.55 H Glucose 111 H Calcium 8.1 L Medications Administered Current Inpatient Medications Acetaminophen (Acetaminophen 325 Mg Tab) 650 mg PO Q4H PRN PRN Reason: Pain or Fever Stop: 05/14/20 19:30 Last Admin: 04/27/20 16:13 Dose: 650 mg Documented by: Amlodipine Besylate (Amlodipine Besylate 5 Mg Tab) 10 mg PO QAM [facility] Stop: 05/16/20 08:59 Last Admin: 05/01/20 09:49 Dose: 10 mg Documented by: Artificial Tears (Artificial Tears) 1 drops OP QID PRN PRN Reason: Dry Eyes Stop: 05/26/20 11:18 Aspirin (Aspirin 81 Mg Ectab) 81 mg PO QAM [facility] Stop: 05/15/20 08:59 Last Admin: 05/01/20 09:49 Dose: 81 mg Documented by: Atorvastatin Calcium (Atorvastatin 40 Mg Tab) 40 mg PO DAILY [facility] Stop: 05/19/20 08:59 Last Admin: 04/28/20 10:01 Dose: 40 mg Documented by: Dextrose (Dextrose 50% 50 Ml Syringe) 25 - 50 ml IV UD PRN; Protocol PRN Reason: Hypoglycemia Protocol Stop: 05/14/20 19:30 Fenofibrate (Fenofibrate Nanocrystallized 145 Mg Tablet) 145 mg PO QAM [facility] Stop: 05/16/20 08:59 Last Admin: 04/28/20 10:04 Dose: 145 mg Documented by: Glucagon (Glucagon For Inj 1 Mg Vial) 1 mg SQ UD PRN; Protocol PRN Reason: Hypoglycemia Protocol Stop: 05/14/20 19:30 Glucose (Glucose 10 Tabs/Tube) 4 - 8 tabs PO UD PRN; Protocol PRN Reason: Hypoglycemia Protocol Stop: 05/14/20 19:30 Glucose (Glucose 40% Gel 15 Gm Tube) 15 - 30 gm PO UD PRN; Protocol PRN Reason: Hypoglycemia Protocol Stop: 05/14/20 19:30 Heparin Sodium (Porcine) (Heparin Sod 5,000 Unit/0.5 Ml Vial) 5,000 units SQ Q12 [facility] Stop: 05/17/20 20:59 Last Admin: 05/01/20 09:35 Dose: Not Given Documented by: Hydromorphone HCl (Hydromorphone Inj 0.5 Mg/0.5 Ml Syr) 0.5 mg IV Q4H PRN PRN Reason: Pain Stop: 05/10/20 11:05 Last Admin: 04/27/20 00:28 Dose: 0.5 mg Documented by: Caspofungin 50 mg/ Sodium (Chloride) 260 mls @ 260 mls/hr IV Q24H [facility]; Protocol Stop: 05/01/20 23:59 Last Infusion: 04/30/20 23:16 Dose: Infused Documented by: Pantoprazole Sodium 40 mg/ (Syringe) 10 mls @ 5 mls/min IV BID [facility] Stop: 05/18/20 03:59 Last Admin: 05/01/20 09:50 Dose: 5 mls/min Documented by: Daptomycin 400 mg/ Syringe 8 mls @ 4 mls/min IV Q48H [facility]; Protocol Stop: 06/09/20 12:59 Last Admin: 04/30/20 13:21 Dose: 4 mls/min Documented by: Insulin Aspart (Insulin Aspart 100 Units/Ml 3 Ml Pen) 0 units SC ACHS [facility] Stop: 05/31/20 11:29 Last Admin: 05/01/20 17:47 Dose: Not Given Documented by: Insulin Glargine (Insulin Glargine Solostar 100 Units/Ml 3 Ml Pen) 10 units SQ QPM [facility] Stop: 05/26/20 20:59 Last Admin: 04/30/20 21:03 Dose: 10 units Documented by: Insulin Human NPH (Insulin Human Nph) 0 units SC QDB [facility]; Protocol Stop: 05/27/20 07:29 Last Admin: 05/01/20 09:48 Dose: 25 units Documented by: Isosorbide Mononitrate (Isosorbide [place] Extended Rel 30 Mg Tabcr) 30 mg PO QAM [facility] Stop: 05/22/20 11:14 Last Admin: 05/01/20 09:49 Dose: 30 mg Documented by: Melatonin (Melatonin 3 Mg Tab) 3 mg PO HS PRN PRN Reason: Sleep Stop: 05/14/20 19:30 Last Admin: 04/20/20 22:53 Dose: 3 mg Documented by: Metoprolol Succinate (Metoprolol Succ 25mg Ext Rel Tab) 25 mg PO QAM [facility] Stop: 05/16/20 08:59 Last Admin: 05/01/20 09:50 Dose: 25 mg Documented by: Miscellaneous (Carbohydrates For Hypoglycemia ) 15 - 30 gm PO UD PRN PRN Reason: Hypoglycemia Protocol Stop: 05/14/20 19:30 Miscellaneous Information (Caspofungin~Consult Pharmacy) 1 ea N/A UD PRN PRN Reason: Consult Stop: 05/17/20 22:41 Miscellaneous Information (Daptomycin Consult Active) 1 ea N/A UD PRN PRN Reason: Consult Stop: 05/28/20 12:45 Nitroglycerin (Nitroglycerin Sl 0.4 Mg/Tab Tab) 0.4 mg SL UD PRN PRN Reason: Chest Pain Stop: 05/14/20 19:30 Ondansetron HCl (Ondansetron Inj 2 Mg/Ml 2 Ml Vial) 4 mg IV Q6H PRN PRN Reason: Nausea Stop: 05/14/20 19:30 Oxycodone HCl (Oxycodone Hcl Ir 5 Mg Tab (Immediate Release)) 5 mg PO Q4H PRN PRN Reason: Pain Stop: 05/10/20 11:05 Last Admin: 04/28/20 13:53 Dose: 5 mg Documented by: Sacubitril/Valsartan (Sacubitril-Valsartan 49/51 Mg Tab) 1 tab PO BID [facility] Stop: 05/26/20 20:59 Last Admin: 05/01/20 09:50 Dose: 1 tab Documented by: Senna/Docusate Sodium (Docusate Sodium/Senna 50/8.6mg Tab) 1 tab PO QAM [facility] Stop: 05/21/20 20:04 Last Admin: 05/01/20 09:50 Dose: 1 tab Documented by: (1) Osteomyelitis Laterality: unspecified laterality Osteomyelitis type: unspecified type
[2020-05-01] MEDS: CASPOFUNGIN 50 MG in SODIUM CHLORIDE 0.9% 250 ML IV SCH (20:51)
[2020-05-01] MEDS: INSULIN GLARGINE SOLOSTAR 100 UNITS/ML 3 ML PEN SQ SCH (21:55)
--- NOTE | 2020-05-02 20:15 | Nephrology Progress Note ---
Date of Service May 02, 2020 Assessment & Plan (1) Acute kidney failure with tubular necrosis: 60-year-old male with history of poorly controlled diabetes with multiple complication, hypertension, coronary artery disease admitted with DKA and found to have ARIANA with non gap metabolic acidosis. UA with 3 + P, USG with echogenic kidney. Although no prior record available it is quite possible that patient has underlying advanced CKD in the setting of multiple risk factors. Required hD for oliguria , worsening renal function and electrolyte abnormality. Off of HD since 04/27/20 , TDC removed on 05/01/20 as Cr has been stable, electrolyte acceptable, non oliguric and BP controlled. Waiting on DC to rehab close to [facility]. --check renal panel in am --avoid nephrotoxic meds, dos emeds for GFR <30 --left arm nephrology precaution for AVF in future --schedule out pt nephrology f/u with nephrology group in [place]. Will follow while in patient. (2) Anemia: (3) DMII (diabetes mellitus, type 2): (4) Osteomyelitis of right tibia: (5) Stage 4 chronic kidney disease due to arterionephrosclerosis: Admission and Anticipated Discharge Date Admission Date: April 14, 2020 Subjective Vivek was seen and evaluated this morning. Overall feeling well, denies SOB, CP, F/C, appetite has been good. UO decent BP well controlled. Review of Systems Review of Systems: All systems reviewed & are unremarkable except as noted in Subjective Physical Exam Constitutional: well developed and well nourished; no acute distress Respiratory: normal respiratory effort, lungs clear to auscultation Cardiovascular: Rate/Rhythm: regular rate and regular rhythm Heart Sounds: normal S1 and normal S2 Neurologic: moves all extremities and awake; not confused Psychiatric: A+Ox3, euthymic affect PG Care Time/CCT Total # of Minutes Spent Total Time Spent with Patient: Total time spent is greater than 50% in coordination of care (as documented) at patient's floor/unit and/or counseling patient: Coding Level of Care Code 74400 Subseq Hosp Care Lvl 3 Diagnoses Acute kidney failure with tubular necrosis N17.0 Anemia D64.9 DMII (diabetes mellitus, type 2) E11.9 Osteomyelitis of right tibia M86.9 Stage 4 chronic kidney disease due to arterionephrosclerosis I12.9; N18.4
[2020-05-02] MEDS: INSULIN HUMAN NPH SC SCH (21:04)
[2020-05-02] MEDS: INSULIN ASPART 100 UNITS/ML 3 ML PEN SC SCH ×2 (21:05→21:48)
[2020-05-02] MEDS: SACUBITRIL-VALSARTAN 49/51 MG TAB PO SCH ×2 (21:06→21:46)
[2020-05-02] MEDS: HEPARIN SOD 5,000 UNIT/0.5 ML VIAL SQ SCH ×2 (21:06→21:47)
[2020-05-02] MEDS: ASPIRIN 81 MG ECTAB PO SCH (21:06)
[2020-05-02] MEDS: DOCUSATE SODIUM/SENNA 50/8.6MG TAB PO SCH (21:07)
[2020-05-02] MEDS: DAPTOmycin 400 MG in SYRINGE 0 ML IV SCH (21:07)
[2020-05-02] MEDS: amLODIPine BESYLATE 5 MG TAB PO SCH (21:07)
[2020-05-02] MEDS: METOPROLOL SUCC 25MG EXT REL TAB PO SCH (21:07)
[2020-05-02] MEDS: ISOSORBIDE MONO EXTENDED REL 30 MG TABCR PO SCH (21:07)
[2020-05-02] MEDS: PANTOprazole 40 MG in SYRINGE 0 ML IV SCH ×2 (21:07→21:47)
[2020-05-02] MEDS: INSULIN GLARGINE SOLOSTAR 100 UNITS/ML 3 ML PEN SQ SCH (21:49)
[2020-05-03 06:18] LABS: Albumin Level 2.4 gm/dl (3.4-5.0); BUN Creatinine Ratio 13.8 (10-20); Calcium 8.3 mg/dl (8.5-10.1); Creatinine Clr Calc Pharmacy 26.6 ml/min; Est GFR (African American) 22.9; Est GFR (Non-African American) 19.7; Potassium 4.2 mmol/L (3.5-5.1)
[2020-05-03] MEDS: INSULIN HUMAN NPH SC SCH (08:51)
[2020-05-03] MEDS: PANTOprazole 40 MG in SYRINGE 0 ML IV SCH ×2 (08:52→21:16)
[2020-05-03] MEDS: INSULIN ASPART 100 UNITS/ML 3 ML PEN SC SCH ×4 (08:52→21:15)
[2020-05-03] MEDS: METOPROLOL SUCC 25MG EXT REL TAB PO SCH (08:52)
[2020-05-03] MEDS: DOCUSATE SODIUM/SENNA 50/8.6MG TAB PO SCH (08:53)
[2020-05-03] MEDS: amLODIPine BESYLATE 5 MG TAB PO SCH (08:53)
[2020-05-03] MEDS: SACUBITRIL-VALSARTAN 49/51 MG TAB PO SCH ×2 (08:53→21:14)
[2020-05-03] MEDS: HEPARIN SOD 5,000 UNIT/0.5 ML VIAL SQ SCH ×2 (08:53→21:15)
[2020-05-03] MEDS: ASPIRIN 81 MG ECTAB PO SCH (08:53)
[2020-05-03] MEDS: ISOSORBIDE MONO EXTENDED REL 30 MG TABCR PO SCH (08:53)
--- NOTE | 2020-05-03 10:58 | Nephrology Progress Note ---
Date of Service May 03, 2020 Assessment & Plan (1) Acute kidney failure with tubular necrosis: 60-year-old male with history of poorly controlled diabetes with multiple complication, hypertension, coronary artery disease admitted with DKA and found to have ARIANA with non gap metabolic acidosis. UA with 3 + P, USG with echogenic kidney. Although no prior record available it is quite possible that patient has underlying advanced CKD in the setting of multiple risk factors. Required hD for oliguria , worsening renal function and electrolyte abnormality. Off of HD since 04/27/20 , TDC removed on 05/01/20 as Cr has been stable, electrolyte acceptable, non oliguric and BP controlled. Waiting on DC to rehab close to [facility]. Renal function stable. BP, volume status acceptable. --avoid nephrotoxic meds, dos emeds for GFR <30 --left arm nephrology precaution for AVF in future --monitor renal function while in patient --schedule out pt nephrology f/u with nephrology group in [place]. Will sign off, please contact if any Q. Thanks for the consult (2) Anemia: * ADRIÁN has been provided w/ dialysis treatments. Hgb is now trending up * 04/29/20 iron sat 29% w/ ferritin 239. No acute indication for IV iron therapy (3) DMII (diabetes mellitus, type 2): (4) Osteomyelitis of right tibia: (5) Stage 4 chronic kidney disease due to arterionephrosclerosis: Admission and Anticipated Discharge Date Admission Date: April 14, 2020 Subjective Vivek was seen and evaluated this morning. Denies SOB, CP, F/C, appetite has been good. UO decent BP well controlled. Cr stable. Review of Systems Review of Systems: All systems reviewed & are unremarkable except as noted in Subjective Physical Exam Constitutional: WD/WN, vitals as above no acute distress Respiratory: normal respiratory effort, lungs clear to auscultation no cough Cardiovascular: RRR, no murmur, no edema Rate/Rhythm: regular rate and regular rhythm Heart Sounds: normal S1 and normal S2 Neurologic: awake; not confused Speech / Cognition: normal speech Psychiatric: A+Ox3, euthymic affect Results & Data ([facility]) Vital Signs (Past 12 Hours) Vital Signs Temp Pulse Resp BP Pulse Ox 05/03/20 07:18 37.0 C 80 16 149/70 H 95 PG Care Time/CCT Total # of Minutes Spent Total Time Spent with Patient: Total time spent is greater than 50% in coordination of care (as documented) at patient's floor/unit and/or counseling patient: Coding Level of Care Code 53906 Subseq Hosp Care Lvl 2 Diagnoses Acute kidney failure with tubular necrosis N17.0 Anemia D64.9 DMII (diabetes mellitus, type 2) E11.9 Osteomyelitis of right tibia M86.9 Stage 4 chronic kidney disease due to arterionephrosclerosis I12.9; N18.4
--- NOTE | 2020-05-03 19:39 | Hospitalist Progress Note ---
Date of Service May 03, 2020 Assessment & Plan (1) Post-operative state: s/p Right Below Knee Amputation Stump Revision and Incision and Drainage Deep Abscess Right Below Knee Amputation Stump on 04/26. Recovering well post operatively. Follow-up with orthopedics postoperatively as outpatient. (2) Acute renal failure: Tunneled dialysis catheter was removed by vascular surgery on 05/01. Patient tolerated the procedure well. Will repeat BMP in a couple of days. No further indication for hemodialysis at this time. (3) Fungemia: Yeast on wound culture in revised RLE limb and in admission blood cultures. Per ID, Continue caspofungin intravenously for 2 more weeks since the date of surgery -today is Day . (4) Osteomyelitis: Distal right tibial osteomyelitis Status post right complete revision below-knee amputation on 04/26/2020 Ortho has signed off and will see patient in post op followup as outpatient. Most recent deep wound culture reveals MRSA and abx were changed from cefazolin to Daptomycin, with today being Day 5. Patient requires this for 6 weeks. (5) Ischemic cardiomyopathy: EF 45%, appears compensated at this time. Not very active as a bilateral amputee without prosthetics and with a RLE wound. Cont current medical management. Follow-up with cardiology as outpatient. (6) Hx of CABG: CAD with h/o CABG, 2017 performed at a hospital in [facility]. Prior records received this admission and placed in chart. Cardiac arrest reported leading to digital ischemia and amputation of distal fingers of right hand. Current active Smoker-discussed above. Cont current medication management. (7) Current smoker: He understands that active smoking confers a higher risk of cardiovascular event. He feels he can control his habit at will without any nicotine supplementation or other assistance. Continue to encourage him to stay quit. (8) S/P bilateral BKA (below knee amputation): Pt reports having had multiple revision surgeries over the years and is a long standing uncontrolled diabetic smoker. Has had a most recent revision surgery in the right residual limb on 04/26 as above for infection. (9) Pressure-induced deep tissue damage of unspecified buttock: local wound care and stay off this area. Has stage 3-4 bilateral buttock decubiti Please see the picture for details Continue with wound care (10) Demand ischemia: Type II [place] due to demand ischemia and DKA. No evidence of ACS this admission with elevated trop on admission thought 2/2 demand ischemia on ad mission in setting of DKA and low EF. Cont medical management of CAD. (11) DMII (diabetes mellitus, type 2): Initially presented in DKA with presumed infection as cause of hyperglycemia in addition to noncompliance. This has resolved. Currently controlled on basal and bolus insulin (12) DVT prophylaxis: Heparin DNR/DNI Dispo-Doing well, has established care with Dr. Ohara. Needs close follow-up with him after discharge. [facility] and Anticipated Discharge Date Admission Date: April 14, 2020 Subjective cc: 60-year-old diabetic man status post right residual limb revision secondary to osteomyelitis and fungal infection. -Orthopedic wound is wrapped in Jhonatan wrap and not giving the patient any problems today. -Tolerating p.o. -Denies any pain -BMP trend reflects improving creatinine Review of Systems Review of Systems: All systems reviewed & are unremarkable except as noted in Subjective Physical Exam Physical Exam: CONSTITUTIONAL: WNWD, vitals as above, generally well- appearing EYES: normal conjunctivae, no scleral icterus ENT: external ear and nose normal, MMM RESPIRATORY: clear to auscultation bilaterally, no crackles, rales or wheezes, normal respiratory effort CARDIOVASCULAR: regular rate and rhythm, S1 and 2 heard without murmurs, gallops or rubs, no JVD, bilateral BKA, R residual limb wrapped in JHONATAN, R hand s/p distal multidigit amputation. Postop site looks good after removal of tunneled catheter from anterior chest wall, no surrounding redness or drainage present. GASTROINTESTINAL: soft, nontender, nondistended, protuberant. MUSCULOSKELETAL: strength 5/5 throughout, head is normocephalic and atraumatic SKIN: warm and dry, RLE wound-covered. Buttock wounds (Stage III/IV with eschar on left lateral wound, Stage III intergluteal fold wound that is open)-no surrounding ecchymosis, which has resolved since admission. Aquacel and Optifoam are in place. Bilateral lower extremity amputee with RLE wound from recent revision surgery not visualized. NEUROLOGIC: No facial palsy, no dysarthria. CN 2-12 grossly intact, normal cognition, normal speech, no tremor. No gross focal deficits. PSYCHIATRIC: alert cooperative and oriented to person, place and time. Results & Data Results & Data ([facility]) Vital Signs (Past 12 Hours) Vital Signs Temp Pulse Resp BP Pulse Ox 05/03/20 15:24 37.0 C 80 16 124/58 L 95 Laboratory Results BMP 05/03/20 05:50 Sodium 140 Potassium 4.2 Chloride 109 H Carbon Dioxide 25 BUN 44 H Creatinine 3.21 H Glucose 147 H Calcium 8.3 L Cardiac Enzymes 05/03/20 Range/Units 10:34 Total Creatine Kinase 65 (39-308) U/L Liver Function 05/03/20 Range/Units 05:50 Albumin 2.4 L (3.4-5.0) gm/dl Medications Administered Current Inpatient Medications Acetaminophen (Acetaminophen 325 Mg Tab) 650 mg PO Q4H PRN PRN Reason: Pain or Fever Stop: 05/14/20 19:30 Last Admin: 04/27/20 16:13 Dose: 650 mg Documented by: Amlodipine Besylate (Amlodipine Besylate 5 Mg Tab) 10 mg PO [facility] Stop: 05/16/20 08:59 Last Admin: 05/03/20 08:53 Dose: 10 mg Documented by: Artificial Tears (Artificial Tears) 1 drops OP QID PRN PRN Reason: Dry Eyes Stop: 05/26/20 11:18 Aspirin (Aspirin 81 Mg Ectab) [facility] Stop: 05/15/20 08:59 Last Admin: 05/03/20 08:53 Dose: 81 mg Documented by: Atorvastatin Calcium (Atorvastatin 40 Mg Tab) 40 mg PO DAILY [facility] Stop: 05/19/20 08:59 Last Admin: 04/28/20 10:01 Dose: 40 mg Documented by: Dextrose (Dextrose 50% 50 Ml Syringe) 25 - 50 ml IV UD PRN; Protocol PRN Reason: Hypoglycemia Protocol Stop: 05/14/20 19:30 Fenofibrate (Fenofibrate Nanocrystallized 145 Mg Tablet) [facility] Stop: 05/16/20 08:59 Last Admin: 04/28/20 10:04 Dose: 145 mg Documented by: Glucagon (Glucagon For Inj 1 Mg Vial) 1 mg SQ UD PRN; Protocol PRN Reason: Hypoglycemia Protocol Stop: 05/14/20 19:30 Glucose (Glucose 10 Tabs/Tube) 4 - 8 tabs PO UD PRN; Protocol PRN Reason: Hypoglycemia Protocol Stop: 05/14/20 19:30 Glucose (Glucose 40% Gel 15 Gm Tube) 15 - 30 gm PO UD PRN; Protocol PRN Reason: Hypoglycemia Protocol Stop: 05/14/20 19:30 Heparin Sodium (Porcine) (Heparin Sod 5,000 Unit/0.5 Ml Vial) 5,000 units SQ Q12 [facility] Stop: 05/17/20 20:59 Last Admin: 05/03/20 08:53 Dose: Not Given Documented by: Hydromorphone HCl (Hydromorphone Inj 0.5 Mg/0.5 Ml Syr) 0.5 mg IV Q4H PRN PRN Reason: Pain Stop: 05/10/20 11:05 Last Admin: 04/27/20 00:28 Dose: 0.5 mg Documented by: Pantoprazole Sodium 40 mg/ (Syringe) 10 mls @ 5 mls/min IV BID [facility] Stop: 05/18/20 03:59 Last Admin: 05/03/20 08:52 Dose: 5 mls/min Documented by: Daptomycin 400 mg/ Sodium (Chloride) 58 mls @ 116 mls/hr IV Q48H [facility]; Protocol Stop: 05/18/20 13:59 Insulin Aspart (Insulin Aspart 100 Units/Ml 3 Ml Pen) 0 units SC ACHS [facility] Stop: 05/31/20 11:29 Last Admin: 05/03/20 18:33 Dose: Not Given Documented by: Insulin Glargine (Insulin Glargine Solostar 100 Units/Ml 3 Ml Pen) 10 units SQ QPM [facility] Stop: 05/26/20 20:59 Last Admin: 05/02/20 21:49 Dose: 10 units Documented by: Insulin Human NPH (Insulin Human Nph) 0 units SC QDB [facility]; Protocol Stop: 05/27/20 07:29 Last Admin: 05/03/20 08:51 Dose: 25 units Documented by: Isosorbide Mononitrate (Isosorbide [place] Extended Rel 30 Mg Tabcr) 30 mg PO QAM [facility] Stop: 05/22/20 11:14 Last Admin: 05/03/20 08:53 Dose: 30 mg Documented by: Melatonin (Melatonin 3 Mg Tab) 3 mg PO HS PRN PRN Reason: Sleep Stop: 05/14/20 19:30 Last Admin: 04/20/20 22:53 Dose: 3 mg Documented by: Metoprolol Succinate (Metoprolol Succ 25mg Ext Rel Tab) 25 mg PO QAM [facility] Stop: 05/16/20 08:59 Last Admin: 05/03/20 08:52 Dose: 25 mg Documented by: Miscellaneous (Carbohydrates For Hypoglycemia ) 15 - 30 gm PO UD PRN PRN Reason: Hypoglycemia Protocol Stop: 05/14/20 19:30 Miscellaneous Information (Daptomycin Consult Active) 1 ea N/A UD PRN PRN Reason: Consult Stop: 05/28/20 12:45 Nitroglycerin (Nitroglycerin Sl 0.4 Mg/Tab Tab) 0.4 mg SL UD PRN PRN Reason: Chest Pain Stop: 05/14/20 19:30 Ondansetron HCl (Ondansetron Inj 2 Mg/Ml 2 Ml Vial) 4 mg IV Q6H PRN PRN Reason: Nausea Stop: 05/14/20 19:30 Oxycodone HCl (Oxycodone Hcl Ir 5 Mg Tab (Immediate Release)) 5 mg PO Q4H PRN PRN Reason: Pain Stop: 05/10/20 11:05 Last Admin: 04/28/20 13:53 Dose: 5 mg Documented by: Sacubitril/Valsartan (Sacubitril-Valsartan 49/51 Mg Tab) 1 tab PO BID [facility] Stop: 05/26/20 20:59 Last Admin: 05/03/20 08:53 Dose: 1 tab Documented by: Senna/Docusate Sodium (Docusate Sodium/Senna 50/8.6mg Tab) 1 tab PO QAM [facility] Stop: 05/21/20 20:04 Last Admin: 05/03/20 08:53 Dose: 1 tab Documented by: (1) Osteomyelitis Laterality: unspecified laterality Osteomyelitis type: unspecified type
[2020-05-03] MEDS: INSULIN GLARGINE SOLOSTAR 100 UNITS/ML 3 ML PEN SQ SCH (21:15)
[2020-05-04 08:07] LABS: Albumin Level 2.4 gm/dl (3.4-5.0); BUN Creatinine Ratio 13.9 (10-20); Calcium 8.6 mg/dl (8.5-10.1); Creatinine Clr Calc Pharmacy 28.6 ml/min; Est GFR (African American) 24.9; Est GFR (Non-African American) 21.5; Phosphorus 3.3 mg/dl (2.5-4.9); Potassium 4.3 mmol/L (3.5-5.1)
[2020-05-04] MEDS: INSULIN HUMAN NPH SC SCH (08:39)
[2020-05-04] MEDS: INSULIN ASPART 100 UNITS/ML 3 ML PEN SC SCH ×4 (08:40→21:06)
[2020-05-04] MEDS: PANTOprazole 40 MG in SYRINGE 0 ML IV SCH ×2 (08:41→21:09)
[2020-05-04] MEDS: ASPIRIN 81 MG ECTAB PO SCH (08:47)
[2020-05-04] MEDS: SACUBITRIL-VALSARTAN 49/51 MG TAB PO SCH ×2 (08:47→21:08)
[2020-05-04] MEDS: ISOSORBIDE MONO EXTENDED REL 30 MG TABCR PO SCH (08:48)
[2020-05-04] MEDS: amLODIPine BESYLATE 5 MG TAB PO SCH (08:48)
[2020-05-04] MEDS: HEPARIN SOD 5,000 UNIT/0.5 ML VIAL SQ SCH ×2 (08:48→21:09)
[2020-05-04] MEDS: DOCUSATE SODIUM/SENNA 50/8.6MG TAB PO SCH (08:49)
[2020-05-04] MEDS: METOPROLOL SUCC 25MG EXT REL TAB PO SCH (08:49)
--- NOTE | 2020-05-04 16:12 | Hospitalist Progress Note ---
Date of Service May 04, 2020 Assessment & Plan (1) Post-operative state: s/p Right Below Knee Amputation Stump Revision and Incision and Drainage Deep Abscess Right Below Knee Amputation Stump on 04/26. Recovering well post operatively. Follow-up with orthopedics postoperatively as outpatient. (2) Acute renal failure: Tunneled dialysis catheter was removed by vascular surgery on 05/01. Patient tolerated the procedure well. Will repeat BMP in a couple of days. No further indication for hemodialysis at this time. (3) Fungemia: Yeast on wound culture in revised RLE limb and in admission blood cultures. Per ID, Continue caspofungin intravenously for 2 more weeks since the date of surgery -today is Day . (4) Osteomyelitis: Distal right tibial osteomyelitis Status post right complete revision below-knee amputation on 04/26/2020 Ortho has signed off and will see patient in post op followup as outpatient. Most recent deep wound culture reveals MRSA and abx were changed from cefazolin to Daptomycin, with today being Day 6. Patient requires this for 6 weeks. (5) Ischemic cardiomyopathy: EF 45%, appears compensated at this time. Not very active as a bilateral amputee without prosthetics and with a RLE wound. Cont current medical management. Follow-up with cardiology as outpatient. (6) Hx of CABG: CAD with h/o CABG, 2017 performed at a hospital in [facility]. Prior records received this admission and placed in chart. Cardiac arrest reported leading to digital ischemia and amputation of distal fingers of right hand. Current active Smoker-discussed above. Cont current medication management. (7) Current smoker: He understands that active smoking confers a higher risk of cardiovascular event. He feels he can control his habit at will without any nicotine supplementation or other assistance. Continue to encourage him to stay quit. (8) S/P bilateral BKA (below knee amputation): Pt reports having had multiple revision surgeries over the years and is a long standing uncontrolled diabetic smoker. Has had a most recent revision surgery in the right residual limb on 04/26 as above for infection. (9) Pressure-induced deep tissue damage of unspecified buttock: local wound care and stay off this area. Has stage 3-4 bilateral buttock decubiti Please see the picture for details Continue with wound care (10) Demand ischemia: Type II [place] due to demand ischemia and DKA. No evidence of ACS this admission with elevated trop on admission thought 2/2 demand ischemia on ad mission in setting of DKA and low EF. Cont medical management of CAD. (11) DMII (diabetes mellitus, type 2): Initially presented in DKA with presumed infection as cause of hyperglycemia in addition to noncompliance. This has resolved. Currently controlled on basal and bolus insulin (12) DVT prophylaxis: Heparin DNR/DNI Dispo-Doing well, has established care with Dr. Ohara. Needs close follow-up with him after discharge. [facility] Ad[facility] and Anticipated Discharge Date Admission Date: April 14, 2020 Subjective cc: 60-year-old diabetic man status post right residual limb revision secondary to osteomyelitis and fungal infection. -Orthopedic wound is wrapped in Jhonatan wrap and not giving the patient any problems today. -Tolerating p.o. -Denies any pain Review of Systems Review of Systems: All systems reviewed & are unremarkable except as noted in Subjective Physical Exam Physical Exam: CONSTITUTIONAL: WNWD, vitals as above, generally well- appearing EYES: normal conjunctivae, no scleral icterus ENT: external ear and nose normal, MMM RESPIRATORY: clear to auscultation bilaterally, no crackles, rales or wheezes, normal respiratory effort CARDIOVASCULAR: regular rate and rhythm, S1 and 2 heard without murmurs, gallops or rubs, no JVD, bilateral BKA, R residual limb wrapped in JHONATAN, R hand s/p distal multidigit amputation. Postop site looks good after removal of tunneled catheter from anterior chest wall, no surrounding redness or drainage present. GASTROINTESTINAL: soft, nontender, nondistended, protuberant. MUSCULOSKELETAL: strength 5/5 throughout, head is normocephalic and atraumatic SKIN: warm and dry, RLE wound-covered. Buttock wounds (Stage III/IV with eschar on left lateral wound, Stage III intergluteal fold wound that is open)-no surrounding ecchymosis, which has resolved since admission. Aquacel and Optifoam are in place. Bilateral lower extremity amputee with RLE wound from recent revision surgery not visualized. NEUROLOGIC: No facial palsy, no dysarthria. CN 2-12 grossly intact, normal cognition, normal speech, no tremor. No gross focal deficits. PSYCHIATRIC: alert cooperative and oriented to person, place and time. Results & Data Results & Data ([facility]) Vital Signs (Past 12 Hours) Vital Signs Temp Pulse Resp BP Pulse Ox 05/04/20 07:17 36.9 C 75 16 177/84 H 96 Laboratory Results [facility] 05/04/20 06:53 Sodium 142 Potassium 4.3 Chloride 111 H Carbon Dioxide 24 BUN 42 H Creatinine 2.99 H Glucose 124 H Calcium 8.6 Liver Function 05/04/20 Range/Units 06:53 Albumin 2.4 L (3.4-5.0) gm/dl Medications Administered Current Inpatient Medications Acetaminophen (Acetaminophen 325 Mg Tab) 650 mg PO Q4H PRN PRN Reason: Pain or Fever Stop: 05/14/20 19:30 Last Admin: 04/27/20 16:13 Dose: 650 mg Documented by: Amlodipine Besylate (Amlodipine Besylate 5 Mg Tab) [facility] Stop: 05/16/20 08:59 Last Admin: 05/04/20 08:48 Dose: 10 mg Documented by: Artificial Tears (Artificial Tears) 1 drops OP QID PRN PRN Reason: Dry Eyes Stop: 05/26/20 11:18 Aspirin (Aspirin 81 Mg Ectab) [facility] Stop: 05/15/20 08:59 Last Admin: 05/04/20 08:47 Dose: 81 mg Documented by: Atorvastatin Calcium (Atorvastatin 40 Mg Tab) [address] [facility] Stop: 05/19/20 08:59 Last Admin: 04/28/20 10:01 Dose: 40 mg Documented by: Dextrose (Dextrose 50% 50 Ml Syringe) 25 - 50 ml IV UD PRN; Protocol PRN Reason: Hypoglycemia Protocol Stop: 05/14/20 19:30 Fenofibrate (Fenofibrate Nanocrystallized 145 Mg Tablet) [facility] [place] Stop: 05/16/20 08:59 Last Admin: 04/28/20 10:04 Dose: 145 mg Documented by: Glucagon (Glucagon For Inj 1 Mg Vial) 1 mg SQ UD PRN; Protocol PRN Reason: Hypoglycemia Protocol Stop: 05/14/20 19:30 Glucose (Glucose 10 Tabs/Tube) 4 - 8 tabs PO UD PRN; Protocol PRN Reason: Hypoglycemia Protocol Stop: 05/14/20 19:30 Glucose (Glucose 40% Gel 15 Gm Tube) 15 - 30 gm PO UD PRN; Protocol PRN Reason: Hypoglycemia Protocol Stop: 05/14/20 19:30 Heparin Sodium (Porcine) (Heparin Sod 5,000 Unit/0.5 Ml Vial) 5,000 units SQ Q12 [facility] Stop: 05/17/20 20:59 Last Admin: 05/04/20 08:48 Dose: Not Given Documented by: Hydromorphone HCl (Hydromorphone Inj 0.5 Mg/0.5 Ml Syr) 0.5 mg IV Q4H PRN PRN Reason: Pain Stop: 05/10/20 11:05 Last Admin: 04/27/20 00:28 Dose: 0.5 mg Documented by: Pantoprazole Sodium 40 mg/ (Syringe) 10 mls @ 5 mls/min IV BID [facility] Stop: 05/18/20 03:59 Last Admin: 05/04/20 08:41 Dose: 5 mls/min Documented by: Daptomycin 400 mg/ Sodium (Chloride) 58 mls @ 116 mls/hr IV Q48H [facility]; Protocol Stop: 05/18/20 13:59 Last Infusion: 05/04/20 13:45 Dose: Infused Documented by: Insulin Aspart (Insulin Aspart 100 Units/Ml 3 Ml Pen) [address] [facility] Stop: 05/31/20 11:29 Last Admin: 05/04/20 12:31 Dose: Not Given Documented by: Insulin Glargine (Insulin Glargine Solostar 100 Units/Ml 3 Ml Pen) 10 units SQ QPM [facility] Stop: 05/26/20 20:59 Last Admin: 05/03/20 21:15 Dose: 10 units Documented by: Insulin Human NPH (Insulin Human Nph) [address] [facility]; Protocol Stop: 05/27/20 07:29 Last Admin: 05/04/20 08:39 Dose: 25 units Documented by: Isosorbide Mononitrate (Isosorbide [place] Extended Rel 30 Mg Tabcr) [address] [facility] Stop: 05/22/20 11:14 Last Admin: 05/04/20 08:48 Dose: 30 mg Documented by: Melatonin (Melatonin 3 Mg Tab) 3 mg PO HS PRN PRN Reason: Sleep Stop: 05/14/20 19:30 Last Admin: 04/20/20 22:53 Dose: 3 mg Documented by: Metoprolol Succinate (Metoprolol Succ 25mg Ext Rel Tab) 25 mg PO QAM [facility] Stop: 05/16/20 08:59 Last Admin: 05/04/20 08:49 Dose: 25 mg Documented by: Miscellaneous (Carbohydrates For Hypoglycemia ) 15 - 30 gm PO UD PRN PRN Reason: Hypoglycemia Protocol Stop: 05/14/20 19:30 Miscellaneous Information (Daptomycin Consult Active) 1 ea N/A UD PRN PRN Reason: Consult Stop: 05/28/20 12:45 Nitroglycerin (Nitroglycerin Sl 0.4 Mg/Tab Tab) 0.4 mg SL UD PRN PRN Reason: Chest Pain Stop: 05/14/20 19:30 Ondansetron HCl (Ondansetron Inj 2 Mg/Ml 2 Ml Vial) 4 mg IV Q6H PRN PRN Reason: Nausea Stop: 05/14/20 19:30 Oxycodone HCl (Oxycodone Hcl Ir 5 Mg Tab (Immediate Release)) 5 mg PO Q4H PRN PRN Reason: Pain Stop: 05/10/20 11:05 Last Admin: 04/28/20 13:53 Dose: 5 mg Documented by: Sacubitril/Valsartan (Sacubitril-Valsartan 49/51 Mg Tab) 1 tab PO BID [facility] Stop: 05/26/20 20:59 Last Admin: 05/04/20 08:47 Dose: 1 tab Documented by: Senna/Docusate Sodium (Docusate Sodium/Senna 50/8.6mg Tab) 1 tab PO QAM [facility] Stop: 05/21/20 20:04 Last Admin: 05/04/20 08:49 Dose: 1 tab Documented by: (1) Osteomyelitis Laterality: unspecified laterality Osteomyelitis type: unspecified type
[2020-05-04] MEDS: INSULIN GLARGINE SOLOSTAR 100 UNITS/ML 3 ML PEN SQ SCH (21:05)
[2020-05-05 07:26] LABS: Albumin Level 2.5 gm/dl (3.4-5.0); BUN Creatinine Ratio 14.6 (10-20); Calcium 8.7 mg/dl (8.5-10.1); Creatinine Clr Calc Pharmacy 31.2 ml/min; Est GFR (African American) 27.7; Est GFR (Non-African American) 23.9; Phosphorus 3.4 mg/dl (2.5-4.9); Potassium 3.9 mmol/L (3.5-5.1)
[2020-05-05] MEDS: PANTOprazole 40 MG in SYRINGE 0 ML IV SCH (08:46)
[2020-05-05] MEDS: INSULIN ASPART 100 UNITS/ML 3 ML PEN SC SCH (08:46)
[2020-05-05] MEDS: INSULIN HUMAN NPH SC SCH (08:46)
[2020-05-05] MEDS: SACUBITRIL-VALSARTAN 49/51 MG TAB PO SCH (08:47)
[2020-05-05] MEDS: METOPROLOL SUCC 25MG EXT REL TAB PO SCH (08:47)
[2020-05-05] MEDS: ISOSORBIDE MONO EXTENDED REL 30 MG TABCR PO SCH (08:47)
[2020-05-05] MEDS: ASPIRIN 81 MG ECTAB PO SCH (08:48)
[2020-05-05] MEDS: amLODIPine BESYLATE 5 MG TAB PO SCH (08:48)
[2020-05-05] MEDS: DOCUSATE SODIUM/SENNA 50/8.6MG TAB PO SCH (08:48)
[2020-05-05] MEDS: HEPARIN SOD 5,000 UNIT/0.5 ML VIAL SQ SCH (08:55)
--- NOTE | 2020-05-05 09:27 | Discharge Summary ---
Date of Service May 05, 2020 Admission HPI Per Admitting Provider History Limited by - Patient is a vague historian. Mr. Joelle Romero is a 60 y/o male with past medical hx of CABG (01/2020), Insulin dependent diabetes, PVD, bilateral BKA, current smoker who presents to [facility] for CC of Hyperglycemia. He notes elevated blood sugars today greater than 500 that started today. He notes he doesn't check his blood sugars on a daily basis and only checked because he generally started not to feel well over the past 2 days. He notes polyuria, polydipsia. He notes he has no hx of dialysis or kidney failure. He denies dysuria or anuric. He denies chest pain, shortness of breath, nausea, vomiting, fever, chills. He notes that he recently relocated to the area from [place] to live with daughter. Unfortunately, he refused contact information. He notes he takes Lantus 30 units qAM and notes he took it this morning. He denies any recent missed doses. He said he had an appt to see provider in area to establish care but has not seen anyone yet. He denies being on oral diabetic medication. He denies any recent illness for cause, denies recent prednisone use, denies changes in diet. He was not aware of a wound to his right lower distal extremity. He also denies being on any current antibiotics or having He notes BKA bilaterally years ago. He notes he had a CABG performed in [place] about 2 months ago. He denies this was an intervention for acute CO. He noted a recent fall upon discussion of abrasions on distal lower extremities but denies any significant injury. In the ED, he had WBC of 9, platelets 88, creatinine 4.93, Glucose 461, bG values >500, trop 0.119, Beta-OH 24.9, CO2 19, Venous blood gas 7.34, ABG pH 7.43, pCO2 28, pO2 67, ABG HCO3 18. Xray of RLE showed: 1. Postoperative changes of below the knee amputation with diffuse soft tissue swelling and soft tissue ulceration at the distal amputation stump. 2. Cortical and periosteal thickening with cortical irregularity involves the distal tibia which may reflect sequela of chronic osteomyelitis. No definite osseous erosions to suggest acute osteomyelitis. In the ED, he was treated with Daptomycin 500mg IV, ASA 324mg PO, Regular Insulin 8 units, zofran 4mg IV, 2L NSS. Admission Exam Per Admitting Provider Constitutional: + ill appearing, + obese, cooperative and comfortable; no acute distress Eyes: PERRL, conjunctivae normal, anicteric sclerae ENMT: dry mucous membranes Neck: trachea midline; neck nontender Respiratory: normal respiratory effort, lungs clear to auscultation Cardiovascular: Rate/Rhythm: regular rhythm and + tachycardic Gastrointestinal (Abdomen): Percussion/Palpation: abdomen nontender, no guarding, abdomen not rigid and + abdomen not soft Musculoskeletal: Bilateral BKA with prior amputation of distal digits of right hand. 10cm wound to distal RLE without appreciated increase in warmth with with erythema. Multiple abrasions to LLE that appear more acute. 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 Postop state status post right below the knee amputation stump revision and incision and drainage of deep abscess on 04/26 Acute renal failure status post hemodialysis, temporary with tunneled dialysis catheter placed on 04/17, removed on 05/01 Fungemia Osteomyelitis of distal right residual limb Ischemic cardiomyopathy History of CABG Current smoker Pressure induced deep tissue damage of unspecificed buttock, stage III-IV Demand ischemia Type 2 diabetes mellitus, insulin-dependent and uncontrolled with complications Discharge Exam CONSTITUTIONAL: WNWD, vitals as above, generally well-appearing EYES: normal conjunctivae, no scleral icterus ENT: external ear and nose normal, MMM RESPIRATORY: clear to auscultation bilaterally, no crackles, rales or wheezes, normal respiratory effort CARDIOVASCULAR: regular rate and rhythm, S1 and 2 heard without murmurs, gallops or rubs, no JVD, bilateral BKA, R residual limb wrapped in AMARIS, R hand s/p distal multidigit amputation. Postop site looks good after removal of tunneled catheter from anterior chest wall, no surrounding redness or drainage present. GASTROINTESTINAL: soft, nontender, nondistended, protuberant. MUSCULOSKELETAL: strength 5/5 throughout, head is normocephalic and atraumatic SKIN: warm and dry, RLE wound-covered. Buttock wounds (Stage III/IV with eschar on left lateral wound, Stage III intergluteal fold wound that is open)-no surrounding ecchymosis, which has resolved since admission. Aquacel and Optifoam are in place. Bilateral lower extremity amputee with RLE wound from recent revision surgery not visualized. NEUROLOGIC: No facial palsy, no dysarthria. CN 2-12 grossly intact, normal cognition, normal speech, no tremor. No gross focal deficits. PSYCHIATRIC: alert cooperative and oriented to person, place and time. Discharge Data Allergies Allergy/AdvReac Type Severity Reaction Status Date / Time No Known Allergies Allergy Unverified 04/14/20 15:35 Consultations 04/14/20 15:47 ED Decision to Admit Stat 04/14/20 19:31 Consult Nephrology Routine 04/16/20 15:46 Consult Cardiology Routine 04/17/20 09:49 Consult Vascular Surgery Routine 04/17/20 11:00 Consult Orthopedic Surgery Routine 04/17/20 11:01 Consult Infectious Diseases Routine 04/18/20 03:38 Consult Gastroenterology Routine 04/28/20 10:27 Consult Case Management - Discharge Planning Routine Procedures Performed Operation Date: 04/17/20 09:30 Actual Procedures p Insertion Of Perm Cather, Right Internal Jugular Approach, Ultrasound Localization Of Right Internal Jugular Vein, Fluoroscopy For Positioning, Moderate Concious Sedation 1242 to 1301(Right) - Bobby Harris MD Operation Date: 04/26/20 07:30 Actual Procedures p Right Below Knee Amputation Stump Revision and (Right) - Vladimir Cantu DO s Incision and Drainage Deep Abscess Right Below Knee Amputation Stump(Right) - Vladimir Cantu DO Operation Date: 05/01/20 08:00 Actual Procedures p Perm Catheter Removal(Right) - Bobby Harris MD Ordered Studies [facility], [id number] CT Scan Report Patient: JOELLE ROMEROAdmit Date: 04/14/20MR#: [id number]: [address] [place] [address]Acct ID:[id number]: Date: [address] Zip: [place], [place] [address]Ilr: 60Location: 2WSex: MRoom/Bed: [id number] Phy: Pallavi Sparks, DODiagnosis: HyperglycemiaPri Phy: Vipin La, III, MDService Date: 04/18/20Fa Phy:Interpreting Phy: Jonas Treadwell MDAdmit Phy: Jurgen Landeros DO Ordering Phy: Gurpreet Solano MD cc: ~ CT SCAN OF THE ABDOMEN AND PELVIS WITHOUT CONTRAST CLINICAL HISTORY: Diffuse abdominal pain COMPARISON STUDY: Renal ultrasound dated 04/15/2020, CT scan dated 09/13/2011 TECHNIQUE: CT scan of the abdomen and pelvis was performed from the lung bases to the proximal femurs. Images are reviewed in the axial, sagittal, and coronal planes. IV contrast was not administered for this examination. A dose lowering technique was utilized adhering to the principles of ALARA. CT DOSE: 1232.33 mGy.cm FINDINGS: Lower chest: There are basilar atelectatic changes. There are no large pleural effusions Liver: The unenhanced liver is normal in size, contour, and attenuation. There is no intrahepatic biliary ductal dilatation. Gallbladder: Contracted Spleen: Mildly enlarged measuring 14.6 cm Pancreas: Unremarkable. Adrenal glands: Unremarkable. Kidneys: There is mild bilateral perinephric stranding. No renal, ureteral, or bladder calculi are visualized. Bowel: There are no transition zones indicate bowel obstruction. There is no evidence of acute appendicitis. There is no evidence of acute diverticulitis. Peritoneum: There is no intraperitoneal free air or abdominal ascites. Vasculature: The abdominal aorta is normal in course and caliber. Adenopathy: There are borderline enlarged para-aortic and iliac chain lymph nodes. Pelvic viscera: There is an indwelling Pal catheter. There is bladder wall thickening. Skeletal structures: No destructive osseous lesions are seen. There is a nonspecific 2 cm right anterolateral abdominal wall nodule. IMPRESSION: 1. No evidence of bowel obstruction. No evidence of free air 2. Normal appendix. No evidence of acute diverticulitis 3. Bilateral perinephric stranding left greater than right. No renal, ureteral, or bladder calculi identified. 4. Mild splenomegaly 5. Bladder wall thickening 6. Borderline enlarged retroperitoneal lymph nodes 7. Nonspecific 2 cm right anterolateral abdominal wall nodule. ACT 112: Negative or not required by law. Electronically signed by: Jonas Treadwell M.D. 04/18/2020 8:57 AM Dictated: 11/21/20 0851Transcribed: 04/18/20 0851 ------ [facility], [id number] Magnetic Resonance Report Patient: JOELLE ROMEROAdmit Date: 04/14/20#: [id number]: [address] [place] [address]Acct ID:[id number]: Date: [address] Zip: [place], [place] [address]Npc: 60Location: 2SSex: MRoom/Bed: [id number] Phy: David Bernabe, MDDiagnosis: HyperglycemiaPri Phy: Vipin La, III, MDService Date: 04/15/20Fam Phy:Interpreting Phy: Derick Lanier [facility]AL[facility]mit Phy: Jurgen Landeros DO Ordering Phy: Vivek Aviles DO cc: ~ MRI OF THE RIGHT TIBIA AND FIBULA WITHOUT IV CONTRAST CLINICAL HISTORY: Chronic osteomyelitis. Wound. COMPARISON STUDY: Radiographs of the right tibia and fibula dated 04/14/2020. TECHNIQUE: MRI of the right tibia and fibula is performed utilizing various T1 and T2-weighted sequences in the axial, sagittal, and coronal planes. IV contrast was not administered for this examination. The examination is compromised by motion artifact. FINDINGS: There has been amputation of the right lower extremity through the proximal tibial and fibular shafts. A cutaneous wound is suggested overlying the resection site. There is marrow edema identified within the tibial shaft at the resection site with corresponding drop in signal on the T1-weighted sequences and overlying cortical destruction. This is highly suggestive of osteomyelitis. There is overlying soft tissue edema and trace subcutaneous fluid. No organized fluid collection is seen to suggest abscess. No marrow signal abnormality is identified in the fibula. The visualized distal femur appears intact. There is generalized myositis of the visualized calf musculature with surrounding soft tissue edema. The knee joint is intact as visualized. There is a small joint effusion. The cruciate ligaments and menisci are intact as imaged. IMPRESSION: 1. There is postoperative change from right lower extremity amputation through the proximal tibial and fibular shaft. 2. Findings are highly suggestive of osteomyelitis of the tibial shaft at the resection site with evidence of overlying wound. 3. There is evidence of cellulitis and generalized myositis within the right lower extremity soft tissues. 4. No organized fluid collection is seen to suggest abscess. Dictated: 04/15/2020 5:51 PM Transcribed: 04/15/2020 6:18 PM Beti [id number] [facility] Electronically signed by: Derick Lanier M.D. 04/15/2020 6:25 PM Dictated: 04/15/20 1751Transcribed: 04/15/20 181 --------- [facility], [phone] Magnetic Resonance Report Patient: JOELLE ROMEROAdmit Date: 04/14/20#: [id number]: [address] [place] [address]Acct ID:[id number]: Date: [address] Zip: [place], [place] [address]Ymb: 60Location: 2SSex: MRoom/Bed: R732-8Ful Phy: David Bernabe, MDDiagnosis: HyperglycemiaPri Phy: Vipin La III, MDService Date: 04/15/20Fam Phy:Interpreting Phy: Derick Lanier MDAdmit Phy: Jurgen Landeros DO Ordering Phy: Vivek Aviles DO cc: ~ MRI OF THE LEFT TIBIA AND FIBULA WITHOUT IV CONTRAST CLINICAL HISTORY: Chronic osteomyelitis. Diabetic neuropathy. COMPARISON STUDY: Radiographs of the left knee dated 04/15/2020. TECHNIQUE: MRI of the left tibia and fibula is performed utilizing various T1- and T2-weighted sequences in the axial, sagittal, and coronal planes. IV contrast was not administered for this examination. FINDINGS: There has been left lower extremity amputation through the proximal shaft of the tibia and fibula. Normal marrow signal intensity is maintained throughout the remaining tibia and fibula. There is no MRI evidence of osteomyelitis. Soft tissue thickening is seen at the resection site. Question an ulceration at this site. No organized fluid collection is seen to indicate abscess. There is mild myositis and atrophy of the regional musculature. There is a small to moderate joint effusion of the left knee. Postoperative change is seen along the medial femoral condyle. The cruciate ligaments appear intact. Medial meniscal tear is noted. IMPRESSION: 1. There has been amputation of the left lower extremity through the proximal tibial and fibular shafts. 2. There is no MRI evidence of osteomyelitis of the remaining left tibia or fibula. 3. Question ulceration with surrounding soft tissue edema in the soft tissues near the resection site. Correlate clinically for evidence of cellulitis. 4. There is no organized fluid collection to suggest abscess. 5. There is atrophy and myositis of the regional musculature. Dictated: 04/15/2020 7:35 PM Transcribed: 04/15/2020 8:20 PM Tracey [id number] [facility] Electronically signed by: Derick Lanier M.D. 04/15/2020 8:31 PM Dictated: 04/15/20 1935Transcribed: 04/15/202019 [facility], [id number] XRay Report Patient: JOELLE ROMEROAdmsharan Date: 04/14/20#: [id number]: [address] [place] [address]Acct ID:[id number]: Date: [address] Zip: [place], [place] [address]Isb: 60Location: 2SSex: MRoom/Bed: P164-3Isu Phy: Marilne Yousif MDDiagnosis: HyperglycemiaPri Phy: Vipin La, III, MDService Date: 04/15/20Fam Phy:Interpreting Phy: Severiano Villanueva MDAdmit Phy: Jurgen Landeros DO Ordering Phy: Vivek Aviles DO cc: ~ ADDENDUM Addendum: Although the periosteal reaction is age indeterminate, this is probably chronic and not highly suggestive of acute osteomyelitis. This may reflect healing from amputation or chronic osteomyelitis. Electronically signed by: Severiano Villanueva M.D. 04/15/2020 3:46 PM ADDENDUM END XR knee LT 1 or 2V routine CLINICAL HISTORY: Ulceration, ?osteo COMPARISON: Left femur radiographs June 05, 2014. FINDINGS: Irregular and postoperative findings within the left medial femoral condyle are unchanged since exam of June 05, 2014. There is no evidence for a left knee joint effusion. Extensive vascular calcification is noted. Note is made of a left below knee amputation. There is periosteal reaction along the distal remaining portions of the left tibia and fibula. No acute fracture is identified. IMPRESSION: Status post left below knee amputation. No definitive bony destruction however periosteal reaction of the distal remaining portions of the left tibia and fibula is a nonspecific finding which can be seen in the setting of osteomyelitis. ACT 112: Negative or not required by law. Electronically signed by: Severiano Villanueva M.D. 04/15/2020 3:43 PM Dictated: 04/15/20 1538Transcribed: 04/15/20 1538 [facility], [id number] Ultrasound Report Patient: Mahamed ROMERO Date: 04/14/20#: [id number]: [address] [place] [address]Acct ID:[id number]: Date: [address] Zip: [place], [place] [address]Mtn: 60Location: 2SSex: MRoom/Bed: [id number] Phy: Benja Marline MDDiagnosis: HyperglycemiaPri Phy: Vipin La, III, MDService Date: 04/14/20Fam Phy:Interpreting Phy: Severiano Villanueva MDAdmit Phy: Jurgen Martinez DO Ordering Phy: Johana Kilgore MD cc: ~ RENAL ULTRASOUND CLINICAL HISTORY: Acute kidney injury. COMPARISON STUDY: CT of the abdomen and pelvis September 13, 2011. TECHNIQUE: Sonography of the kidneys and the urinary bladder was performed. FINDINGS: The right kidney measures 12.8 x 5.8 x 7 cm and the left measures 12.4 x 7.6 x 4.5 cm. There is moderate renal cortical thinning of both kidneys. There is no hydronephrosis. No urinary calculi are identified. Bladder is suboptimally assessed. The bladder is collapsed containing a Pal catheter. IMPRESSION: 1. No hydronephrosis. 2. Moderate bilateral renal cortical thinning. ACT 112: Negative or not required by law. Electronically signed by: Severiano Villanueva M.D. 04/15/2020 7:18 AM Dictated: 04/15/20715Transcribed: 04/15/20 0716 [facility], [id number] XRay Report Patient: Mahamed ROMERO Date: 04/14/20MR#: [id number]: [address] [place] [address]Acct ID:[id number]: Date: 1960 Zip: [place], [place] [address]Ili: 60Location: EDSex: MRoom/Bed:Att Phy:Diagnosis: HyperglycemiaPri Phy: Bessie Vipin A., III, MDService Date: 04/14/20Fam Phy:Interpreting Phy: Yovani BayAdmit Phy: Ordering Phy: Rodrick Cope DO cc: ~ XR tibia fibula RT 2V HISTORY: 60 years-old Male wound ?oseto chronic wound of the right lower leg with clinical concern for osteomyelitis COMPARISON: None TECHNIQUE: 2 views of the right tibia and fibula FINDINGS: Postoperative changes of nvode-fls-rmcm amputation. Demineralized appearance of the bones. Mild to moderate patellofemoral with mild medial and lateral compartment osteoarthritis. There is a questioned osteochondral defect with unstable fragment measuring 7 mm involving the lateral aspect of the medial femoral condyle. Arterial calcifications. Soft tissue ulceration at the amputation stump is noted with moderate diffuse soft tissue swelling. Cortical and periosteal thickening with mild cortical irregularity is noted at the tibial stump. No definite acute osseous erosions identified. Indeterminate round lucency involves the anterior cortex of the distal tibia. IMPRESSION: 1. Postoperative changes of below the knee amputation with diffuse soft tissue swelling and soft tissue ulceration at the distal amputation stump. 2. Cortical and periosteal thickening with cortical irregularity involves the distal tibia which may reflect sequela of chronic osteomyelitis. No definite osseous erosions to suggest acute osteomyelitis. ACT 112: Negative or not required by law. The above report was generated using voice recognition software. It may contain grammatical, syntax or spelling errors. Electronically signed by: Javi Bay M.D. 04/14/2020 2:18 PM Dictated: 04/14/20 1414Transcribed: 04/14/20 1414 -- [facility], [id number] XRay Report Patient: JOELLE ROMEROAdmit Date: 04/14/20#: [id number]: [address] [place] [address]Acct ID:[id number]: Date: 1960City Zip: [place], [place] [address]Dgj: 60Location: EDSex: MRoom/Bed:Att Phy:Diagnosis: HyperglycemiaPri Phy: Vipin LaEnrique, III, MDService Date: 04/14/20Fam Phy:Interpreting Phy: Javier Wang MDAdmit Phy: Ordering Phy: Rodrick Cope, cc: ~ XR chest 1V portable HISTORY: cough COMPARISON: Chest 09/12/2011. FINDINGS: No pneumothorax. No pleural effusions. The heart is normal in size. There are low lung volumes. Poststernotomy changes. A few bibasilar linear densities favor subsegmental atelectasis or scarring. Otherwise, no new focal lung consolidations to suggest pneumonia. Mild diffuse interstitial thickening, unchanged. This is likely chronic. IMPRESSION: A few bibasilar linear densities favor subsegmental atelectasis or scarring. Otherwise, no new focal lung consolidations to suggest pneumonia. ACT 112: Negative or not required by law. Electronically signed by: Javier Wang M.D. 04/14/2020 2:16 PM Dictated: 04/14/20 1412Transcribed: 04/14/20 141 Diabetes Follow up Diabetes Follow-up Needed for HgbA1c >9% Hospital Course (1) Post-operative state: (2) Stage 4 chronic kidney disease due to arterionephrosclerosis: (3) Fungemia: (4) Osteomyelitis: (5) Ischemic cardiomyopathy: (6) Hx of CABG: (7) Current smoker: (8) S/P bilateral BKA (below knee amputation): (9) Pressure-induced deep tissue damage of unspecified buttock: (10) Demand ischemia: (11) DKA (diabetic ketoacidoses): The patient is a 60-year-old uncontrolled diabetic smoker with coronary disease status post bilateral lower extremity amputation who presented to the hospital in diabetic ketoacidosis. He recently moved to the [facility] from [place] and had been self administering insulin incorrectly for the prior 2 weeks. Insulin was administered and his acidosis resolved. Lab work was notable for acute renal failure with an uncertain baseline. This was thought to be exacerbated related to volume depletion in the setting of DKA and nephrology was consulted. After resuscitations were ineffective and temporizing measures such as bicarb and diuretics were not complete and resolving the issue, he was placed on hemodialysis. The vascular surgeon placed a tunneled dialysis catheter in his right anterior chest on 04/17 and dialysis was started 04/18. He was stabilized and continued to do well. An additional issue was his right residual limb which had a wound present with drainage. An MRI revealed evidence of osteomyelitis and infectious disease was consulted. The initial wound culture revealed group beta strep and yeast. Yeast was also present in the blood. The patient was placed on caspofungin and cefazolin and orthopedics was consulted. A washout of this limb was performed by orthopedics on 04/26 with an incision and drainage of a deep abscess that was cultured. Culture results of this abscess revealed MRSA and yeast. Infectious disease recommended switching to daptomycin for total of 6 weeks (completed one week during the hospitalization) and continuing caspofungin for 2 weeks since the time of surgery. After two weeks on caspofungin it was 05/01 and this dropped off her MA R. It was restarted again with a reload of 70mg on 05/05, and he will continue on this for another 14 days, 50mg IV daily. The patient continued to heal and he experienced an uncomplicated postoperative state. At time of discharge she was hemodynamically stable and afebrile and tolerating p.o. He was mentating at baseline and oxygenating well on room air. His stage III/IV wound on his sacral ulcer had healed significantly and the initial ecchymosis that was present had also resolved. He will need to continue further outpatient treatment of this when he establishes care with a new primary care provider in [place]. He is being transferred to a assisted facility temporarily with his insulin- dependent diabetes is uncontrolled, his PICC line in place with intravenous antibiotics and his recent revision of his right residual limb in the context of bilateral amputation. He is considering permanently moving to the [place] area and will need a nephrology follow-up. He was able to stop dialysis while in the hospital and his dialysis catheter was removed on 05/01. He will need weekly blood work while on daptomycin which should be followed by the physician onsite at the assisted [facility] and if any questions arise, this should be discussed with [facility] infectious disease who saw the patient via telehealth consult while he was at [facility]. 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 Postop state status post right below the knee amputation stump revision and incision and drainage of deep abscess on 04/26 Acute renal failure status post hemodialysis, temporary with tunneled dialysis catheter placed on 04/17, removed on 05/01 Fungemia Osteomyelitis of distal right residual limb Ischemic cardiomyopathy History of CABG Current smoker Pressure induced deep tissue damage of unspecificed buttock, stage III-IV Demand ischemia Type 2 diabetes mellitus, insulin-dependent and uncontrolled with complications Activity: Resume your previous activity Non-emergency contact: Primary Care Provider Call non-emergency contact if: you have any medication questions, your symptoms worsen, your pain is not controlled, your pain is worsening, your pain is unusual for you, your pain is concerning for you, you have a fever, your wound has increased redness, your wound has increased drainage and your wound pain has increased Follow-up/Referrals: Vipin La III, MD [Primary Care Provider] - Diet: Carb Consistent or DM2 Addtl Attending Provider Instructions: Please take all medications as instructed on discharge as below. You will need weekly blood work to be monitored by the physician onsite at the receiving facility until you can establish care with a new local primary care physician. Weekly lab work includes a weekly creatinine kinase, CBC, BMP while still on antibiotics. Please hold taking any statin drugs (Lipitor) or fibrate medications while on daptomycin. Please contact [facility] with any questions or concerns It is strongly recommended that you establish care with nephrology and the local [place] area for follow-up after recent hospitalization and temporary dialysis. At this time no further dialysis is needed and your temporary dialysis catheter has been removed. It is recommended that you establish care with a primary care provider and follow-up with them in 1 to 2 weeks post discharge to ensure you are still doing well, to perform appropriate medication reconciliation and review of your multiple medical problems. Please follow-up with orthopedics as instructed for postop wound checks. Please continue local wound care at receiving facility per wound care nurse instructions below. It was a pleasure taking care of you! Please call if you have any questions or problems. You can reach a [facility] on duty at [facility] 24 hours a day by calling [phone]. Take care of yourself. DO Luis [facility] Pending Studies at Discharge: No Stand-Alone Forms: My [facility] Skilled Items Patient informed of condition?: Yes DNR: Yes Discharge Level of Care: Skilled Communicable Disease: No Discharge Prognosis: Stable Lines: PICC Urinary Catheter: No Medications and DC Order Prescriptions: New isosorbide mononitrate 30 mg Tablet Extended Release 24 Hr 30 mg PO QAM Qty: 30 RF: 0 metoprolol succinate 25 mg Tablet Extended Release 24 Hr 25 mg PO QAM Qty: 30 RF: 0 Novolin N NPH U-100 Insulin 100 unit/mL Suspension 25 unit SC QDB Qty: 10 RF: 0 Lantus Solostar U-100 Insulin 100 unit/mL (3 mL) Insulin Pen 10 unit subcut QPM Qty: 3 RF: 0 caspofungin 50 mg recon soln 50 mg IV DAILY Qty: 1 RF: 0 daptomycin 350 mg recon soln 400 mg IV DAILY Qty: 1 RF: 0 Continued amlodipine 10 mg Tablet 10 mg PO DAILY RF: 0 artificial tear([id number]) 1 drp OPB QID PRN (Reason: Dry Eyes) RF: 0 aspirin 81 mg Tablet 81 mg PO DAILY RF: 0 Entresto 49-51 mg Tablet 1 tab PO BID RF: 0 Discontinued atorvastatin [Lipitor] 40 mg Tablet 40 mg PO DAILY RF: 0 insulin detemir U-100 100 unit/mL Solution 30 unit SUBCUT DAILY RF: 0 fenofibrate nanocrystallized 145 mg Tablet 145 mg PO DAILY RF: 0 Discharge Orders: Discharge Order (Routine); Ordered 05/05/20 Ordered By: Pallavi Maddox/Other Patient Handouts: High Blood Sugar (Hyperglycemia), Managing Type 2 Diabetes Admission Data Admit Date/Time: 04/14/20 17:20 Attending Provider: Pallavi Sparks Admit Provider: Jurgen Landeros Primary Care Provider: Vipin La III Other Providers: [facility] ; Pallavi Sparks ; [place], ; Emily Valadez. ; Johana Kilgore ; Judd Olson ; Bobby Harris ; Vladimir Cantu ; Ritchie Segura ; Alcira Perales ; Jame Poe I. ; Mesfin Roberson II ; Nely Yang ; Anthony Anderson ; Kyrie Doyle ; Alicia Liang ; Shayna Abdi ; Trish Hartley ; Winston Harris ; Marlene Lopez ; Adriana George ; Joe Valle ; Otilio Pro ; Cary Anthony ; Nydia Rice ; Lani Escalona ; Gabrielle Floyd ; Mary Fernandes
[2020-05-05] MEDS ORDERED: CASPOFUNGIN 70 MG in SODIUM CHLORIDE 0.9% 250 ML IV STA (10:50)
--- NOTE | 2020-05-12 12:03 | Coding Query ---
CODING QUERY To promote full compliance with coding requirements relating to patient care, provider participation is requested in all cases of big data developer uncertainty. Please assist us with the question(s) below: Coding Question(s): 1. There is documentation of Deep Abscess as well as Osteomyelitis with revision of Right Below Knee Amputation in patient with documented Diabetes. Please specify below, in your clinical opinion, regarding Deep Abscess and Osteomyelitis. 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 Type 2 UT due to demand ischemia and DKA is documented thru Progress Note 05/04 and then Discharge Summary says Demand Ischemia with no mention of Type 2 UT. Please specify below, in your clinical opinion, regarding Type 2 UT. ( ) Type 2 UT due to demand ischemia and DKA ( X ) Demand Ischemia only - Type 2 UT is Ruled-Out ( ) Other: Please Specify 3. There is Acute Kidney Injury documented throughout the record with some Progress Notes, like PN 04/18 documenting in addendum Acute Kidney Injury with ATN then additional addendum documenting Diagnosis correction to disregard with ATN, then Nephrology Progress Notes on 05/02 & 05/03 document Acute Kidney Failure with Tubular Necrosis. Please clarify below, in your clinical opinion, due to Nephrology documentation. ( X ) Acute Kidney Failure/Injury with ATN ( ) Acute Kidney Failure/Injury without ATN - NO ATN ( ) Other: Please Specify: Physician's Response(s): Thank you Viviana Light Principal Diagnosis: "that condition established after study, to be chiefly responsible for occasioning the admission of the patient to the hospital for care." Co-Existing Principal Diagnosis: "when two or more diagnoses equally meet the criteria for principal diagnosis as determined by the circumstances of admission, diagnostic work up, and/or therapy provided, and the Alphabetic Index, Tabular List, or another coding guideline does not provide sequencing direction, any one of the diagnoses may be sequenced first." "When the physician has documented what appears to be a current diagnosis in the body of the record, but has not included the diagnosis in the final diagnostic statement, the physician should be asked whether the diagnosis should be added." ([facility] 2 QTR90. p3-4) SEVEN
--- NOTE | 2020-05-15 12:58 | Coding Query ---
CODING QUERY To promote full compliance with coding requirements relating to patient care, provider participation is requested in all cases of river and lakes boatman uncertainty. Please assist us with the question(s) below: Coding Question(s): There is documentation of Deep Abscess as well as Osteomyelitis with revision of Right Below Knee Amputation in patient with documented Diabetes. Please specify below, in your clinical opinion, regarding Deep Abscess and Osteomyelitis. 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 ( X ) Likely Etiology is Other: Please Specify_overuse of prosthetic device with formation of deep abscess and osteomyelitis *Please also specify regarding the POA (Present on Admission) status of the Right Lower Extremity Abscess (documentation begins on Op Report 04/26): (X ) Likely Present on Admission ( ) Not Present on Admission ( ) Unknown if Present on Admission *Regarding Osteomyelitis, please specify the etiology, in your clinical opinion: ( X) 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 ( ) 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 (X ) Likely etiology is Other: Please Specify: overuse of prosthetic device with formation of deep abscess and osteomyelitis ( ) Likely etiology is Unknown and Not Diabetes related Physician's Response(s): Thank you Viviana Light Principal Diagnosis: "that condition established after study, to be chiefly responsible for occasioning the admission of the patient to the hospital for care." Co-Existing Principal Diagnosis: "when two or more diagnoses equally meet the criteria for principal diagnosis as determined by the circumstances of admission, diagnostic work up, and/or therapy provided, and the Alphabetic Index, Tabular List, or another coding guideline does not provide sequencing direction, any one of the diagnoses may be sequenced first." "When the physician has documented what appears to be a current diagnosis in the body of the record, but has not included the diagnosis in the final diagnostic statement, the physician should be asked whether the diagnosis should be added." ([facility] 2 QTR90. p3-4) SEVEN
== END 2020-05-05 13:55 | DRG 616 ==
LOC: ED 12:51 → SUATTDRO 17:20 → 2S 17:20 → 2W 04-17 15:08 → 3W 04-19 23:01